=== PATIENT | female | born 1940 | race Caucasian/White ===

== ENCOUNTER → 2018-03-20 09:45 | Outpatient (CLI) | payer MEDICARE, SELFPAY | PROVIDERS: PCP Family Medicine; Visit Provider Orthopaedic Surgery | DX: M17.11 Unilateral primary osteoarthritis, right knee (principal); M25.461 Effusion, right knee | CPT/HCPCS: 20610; 99214; J1040 ==

== ENCOUNTER → 2018-03-22 02:51 | Outpatient (CLI) | payer MEDICARE, SELFPAY ==
[2018-03-22 14:49] LABS: Hemoglobin A1C 9.2 % (4.5-6.2)
[2018-03-22 17:19] LABS: ALT 24 U/L (12-78); AST 15 U/L (15-37); Albumin 4.1 g/dL (3.4-5.0); Alkaline Phosphatase 64 U/L (46-116); Anion Gap 12.3 mmol/L (3-11); BUN 47 mg/dL (7-18); Bilirubin, Total 0.3 mg/dL (0.2-1.0); CO2 23.7 mmol/L (21.0-32.0); Calcium 9.1 mg/dL (8.5-10.1); Chloride 98 mmol/L (98-107); Estimated GFR 31.34 (mL/min/1.73m2); Glucose 321 mg/dL (70-100); Potassium 5.2 mmol/L (3.5-5.1); Sodium 134 mmol/L (136-145); Total Protein 7.4 g/dL (6.4-8.2)
== END ==
PROVIDERS: PCP Family Medicine; Visit Provider Family Medicine
DX: E11.9 Type 2 diabetes mellitus without complications (principal); I10 Essential (primary) hypertension; E78.00 Pure hypercholesterolemia, unspecified; R53.83 Other fatigue
CPT/HCPCS: 36415; 80053; 82043; 82570; 83036

== ENCOUNTER → 2018-03-26 14:57 | Outpatient (REF) | payer MEDICARE, SELFPAY ==
[2018-03-26 15:25] LABS: COMMENT (LAB VIEW ONLY) 30.83 mg/dL
== END ==
LOC: LBN 14:57
PROVIDERS: PCP Family Medicine; Visit Provider Family Medicine
DX: E11.9 Type 2 diabetes mellitus without complications (principal); I10 Essential (primary) hypertension; E78.00 Pure hypercholesterolemia, unspecified; R53.83 Other fatigue
CPT/HCPCS: 82043; 82570

== ENCOUNTER → 2018-03-30 03:12 | Outpatient (CLI) | payer MEDICARE, SELFPAY ==
[2018-03-30 12:43] LABS: Abs Immature Grans 0.02 k/cumm (0.0-0.09); Absolute Basophil Count 0.04 k/cumm (0.0-0.2); Absolute Lymphocyte Count 1.35 k/cumm (1.2-3.4); Absolute Monocyte Count 0.47 k/cumm (0.11-0.7); Absolute Neutrophil Count 6.16 k/cumm (1.2-6.7); Basophils % 0.5; Eosinophils % 4.7; HCT 38.2 % (36.0-46.0); HGB 12.3 g/dL (12.0-15.5); Immature Grans % 0.2; Mean Corp. HGB Concentration 32.2 g/dL (32.0-36.0); Mean Corpuscular Volume 93.2 fL (80-95); Mean Platelet Volume 10.3 fL (8.0-11.0); Monocytes % 5.6; Platelet Count 280 x1000/uL (130-400); RBC Distribution Width 12.2 % (11.7-14.6); White Blood Cell Count 8.44 k/cumm (4.4-10.8)
[2018-03-30 13:16] LABS: ALT 26 U/L (12-78); AST 19 U/L (15-37); Albumin 3.9 g/dL (3.4-5.0); Alkaline Phosphatase 68 U/L (46-116); Anion Gap 8.2 mmol/L (3-11); BUN 40 mg/dL (7-18); Bilirubin, Total 0.4 mg/dL (0.2-1.0); CO2 26.8 mmol/L (21.0-32.0); CREATININE 1.41 mg/dL (0.55-1.02); Chloride 100 mmol/L (98-107); Estimated GFR 36.26 (mL/min/1.73m2); Glucose 256 mg/dL (70-100); Potassium 4.9 mmol/L (3.5-5.1); Sodium 135 mmol/L (136-145); Total Protein 7.3 g/dL (6.4-8.2)
== END ==
PROVIDERS: PCP Family Medicine; Visit Provider Family Medicine
DX: D64.9 Anemia, unspecified (principal); I10 Essential (primary) hypertension; N28.9 Disorder of kidney and ureter, unspecified
CPT/HCPCS: 36415; 80053; 85025

== ENCOUNTER → 2018-04-03 13:22 | Outpatient (CLI) | payer MEDICARE, SELFPAY ==
--- NOTE | 2018-04-03 13:00 | DIABASSESS_ITS ---
DESCRIPTION/ASSESSMENT: Osiris presents for diabetes support focused on lifestyle changes. She has had an increase in A1c to 9.2. Food Guidelines - Osiris admits to overeating over the past several months. She was feeling chronically hungry and recognizes her stress eating behaviors. She currently has cut back on her portions and snacking. She eats cereal, milk, banana or egg/toast. She has meat/cheese rollup for lunch, or yogurt. She has 3 oz meat for supper with vegetables. She has milk with each meal. She is drinking unsweetened iced tea and water. She feels good about the food changes she has made. She denies increased hunger. Physical Activity - She swims twice a week and does aerobics twice a week. She is physically active at home. She states she has pain from arthritis and bursitis but wishes to begin walking again. Medication - she has started Glipizide. Monitoring - fasting blood sugars have decreased from 368-155 this AM. Coping - she admits to high stress which is getting better. She has good social and family support. INTERVENTION: MNT is provided based on patients interest: Food: Reviewed diabetes food guide with focus on decreasing higher glycemic index foods. Discussed variety and snack ideas. Introduced mindful eating concepts given her stress eating response. Monitoring: Discussed testing blood sugar with an occasional test before bed or at another time of the day to assess current food patterns impact on blood sugar. Risks: Discussed potential for hypoglycemia with current medication and she is given hypoglycemia treatment handout. Discussed foot care briefly. ACTION PLAN: Osiris will decrease grains at breakfast especially. She will eat normal portions and wait for hunger to snack on her healthy snacks. She is receptive to the information and engaged in the conversation. We will be in touch by telephone for follow-up.
== END ==
PROVIDERS: PCP Family Medicine; Visit Provider Dietitian, Registered
DX: E11.9 Type 2 diabetes mellitus without complications (principal); Z71.3 Dietary counseling and surveillance
CPT/HCPCS: 97802

== ENCOUNTER 2018-04-30 10:50 | Emergency (ER) | payer MEDICARE, SELFPAY ==
[2018-04-30] VITALS (22 sets, daily range): BP systolic 121–162; BP diastolic 61–86; PULSE 65–129; RESP 7–39; TEMP 36.7–37.1; O2SAT 96–99
--- NOTE | 2018-04-30 11:02 | W.ED.GENAD ---
Discharge Plan Disposition Patient Disposition: HOME Condition: Stable Discharge Details Chief Complaint: Palpitatns Clinical Impression: Atrial fibrillation, Incidental pulmonary nodule, > 3mm and < 8mm Primary Care Provider: Ijeoma Najera ED Provider: Kellie Hay Home Meds and New Rx's Prescriptions: New apixaban [Eliquis] 5 mg tablet 5 mg PO BID Qty: 60 RF: 0 Continue multivitamin [Once Daily] 1 EACH tablet 1 tab PO DAILY RF: 0 ascorbic acid (vitamin C) 1,000 MG tablet 1,000 mg PO DAILY RF: 0 omeprazole 20 MG tablet,delayed release (DR/EC) 20 mg PO DAILY Qty: 90 RF: 12 dicyclomine [Bentyl] 10 MG capsule 10 mg PO BID PRNQty: 60 RF: 2 acetaminophen 500 MG tablet 500 mg PO TID PRNRF: 0 conjugated estrogens [Premarin] 30 GM cream 30 gm VG twice weekly Qty: 1 RF: 3 clotrimazole-betamethasone [Lotrisone] 15 GM cream 15 gm Topical BID Qty: 1 RF: 2 spironolactone 25 MG tablet 25 mg PO BID Qty: 180 RF: 12 atorvastatin [Lipitor] 40 MG tablet 40 mg PO DAILY Qty: 90 RF: 4 amlodipine 5 MG tablet 5 mg PO DAILY Qty: 90 RF: 12 losartan-hydrochlorothiazide [Hyzaar] 1 EACH tablet 1 tab-cap PO DAILY Qty: 90 RF: 4 glipizide 5 MG tablet extended release 24hr 5 mg PO DAILY Qty: 90 RF: 11 loratadine 10 MG tablet 10 mg PO DAILY RF: 0 Discontinued aspirin [Ecotrin Low Strength] 81 MG tablet,delayed release (DR/EC) 81 mg PO DAILY RF: 0 ibuprofen 200 MG tablet 400 mg PO TID RF: 0 Discharge Instructions Instructions: Atrial Fibrillation (ED), Holter Monitoring (ED) Additional Instructions: Please return immediately to the emergency department if you develop any new or worsening symptoms or if you become otherwise concerned. It is extremely important that you make an appointment to be seen by your primary care doctor and also by cardiology within the next 1-2 weeks in follow-up for this visit. Referrals: Ijeoma Najera MD, [place] [Primary Care Provider] - Herman Figueroa MD [ NON-[facility] STAFF PHYSICIAN] - Medical Decision Making Osiris Wilson is a 77 y/o woman with hypertension, hyperlipidemia, iob-[id number] diabetes who presented to the emergency department with episode of palpitations and lightheadedness morning. On exam she is well and nontoxic appearing. Her heart rate is tachycardic and irregularly irregular. On the rhythm strip patient initially in a flutter with a rate in the 80s, transiently went into A. fib with a rate in 160s and patient did not notice any symptoms at that time. This lasted for approximately 10 minutes, and rhythm converted spontaneously back to a flutter with a rate below 100. Concern for likely arrhythmia as etiology of symptoms this morning versus ACS versus metabolic/slight derangement versus other. Plan for EKG, chest x-ray, screening labs, IV fluid hydration, telemetry. Will monitor and reassess. I discussed patient presentation results with Dr. Figueroa of cardiology, who requested start on 5 mg of Eliquis twice daily and stop aspirin, zio patch, and begin metoprolol 25 mg twice daily, will see patient in follow-up this week. Patient now in sinus rhythm on rhythm strip. D-dimer positive. With no other inciting factor apparent at this time, plan for CT chest for further evaluation. Ct shows small pulm nodules, no PE. Repeat EKG shows NSR 63. I have significant concerns about starting patient on rate control medications at this time given heart rate now consistently 60-64. Will start Eliquis and hold rate control medications at this time. Patient placed on list for cardiology follow-up within 48 hours. Lengthy discussion with patient regarding return to emergency department precautions, anti-coagulation precautions, pulmonary nodules on CT and importance of outpatient follow-up with PCP and cardiology. Patient is amenable to the plan. Medical Records Medical records reviewed: Yes I reviewed the patient's medical records. Imaging Data Radiologic Study: Attestation: I personally reviewed and interpreted this imaging study as follows: Radiologist's impression: PA AND LATERAL CHEST: Comparison 05/30/12. The heart is normal in size. The lungs are clear. The mediastinal structures and pleura appear intact. CONCLUSION: Normal chest. CT chest per radiology: No pulmonary embolism identified, 5 mm and 4 mm pulmonary nodules right middle lobe Lab Data Lab results reviewed: Yes I reviewed the patient's lab results. 04/30/18 12:15 Urine - Reflex from Ua Urine Culture - Pending Laboratory Tests Range/Units 04/30/18 04/30/18 04/30/18 11:15 11:15 11:15 WBC (4.4-10.8) k/cumm 7.55 RBC (4.00-5.20) m/cumm 4.07 Hgb (12.0-15.5) g/dL 12.8 Hct (36.0-46.0) % 38.1 MCV (80-95) fL 93.6 MCH (27.0-33.0) pg 31.4 MCHC (32.0-36.0) g/dL 33.6 RDW (11.7-14.6) % 12.9 Plt Count (130-400) x1000/uL 290 MPV (8.0-11.0) fL 10.2 Immature Gran % 0.3 Neutrophils % 67.3 Lymphocytes % 15.6 Monocytes % 5.3 Eosinophils % 10.7 Basophils % 0.8 Absolute Neutrophils (1.2-6.7) k/cumm 5.08 Absolute Lymphocytes (1.2-3.4) k/cumm 1.18 L Absolute Monocytes (0.11-0.7) k/cumm 0.40 Absolute Eosinophils (0.0-0.7) k/cumm 0.81 H Absolute Basophils (0.0-0.2) k/cumm 0.06 D-Dimer (<500) ng/mlFEU 824 H Sodium (136-145) mmol/L 139 Potassium (3.5-5.1) mmol/L 4.3 Chloride (98-107) mmol/L 101 Carbon Dioxide (21.0-32.0) mmol/L 23.8 Anion Gap (3-11) mmol/L 14.2 H BUN (7-18) mg/dL 33 H Creatinine (0.55-1.02) mg/dL 1.26 H Estimated GFR/1.73 m2 (mL/min/1.73m2) 41.29 Glucose (70-100) mg/dL 169 H Calcium (8.5-10.1) mg/dL 9.4 Total Bilirubin (0.2-1.0) mg/dL 0.3 AST (15-37) U/L 19 ALT (12-78) U/L 29 Alkaline Phosphatase (46-116) U/L 53 Troponin I (0.00-0.06) ng/mL < 0.02 Total Protein (6.4-8.2) g/dL 7.5 Albumin (3.4-5.0) g/dL 3.9 Urine Color (Yellow) Urine Clarity Urine pH (5-8) Ur Specific [place] (1.005-1.025) Urine Protein (Negative) mg/dL Urine Ketones (Negative) mg/dL Urine Blood (Negative) Urine Nitrite (Negative) Urine Bilirubin (Negative) Urine Urobilinogen (Up TO 0.2) EU/dL Ur Leukocyte Esterase (Negative) Urine RBC (0-2) Urine WBC (0-5) HPF Ur Epithelial Cells (Negative) HPF Urine Crystals (Negative) HPF Urine Bacteria (Negative) HPF Urine Casts (Negative) LPF Urine Mucus (Negative) Ur Culture Indicated? Urine Glucose (Negative) mg/dL Range/Units 04/30/18 04/30/18 12:15 16:38 WBC (4.4-10.8) k/cumm RBC (4.00-5.20) m/cumm Hgb (12.0-15.5) g/dL Hct (36.0-46.0) % MCV (80-95) fL MCH (27.0-33.0) pg MCHC (32.0-36.0) g/dL RDW (11.7-14.6) % Plt Count (130-400) x1000/uL MPV (8.0-11.0) fL Immature Gran % Neutrophils % Lymphocytes % Monocytes % Eosinophils % Basophils % Absolute Neutrophils (1.2-6.7) k/cumm Absolute Lymphocytes (1.2-3.4) k/cumm Absolute Monocytes (0.11-0.7) k/cumm Absolute Eosinophils (0.0-0.7) k/cumm Absolute Basophils (0.0-0.2) k/cumm D-Dimer (<500) ng/mlFEU Sodium (136-145) mmol/L Potassium (3.5-5.1) mmol/L Chloride (98-107) mmol/L Carbon Dioxide (21.0-32.0) mmol/L Anion Gap (3-11) mmol/L BUN (7-18) mg/dL Creatinine (0.55-1.02) mg/dL Estimated GFR/1.73 m2 (mL/min/1.73m2) Glucose (70-100) mg/dL Calcium (8.5-10.1) mg/dL Total Bilirubin (0.2-1.0) mg/dL AST (15-37) U/L ALT (12-78) U/L Alkaline Phosphatase (46-116) U/L Troponin I (0.00-0.06) ng/mL < 0.02 Total Protein (6.4-8.2) g/dL Albumin (3.4-5.0) g/dL Urine Color (Yellow) Yellow Urine Clarity Clear Urine pH (5-8) 7.0 Ur Specific [place] (1.005-1.025) 1.015 Urine Protein (Negative) mg/dL Negative Urine Ketones (Negative) mg/dL Negative Urine Blood (Negative) Trace-intact H Urine Nitrite (Negative) Negative Urine Bilirubin (Negative) Negative Urine Urobilinogen (Up TO 0.2) EU/dL 0.2 Ur Leukocyte Esterase (Negative) Trace H Urine RBC (0-2) 0-2 Urine WBC (0-5) HPF 5-10 Ur Epithelial Cells (Negative) HPF Rare Urine Crystals (Negative) HPF Negative Urine Bacteria (Negative) HPF Moderate Urine Casts (Negative) LPF Negative Urine Mucus (Negative) Negative Ur Culture Indicated? Yes Urine Glucose (Negative) mg/dL Negative ECG Data Attestation: I personally reviewed and interpreted this ECG (s) as follows: Interpretation: EKG shows atrial flutter with variable response at 119, normal axis, diffuse ST depression, no STEMI EKG #2 shows NSR at 63 with nl axis, septal q waves, no acute ischemic changes, no WPW, no burgada, no long QT, no STEMI HPI General Mode of arrival: ambulatory. Date/Time Provider Initiated Documentation: 04/30/18 11:02. Limitations to Documentation: no limitations. Information obtained by: patient, RN notes reviewed and old records reviewed. HPI Narrative: Osiris Wilson is a 77-year-old womanwith a history of [id number] diabetes, hypertension, hyperlipidemia presenting to the emergency department with a feeling of being lightheaded with palpitations that began this morning at 930. Patient reports that she was helping her when she began to feel that she would pass out. She also noticed that her heart seemed to be racing. Patient reports that symptoms have been waxing and waning since onset. She reports that she may have had similar symptoms in the past, but she is unsure for how long symptoms lasted. Patient in and out of A. fib on rhythm strip, and does not always sense when she is in a fib with rapid rate in the 160s. This resolves spontaneously and converts to apparent a flutter with a rate below 100. Patient denies having any pain at any time, shortness of breath, cough, fever, nausea/vomiting/diarrhea, focal weakness, numbness or tingling. She has been eating and drinking normally. 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 She does not drink, has not smoked for greater than 50 years. No recent travel. Related Data Home Medications Medication Instructions Recorded Confirmed ascorbic acid (vitamin C) 1,000 mg PO DAILY 12/28/12 04/30/18 multivitamin [Once Daily] 1 tab PO DAILY 12/28/12 04/30/18 omeprazole 20 mg PO DAILY #90 tab 01/07/14 04/30/18 loratadine 10 mg PO DAILY 08/24/16 04/30/18 dicyclomine [Bentyl] 10 mg PO BID PRN #60 tab-cap 12/01/16 04/30/18 acetaminophen 500 mg PO TID PRN 04/11/17 04/30/18 conjugated estrogens [Premarin] 30 gm VG twice weekly #1 tube 04/25/17 04/30/18 clotrimazole-betamethasone 15 gm TOPICAL BID #1 tube 10/27/17 04/30/18 [Lotrisone] spironolactone 25 mg PO BID #180 tab-cap 11/09/17 04/30/18 amlodipine 5 mg PO DAILY #90 tab-cap 12/07/17 04/30/18 atorvastatin [Lipitor] 40 mg PO DAILY #90 tab-cap 12/07/17 04/30/18 losartan-hydrochlorothiazide 1 tab-cap PO DAILY #90 tab-cap 12/07/17 04/30/18 [Hyzaar] glipizide 5 mg PO DAILY #90 tab-cap 03/30/18 04/30/18 apixaban [Eliquis] 5 mg PO BID #60 tab 04/30/18 Previous Rx's Medication Instructions Recorded conjugated estrogens [Premarin] 30 gm VG twice weekly #1 tube 04/25/17 clotrimazole-betamethasone 15 gm TOPICAL BID #1 tube 10/27/17 [Lotrisone] spironolactone 25 mg PO BID #180 tab-cap 11/09/17 amlodipine 5 mg PO DAILY #90 tab-cap 12/07/17 atorvastatin [Lipitor] 40 mg PO DAILY #90 tab-cap 12/07/17 losartan-hydrochlorothiazide 1 tab-cap PO DAILY #90 tab-cap 12/07/17 [Hyzaar] glipizide 5 mg PO DAILY #90 tab-cap 03/30/18 apixaban [Eliquis] 5 mg PO BID #60 tab 04/30/18 Allergies Allergy/AdvReac Type Severity Reaction Status Date / Time Penicillins Allergy CHILDHOOD Unverified 04/30/18 11:21 clonidine AdvReac Unverified 04/30/18 11:21 gabapentin AdvReac Unverified 04/30/18 11:21 lisinopril AdvReac COUGH Unverified 04/30/18 11:21 morphine AdvReac VOMITING/DI Unverified 04/30/18 11:21 ARRHEA oxycodone HCl [From Percocet] AdvReac VOMITING/NA Unverified 04/30/18 11:21 USEA terazosin [From Hytrin] AdvReac Unverified 04/30/18 11:21 Review of Systems Review of Systems Constitutional: denies fevers Eyes: denies eye pain ENT: denies facial pain, dental pain, sore throat Cardiovascular: denies chest pain, edema, reports palpitation Respiratory: denies SOB, cough GI: denies abdominal pain, vomiting, diarrhea : denies flank pain MSK: denies back pain, neck pain, arthralgias, myalgias Skin: denies rash Neuro: denies headaches, weakness, reports lightheadedness PFSH Family History Mother Essential hypertension Personal history of malignant neoplasm Asthma Father Cerebrovascular accident Social History Smoking/Tobacco Use Status: Former Tobacco Use Surgical History Abdominal hysterectomy (~1997) Appendectomy Bilateral salpingectomy with oophorectomy Biopsy of breast (~1990) section Cholecystectomy DISCECTOMY Extraction of cataract Ligation of fallopian tube (~1997) MOHS Exam Narrative Exam Narrative: Constitutional: well and [id number], pleasant, conversing normally HENT: head atraumatic, normocephalic normal inspection, mucous membranes moist Eyes: conjunctiva normal, sclera normal, pupils 3mm b/l Neck: no stridor, normal ROM, trachea midline Chest: normal inspection Resp: normal work of breathing, LCTAB Cardio: no murmur appreciated, tachycardic, irregularly GI: abdomen soft, non-tender, non-distended Back: normal inspection, no rash Skin: warm, dry, normal color, no rash Neuro: alert, not altered, grossly non-focal, normal tone Ext: no edema Psych: normal mood, normal affect, normal behavior
--- NOTE | 2018-04-30 11:35 | DI.RAD_ITS ---
SYMPTOMS/DIAGNOSIS: NEW AFIB PA AND LATERAL CHEST: Comparison 05/30/12. The heart is normal in size. The lungs are clear. The mediastinal structures and pleura appear intact. CONCLUSION: Normal chest.
[2018-04-30 11:46] LABS: Abs Immature Grans 0.02 k/cumm (0.0-0.09); Absolute Basophil Count 0.06 k/cumm (0.0-0.2); Absolute Eosinophil Count 0.81 k/cumm (0.0-0.7); Absolute Lymphocyte Count 1.18 k/cumm (1.2-3.4); Absolute Neutrophil Count 5.08 k/cumm (1.2-6.7); Basophils % 0.8; Eosinophils % 10.7; HCT 38.1 % (36.0-46.0); HGB 12.8 g/dL (12.0-15.5); Immature Grans % 0.3; Lymphocytes % 15.6; Mean Corp. HGB Concentration 33.6 g/dL (32.0-36.0); Mean Corpuscular Hemoglobin 31.4 pg (27.0-33.0); Mean Corpuscular Volume 93.6 fL (80-95); Mean Platelet Volume 10.2 fL (8.0-11.0); Monocytes % 5.3; Neutrophils % 67.3; Platelet Count 290 x1000/uL (130-400); RBC 4.07 m/cumm (4.00-5.20); RBC Distribution Width 12.9 % (11.7-14.6); White Blood Cell Count 7.55 k/cumm (4.4-10.8)
[2018-04-30 12:06] LABS: ALT 29 U/L (12-78); AST 19 U/L (15-37); Albumin 3.9 g/dL (3.4-5.0); Alkaline Phosphatase 53 U/L (46-116); Anion Gap 14.2 mmol/L (3-11); BUN 33 mg/dL (7-18); Bilirubin, Total 0.3 mg/dL (0.2-1.0); CO2 23.8 mmol/L (21.0-32.0); CREATININE 1.26 mg/dL (0.55-1.02); Calcium 9.4 mg/dL (8.5-10.1); Chloride 101 mmol/L (98-107); Estimated GFR 41.29 (mL/min/1.73m2); Glucose 169 mg/dL (70-100); Potassium 4.3 mmol/L (3.5-5.1); Sodium 139 mmol/L (136-145); Total Protein 7.5 g/dL (6.4-8.2)
[2018-04-30 12:07] LABS: Troponin I < 0.02 ng/mL (0.00-0.06)
--- NOTE | 2018-04-30 12:13 | ED.GENADUL_ITS ---
Discharge Plan Disposition Patient Disposition: HOME Condition: Stable Discharge Details Chief Complaint: Palpitatns Clinical Impression: Atrial fibrillation, Incidental pulmonary nodule, > 3mm and < 8mm Primary Care Provider: Ijeoma Najera ED Provider: Kellie Hay Home Meds and New Rx's Prescriptions: New apixaban [Eliquis] 5 mg tablet 5 mg PO BID Qty: 60 RF: 0 Continue multivitamin [Once Daily] 1 EACH tablet 1 tab PO DAILY RF: 0 ascorbic acid (vitamin C) 1,000 MG tablet 1,000 mg PO DAILY RF: 0 omeprazole 20 MG tablet,delayed release (DR/EC) 20 mg PO DAILY Qty: 90 RF: 12 dicyclomine [Bentyl] 10 MG capsule 10 mg PO BID PRNQty: 60 RF: 2 acetaminophen 500 MG tablet 500 mg PO TID PRNRF: 0 conjugated estrogens [Premarin] 30 GM cream 30 gm VG twice weekly Qty: 1 RF: 3 clotrimazole-betamethasone [Lotrisone] 15 GM cream 15 gm Topical BID Qty: 1 RF: 2 spironolactone 25 MG tablet 25 mg PO BID Qty: 180 RF: 12 atorvastatin [Lipitor] 40 MG tablet 40 mg PO DAILY Qty: 90 RF: 4 amlodipine 5 MG tablet 5 mg PO DAILY Qty: 90 RF: 12 losartan-hydrochlorothiazide [Hyzaar] 1 EACH tablet 1 tab-cap PO DAILY Qty: 90 RF: 4 glipizide 5 MG tablet extended release 24hr 5 mg PO DAILY Qty: 90 RF: 11 loratadine 10 MG tablet 10 mg PO DAILY RF: 0 Discontinued aspirin [Ecotrin Low Strength] 81 MG tablet,delayed release (DR/EC) 81 mg PO DAILY RF: 0 ibuprofen 200 MG tablet 400 mg PO TID RF: 0 Discharge Instructions Instructions: Atrial Fibrillation (ED), Holter Monitoring (ED) Additional Instructions: Please return immediately to the emergency department if you develop any new or worsening symptoms or if you become otherwise concerned. It is extremely important that you make an appointment to be seen by your primary care doctor and also by cardiology within the next 1-2 weeks in follow-up for this visit. Referrals: Ijeoma Najera MD, [place] [Primary Care Provider] - Herman Figueroa MD [ [facility] STAFF PHYSICIAN] - Medical Decision Making Osiris Wilson is a 77 y/o woman with hypertension, hyperlipidemia, non-insulin- dependent diabetes who presented to the emergency department with episode of palpitations and lightheadedness morning. On exam she is well and nontoxic appearing. Her heart rate is tachycardic and irregularly irregular. On the rhythm strip patient initially in a flutter with a rate in the 80s, transiently went into A. fib with a rate in 160s and patient did not notice any symptoms at that time. This lasted for approximately 10 minutes, and rhythm converted spontaneously back to a flutter with a rate below 100. Concern for likely arrhythmia as etiology of symptoms this morning versus ACS versus metabolic/ slight derangement versus other. Plan for EKG, chest x-ray, screening labs, IV fluid hydration, telemetry. Will monitor and reassess. I discussed patient presentation results with Dr. Figueroa of cardiology, who requested start on 5 mg of Eliquis twice daily and stop aspirin, zio patch, and begin metoprolol 25 mg twice daily, will see patient in follow-up this week. Patient now in sinus rhythm on rhythm strip. D-dimer positive. With no other inciting factor apparent at this time, plan for CT chest for further evaluation. Ct shows small pulm nodules, no PE. Repeat EKG shows NSR 63. I have significant concerns about starting patient on rate control medications at this time given heart rate now consistently 60-64. Will start Eliquis and hold rate control medications at this time. Patient placed on list for cardiology follow- up within 48 hours. Lengthy discussion with patient regarding return to emergency department precautions, anti-coagulation precautions, pulmonary nodules on CT and importance of outpatient follow-up with PCP and cardiology. Patient is amenable to the plan. Medical Records Medical records reviewed: Yes I reviewed the patient's medical records. Imaging Data Radiologic Study: Attestation: I personally reviewed and interpreted this imaging study as follows: Radiologist's impression: PA AND LATERAL CHEST: Comparison 05/30/12. The heart is normal in size. The lungs are clear. The mediastinal structures and pleura appear intact. CONCLUSION: Normal chest. CT chest per radiology: No pulmonary embolism identified, 5 mm and 4 mm pulmonary nodules right middle lobe Lab Data Lab results reviewed: Yes I reviewed the patient's lab results. 04/30/18 12:15 Urine - Reflex from Ua Urine Culture - Pending Laboratory Tests Range/Units 04/30/18 04/30/18 04/30/18 11:15 11:15 11:15 WBC (4.4-10.8) k/cumm 7.55 RBC (4.00-5.20) m/cumm 4.07 Hgb (12.0-15.5) g/dL 12.8 Hct (36.0-46.0) % 38.1 MCV (80-95) fL 93.6 MCH (27.0-33.0) pg 31.4 MCHC (32.0-36.0) g/dL 33.6 RDW (11.7-14.6) % 12.9 Plt Count (130-400) x1000/uL 290 MPV (8.0-11.0) fL 10.2 Immature Gran % 0.3 Neutrophils % 67.3 Lymphocytes % 15.6 Monocytes % 5.3 Eosinophils % 10.7 Basophils % 0.8 Absolute Neutrophils (1.2-6.7) k/cumm 5.08 Absolute Lymphocytes (1.2-3.4) k/cumm 1.18 L Absolute Monocytes (0.11-0.7) k/cumm 0.40 Absolute Eosinophils (0.0-0.7) k/cumm 0.81 H Absolute Basophils (0.0-0.2) k/cumm 0.06 D-Dimer (<500) ng/mlFEU 824 H Sodium (136-145) mmol/L 139 Potassium (3.5-5.1) mmol/L 4.3 Chloride (98-107) mmol/L 101 Carbon Dioxide (21.0-32.0) mmol/L 23.8 Anion Gap (3-11) mmol/L 14.2 H BUN (7-18) mg/dL 33 H Creatinine (0.55-1.02) mg/dL 1.26 H Estimated GFR/1.73 m2 (mL/min/1.73m2) 41.29 Glucose (70-100) mg/dL 169 H Calcium (8.5-10.1) mg/dL 9.4 Total Bilirubin (0.2-1.0) mg/dL 0.3 AST (15-37) U/L 19 ALT (12-78) U/L 29 Alkaline Phosphatase (46-116) U/L 53 Troponin I (0.00-0.06) ng/mL < 0.02 Total Protein (6.4-8.2) g/dL 7.5 Albumin (3.4-5.0) g/dL 3.9 Urine Color (Yellow) Urine Clarity Urine pH (5-8) Ur Specific Belden (1.005-1.025) Urine Protein (Negative) mg/dL Urine Ketones (Negative) mg/dL Urine Blood (Negative) Urine Nitrite (Negative) Urine Bilirubin (Negative) Urine Urobilinogen (Up TO 0.2) EU/dL Ur Leukocyte Esterase (Negative) Urine RBC (0-2) Urine WBC (0-5) HPF Ur Epithelial Cells (Negative) HPF Urine Crystals (Negative) HPF Urine Bacteria (Negative) HPF Urine Casts (Negative) LPF Urine Mucus (Negative) Ur Culture Indicated? Urine Glucose (Negative) mg/dL Range/Units 04/30/18 04/30/18 12:15 16:38 WBC (4.4-10.8) k/cumm RBC (4.00-5.20) m/cumm Hgb (12.0-15.5) g/dL Hct (36.0-46.0) % MCV (80-95) fL MCH (27.0-33.0) pg MCHC (32.0-36.0) g/dL RDW (11.7-14.6) % Plt Count (130-400) x1000/uL MPV (8.0-11.0) fL Immature Gran % Neutrophils % Lymphocytes % Monocytes % Eosinophils % Basophils % Absolute Neutrophils (1.2-6.7) k/cumm Absolute Lymphocytes (1.2-3.4) k/cumm Absolute Monocytes (0.11-0.7) k/cumm Absolute Eosinophils (0.0-0.7) k/cumm Absolute Basophils (0.0-0.2) k/cumm D-Dimer (<500) ng/mlFEU Sodium (136-145) mmol/L Potassium (3.5-5.1) mmol/L Chloride (98-107) mmol/L Carbon Dioxide (21.0-32.0) mmol/L Anion Gap (3-11) mmol/L BUN (7-18) mg/dL Creatinine (0.55-1.02) mg/dL Estimated GFR/1.73 m2 (mL/min/1.73m2) Glucose (70-100) mg/dL Calcium (8.5-10.1) mg/dL Total Bilirubin (0.2-1.0) mg/dL AST (15-37) U/L ALT (12-78) U/L Alkaline Phosphatase (46-116) U/L Troponin I (0.00-0.06) ng/mL < 0.02 Total Protein (6.4-8.2) g/dL Albumin (3.4-5.0) g/dL Urine Color (Yellow) Yellow Urine Clarity Clear Urine pH (5-8) 7.0 Ur Specific Belden (1.005-1.025) 1.015 Urine Protein (Negative) mg/dL Negative Urine Ketones (Negative) mg/dL Negative Urine Blood (Negative) Trace-intact H Urine Nitrite (Negative) Negative Urine Bilirubin (Negative) Negative Urine Urobilinogen (Up TO 0.2) EU/dL 0.2 Ur Leukocyte Esterase (Negative) Trace H Urine RBC (0-2) 0-2 Urine WBC (0-5) HPF 5-10 Ur Epithelial Cells (Negative) HPF Rare Urine Crystals (Negative) HPF Negative Urine Bacteria (Negative) HPF Moderate Urine Casts (Negative) LPF Negative Urine Mucus (Negative) Negative Ur Culture Indicated? Yes Urine Glucose (Negative) mg/dL Negative ECG Data Attestation: I personally reviewed and interpreted this ECG (s) as follows: Interpretation: EKG shows atrial flutter with variable response at 119, normal axis, diffuse ST depression, no STEMI EKG #2 shows NSR at 63 with nl axis, septal q waves, no acute ischemic changes, no WPW, no burgada, no long QT, no STEMI HPI General Mode of arrival: ambulatory . Date/Time Provider Initiated Documentation: 04/30/18 11:02 . Limitations to Documentation: no limitations . Information obtained by: patient, RN notes reviewed and old records reviewed . HPI Narrative: Osiris Wilson is a 77-year-old womanwith a history of non- insulin-dependent diabetes, hypertension, hyperlipidemia presenting to the emergency department with a feeling of being lightheaded with palpitations that began this morning at 930. Patient reports that she was helping her when she began to feel that she would pass out. She also noticed that her heart seemed to be racing. Patient reports that symptoms have been waxing and waning since onset. She reports that she may have had similar symptoms in the past, but she is unsure for how long symptoms lasted. Patient in and out of A. fib on rhythm strip, and does not always sense when she is in a fib with rapid rate in the 160s. This resolves spontaneously and converts to apparent a flutter with a rate below 100. Patient denies having any pain at any time, shortness of breath, cough, fever, nausea/vomiting/diarrhea, focal weakness, numbness or tingling. She has been eating and drinking normally. 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 She does not drink, has not smoked for greater than 50 years. No recent travel. Related Data Home Medications Medication Instructions Recorded Confirmed ascorbic acid (vitamin C) 1,000 mg PO DAILY 12/28/12 04/30/18 multivitamin [Once Daily] 1 tab PO DAILY 12/28/12 04/30/18 omeprazole 20 mg PO DAILY #90 tab 01/07/14 04/30/18 loratadine 10 mg PO DAILY 08/24/16 04/30/18 dicyclomine [Bentyl] 10 mg PO BID PRN #60 tab-cap 12/01/16 04/30/18 acetaminophen 500 mg PO TID PRN 04/11/17 04/30/18 conjugated estrogens [Premarin] 30 gm VG twice weekly #1 tube 04/25/17 04/30/18 clotrimazole-betamethasone 15 gm TOPICAL BID #1 tube 10/27/17 04/30/18 [Lotrisone] spironolactone 25 mg PO BID #180 tab-cap 11/09/17 04/30/18 amlodipine 5 mg PO DAILY #90 tab-cap 12/07/17 04/30/18 atorvastatin [Lipitor] 40 mg PO DAILY #90 tab-cap 12/07/17 04/30/18 losartan-hydrochlorothiazide 1 tab-cap PO DAILY #90 tab-cap 12/07/17 04/30/18 [Hyzaar] glipizide 5 mg PO DAILY #90 tab-cap 03/30/18 04/30/18 apixaban [Eliquis] 5 mg PO BID #60 tab 04/30/18 Previous Rx's Medication Instructions Recorded conjugated estrogens [Premarin] 30 gm VG twice weekly #1 tube 04/25/17 clotrimazole-betamethasone 15 gm TOPICAL BID #1 tube 10/27/17 [Lotrisone] spironolactone 25 mg PO BID #180 tab-cap 11/09/17 amlodipine 5 mg PO DAILY #90 tab-cap 12/07/17 atorvastatin [Lipitor] 40 mg PO DAILY #90 tab-cap 12/07/17 losartan-hydrochlorothiazide 1 tab-cap PO DAILY #90 tab-cap 12/07/17 [Hyzaar] glipizide 5 mg PO DAILY #90 tab-cap 03/30/18 apixaban [Eliquis] 5 mg PO BID #60 tab 04/30/18 Allergies Allergy/AdvReac Type Severity Reaction Status Date / Time Penicillins Allergy CHILDHOOD Unverified 04/30/18 11:21 clonidine AdvReac Unverified 04/30/18 11:21 gabapentin AdvReac Unverified 04/30/18 11:21 lisinopril AdvReac COUGH Unverified 04/30/18 11:21 morphine AdvReac VOMITING/DI Unverified 04/30/18 11:21 ARRHEA oxycodone HCl [From Percocet] AdvReac VOMITING/NA Unverified 04/30/18 11:21 USEA terazosin [From Hytrin] AdvReac Unverified 04/30/18 11:21 Review of Systems Review of Systems Constitutional: denies fevers Eyes: denies eye pain ENT: denies facial pain, dental pain, sore throat Cardiovascular: denies chest pain, edema, reports palpitation Respiratory: denies SOB, cough GI: denies abdominal pain, vomiting, diarrhea : denies flank pain MSK: denies back pain, neck pain, arthralgias, myalgias Skin: denies rash Neuro: denies headaches, weakness, reports lightheadedness PFSH Family History Mother Essential hypertension Personal history of malignant neoplasm Asthma Father Cerebrovascular accident Social History Smoking/Tobacco Use Status: Former Tobacco Use Surgical History Abdominal hysterectomy (~1997) Appendectomy Bilateral salpingectomy with oophorectomy Biopsy of breast (~1990) section Cholecystectomy DISCECTOMY Extraction of cataract Ligation of fallopian tube (~1997) MOHS Exam Narrative Exam Narrative: Constitutional: well and [id number], pleasant, conversing normally HENT: head atraumatic, normocephalic normal inspection, mucous membranes moist Eyes: conjunctiva normal, sclera normal, pupils 3mm b/l Neck: no stridor, normal ROM, trachea midline Chest: normal inspection Resp: normal work of breathing, LCTAB Cardio: no murmur appreciated, tachycardic, irregularly GI: abdomen soft, non-tender, non-distended Back: normal inspection, no rash Skin: warm, dry, normal color, no rash Neuro: alert, not altered, grossly non-focal, normal tone Ext: no edema Psych: normal mood, normal affect, normal behavior
[2018-04-30 12:20] LABS: D-Dimer 824 ng/mlFEU (<500)
[2018-04-30 12:26] LABS: Bilirubin Negative (Negative); Blood Trace-intact (Negative); Clarity Clear; Glucose Negative (Negative); Ketones Negative (Negative); Leukocyte Esterase Trace (Negative); Nitrite Negative (Negative); Specific Gravity 1.015 (1.005-1.025); Urobilinogen 0.2 EU/dL (Up TO 0.2)
[2018-04-30 12:37] LABS: Bacteria Moderate HPF (Negative); C & S Indicated? Yes; Casts Negative LPF (Negative); Crystals Negative HPF (Negative); Epithelial Cells Rare HPF (Negative); Mucus Negative (Negative); RBC 0-2 (0-2)
--- NOTE | 2018-04-30 15:27 | DI.CT_ITS ---
SYMPTOM/DIAGNOSIS: TACHYCARDIA PE CHEST CT: CT angiography was performed with multi slice acquisition and multi planar and 3D reconstruction. CT scan of the chest was performed according to the pulmonary embolus protocol. There are no priors for comparison. Comparison chest xray is 04/30/18. There is no evidence of a pulmonary embolus. The thoracic aorta is of normal caliber. No aneurysm or dissection is seen. Heart size is within normal limits. No significant pericardial effusion is present. No findings to suggest right ventricular dysfunction are seen. Coronary artery calcifications are identified. No significant thoracic adenopathy is present. No pleural effusion or pneumothorax is identified. There are two nodules seen in the right middle lobe, the more superior nodule measures .5 cm., the more inferior nodule measures .4 cm. No focal infiltrates are seen. The tracheobronchial tree is unremarkable. Degenerative changes are seen in the spine. The upper abdominal images show the patient is status post cholecystectomy. IMPRESSION: 1. No evidence of pulmonary embolus, thoracic aortic dissection or aneurysm. 2. Two non calcified right middle lobe pulmonary nodules. Follow up as clinically appropriate considering the patient's history including the presence or absence of a smoking history.
[2018-04-30] MEDS: Normal Saline 500 ML IV (15:42)
[2018-04-30] MEDS: Omnipaque 350 MG/ML 100 ML BTL IJ (16:20)
--- NOTE | 2018-04-30 16:56 | DI.VRAD_ITS ---
EXAM: CT Angiography Chest With Intravenous Contrast EXAM DATE/TIME: 04/30/2018 3:29 PM CLINICAL HISTORY: 77 years old, female; Signs and symptoms; Other: Tachycardia TECHNIQUE: Axial computed tomographic angiography images of the chest with intravenous contrast using CT angiography protocol. Coronal and sagittal reformatted images were created and reviewed. MIP reconstructed images were created and reviewed. COMPARISON: CR XR CHEST 2V PA LATERAL 04/30/2018 11:42 AM FINDINGS: Pulmonary arteries: No pulmonary embolism identified. Aorta: Aorta demonstrates mild atherosclerotic calcification. Lungs: 5 mm and 4 mm pulmonary nodules right middle lobe. Pleural space: Normal. No pneumothorax. No pleural effusion. Heart: Coronary artery calcifications are noted. Bones/joints: Unremarkable. No acute fracture. Soft tissues: Unremarkable. Lymph nodes: Unremarkable. No enlarged lymph nodes. Gallbladder and bile ducts: No consolidation.Gallbladder surgically absent. IMPRESSION: 1. No pulmonary embolism identified. 2. 5 mm and 4 mm pulmonary nodules right middle lobe. Dictated and Authenticated by: Morteza Ramos MD. Ordering:PIETRO OCAMPO MD
[2018-04-30 17:00] LABS: Troponin I < 0.02 ng/mL (0.00-0.06)
[2018-04-30] MEDS: Apixaban 5 MG TAB PO (17:22)
--- NOTE | 2018-05-01 09:04 | PDOC.ERCMPRO ---
Care Management Progress Note 05/01/18-Pt seen on 04/30/[address] Tracy Hay with new onset Afib. F/U with 48 hours request faxed to Cardiology.
--- NOTE | 2018-05-25 07:20 | ZIOP_ITS ---
ZIO Patch INTERPRETATION DATE OF DICTATION May 24, 2018 Analysis time 13 days. INDICATION - Atrial fibrillation. Predominant underlying rhythm is sinus rhythm. Average heart rate 67 beats per minute. Minimum heart rate 47 beats per minute. Maximum heart rate is 193 beats per minute. 20 beats of SVT. The run with the fastest interval lasting 4 beats at a heart rate over 193 beats per minute. The longest run of SVT is 12.2 seconds with an average heart rate of 108 beats per minute. Occasional isolated atrial ectopy accounting for 3.8% of burden. Rare isolated ventricular ectopy. No nonsustained VT. No significant pauses or melissa arrhythmia. No patient triggered events or diary entries. No atrial fibrillation detected. Anabel Keith M.D. AKILAH/curt T - 05/25/2018
== END 2018-04-30 18:40 | disposition home or self-care (01) ==
PROVIDERS: Emergency Provider Student in an Organized Health Care Education/Training Program; PCP Family Medicine
DX: I48.91 Unspecified atrial fibrillation (principal); R91.1 Solitary pulmonary nodule; R79.1 Abnormal coagulation profile; E11.9 Type 2 diabetes mellitus without complications; Z79.84 Long term (current) use of oral hypoglycemic drugs; I10 Essential (primary) hypertension
CPT/HCPCS: 36415; 71275; 80053; 93005; 93225; 96360; 96361; 99285; 71046; 81003; 81015; 84484; 85025; 85379; 87086; 93010; J3490

== ENCOUNTER → 2018-05-03 09:52 | Outpatient (BNVA) | payer MEDICARE, SELFPAY | PROVIDERS: PCP Family Medicine; Visit Provider Internal Medicine Cardiovascular Disease | DX: I48.0 Paroxysmal atrial fibrillation (principal); I12.9 Hypertensive chronic kidney disease with stage 1 through stage 4 chronic kidney disease, or unspecified chronic kidney disease; E11.22 Type 2 diabetes mellitus with diabetic chronic kidney disease; N18.9 Chronic kidney disease, unspecified; E78.5 Hyperlipidemia, unspecified; Z79.01 Long term (current) use of anticoagulants | CPT/HCPCS: 99204; 99215 ==

== ENCOUNTER 2018-05-23 01:04 | Outpatient (CLI) | payer MEDICARE, SELFPAY ==
--- NOTE | 2018-05-23 14:00 | MERGE_ITS ---
*[facility]* *[facility]* [address] [place] [address] Date of study: 05/23/2018 Transthoracic Echocardiography M-mode, complete 2D, complete spectral Doppler, and color Doppler *STUDY CONCLUSIONS* Impressions: Compared to the prior study, there has been no significant interval change. Summary: 1. Left ventricle: The cavity size was normal. Wall thickness was increased increased in a pattern of mild to moderate LVH. Systolic function was hyperdynamic. The estimated ejection fraction was 65-70%. There was no dynamic obstruction. Wall motion was normal; there were no regional wall motion abnormalities. Findings consistent with diastolic dysfunction. 2. Aortic valve: There was trivial regurgitation. 3. Left atrium: The atrium was mildly dilated. 4. Right ventricle: The cavity size was normal. Wall thickness was normal. Systolic function was normal. *PATIENT PRESENTATION* Height: 167.6cm ((66in) ) S/D Pressure: 124 / 67 Weight: 84.8kg ((186.6lb) ) BSA: 2.01m^2 Test start time: 02:15 PM. Test stop time: 03:15 PM. ORDERING Ijeoma Najera REFERRING Ijeoma Najera PERFORMING Unknown PERFORMING [facility] GROCERY MANAGER RT Argelia Miramontes)(ALLIE)PAULY *PROCEDURE DATA* Procedure information: The patient was identified by two identifiers. This study was interpreted by [facility]. Pertinent images and digital data are archived for permanent storage and are available for subsequent review. Comparison was made to the study of 09/20/2016. Study status: Routine. Transthoracic echocardiography. M-mode, complete 2D, complete spectral Doppler, and color Doppler. A Transthoracic Echocardiogram was performed. Scanning was performed from the parasternal, apical, subcostal, and suprasternal notch acoustic windows. Images were obtained using an [id number] cardiac ultrasound machine. Image quality was adequate. Study completion: The patient tolerated the procedure well. History: PMH: Afib. *CARDIAC ANATOMY* Left ventricle: The cavity size was normal. Wall thickness was increased increased in a pattern of mild to moderate LVH. Systolic function was hyperdynamic. The estimated ejection fraction was 65-70%. There was no dynamic obstruction. Wall motion was normal; there were no regional wall motion abnormalities. Findings consistent with diastolic dysfunction. Aortic valve: Trileaflet; mildly thickened leaflets. Mobility was not restricted. Doppler: Transvalvular velocity was within the normal range. There was no stenosis. There was trivial regurgitation. VTI ratio of LVOT to aortic valve: 0.92. Valve area (VTI): 2.6cm^2. Indexed valve area (VTI): 1.3cm^2/m^2. Peak velocity ratio of LVOT to aortic valve: 0.76. Valve area (Vmax): 2.2cm^2. Indexed valve area (Vmax): 1.1cm^2/m^2. Mean velocity ratio of LVOT to aortic valve: 0.95. Valve area (Vmean): 2.7cm^2. Indexed valve area (Vmean): 1.3cm^2/m^2. Mean gradient (S): 7.1mm Hg. Peak gradient (S): 15.3mm Hg. Aorta: Aortic root: The aortic root was normal in size. Ascending aorta: The ascending aorta was normal in size. Mitral valve: Mildly calcified annulus. Mobility was not restricted. Doppler: Transvalvular velocity was within the normal range. There was no evidence for stenosis. There was trivial regurgitation. Valve area by pressure half-time: 2.7cm^2. Indexed valve area by pressure half-time: 1.3cm^2/m^2. Peak gradient (D): 3.3mm Hg. Left atrium: The atrium was mildly dilated. Right ventricle: The cavity size was normal. Wall thickness was normal. Systolic function was normal. Pulmonic valve: The pulmonary valve appears to be grossly normal. Doppler: Transvalvular velocity was within the normal range. There was no evidence for stenosis. There was no significant regurgitation. Peak gradient (S): 4.1mm Hg. Tricuspid valve: Structurally normal valve. Doppler: Transvalvular velocity was within the normal range. There was no evidence for stenosis. There was mild regurgitation. Pulmonary artery: Pulmonary systolic pressure was within the normal range, in the range of 30mm Hg to 35mm Hg. Right atrium: The atrium was normal in size. Pericardium: There was no pericardial effusion. Systemic veins: Inferior vena cava: Well visualized. The vessel was patent and normal in size. The respirophasic diameter changes were in the normal range (greater than or equal to 50%). Baseline ECG: Normal sinus rhythm. Measurements Left ventricle Value 09/20/2016 Reference LV ID, ED, PLAX 4.3 cm 4.3 3.5 - 6.0 LV ID, ES, PLAX 2.6 cm 2.7 2.1 - 4.0 LV PW thickness, ED, PLAX 1.2 cm 1.2 LV end-diastolic volume, 62 ml 1-p A2C LV ejection fraction, 1-p 78 % 51 A2C LV end-diastolic volume, 93 ml 1-p A4C LV ejection fraction, 1-p 66 % 64 A4C LV e', lateral 0.073 m/sec LV E/e', lateral 13 LV e', medial 0.07 m/sec LV E/e', medial 13 LV e', average 0.071 m/sec LV E/e', average 13 Ventricular septum Value 09/20/2016 Reference IVS thickness, ED, PLAX 1.4 cm 1.4 LVOT Value 09/20/2016 Reference LVOT ID, A-P 1.9 cm 1.9 LVOT area 2.9 cm^2 2.9 LVOT peak velocity, S 1.49 m/sec 1.32 LVOT mean velocity, S 1.17 m/sec LVOT VTI, S 38.6 cm 34.8 LVOT peak gradient, S 8.9 mm Hg 7 LVOT mean gradient, S 5.8 mm Hg 3.2 Stroke volume (SV), LVOT 110 ml DP Stroke index (SV/bsa), 55 ml/m^2 LVOT DP Aortic valve Value 09/20/2016 Reference Aortic valve peak 2 m/sec velocity, S Aortic valve mean 1.24 m/sec velocity, S Aortic valve VTI, S 42.0 cm Aortic mean gradient, S 7.1 mm Hg 6 Aortic peak gradient, S 15.3 mm Hg 10 VTI ratio, LVOT/AV 0.92 Aortic valve area, VTI 2.6 cm^2 2.7 Velocity ratio, peak, 0.76 LVOT/AV Aortic valve area, peak 2.2 cm^2 2.1 velocity Velocity ratio, mean, 0.95 LVOT/AV Aortic valve area, mean 2.7 cm^2 velocity Aortic valve area/bsa, 1.3 cm^2/m^2 mean velocity Aorta Value 09/20/2016 Reference Aortic root ID, ED 3.3 cm 3.3 Ascending aorta ID, A-P, S 3.4 cm 3.3 Left atrium Value 09/20/2016 Reference LA ID, A-P, ES 3.6 cm LA ID/bsa, A-P 1.8 cm/m^2 <=2.2 LA area, ES, A4C 23.1 cm^2 24 8.8 - 23.4 LA area, ES, A2C 22 cm^2 LA volume/bsa, ES, 1-p A4C 35 ml/m^2 40 LA volume, ES, 2-p 69 ml LA volume/bsa, ES, 2-p 34 ml/m^2 LA/aortic root ratio 1.1 1.22 Mitral valve Value 09/20/2016 Reference Mitral E-wave peak 0.91 m/sec 0.84 velocity Mitral A-wave peak 1.21 m/sec 0.98 velocity Mitral deceleration time (H) 285 ms 150 - 230 Mitral pressure half-time 83 ms 89 Mitral peak gradient, D 3.3 mm Hg 2.8 Mitral E/A ratio, peak 0.75 0.85 Mitral valve area, PHT, DP 2.7 cm^2 2.5 Pulmonary veins Value 09/20/2016 Reference Pulmonary vein peak 0.82 m/sec 0.8 velocity, S Pulmonary vein peak 0.59 m/sec 0.54 velocity, D Pulmonary vein velocity 1.39 1.49 ratio, peak, S/D Tricuspid valve Value 09/20/2016 Reference Tricuspid regurg peak 3.1 m/sec 2.4 velocity Tricuspid peak RV-RA 37.6 mm Hg 24 gradient Right atrium Value 09/20/2016 Reference RA area, ES, A4C 15.2 cm^2 16 8.3 - 19.5 Pulmonic valve Value 09/20/2016 Reference Pulmonic peak gradient, S 4.1 mm Hg 4.3 Legend: (L) and (H) deann values outside specified reference range. I have personally reviewed the images and have reviewed and edited the reported findings. Electronically signed by Yobany Giang 05/24/2018 08:25
== END 2018-05-23 01:24 ==
PROVIDERS: PCP Family Medicine; Visit Provider Family Medicine
DX: I48.91 Unspecified atrial fibrillation (principal); I35.1 Nonrheumatic aortic (valve) insufficiency; I51.7 Cardiomegaly; I10 Essential (primary) hypertension
CPT/HCPCS: 93306

== ENCOUNTER 2018-05-24 12:00 | Outpatient (CLI) | payer MEDICARE, SELFPAY | END 2018-05-24 12:20 | PROVIDERS: PCP Family Medicine; Visit Provider Internal Medicine Cardiovascular Disease | DX: I48.91 Unspecified atrial fibrillation (principal); I47.1 Supraventricular tachycardia | CPT/HCPCS: 0298T ==

== ENCOUNTER 2018-06-13 01:52 | Outpatient (CLI) | payer MEDICARE, SELFPAY ==
[2018-06-13 11:20] LABS: Hemoglobin A1C 6.8 % (4.5-6.2)
[2018-06-13 12:26] LABS: TSH (W/Ref FT4) 1.81 uIU/mL (0.358-3.74)
== END 2018-06-13 02:12 ==
PROVIDERS: PCP Family Medicine; Visit Provider Family Medicine
DX: E11.9 Type 2 diabetes mellitus without complications (principal); I48.91 Unspecified atrial fibrillation
CPT/HCPCS: 36415; 83036; 84443

== ENCOUNTER 2018-11-01 00:20 | Outpatient (CLI) | payer MEDICARE, SELFPAY ==
--- NOTE | 2018-11-01 10:35 | MERGE_ITS ---
*[facility]* *[facility]* [address] [place] [address] Date of study: 11/01/2018 Transthoracic Echocardiography M-mode, complete 2D, complete spectral Doppler, and color Doppler *STUDY CONCLUSIONS* Summary: 1. Left ventricle: The cavity size was normal. Wall thickness was increased in a pattern of moderate LVH. Systolic function was hyperdynamic. The estimated ejection fraction was 65-70%. Findings consistent with diastolic dysfunction. There was no evidence of elevated ventricular filling pressure by Doppler parameters. The outflow tract showed mild obstruction. 2. Mitral valve: There was mild regurgitation. 3. Right ventricle: The cavity size was normal. Wall thickness was normal. Systolic function was normal. 4. Atrial septum: No defect or patent foramen ovale was identified. 5. Pulmonary arteries: Pulmonary systolic pressure was in the range of 35mm Hg to 45mm Hg. 6. Inferior vena cava: The vessel was patent and normal in size. The respirophasic diameter changes were in the normal range (greater than or equal to 50%), consistent with normal central venous pressure. *PATIENT PRESENTATION* Height: 167.6cm ((66in) ) S/D Pressure: 139 / 67 Weight: 81.6kg ((179.6lb) ) BSA: 1.97m^2 Test start time: 10:45 AM. Test stop time: 11:40 AM. CONSULTING Ijeoma Najera PERFORMING Unknown ORDERING Anabel Keith REFERRING Anabel Keith PERFORMING [facility] [employer] RT Kulwinder (R)(CT), [facility] *PROCEDURE DATA* Procedure information: The patient was identified by two identifiers. This study was interpreted by [facility]. Pertinent images and digital data are archived for permanent storage and are available for subsequent review. Comparison was made to the study of 05/23/2018. Study status: Routine. Transthoracic echocardiography. M-mode, complete 2D, complete spectral Doppler, and color Doppler. A Transthoracic Echocardiogram was performed. Scanning was performed from the parasternal, apical, subcostal, and suprasternal notch acoustic windows. Images were obtained using an [id number] cardiac ultrasound machine. Image quality was adequate. Study completion: The patient tolerated the procedure well. History: PMH: HTN AFIB HD, i48.9, i10. *CARDIAC ANATOMY* Left ventricle: The cavity size was normal. Wall thickness was increased in a pattern of moderate LVH. Systolic function was hyperdynamic. The estimated ejection fraction was 65-70%. The outflow tract showed mild obstruction. The tissue Doppler parameters were abnormal. Findings consistent with diastolic dysfunction. There was no evidence of elevated ventricular filling pressure by Doppler parameters. Aortic valve: Trileaflet. Doppler: There was no stenosis. There was no significant regurgitation. VTI ratio of LVOT to aortic valve: 0.8. Valve area (VTI): 2.2cm^2. Indexed valve area (VTI): 1.1cm^2/m^2. Peak velocity ratio of LVOT to aortic valve: 0.86. Valve area (Vmax): 2.3cm^2. Indexed valve area (Vmax): 1.2cm^2/m^2. Mean velocity ratio of LVOT to aortic valve: 0.82. Valve area (Vmean): 2.2cm^2. Indexed valve area (Vmean): 1.1cm^2/m^2. Mean gradient (S): 8mm Hg. Peak gradient (S): 14.1mm Hg. Aorta: Aortic root: The aortic root was normal in size. Ascending aorta: The ascending aorta was mildly dilated. Mitral valve: Doppler: There was no evidence for stenosis. There was mild regurgitation. Valve area by pressure half-time: 2.6cm^2. Indexed valve area by pressure half-time: 1.3cm^2/m^2. Peak gradient (D): 2.9mm Hg. Atrial septum: No defect or patent foramen ovale was identified. Right ventricle: The cavity size was normal. Wall thickness was normal. Systolic function was normal. Pulmonic valve: Doppler: There was no evidence for stenosis. There was trivial regurgitation. Peak gradient (S): 4.6mm Hg. Tricuspid valve: Doppler: There was mild regurgitation. Pulmonary artery: Poorly visualized. Pulmonary systolic pressure was in the range of 35mm Hg to 45mm Hg. Right atrium: The atrium was normal in size. Pericardium: There was no pericardial effusion. Systemic veins: Inferior vena cava: Well visualized. The vessel was patent and normal in size. The respirophasic diameter changes were in the normal range (greater than or equal to 50%), consistent with normal central venous pressure. Baseline ECG: Sinus bradycardia. Measurements Left ventricle Value 05/23/2018 Reference LV ID, ED, PLAX 4.4 cm 4.3 3.5 - 6.0 LV ID, ES, PLAX 2.8 cm 2.6 2.1 - 4.0 LV PW thickness, ED, PLAX 1.3 cm 1.2 LV end-diastolic volume, 82 ml 62 1-p A2C LV ejection fraction, 1-p 64 % 78 A2C LV end-diastolic volume, 70 ml 93 1-p A4C LV ejection fraction, 1-p 70 % 66 A4C LV e', lateral 0.08 m/sec 0.073 LV E/e', lateral 11 13 LV e', medial 0.059 m/sec 0.07 LV E/e', medial 15 13 LV e', average 0.069 m/sec 0.071 LV E/e', average 12 13 Ventricular septum Value 05/23/2018 Reference IVS thickness, ED, PLAX 1.4 cm 1.4 LVOT Value 05/23/2018 Reference LVOT ID, A-P 1.9 cm 1.9 LVOT area 2.7 cm^2 2.9 LVOT peak velocity, S 1.62 m/sec 1.49 LVOT mean velocity, S 1.12 m/sec 1.17 LVOT VTI, S 37.0 cm 38.6 LVOT peak gradient, S 10.5 mm Hg 8.9 LVOT mean gradient, S 5.6 mm Hg 5.8 Stroke volume (SV), LVOT 100 ml 110 DP Stroke index (SV/bsa), 51 ml/m^2 55 LVOT DP Aortic valve Value 05/23/2018 Reference Aortic valve peak 1.9 m/sec 2 velocity, S Aortic valve mean 1.36 m/sec 1.24 velocity, S Aortic valve VTI, S 46.0 cm 42.0 Aortic mean gradient, S 8 mm Hg 7.1 Aortic peak gradient, S 14.1 mm Hg 15.3 VTI ratio, LVOT/AV 0.8 0.92 Aortic valve area, VTI 2.2 cm^2 2.6 Velocity ratio, peak, 0.86 0.76 LVOT/AV Aortic valve area, peak 2.3 cm^2 2.2 velocity Velocity ratio, mean, 0.82 0.95 LVOT/AV Aortic valve area, mean 2.2 cm^2 2.7 velocity Aortic valve area/bsa, 1.1 cm^2/m^2 1.3 mean velocity Aorta Value 05/23/2018 Reference Aortic root ID, ED 3.3 cm 3.3 Ascending aorta ID, A-P, S 3.4 cm 3.4 Left atrium Value 05/23/2018 Reference LA ID, A-P, ES 3.1 cm 3.6 LA ID/bsa, A-P 1.6 cm/m^2 1.8 <=2.2 LA area, ES, A4C 22.5 cm^2 23.1 8.8 - 23.4 LA area, ES, A2C 23 cm^2 22 LA volume/bsa, ES, 1-p A4C 37 ml/m^2 35 LA volume, ES, 2-p 68 ml 69 LA volume/bsa, ES, 2-p 34 ml/m^2 34 LA/aortic root ratio 0.93 1.1 Mitral valve Value 05/23/2018 Reference Mitral E-wave peak 0.85 m/sec 0.91 velocity Mitral A-wave peak 0.98 m/sec 1.21 velocity Mitral deceleration time (H) 296 ms 285 150 - 230 Mitral pressure half-time 86 ms 83 Mitral peak gradient, D 2.9 mm Hg 3.3 Mitral E/A ratio, peak 0.87 0.75 Mitral valve area, PHT, DP 2.6 cm^2 2.7 Pulmonary veins Value 05/23/2018 Reference Pulmonary vein peak 0.81 m/sec 0.82 velocity, S Pulmonary vein peak 0.56 m/sec 0.59 velocity, D Pulmonary vein velocity 1.45 1.39 ratio, peak, S/D Pulmonary vein A-wave 0.32 m/sec reversal peak velocity Tricuspid valve Value 05/23/2018 Reference Tricuspid regurg peak 3.1 m/sec 3.1 velocity Tricuspid peak RV-RA 39.2 mm Hg 37.6 gradient Right atrium Value 05/23/2018 Reference RA area, ES, A4C 16.8 cm^2 15.2 8.3 - 19.5 Pulmonic valve Value 05/23/2018 Reference Pulmonic peak gradient, S 4.6 mm Hg 4.1 Legend: (L) and (H) deann values outside specified reference range. I have personally reviewed the images and have reviewed and edited the reported findings. Electronically signed by Herman Figueroa MD 11/01/2018 17:56
== END 2018-11-01 00:40 ==
PROVIDERS: PCP Family Medicine; Visit Provider Internal Medicine Cardiovascular Disease
DX: I48.91 Unspecified atrial fibrillation (principal); I10 Essential (primary) hypertension; I34.0 Nonrheumatic mitral (valve) insufficiency; I50.1 Left ventricular failure, unspecified
CPT/HCPCS: 93306

== ENCOUNTER → 2018-11-16 11:49 | Outpatient (BNVA) | payer MEDICARE, SELFPAY | PROVIDERS: PCP Family Medicine; Visit Provider Internal Medicine Cardiovascular Disease | DX: I48.0 Paroxysmal atrial fibrillation (principal); I12.9 Hypertensive chronic kidney disease with stage 1 through stage 4 chronic kidney disease, or unspecified chronic kidney disease; E78.5 Hyperlipidemia, unspecified; E11.22 Type 2 diabetes mellitus with diabetic chronic kidney disease; N18.9 Chronic kidney disease, unspecified | CPT/HCPCS: 99214 ==

== ENCOUNTER 2018-11-27 01:35 | Outpatient (CLI) | payer MEDICARE, SELFPAY ==
--- NOTE | 2018-11-27 14:50 | DI.MAMMO_ITS ---
SYMPTOM/DIAGNOSIS: SCREENING, Z12.31 MAMMOGRAMS: Mammograms were interpreted according to the usual protocol including computer analysis with CAD system, tomosynthesis and C view imaging. Comparison is made with exams from [id number]. The breasts are composed of scattered fibroglandular densities. There are scattered benign calcifications and scattered islands of breast tissue. No suspicious masses or suspicious microcalcifications are seen. There has been no significant change. IMPRESSION: Category 2, negative mammogram with benign findings. Yearly screening mammography is recommended. SA ASSESSMENT OF FINDINGS: Negative with benign findings. Category 2. Patient will receive a letter notifying them of these results. BI-RADS category B. There are scattered areas of fibroglandular density.
== END 2018-11-27 01:55 ==
PROVIDERS: PCP Family Medicine; Visit Provider Nurse Practitioner Family
DX: Z12.31 Encounter for screening mammogram for malignant neoplasm of breast (principal)
CPT/HCPCS: 77063; 77067

== ENCOUNTER 2019-01-14 02:17 | Outpatient (CLI) | payer MEDICARE, SELFPAY ==
[2019-01-14 15:16] LABS: Hemoglobin A1C 6.6 % (4.5-6.2)
== END 2019-01-14 02:37 ==
PROVIDERS: PCP Family Medicine; Visit Provider Family Medicine
DX: E11.9 Type 2 diabetes mellitus without complications (principal)
CPT/HCPCS: 36415; 83036

== ENCOUNTER 2019-04-09 12:52 | Outpatient (CLI) | payer MEDICARE, SELFPAY ==
--- NOTE | 2019-04-09 11:53 | DI.RAD_ITS ---
SYMPTOMS/DIAGNOSIS: PAIN LEFT KNEE: There is moderate narrowing of the medial femoral tibial joint space. Chondrocalcinosis is seen. There is spurring from the medial tibial plateau. There is also mild spurring at the patellofemoral joint and quadriceps insertion on the patella. 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
== END 2019-04-09 13:12 ==
PROVIDERS: PCP Family Medicine; Referring Provider Family Medicine; Visit Provider Orthopaedic Surgery
DX: M25.562 Pain in left knee (principal); M17.12 Unilateral primary osteoarthritis, left knee; M11.262 Other chondrocalcinosis, left knee; I10 Essential (primary) hypertension; E11.9 Type 2 diabetes mellitus without complications
CPT/HCPCS: 20610; 99214; 73560; J1040

== ENCOUNTER 2019-05-14 02:12 | Outpatient (CLI) | payer MEDICARE, SELFPAY ==
[2019-05-14 08:48] LABS: Hemoglobin A1C 6.7 % (4.5-6.2)
[2019-05-14 08:50] LABS: HGB 12.5 g/dL (12.0-15.5); Mean Corp. HGB Concentration 33.8 g/dL (32.0-36.0); Mean Corpuscular Hemoglobin 31.5 pg (27.0-33.0); Mean Corpuscular Volume 93.2 fL (80-95); Mean Platelet Volume 9.4 fL (8.0-11.0); Platelet Count 290 x1000/uL (130-400); RBC 3.97 m/cumm (4.00-5.20); RBC Distribution Width 12.9 % (11.7-14.6); White Blood Cell Count 4.63 k/cumm (4.4-10.8)
[2019-05-14 09:40] LABS: ALT 27 U/L (14-59); AST 19 U/L (15-37); Albumin 4.1 g/dL (3.4-5.0); Alkaline Phosphatase 48 U/L (46-116); Anion Gap 9.5 mmol/L (3-11); BUN 37 mg/dL (7-18); Bilirubin, Total 0.5 mg/dL (0.2-1.0); CO2 26.5 mmol/L (21.0-32.0); CREATININE 1.21 mg/dL (0.55-1.02); Calcium 9.2 mg/dL (8.5-10.1); Calculated LDL 84 mg/dL; Chloride 98 mmol/L (98-107); Cholesterol 163 mg/dL (50-200); Estimated GFR 43.15 (mL/min/1.73m2); Glucose 88 mg/dL (70-100); HDL Cholesterol 66 mg/dL (40-60); Potassium 4.7 mmol/L (3.5-5.1); Sodium 134 mmol/L (136-145); Total Protein 7.3 g/dL (6.4-8.2); Triglyceride 68 mg/dL (30-150)
== END 2019-05-14 02:32 ==
PROVIDERS: PCP Family Medicine; Visit Provider Family Medicine
DX: E11.9 Type 2 diabetes mellitus without complications (principal); I10 Essential (primary) hypertension; N28.9 Disorder of kidney and ureter, unspecified
CPT/HCPCS: 36415; 80053; 80061; 85027; 83036

== ENCOUNTER 2019-07-02 10:59 | Outpatient (CLI) | payer MEDICARE, SELFPAY ==
--- NOTE | 2019-07-02 10:36 | DI.RAD_ITS ---
EXAM: XR SHOULDER RT COMPLETE 2+V INDICATION: pain. COMPARISON: No exams were available for comparison TECHNIQUE: 2D digital imaging was performed. FINDINGS: There is spurring at the AC joint and undersurface of the acromion. There is mild spurring at the g lenoid and lesser tuberosity. Glenohumeral joint space is well maintained. There are a few small miller bchondral cysts. IMPRESSION: Degenerative changes of the AC joint and glenohumeral joint.
== END 2019-07-02 11:19 ==
PROVIDERS: PCP Family Medicine; Referring Provider Family Medicine; Visit Provider Orthopaedic Surgery
DX: M25.511 Pain in right shoulder (principal); M19.011 Primary osteoarthritis, right shoulder; M75.81 Other shoulder lesions, right shoulder; E11.9 Type 2 diabetes mellitus without complications; Z79.84 Long term (current) use of oral hypoglycemic drugs; Z79.01 Long term (current) use of anticoagulants
CPT/HCPCS: 99214; 73030

== ENCOUNTER → 2019-09-04 09:52 | Outpatient (BNVA) | payer MEDICARE, SELFPAY | PROVIDERS: PCP Family Medicine; Referring Provider Family Medicine; Visit Provider Orthopaedic Surgery | DX: S16.1XXA Strain of muscle, fascia and tendon at neck level, initial encounter (principal); X58.XXXA Exposure to other specified factors, initial encounter; E11.9 Type 2 diabetes mellitus without complications; Z79.84 Long term (current) use of oral hypoglycemic drugs; Z79.01 Long term (current) use of anticoagulants | CPT/HCPCS: 99214 ==

== ENCOUNTER 2019-12-23 01:56 | Outpatient (CLI) | payer MEDICARE, SELFPAY ==
[2019-12-23 14:16] LABS: Hemoglobin A1C 7.2 % (3.8-5.6)
== END 2019-12-23 02:16 ==
PROVIDERS: PCP Family Medicine; Visit Provider Family Medicine
DX: E11.9 Type 2 diabetes mellitus without complications (principal)
CPT/HCPCS: 36415; 83036

== ENCOUNTER 2020-01-09 02:46 | Outpatient (CLI) | payer MEDICARE, SELFPAY ==
--- NOTE | 2020-01-09 13:00 | DI.MAMMO_ITS ---
EXAM: MG MAMMO SCREENING CLINICAL HISTORY: screening TECHNIQUE: Mammograms were interpreted according to the usual protocol including computer analysis w [employer] CAD system, tomosynthesis and C-view imaging. COMPARISON: FINDINGS: The breasts are of moderate density with fairly symmetrical distribution of fibroglandular tissue. N o dominant mass or clumped microcalcification is identified in either breast. Today's examination is compared with previous examinations including November 2018 and there has been no gross interval change in appearance in comparison with the prior studies. 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 IMPRESSION: No specific evidence of malignancy at this time. Routine screening examinations are suggested at yea rly intervals due to the history of breast carcinoma. BI-RADS Cat 1 - Negative: Breast Density - Category B - Scattered areas of fibroglandular density:
== END 2020-01-09 03:06 ==
PROVIDERS: PCP Family Medicine; Visit Provider Nurse Practitioner Family
DX: Z12.31 Encounter for screening mammogram for malignant neoplasm of breast (principal); Z85.3 Personal history of malignant neoplasm of breast
CPT/HCPCS: 77063; 77067

== ENCOUNTER → 2020-01-27 09:07 | Outpatient (BNVA) | payer MEDICARE, SELFPAY | PROVIDERS: PCP Family Medicine; Referring Provider Family Medicine; Visit Provider Internal Medicine Cardiovascular Disease | DX: I48.0 Paroxysmal atrial fibrillation (principal); I10 Essential (primary) hypertension; R63.8 Other symptoms and signs concerning food and fluid intake; N28.9 Disorder of kidney and ureter, unspecified; Z79.01 Long term (current) use of anticoagulants; E11.9 Type 2 diabetes mellitus without complications | CPT/HCPCS: 99204; 99215 ==

== ENCOUNTER → 2020-02-25 10:34 | Outpatient (BNVA) | payer MEDICARE, SELFPAY | PROVIDERS: PCP Family Medicine; Referring Provider Family Medicine; Visit Provider Internal Medicine Cardiovascular Disease | DX: I48.0 Paroxysmal atrial fibrillation (principal); I10 Essential (primary) hypertension; E11.9 Type 2 diabetes mellitus without complications | CPT/HCPCS: 99442; 99213 ==

== ENCOUNTER → 2020-03-26 10:10 | Outpatient (BNVA) | payer MEDICARE, SELFPAY | PROVIDERS: PCP Family Medicine; Referring Provider Family Medicine; Visit Provider Internal Medicine Cardiovascular Disease | DX: I48.91 Unspecified atrial fibrillation (principal); I10 Essential (primary) hypertension; E11.9 Type 2 diabetes mellitus without complications | CPT/HCPCS: 99443; 99213 ==

== ENCOUNTER → 2020-04-23 13:45 | Outpatient (BNVA) | payer MEDICARE, SELFPAY | PROVIDERS: PCP Family Medicine; Referring Provider Family Medicine; Visit Provider Internal Medicine Cardiovascular Disease | DX: R63.8 Other symptoms and signs concerning food and fluid intake (principal); I10 Essential (primary) hypertension; I48.0 Paroxysmal atrial fibrillation; E11.9 Type 2 diabetes mellitus without complications | CPT/HCPCS: 99214; 99443 ==

== ENCOUNTER 2020-05-25 04:06 | Outpatient (CLI) | payer MEDICARE, SELFPAY ==
[2020-05-25 09:05] LABS: Hemoglobin A1C 7.1 % (<5.7)
[2020-05-25 09:20] LABS: ALT 23 U/L (14-59); AST 11 U/L (15-37); Alkaline Phosphatase 38 U/L (46-116); Anion Gap 8.3 mmol/L (3-11); BUN 32 mg/dL (7-18); Bilirubin, Total 0.6 mg/dL (0.2-1.0); CO2 27.7 mmol/L (21.0-32.0); CREATININE 1.26 mg/dL (0.55-1.02); Calcium 9.3 mg/dL (8.5-10.1); Calculated LDL 71 mg/dL (<100); Chloride 98 mmol/L (98-107); Cholesterol 151 mg/dL (<200); Estimated GFR 41.07 (mL/min/1.73m2); Glucose 115 mg/dL (74-106); HDL Cholesterol 66 mg/dL (40-60); Potassium 4.6 mmol/L (3.5-5.1); Sodium 134 mmol/L (136-145); Triglyceride 72 mg/dL (<150)
[2020-05-25 09:20] LABS: COMMENT (LAB VIEW ONLY) 30.87 mg/dL; Microalb ug/mg Crea 21.7 ug/mg Cr
== END 2020-05-25 04:26 ==
PROVIDERS: PCP Family Medicine; Visit Provider Family Medicine
DX: E11.9 Type 2 diabetes mellitus without complications (principal); I10 Essential (primary) hypertension; N28.9 Disorder of kidney and ureter, unspecified
CPT/HCPCS: 36415; 80053; 80061; 82043; 82570; 83036

== ENCOUNTER → 2020-07-28 10:59 | Outpatient (BNVA) | payer MEDICARE, SELFPAY | PROVIDERS: PCP Family Medicine; Referring Provider Family Medicine; Visit Provider Internal Medicine Cardiovascular Disease | DX: I10 Essential (primary) hypertension (principal); E78.00 Pure hypercholesterolemia, unspecified; I48.0 Paroxysmal atrial fibrillation | CPT/HCPCS: 99442; 99213 ==

== ENCOUNTER 2021-01-29 10:56 | Outpatient (CLI) | payer MEDICARE, SELFPAY ==
--- NOTE | 2021-01-29 10:30 | DI.RAD_ITS ---
Exam(s) XR KNEE RT 3V AP,LAT,MARLEEN EXAM: XR KNEE RT 3V AP,LAT,MARLEEN CLINICAL HISTORY: RIGHT KNEE PAIN. TECHNIQUE: 2D digital imaging was performed. COMPARISON: CR RIGHT KNEE LIMITED 1 OR 2 VIEW from 03/02/2018 CR RIGHT KNEE LIMITED 1 OR 2 VIEW from 03/02/2018 FINDINGS: BONES: No acute fracture is present. No bony destructive lesion is seen. JOINTS: There is marked narrowing of the medial femoral tibial joint creating varus angulation. Ther e is a chronic appearing declivity of the medial aspect of the medial femoral condyle. This was not seen on the previous exam. Joint space narrowing has significantly worsened when compared with the previous exam. Spurring is also seen at the articular aspect of the patella and tibial spines. No j oint effusion is seen. SOFT TISSUE: Normal. IMPRESSION: Severe degenerative changes of the medial femoral tibial joint mild deformity of the medial femoral. DATA REPOSITORY: RADIATION DOSE DELIVERED:
--- NOTE | 2021-01-29 10:30 | DI.RAD_ITS ---
Exam(s) XR KNEE LT 3V AP,LAT,MARLEEN EXAM: XR KNEE LT 3V AP,LAT,MARLEEN CLINICAL HISTORY: LEFT KNEE PAIN. TECHNIQUE: 2D digital imaging was performed. COMPARISON: CR XR knee LT 2V AP,lat from 04/09/2019 FINDINGS: BONES: No acute fracture is present. No bony destructive lesion is seen. JOINTS: There is severe narrowing of the medial femoral to tibial joint space creating varus angulati on. There is mild periarticular spurring. No joint effusion is seen. Chondrocalcinosis is noted g reater medially. The lateral femoral tibial joint and patellofemoral joint appear well maintained sh ow minimal periarticular spurring. SOFT TISSUE: Normal. IMPRESSION: Severe degenerative changes of the medial femoral tibial joint. DATA REPOSITORY: RADIATION DOSE DELIVERED:
== END 2021-01-29 10:57 | disposition home or self-care (01) ==
LOC: DIORS 10:56
PROVIDERS: PCP Family Medicine; Referring Provider Family Medicine; Visit Provider Student in an Organized Health Care Education/Training Program
DX: M17.12 Unilateral primary osteoarthritis, left knee (principal); M25.561 Pain in right knee; M17.11 Unilateral primary osteoarthritis, right knee; M25.562 Pain in left knee
CPT/HCPCS: 20610; 73562; J1040

== ENCOUNTER → 2021-02-02 10:31 | Outpatient (BNVA) | payer MEDICARE, SELFPAY | PROVIDERS: PCP Family Medicine; Referring Provider Family Medicine; Visit Provider Internal Medicine Cardiovascular Disease | DX: I48.0 Paroxysmal atrial fibrillation (principal); I10 Essential (primary) hypertension; Z79.01 Long term (current) use of anticoagulants | CPT/HCPCS: 99214; 99213 ==

== ENCOUNTER 2021-02-12 04:22 | Outpatient (CLI) | payer MEDICARE, SELFPAY ==
--- NOTE | 2021-02-12 07:30 | DI.MAMMO_ITS ---
Exam(s) MAMMO SCREENING EXAM: MAMMO SCREENING CLINICAL HISTORY: screening,z12.39 TECHNIQUE: Mammograms were interpreted according to the usual protocol including computer analysis w [employer] CAD system, tomosynthesis and C-view imaging. COMPARISON: 2011 through 2019 FINDINGS: The breasts are composed of scattered fibroglandular densities, Breast Density category B. No suspicious masses or suspicious microcalcifications are seen. Benign calcifications and vascular calcifications are again noted. Stable areas of tissue asymmetry noted bilaterally. No skin thickening or abnormal axillary lymph nodes are seen. There has been no significant change from prior exams. IMPRESSION: BI-RADS Cat 2 - Benign Findings Yearly screening mammography is recommended. Breast Density - Category B, scattered fibroglandular densities. A negative radiographic report should not delay biopsy if a dominant or clinically suspicious mass is present. Up to ten percent of cancers are not identified on mammography. A negative report may reinforce clinical impression. Adenosis and dense breasts may obscure an underlying neoplasm. False positive reports average 6 to 10%. Patient will receive a letter notifying them of these results.
== END 2021-02-12 04:42 ==
PROVIDERS: PCP Family Medicine; Visit Provider Nurse Practitioner Family
DX: Z12.31 Encounter for screening mammogram for malignant neoplasm of breast (principal); R92.8 Other abnormal and inconclusive findings on diagnostic imaging of breast
CPT/HCPCS: 77063; 77067

== ENCOUNTER 2021-03-11 16:47 | Outpatient (REF) | payer MEDICARE, SELFPAY ==
[2021-03-11 20:59] LABS: Abs Immature Grans 0.03 10^3/uL (0.0-0.06); Absolute Basophil Count 0.05 10^3/uL (0.0-0.2); Absolute Eosinophil Count 0.06 10^3/uL (0.0-0.7); Absolute Lymphocyte Count 0.99 10^3/uL (1.2-3.4); Absolute Monocyte Count 0.51 10^3/uL (0.1-0.8); Absolute Neutrophil Count 4.88 10^3/uL (1.2-6.7); Anion Gap 7.1 mmol/L (3-11); BUN 29 mg/dL (7-18); Basophils % 0.8; CO2 26.9 mmol/L (21.0-32.0); CREATININE 1.3 mg/dL (0.55-1.02); Calcium 9.3 mg/dL (8.5-10.1); Chloride 93 mmol/L (98-107); Eosinophils % 0.9; Estimated GFR 39.51 (mL/min/1.73m2); Glucose 113 mg/dL (74-106); HCT 33.1 % (36.0-46.0); Immature Grans % 0.5; Lymphocytes % 15.2; MCH 31.3 pg (27.0-33.0); MCHC 33.2 % (32.0-36.0); MPV 9.8 fL (8.0-11.0); Monocytes % 7.8; Neutrophils % 74.8; Nucleated RBC 0 %; Platelet Count 263 10^3/uL (130-400); Potassium 4.6 mmol/L (3.5-5.1); RBC 3.52 10^6/uL (3.93-5.22); RDW 13.1 % (11.7-14.6); RDW-SD 45.2 fL; Sodium 127 mmol/L (136-145); WBC 6.52 10^3/uL (4.4-10.8)
[2021-03-11 21:11] LABS: ESR 33 mm/hr (0-30)
[2021-03-12 16:32] LABS: CRP, High Sensitivity 3.18 mg/L (See Note)
[2021-03-13 16:01] LABS: COVID-19 RT-PCR UVMMC Result Negative (Negative)
== END 2021-03-11 16:48 | disposition home or self-care (01) ==
LOC: LBN 16:47
PROVIDERS: PCP Family Medicine; Visit Provider Physician Assistant Medical
DX: R19.7 Diarrhea, unspecified (principal)
CPT/HCPCS: 80048; 85652; 86141; U0003; 85025

== ENCOUNTER 2021-03-13 11:34 | Observation (INO) | payer MEDICARE, SELFPAY ==
[2021-03-13] VITALS (7 sets, daily range): BP systolic 151–187; BP diastolic 55–75; PULSE 53–64; RESP 17–18; TEMP 36–36.6; O2SAT 100
--- NOTE | 2021-03-13 11:45 | RT.EKG_ITS ---
APPROVED REPORT Exam: Resting ECG Reason for Exam: Nausea/vomiting Patient Location: E HR:51 bpm ECG Measurements Heart Rate 51 AXIS PA 188 P -21 QRSd 91 QRS -11 QT 423 T 44 QTc 390 Conclusion Sinus bradycardia...rate< 60 Nonspecific T abnormalities, lateral leads...T <-0.10mV, I aVL V5 V6. Peaked T waves in anterior leads. I have reviewed and interpreted ECG and agree with software generated interpretation. No STEMI. I have reviewed and interpreted ECG and agree with software generated interpretation.
--- NOTE | 2021-03-13 12:00 | DI.CT_ITS ---
Exam(s) CT HEAD WO EXAM: CT HEAD WO CLINICAL HISTORY: syncope, on apixaban. TECHNIQUE: Imaging Protocol: Axial computed tomography images with coronal and sagittal reformatted images were created and reviewed COMPARISON: CT HEAD WITHOUT CONTRAST from 05/30/2012 FINDINGS: There is moderate generalized cerebral atrophy. There are patchy areas of decreased attenuation in p eriventricular white matter consistent with microvascular ischemic changes. No evidence of acute intracranial hemorrhage, mass effect, or midline shift. The orbital structures are unremarkable. The temporal bone structures appear intact. Calvarium: Normal. Visualized Paranasal sinuses/Mastoids: Clear. IMPRESSION: No evidence of acute intracranial process. RADIATION DOSE DELIVERED: 736.64mGy.cm Total DLP 736.64mGy.cm Total DLP 37.08mGy CTDIvol DATA REPOSITORY: All CT scans at this facility are submitted to the National Radiology Data Registry (NRDR) Dose Index Registry (DIR) with the [employer] (A[employer]). RADIATION OPTIMIZATION: All CT scans at this facility use at least one of these dose optimization te chniques: automated exposure control; mA and/or kV adjustment per patient size (includes targeted exa ms where dose is matched to clinical indication); or iterative reconstruction.
--- NOTE | 2021-03-13 12:00 | DI.RAD_ITS ---
Exam(s) XR CHEST 2V PA LATERAL EXAM: XR CHEST 2V PA LATERAL CLINICAL HISTORY: syncope TECHNIQUE: 2D digital imaging was performed. COMPARISON: CR XR CHEST 2V PA LATERAL from 04/30/2018 FINDINGS: The heart is not enlarged. The lungs are clear and well expanded. No pleural effusion seen. Mediastin al contours appear intact. IMPRESSION: Normal chest. RADIATION DOSE DELIVERED: Total DLP
--- NOTE | 2021-03-13 12:21 | ED.GENADUL_ITS ---
Discharge Plan Disposition Patient Disposition: [facility] INPATIENT Condition: Stable Discharge Details Clinical Impression: Hyponatremia, Near syncope, Diarrhea Primary Care Provider: Ijeoma Najera ED Provider: Parminder Herman Home Meds and New Rx's Prescriptions: No Action magnesium citrate 125 mg capsule 250 mg PO DAILY RF: 0 dicyclomine 10 mg capsule 10 mg PO BID PRN (Reason: diarrhea) Qty: 60 RF: 0 clotrimazole-betamethasone 1-0.05 % cream 1 applic Topical BID PRN (Reason: rash) Qty: 45 RF: 2 clotrimazole-betamethasone 1-0.05 % cream 1 applic topical BID PRN (Reason: itching) Qty: 45 RF: 1 carvedilol 12.5 mg tablet 12.5 mg PO BID Qty: 180 RF: 4 loratadine 10 mg tablet 10 mg PO DAILY RF: 0 cephalexin 250 mg capsule 250 mg PO Q6H PRNRF: 0 Premarin 0.625 mg/gram cream 1 applic VG twice weekly Qty: 30 RF: 3 multivitamin [Once Daily] 1 EACH tablet 1 tab PO DAILY RF: 0 acetaminophen 500 MG tablet 500 mg PO TID PRNRF: 0 (DME) blood-glucose meter misc See Dose Instructions .ROUTE .MEDSUPPLY Qty: 1 RF: 0 (DME) Blood Glucose Test strip See Dose Instructions .ROUTE .MEDSUPPLY Qty: 100 RF: 5 (DME) lancets 25 gauge misc See Dose Instructions .ROUTE .MEDSUPPLY Qty: 100 RF: 4 atorvastatin [Lipitor] 40 mg tablet 40 mg PO DAILY Qty: 90 RF: 4 losartan-hydrochlorothiazide [Hyzaar] 100-25 mg tablet 1 tab PO DAILY Qty: 90 RF: 4 spironolactone 25 mg tablet 25 mg PO BID Qty: 180 RF: 12 glipizide 5 mg tablet extended release 24hr 5 mg PO DAILY Qty: 90 RF: 4 Eliquis 5 mg tablet 5 mg PO BID Qty: 180 RF: 5 Medical Decision Making This is a 80-year-old female with intermittent abdominal cramping, diarrhea, generalized weakness, dizziness over the past few weeks. Initially it was presented to me via her social worker palliative care as a possible syncopal episode, I did initiate a syncope work-up. Upon questioning the patient more carefully, she tells me she feels as though she was trying to get off of the toilet, went to reach for a handle and either lost her balance or the handle was loose. She does not believe there was a true LOC. Given her age and comorbidities, will continue to evaluate for potential syncope although lower suspicion. Mucous membranes are slightly dry but patient does not appear to be severely dehydrated. Initial blood pressure is actually elevated at 161/73, pulse in the 50s, she is afebrile. Will initiate IV access and IV fluids. Will attempt to obtain stool sample for potential C. difficile and other pathogens. Given her fall, being on Eliquis, will also obtain a head CT although there does not appear to be any overt head injury nor does she have any neurologic deficit Laboratory values reveal a white blood cell count of 8.27, hemoglobin 11.1 hematocrit 32.7, coags unremarkable, sodium 126, magnesium 1.7. Patient is receiving 125 cc/h of normal saline and I will add on 1 g of IV magnesium. Creatinine is 1.3, near her baseline but slightly worse. Troponin less than 0.05. Urinalysis pending. CT imaging and chest x-ray unremarkable per radiology. Given she has no abdominal pain currently I do not believe that obtaining emergent CT imaging of her abdomen is necessary Patient unable to provide stool sample thus far Sodium of 126, patient appears to have mild chronic hyponatremia but this appears worse than her baseline. Given her ongoing diarrhea, slightly dry mucous membranes, feeling of dizziness, falling, I will discuss the case with our hospitalist team to determine if an observation admission, gentle hydration, and reevaluation of her sodium tomorrow is a reasonable plan I discussed the case with Dr. Vaca. She recommends obtaining orthostatic vital signs, giving a liter of IV fluid wide open and rechecking her sodium. Recommend discontinuing her losartan and HCTZ combination pill and initiating amlodipine instead. She feels as though the patient can likely be discharged home if sodium is coming up appropriately and her orthostatic vital signs are unremarkable. I discussed my conversation with Dr. Vaca, with the patient, and patient feels very uncomfortable with this plan. She is slightly tearful. Patient states that she does not feel well, does not feel safe going home where she lives with her elderly , and now tells me that she truly cannot recall the true nature of how or why she fell off the commode today. Rather than a mechanical fall or a fall secondary to slight generalized weakness, she is sounding now more like she was near syncopal. I once again discussed the case with Dr. Vaca who is agreeable to an observation admission, will place admission orders. Medical Records Medical records reviewed: Yes I reviewed the patient's medical records. Imaging Data Radiologic Study: Attestation: I personally reviewed and interpreted this imaging study as follows: Imaging: CT Scan Radiologist's impression: Head CT negative Radiologic Study #2: Attestation: I personally reviewed and interpreted this imaging study as follows: Imaging: X-Ray Radiologist's impression: Chest x-ray negative Lab Data Lab results reviewed: Yes I reviewed the patient's lab results. Labs: Laboratory Tests Range/Units 03/13/21 03/13/21 03/13/21 12:25 12:25 12:25 WBC (4.4-10.8) 10^3/uL 8.27 RBC (3.93-5.22) 10^6/uL 3.50 L Hgb (11.2-15.7) g/dL 11.1 L Hct (36.0-46.0) % 32.7 L MCV (80-95) fL 93.4 MCH (27.0-33.0) pg 31.7 MCHC (32.0-36.0) % 33.9 RDW (11.7-14.6) % 13.0 Plt Count (130-400) 10^3/uL 250 MPV (8.0-11.0) fL 9.4 Immature Gran % 0.4 Neutrophils % 87.7 Lymphocytes % 6.4 Monocytes % 5.0 Eosinophils % 0.1 Basophils % 0.4 Nucleated RBC % % 0 Absolute Neutrophils (1.2-6.7) 10^3/uL 7.26 H Absolute Lymphocytes (1.2-3.4) 10^3/uL 0.53 L Absolute Monocytes (0.1-0.8) 10^3/uL 0.41 Absolute Eosinophils (0.0-0.7) 10^3/uL 0.01 Absolute Basophils (0.0-0.2) 10^3/uL 0.03 PT (9.3-11.0) sec 10.9 INR (0.9-1.1) 1.1 APTT (21.0-27.5) sec 23.8 Sodium (136-145) mmol/L 126 L Potassium (3.5-5.1) mmol/L 4.7 Chloride (98-107) mmol/L 92 L Carbon Dioxide (21.0-32.0) mmol/L 22.4 Anion Gap (3-11) mmol/L 11.6 H BUN (7-18) mg/dL 27 H Creatinine (0.55-1.02) mg/dL 1.3 H Estimated GFR/1.73 m2 (mL/min/1.73m2) 39.51 Glucose (74-106) mg/dL 148 H Calcium (8.5-10.1) mg/dL 9.4 Magnesium (1.8-2.4) mg/dL 1.7 L Total Bilirubin (0.2-1.0) mg/dL 0.7 AST (15-37) U/L 26 ALT (14-59) U/L 32 Alkaline Phosphatase (46-116) U/L 37 L Troponin I (<0.06) ng/mL < 0.05 Total Protein (6.4-8.2) g/dL 7.5 Albumin (3.4-5.0) g/dL 3.8 ECG Data Attestation: I personally reviewed and interpreted this ECG (s) as follows: Interpretation: Please see official report by Dr. Aguiar. Sinus bradycardia, ventricular rate of 51, nonspecific T wave abnormalities. No STEMI HPI General Mode of arrival: ambulatory . Date/Time Provider Initiated Documentation: 03/13/21 12:07 . Limitations to Documentation: no limitations . Information obtained by: patient . HPI Narrative: This is a 80-year-old female, past medical history of hypertension, diabetes, A. fib, on apixaban, presenting to the ER for intermittent diarrhea, abdominal cramping, generalized weakness and dizziness over the past 2-week. Patient states that she went to the urgent care a couple of days ago but never received her results. This morning after having a large loose-watery bowel movement, she states that she attempted to get up and possibly fainted. She states that she fell forward but denies any injury from the fall. Denies striking her head, LOC, neck pain, chest pain, shortness of breath, incontinence, numbness, tingling, weakness. She does report a 4 pound weight loss over the past couple of days, nausea, lack of appetite. She denies any obvious black tarry stools or bright red blood in her stools. She has not taking any [id number] medications for her symptoms. Patient initially told her social worker palliative care that she felt as though she has fainted but then later told me that she felt more like she had generalized weakness, reached out for a handle and either missed or the handle was loose. She denies any true LOC. Denies recent sick contacts, bad food exposure, recent antibiotic therapy. Related Data Home Medications Medication Instructions Recorded Confirmed multivitamin [Once Daily] 1 tab PO DAILY 12/28/12 03/13/21 acetaminophen 500 mg PO TID PRN 04/11/17 03/13/21 blood-glucose meter #1 each 05/16/18 03/13/21 blood sugar diagnostic #100 each 05/23/18 03/13/21 lancets 25 gauge #100 each 05/24/18 03/13/21 magnesium citrate 125 mg capsule 250 mg PO DAILY cap 01/27/20 03/13/21 atorvastatin 40 mg tablet 40 mg PO DAILY #90 tab-cap 04/03/20 03/13/21 glipizide 5 mg tablet, extended 5 mg PO DAILY #90 tab-cap 04/03/20 03/13/21 release 24 hr losartan 100 1 tab PO DAILY #90 tab-cap 04/03/20 03/13/21 mg-hydrochlorothiazide 25 mg tablet spironolactone 25 mg tablet 25 mg PO BID #180 tab-cap 04/03/20 03/13/21 clotrimazole-betamethasone 1 1 applic TOPICAL BID PRN #45 g 05/21/20 03/13/21 %-0.05 % topical cream dicyclomine 10 mg capsule 10 mg PO BID PRN #60 tab-cap 05/21/20 03/13/21 carvedilol 12.5 mg tablet 12.5 mg PO BID #180 tab 07/28/20 03/13/21 loratadine 10 mg tablet 10 mg PO DAILY 09/21/20 03/13/21 apixaban 5 mg tablet 5 mg PO BID #180 tab 10/05/20 03/13/21 clotrimazole-betamethasone 1 1 applic TOPICAL BID PRN #45 g 12/24/20 03/13/21 %-0.05 % topical cream conjugated estrogens 0.625 mg/gram 1 applic VG twice weekly #30 g 02/01/21 03/13/21 vaginal cream cephalexin 250 mg capsule 250 mg PO Q6H PRN cap 02/02/21 03/13/21 Previous Rx's Medication Instructions Recorded blood-glucose meter #1 each 05/16/18 blood sugar diagnostic #100 each 05/23/18 lancets 25 gauge #100 each 05/24/18 atorvastatin 40 mg tablet 40 mg PO DAILY #90 tab-cap 04/03/20 glipizide 5 mg tablet, extended 5 mg PO DAILY #90 tab-cap 04/03/20 release 24 hr losartan 100 1 tab PO DAILY #90 tab-cap 04/03/20 mg-hydrochlorothiazide 25 mg tablet spironolactone 25 mg tablet 25 mg PO BID #180 tab-cap 04/03/20 clotrimazole-betamethasone 1 1 applic TOPICAL BID PRN #45 g 05/21/20 %-0.05 % topical cream dicyclomine 10 mg capsule 10 mg PO BID PRN #60 tab-cap 05/21/20 carvedilol 12.5 mg tablet 12.5 mg PO BID #180 tab 07/28/20 apixaban 5 mg tablet 5 mg PO BID #180 tab 10/05/20 clotrimazole-betamethasone 1 1 applic TOPICAL BID PRN #45 g 12/24/20 %-0.05 % topical cream conjugated estrogens 0.625 mg/gram 1 applic VG twice weekly #30 g 02/01/21 vaginal cream Allergies Allergy/AdvReac Type Severity Reaction Status Date / Time Penicillins Allergy CHILDHOOD Verified 03/13/21 12:54 clonidine AdvReac Verified 03/13/21 12:54 gabapentin AdvReac Verified 03/13/21 12:54 lisinopril AdvReac COUGH Verified 03/13/21 12:54 morphine AdvReac VOMITING/DI Verified 03/13/21 12:54 ARRHEA oxycodone HCl [From Percocet] AdvReac VOMITING/NA Verified 03/13/21 12:54 USEA terazosin [From Hytrin] AdvReac Verified 03/13/21 12:54 General Stated Complaint: Nausea/Vomit/Diar THOM: 3 Review of Systems Constitutional Constitutional: Reports fatigue, Denies fever(s) and Denies headache(s) Eyes Eyes: Denies change in vision ENT Ears, Nose, Mouth, and Throat: Denies headache(s) and Denies neck pain Cardiovascular Cardiovascular: Denies chest pain and Denies dyspnea Respiratory Respiratory: Denies cough and Denies dyspnea Gastrointestinal Gastrointestinal: Reports abdominal pain, Denies melena, Denies hematochezia, Denies constipation, Reports diarrhea, Reports loose stools, Reports nausea and Denies vomiting Genitourinary Genitourinary: Denies dysuria Musculoskeletal Musculoskeletal: Denies neck pain, Denies numbness and Denies tingling Integumentary/Breasts Skin/Breast: Denies erythema and Denies rash Neurologic Neurologic: Denies headache(s), Denies numbness, Denies tingling and Reports weakness (General) Endocrine Endocrine: Reports fatigue Hematologic/Lymphatic Hematologic/Lymphatic: Denies easy bleeding and Denies easy bruising [facility] Medical History Basal cell carcinoma of other specified sites of skin (08/21/12) PARMINDER HOLDEN; FOREHEAD; RIGHT SIDE Cervical arthritis Chronic left shoulder pain (03/29/16) Diabetes mellitus (01/01/13) Edema extremities (02/26/18) Essential hypertension (06/27/13) Fatigue (07/26/12) Hearing loss A.S. Hypercholesterolemia (01/01/13) Impaired renal function (03/29/18) Incidental pulmonary nodule, > 3mm and < 8mm 04/30/18-[facility] Increased BMI Lumbar radicular pain Malignant neoplasm of female breast (07/06/90) right breast BX-CA in [facility] [place]: positive history of [place]: positive Obstructive sleep apnea syndrome (03/29/16) Osteoarthritis of right knee Palpitations 09/07/16 Polyp of colon (12/02/08) per colonoscopy-Dr. 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 PARMINDER PATRICIA; RIGHT CHEEK Tendonitis involving left hip abductors (08/17/15) Surgical History Abdominal hysterectomy (~1997) Appendectomy Bilateral salpingectomy with oophorectomy Biopsy of breast (~1990) RIGHT section X 3 Cholecystectomy DISCECTOMY Extraction of cataract 05/26/15; LEFT EYE 06/16/15; RIGHT EYE H/O cataract removal with insertion of prosthetic lens O.S. -05/26 2015; O.D.-06/16/2015 H/O section x 3 H/O discectomy History of appendectomy History of bilateral ligation of fallopian tubes (07/29/14) History of bilateral tubal ligation 07/29/14 History of cataract removal with insertion of prosthetic lens (05/26/15) History of section History of discectomy Hx of appendectomy Hx of spinal surgery 01/24/17 [facility] [place] Ligation of fallopian tube (~1997) MOHS 08/2014 S/P abdominal hysterectomy S/P breast biopsy S/P cholecystectomy Status post abdominal hysterectomy Status post cholecystectomy Family History Mother , age 86 Essential hypertension Asthma Breast cancer Father , age 61 Stroke Hypertension Son Hyperlipidemia Son No problems noted. Daughter Asthma Maternal Grandfather No problems noted. Paternal Grandfather No problems noted. Maternal Grandmother No problems noted. Paternal Grandmother No problems noted. Social History Smoking/Tobacco Use Status: Former Tobacco Use Quit Date: 08/07/1964 Pack- years: 15 Tobacco: How many years used: 5 Second Hand Exposure: No Smoking risk assessment performed?: Yes Alcohol Intake: never Drug use: Never Substance use type: does not use Caregiver/Support person: No Household members: spouse Housing: house Communication Needs: Hard of Hearing and Corrective Lenses Do you need help understanding health information?: Rarely Pets and animals: No Sexually active: No Do you think of yourself as: straight/heterosexual Current gender identity: female What is your relationship status?: How often do you talk on the phone with friends or family?: once per week How often do you get together with friends or relatives?: decline to answer How often do you attend mu-ism or religion services?: 4 or more times per year Do you belong to any clubs or organized social groups?: no Panel score (0-1 are the most socially isolated patients): 2 What type of physical activity do you participate in: swimming Duration: 45-60 minutes/day Frequency: 1-2 times per week Janine/Sabianist: Yazdanism Special janine needs: No Seatbelt use: always Helmet use: No Drive intox or ride w/intox reefer truck driver: No Do you feel safe in your relationship?: Yes Victim of physical abuse: No Victim of emotional abuse: No Victim of sexual abuse: No Would you like helpful sources: No Exam Const General: cooperative and comfortable Orientation: alert, awake and oriented x3 HENMT Head: normal to inspection, normocephalic and atraumatic Mouth: moist mucous membranes abnormal (Slightly dry) Eyes General: appearance normal, both eyes and all related structures Alignment and Position: alignment normal Periorbital: periorbital findings normal Eyelids: eyelids normal Conjunctivae: conjunctivae normal Sclera: sclerae normal Cornea: corneas normal Pupils: PERRL EOM: EOM intact bilaterally Direct ophthalmoscopy: normal light reflex Neck Neck: normal visual inspection, full ROM, trachea midline, supple and nontender Resp Effort & Inspection: normal respiratory effort and able to speak in complete sentences Auscultation: clear to auscultation bilaterally Cardio Rate: regular rate Rhythm: regular rhythm GI Inspection: normal to inspection Palpation: soft, not firm, no guarding, no pulsatile masses and nontender Auscultation: normal bowel sounds Back/Spine/Pelvis Back: No back tenderness Skin General skin exam: no rashes or lesions noted Neuro General: patient alert, patient awake, moves all extremities and no focal motor deficits Cognition: normal cognition Speech: speech normal Motor: muscle tone normal throughout Sensory Exam: no sensory deficits noted Extrem General: normal to inspection, full ROM, capillary refill normal, no pedal edema and no calf tenderness Psych Appearance: grossly normal Mental Status: mental status grossly normal Course Vital Signs Vital signs: Vital Signs Temperature 36 C L 03/13/21 11:54 Pulse 57 L 03/13/21 11:54 Respiratory Rate 17 03/13/21 11:54 Blood Pressure 161/73 H 03/13/21 11:54 Pulse Oximetry 100 03/13/21 11:54 Temperature 36 C L 03/13/21 11:54 Temperature Source Tympanic 03/13/21 11:54 Pulse 57 L 03/13/21 11:54 Respiratory Rate 17 03/13/21 11:54 Blood Pressure 161/73 H 03/13/21 11:54 Blood Pressure Position Supine 03/13/21 11:54 Pulse Oximetry 100 03/13/21 11:54 Oxygen Delivery Method Room Air 03/13/21 11:54 Oxygen Flow Rate 0 03/13/21 11:54 Pain Level 0 03/13/21 11:54
[2021-03-13] MEDS: Normal Saline 1,000 ML 125 ML IV ×2 (12:30→21:35)
[2021-03-13 12:36] LABS: Abs Immature Grans 0.03 10^3/uL (0.0-0.06); Absolute Basophil Count 0.03 10^3/uL (0.0-0.2); Absolute Eosinophil Count 0.01 10^3/uL (0.0-0.7); Absolute Lymphocyte Count 0.53 10^3/uL (1.2-3.4); Absolute Monocyte Count 0.41 10^3/uL (0.1-0.8); Absolute Neutrophil Count 7.26 10^3/uL (1.2-6.7); Basophils % 0.4; Eosinophils % 0.1; HCT 32.7 % (36.0-46.0); HGB 11.1 g/dL (11.2-15.7); Immature Grans % 0.4; Lymphocytes % 6.4; MCH 31.7 pg (27.0-33.0); MCHC 33.9 % (32.0-36.0); MCV 93.4 fL (80-95); MPV 9.4 fL (8.0-11.0); Neutrophils % 87.7; Nucleated RBC 0 %; Platelet Count 250 10^3/uL (130-400); RDW-SD 44.5 fL; WBC 8.27 10^3/uL (4.4-10.8)
[2021-03-13 12:49] LABS: INR 1.1 (0.9-1.1); PTT Activated 23.8 sec (21.0-27.5); Prothrombin Time 10.9 sec (9.3-11.0)
[2021-03-13 12:50] LABS: ALT 32 U/L (14-59); AST 26 U/L (15-37); Albumin 3.8 g/dL (3.4-5.0); Alkaline Phosphatase 37 U/L (46-116); Anion Gap 11.6 mmol/L (3-11); BUN 27 mg/dL (7-18); Bilirubin, Total 0.7 mg/dL (0.2-1.0); CO2 22.4 mmol/L (21.0-32.0); CREATININE 1.3 mg/dL (0.55-1.02); Calcium 9.4 mg/dL (8.5-10.1); Chloride 92 mmol/L (98-107); Estimated GFR 39.51 (mL/min/1.73m2); Glucose 148 mg/dL (74-106); Magnesium 1.7 mg/dL (1.8-2.4); Potassium 4.7 mmol/L (3.5-5.1); Sodium 126 mmol/L (136-145); Total Protein 7.5 g/dL (6.4-8.2); Troponin I < 0.05 ng/mL (<0.06)
[2021-03-13] MEDS: Normal Saline 1,000 ML 1000 ML IV (14:30)
--- NOTE | 2021-03-13 15:15 | HPE_ITS ---
Date of service: 03/13/21 Time of Service: 15:15 Assessment and Plan Assessment and plan (1) Diarrhea: Status: Acute Assessment and plan: awaiting stool sampling can have lomotil if needed. she has no abdominal pain and fairly normal labs, non toxic, no blood. (2) Near syncope: Status: Acute Assessment and plan: associated with stooling. likely vasovagal monitor on telemetry, discharge on heart monitor (3) A-fib: Status: Chronic Assessment and plan: rate controlled. anticoagulated, continue coreg, monitor on telemetry (4) Essential hypertension: Status: Chronic Assessment and plan: holding diuretics monitor, continue coreg (5) Diabetes mellitus: Status: Chronic Assessment and plan: diabetic diet, sliding scale ac/hs hold glypizide while hospitalized. (6) DVT prophylaxis: Status: Acute Assessment and plan: fully anticoagulated on apixaban (7) Discharge planning issues: Status: Acute Assessment and plan: anticipate home with no services tomorrow discussed with DR Vaca History of Present Illness History of Present Illness Chief Complaint: diarrhea Narrative: patient presents with 2-3 weeks of watery diarrhea, no fevers, no abdominal pain. no close contacts with similar symptoms, has been tolerating fluids, states on 2 episodes she was lightheaded while on the toilet stooling and maybe passed out but there was no fall or injury. her work up in the ED shows stable vital signs, no tachy or hypotension and labs with sodium of 126, pot 4.7, creatinine 1.3 BUN 27. hospitalist services contacted and accepts patient observation on telemetry. Review of Systems All systems reviewed & are unremarkable except as noted in HPI and below [facility] Medical History Basal cell carcinoma of other specified sites of skin (08/21/12) RIP HOLDEN; FOREHEAD; RIGHT SIDE Cervical arthritis Chronic left shoulder pain (03/29/16) Diabetes mellitus (01/01/13) Edema extremities (02/26/18) Essential hypertension (06/27/13) Fatigue (07/26/12) Hearing loss A.S. Hypercholesterolemia (01/01/13) Impaired renal function (03/29/18) Incidental pulmonary nodule, > 3mm and < 8mm 04/30/18-[facility] Increased BMI Lumbar radicular pain Malignant neoplasm of female breast (07/06/90) right breast BX-CA in [facility] [place]: positive history of [place]: positive Obstructive sleep apnea syndrome (03/29/16) Osteoarthritis of right knee Palpitations 09/07/16 Polyp of colon (12/02/08) per colonoscopy-Dr. 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 RIP PATRICIA; RIGHT CHEEK Tendonitis involving left hip abductors (08/17/15) Surgical History Abdominal hysterectomy (~1997) Appendectomy Bilateral salpingectomy with oophorectomy Biopsy of breast (~1990) RIGHT section X 3 Cholecystectomy DISCECTOMY Extraction of cataract 05/26/15; LEFT EYE 06/16/15; RIGHT EYE H/O cataract removal with insertion of prosthetic lens O.S. -05/26 2015; O.D.-06/16/2015 H/O section x 3 H/O discectomy History of appendectomy History of bilateral ligation of fallopian tubes (07/29/14) History of bilateral tubal ligation 07/29/14 History of cataract removal with insertion of prosthetic lens (05/26/15) History of section History of discectomy Hx of appendectomy Hx of spinal surgery 01/24/17 [facility] [place] Ligation of fallopian tube (~1997) MOHS 08/2014 S/P abdominal hysterectomy S/P breast biopsy S/P cholecystectomy Status post abdominal hysterectomy Status post cholecystectomy Family History Mother , age 86 Essential hypertension Asthma Breast cancer Father , age 61 Stroke Hypertension Son Hyperlipidemia Son No problems noted. Daughter Asthma Maternal Grandfather No problems noted. Paternal Grandfather No problems noted. Maternal Grandmother No problems noted. Paternal Grandmother No problems noted. Social History Smoking/Tobacco Use Status: Former Tobacco Use Quit Date: 08/07/1964 Pack- years: 15 Tobacco: How many years used: 5 Second Hand Exposure: No Smoking risk assessment performed?: Yes Alcohol Intake: never Drug use: Never Substance use type: does not use Caregiver/Support person: No Household members: spouse Housing: house Communication Needs: Hard of Hearing and Corrective Lenses Do you need help understanding health information?: Rarely Pets and animals: No Sexually active: No Do you think of yourself as: straight/heterosexual Current gender identity: female What is your relationship status?: How often do you talk on the phone with friends or family?: once per week How often do you get together with friends or relatives?: decline to answer How often do you attend tenriism or cheondoism services?: 4 or more times per year Do you belong to any clubs or organized social groups?: no Panel score (0-1 are the most socially isolated patients): 2 What type of physical activity do you participate in: swimming Duration: 45-60 minutes/day Frequency: 1-2 times per week Janine/Mormon: Jain Special janine needs: No Seatbelt use: always Helmet use: No Drive intox or ride w/intox line driver: No Do you feel safe in your relationship?: Yes Victim of physical abuse: No Victim of emotional abuse: No Victim of sexual abuse: No Would you like helpful sources: No Meds Allergies and Home Medications Allergies Allergy/AdvReac Type Severity Reaction Status Date / Time Penicillins Allergy CHILDHOOD Verified 03/13/21 12:54 clonidine AdvReac Verified 03/13/21 12:54 gabapentin AdvReac Verified 03/13/21 12:54 lisinopril AdvReac COUGH Verified 03/13/21 12:54 morphine AdvReac VOMITING/DI Verified 03/13/21 12:54 ARRHEA oxycodone HCl [From Percocet] AdvReac VOMITING/NA Verified 03/13/21 12:54 USEA terazosin [From Hytrin] AdvReac Verified 03/13/21 12:54 Home Medications Medication Instructions Recorded Confirmed Type multivitamin [Once Daily] 1 tab PO DAILY 12/28/12 03/13/21 History acetaminophen 500 mg PO TID PRN 04/11/17 03/13/21 History blood-glucose meter #1 each 05/16/18 03/13/21 Rx blood sugar diagnostic #100 each 05/23/18 03/13/21 Rx lancets 25 gauge #100 each 05/24/18 03/13/21 Rx magnesium citrate 125 mg capsule 250 mg PO DAILY cap 01/27/20 03/13/21 History atorvastatin 40 mg tablet 40 mg PO DAILY #90 tab-cap 04/03/20 03/13/21 Rx glipizide 5 mg tablet, extended 5 mg PO DAILY #90 tab-cap 04/03/20 03/13/21 Rx release 24 hr losartan 100 1 tab PO DAILY #90 tab-cap 04/03/20 03/13/21 Rx mg-hydrochlorothiazide 25 mg tablet spironolactone 25 mg tablet 25 mg PO BID #180 tab-cap 04/03/20 03/13/21 Rx clotrimazole-betamethasone 1 1 applic TOPICAL BID PRN #45 g 05/21/20 03/13/21 Rx %-0.05 % topical cream dicyclomine 10 mg capsule 10 mg PO BID PRN #60 tab-cap 05/21/20 03/13/21 Rx carvedilol 12.5 mg tablet 12.5 mg PO BID #180 tab 07/28/20 03/13/21 Rx loratadine 10 mg tablet 10 mg PO DAILY 09/21/20 03/13/21 History apixaban 5 mg tablet 5 mg PO BID #180 tab 10/05/20 03/13/21 Rx clotrimazole-betamethasone 1 1 applic TOPICAL BID PRN #45 g 12/24/20 03/13/21 Rx %-0.05 % topical cream conjugated estrogens 0.625 mg/gram 1 applic VG twice weekly #30 g 02/01/21 03/13/21 Rx vaginal cream cephalexin 250 mg capsule 250 mg PO Q6H PRN cap 02/02/21 03/13/21 History Exam Const General: cooperative, healthy appearing, comfortable and no acute distress Nutritional Appearance: overweight Orientation: alert, awake and oriented x3 HENMT Head: normal to inspection, normocephalic and atraumatic Mouth: oral mucosae normal Resp Effort & Inspection: normal respiratory effort Auscultation: clear to auscultation bilaterally Cardio Rate: regular rate and bradycardic GI Inspection: normal to inspection Palpation: soft Auscultation: normal bowel sounds Skin General skin exam: no rashes or lesions noted Neuro General: patient alert, patient awake and patient oriented x3 Cranial Nerves: CN's II-XI intact bilaterally Extrem General: normal to inspection, full ROM and no pedal edema Results Labs Result diagrams: 03/13/21 12:25 03/14/21 07:35 Labs: Laboratory Results - last 24 hr 03/13/21 03/13/21 03/13/21 12:25 12:25 12:25 WBC 8.27 RBC 3.50 L Hgb 11.1 L Hct 32.7 L MCV 93.4 MCH 31.7 MCHC 33.9 RDW 13.0 Plt Count 250 MPV 9.4 Immature Gran % 0.4 Neutrophils % 87.7 Lymphocytes % 6.4 Monocytes % 5.0 Eosinophils % 0.1 Basophils % 0.4 Nucleated RBC % 0 Absolute Neutrophils 7.26 H Absolute Lymphocytes 0.53 L Absolute Monocytes 0.41 Absolute Eosinophils 0.01 Absolute Basophils 0.03 PT 10.9 INR 1.1 APTT 23.8 Sodium 126 L Potassium 4.7 Chloride 92 L Carbon Dioxide 22.4 Anion Gap 11.6 H BUN 27 H Creatinine 1.3 H Estimated GFR/1.73 m2 39.51 Glucose 148 H Calcium 9.4 Magnesium 1.7 L Total Bilirubin 0.7 AST 26 ALT 32 Alkaline Phosphatase 37 L Troponin I < 0.05 Total Protein 7.5 Albumin 3.8 Last Vital Signs Temp 36.6 C 03/13/21 14:50 Pulse 58 L 03/13/21 14:50 Resp 18 03/13/21 14:50 BP 169/55 H 03/13/21 14:47 Pulse Ox 100 03/13/21 14:50
[2021-03-13 15:36] LABS: Bilirubin Negative (Negative); Blood Negative (Negative); Clarity Clear (Clear); Glucose Negative (Negative); Ketones Trace mg/dL (Negative); Leukocyte Esterase Small (Negative); Nitrite Negative (Negative); Urobilinogen 0.2 EU/dL (Up TO 0.2); pH 7.5 (5-8)
[2021-03-13 15:42] LABS: Source Nasal/Nares
[2021-03-13 15:47] LABS: Bacteria Few HPF (Negative); C & S Indicated? Yes; Casts Negative LPF (Negative); Crystals Negative HPF (Negative); Epithelial Cells Negative HPF (Negative); Mucus Negative (Negative); Other Cells Negative (Negative); RBC Negative HPF (0-2)
[2021-03-13 16:18] LABS: Troponin I < 0.05 ng/mL (<0.06)
[2021-03-13 16:38] LABS: COVID-19 PCR Negative (Negative)
[2021-03-13 18:01] LABS: Anion Gap 9.7 mmol/L (3-11); BUN 22 mg/dL (7-18); CO2 23.3 mmol/L (21.0-32.0); CREATININE 1.1 mg/dL (0.55-1.02); Calcium 8.7 mg/dL (8.5-10.1); Chloride 96 mmol/L (98-107); Estimated GFR 47.91 (mL/min/1.73m2); Glucose 133 mg/dL (74-106); Potassium 4.2 mmol/L (3.5-5.1); Sodium 129 mmol/L (136-145)
[2021-03-13] MEDS: Pantoprazole 40 MG VIAL IVP (18:33)
[2021-03-13] MEDS: Normal Saline Flush 10 ML SYR IVP (18:33)
[2021-03-13] MEDS: Acetaminophen 500 MG TAB PO (21:23)
[2021-03-13] MEDS: Melatonin 3 MG TAB 6 MG PO (21:23)
[2021-03-13] MEDS: Atorvastatin 40 MG TAB PO (21:23)
[2021-03-13] MEDS: Carvedilol 12.5 MG TAB PO (21:24)
[2021-03-13] MEDS: Apixaban 5 MG TAB PO (21:24)
[2021-03-14 02:16] VITALS: PULSE 51
[2021-03-14 03:10] VITALS: BP 131/55; PULSE 54; RESP 16; TEMP 36.3; O2SAT 99
[2021-03-14] MEDS: Normal Saline 1,000 ML 125 ML IV (05:39)
[2021-03-14 07:03] VITALS: BP 126/67; PULSE 52; RESP 14; TEMP 36.3; O2SAT 99
[2021-03-14 07:16] VITALS: PULSE 54
[2021-03-14] MEDS: Acetaminophen 500 MG TAB PO (07:37)
[2021-03-14] MEDS: Apixaban 5 MG TAB PO (07:37)
[2021-03-14] MEDS: Loratidine 10 MG TAB PO (07:37)
[2021-03-14] MEDS: Multivitamin TAB 1 TAB PO (07:37)
[2021-03-14 08:14] LABS: Anion Gap 9.6 mmol/L (3-11); BUN 18 mg/dL (7-18); CO2 21.4 mmol/L (21.0-32.0); Calcium 8.1 mg/dL (8.5-10.1); Chloride 99 mmol/L (98-107); Estimated GFR 53.48 (mL/min/1.73m2); Glucose 107 mg/dL (74-106); Magnesium 1.5 mg/dL (1.8-2.4); Potassium 4.1 mmol/L (3.5-5.1); Sodium 130 mmol/L (136-145)
[2021-03-14 09:20] VITALS: BP 131/72; BP 135/69; PULSE 60; PULSE 62
[2021-03-14] MEDS: MAGNESIUM SULFATE 2 GM/50 ML BAG IVPB (09:21)
[2021-03-14] MEDS: Carvedilol 6.25 MG TAB PO (10:23)
--- NOTE | 2021-03-14 11:52 | DSE_ITS ---
Date of service: 03/14/21 Time of Service: 11:52 DS: Diagnosis Discharge Diagnosis (1) Diarrhea: Status: Acute (2) Near syncope: Status: Acute (3) A-fib: Status: Chronic (4) Essential hypertension: Status: Chronic (5) Diabetes mellitus: Status: Chronic Discharge Plan Disposition Patient Disposition: HOME Condition: Stable Discharge Details Reason For Visit: Syncope, hyponatremia Admit Date/Time: 03/13/21 15:50 Admit Provider: Batsheva Vaca Attending Provider: Batsheva Vaca Primary Care Provider: Ijeoma Najera [place] [facility] Hospital Course: This is a patient who present to the ED with 2-3 weeks of watery diarrhea, no fevers, no abdominal pain. no close contacts with similar symptoms, has been tolerating fluids, states on 2 episodes she was lightheaded while on the toilet stooling and maybe passed out but there was no fall or injury. Her work up in the ED shows stable vital signs, no tachy or hypotension and labs with sodium of 126, pot 4.7, creatinine 1.3 BUN 27. hospitalist services contacted and referred to observation on telemetry. Overnight she was rested comfortably with only one BM. She remained in sinus rhythm, rate 50-60 with occ PAC's, blood pressure in the 120-130 range. Her losartan/hctz was placed on hold insetting of hyponatremia and will be held on discharge for pcp re-evaluation. She was also discharged on a reduced dose of coreg for heart rates in the 50's, although she was asymptomatic with this heart rate it is not certain that she was with lower heart rate while pre-syncopal. she will be discharged on a cardiac event recorder. she was also advised to stop taking magnesium citrate, consider magnesium chloride if needed (started on PPI which may contribute to ongoing hypomagnesmia that is likely now d/t diarrhea). Her magnesium was repleted with IVPB and she should have her electrolytes checked next week prior to her follow up visit. she was started on protonix for reports of heartburn and indigestion, with stress of care giving and on anticoagulation. This may contribute to ongoing hypomagnesemia. will repete labs and defer further medication adjustments to pcp. she is stable and feeling closer to baseline today. she is eating well and ready for discharge to home. she is discharged with no new services. she should call pcp for follow up. discharge discussed with Dr Vaca Home Meds and New Rx's Prescriptions: New pantoprazole 40 mg tablet,delayed release (DR/EC) 40 mg PO DAILY Qty: 30 RF: 0 Bio-K plus 50 billion cell capsule,delayed release(DR/EC) 1 cap PO DAILY Qty: 30 RF: 0 Continued dicyclomine 10 mg capsule 10 mg PO BID PRN (Reason: diarrhea) Qty: 60 RF: 0 clotrimazole-betamethasone 1-0.05 % cream 1 applic Topical BID PRN (Reason: rash) Qty: 45 RF: 2 clotrimazole-betamethasone 1-0.05 % cream 1 applic topical BID PRN (Reason: itching) Qty: 45 RF: 1 loratadine 10 mg tablet 10 mg PO DAILY RF: 0 cephalexin 250 mg capsule 250 mg PO Q6H PRNRF: 0 Premarin 0.625 mg/gram cream 1 applic VG twice weekly Qty: 30 RF: 3 multivitamin [Once Daily] 1 EACH tablet 1 tab PO DAILY RF: 0 acetaminophen 500 MG tablet 500 mg PO TID PRNRF: 0 (DME) blood-glucose meter misc See Dose Instructions .ROUTE .MEDSUPPLY Qty: 1 RF: 0 (DME) Blood Glucose Test strip See Dose Instructions .ROUTE .MEDSUPPLY Qty: 100 RF: 5 (DME) lancets 25 gauge misc See Dose Instructions .ROUTE .MEDSUPPLY Qty: 100 RF: 4 atorvastatin [Lipitor] 40 mg tablet 40 mg PO DAILY Qty: 90 RF: 4 spironolactone 25 mg tablet 25 mg PO BID Qty: 180 RF: 12 glipizide 5 mg tablet extended release 24hr 5 mg PO DAILY Qty: 90 RF: 4 Eliquis 5 mg tablet 5 mg PO BID Qty: 180 RF: 5 Changed carvedilol 12.5 mg tablet 6.25 mg PO BID Qty: 180 RF: 4 Discontinued magnesium citrate 125 mg capsule 250 mg PO DAILY RF: 0 losartan-hydrochlorothiazide [Hyzaar] 100-25 mg tablet 1 tab PO DAILY Qty: 90 RF: 4 Discharge Instructions Instructions: Hyponatremia (DC), Gastroenteritis (DC) Additional Instructions: Your carvedilol dose was reduced as your heart rate is primarily in the 50's and you experienced 2 episodes of lightlheadedness at home. We are discharging you on a cardiac event recorder to see if you are having lower heart rates associated with those symptoms. We have not seen any evidence here while your were on telemetry or during orthostatic vital sign checks. You should monitor blood pressure and heart rate 3-4 times weekly and when having any symptoms and record and bring to your doctor appointment for review. Your losartan/hctz has been discontinued as it may have been contributing to your low sodium. it is also possible that the sodium was low d/t increased free water intake to avoid dehydration over the past 2 weeks while you were having diarrhea. please discuss this with your primary care provider. Your magnesium citrate was discontinued as this can contribute to diarrhea. You should have lab work completed prior to your follow up appointment so electrolytes can be evaluated. Stand Alone Forms: Nursing Discharge Form Referrals: Ijeoma Najera MD, [place] [Primary Care Provider] - (Please call Monday to make a follow up appointment for 1-2 weeks. ) Activity:: Activity as Tolerated Equipment/Supplies:: No Equipment Needed Diet:: Carb Counting Discharge Orders Other Ambulatory Orders: Cardiac Event Recorder (Routine) Timeframe: [id number] Facility: [facility] - Location: Respiratory Therapy Ordered By: Nadege Garnett DS: Summary Time Spent with Patient providing and/or coordinating discharge services: Less than 30 minutes Status at Discharge Functional status at discharge: independent ambulation Overall status at discharge: patient is progressing back to baseline Mental Status: mental status grossly normal Speech and Movement: speech and movement normal Mood: congruent mood Affect: normal affect Exam Const General: cooperative, healthy appearing, comfortable and no acute distress Nutritional Appearance: overweight Orientation: alert, awake and oriented x3 HENMT Head: normal to inspection, normocephalic and atraumatic Mouth: oral mucosae normal Resp Effort & Inspection: normal respiratory effort Auscultation: clear to auscultation bilaterally Cardio Rate: regular rate and bradycardic GI Inspection: normal to inspection Palpation: soft Auscultation: normal bowel sounds Skin General skin exam: no rashes or lesions noted Neuro General: patient alert, patient awake and patient oriented x3 Cranial Nerves: CN's II-XI intact bilaterally Extrem General: normal to inspection, full ROM and no pedal edema Psych Mental Status: mental status grossly normal Speech and Movement: speech and movement normal Mood: congruent mood Affect: normal affect DS: Data Vitals/I&O Vitals and I&O: Vital Signs Temperature 36.3 C L 03/14/21 07:03 Temperature Source Tympanic 03/14/21 07:03 Pulse 60 03/14/21 09:20 Pulse Rhythm Regular 03/14/21 07:55 Respiratory Rate 14 03/14/21 07:03 Respiratory Effort Non-Labored 03/14/21 07:55 Respiratory Depth Normal 03/14/21 07:55 Respiratory Pattern Normal 03/14/21 07:55 Blood Pressure 131/72 03/14/21 09:20 Blood Pressure Position Supine 03/13/21 11:54 Pulse Oximetry 99 03/14/21 07:03 Oxygen Delivery Method Room Air 03/14/21 07:03 Oxygen Flow Rate 0 03/14/21 07:03 Pain Level 6 03/14/21 08:37 Intake & Output 03/13/21 03/13/21 03/14/21 11:59 23:59 11:59 Intake Total 458.75 / 458.75 1000 / 1000 Output Total 1650 / 1650 1900 / 1900 Balance -1191.25 / -1191.25 -900 / -900 Weight 82.1 kg 82.1 kg 89.857 kg Intake: IV 218.75 / 218.75 1000 / 1000 Oral 240 / 240 Output: Urine 1650 / 1650 1900 / 1900 Other: Urine Color Pale Yellow Yellow Urine Appearance Clear Clear Urine Odor None Normal Comment Urine noted to be cloudy; charge nurse notified. Stool Size Small Stool Characteristics Formed Brown Voiding Methods Bedside Commode Toilet Data Completed and Pending Labs on day of discharge: Labs from last 24 hours 03/14/21 03/14/21 03/14/21 09:12 09:12 07:35 WBC RBC Hgb Hct MCV MCH MCHC RDW Plt Count MPV Immature Gran % Neutrophils % Lymphocytes % Monocytes % Eosinophils % Basophils % Nucleated RBC % Absolute Neutrophils Absolute Lymphocytes Absolute Monocytes Absolute Eosinophils Absolute Basophils PT INR APTT Sodium 130 L Potassium 4.1 Chloride 99 Carbon Dioxide 21.4 Anion Gap 9.6 BUN 18 Creatinine 1.0 Estimated GFR/1.73 m2 53.48 Glucose 107 H Calcium 8.1 L Magnesium 1.5 L Total Bilirubin AST ALT Alkaline Phosphatase Troponin I Total Protein Albumin Urine Color Urine Clarity Urine pH Ur Specific [place] Urine Protein Urine Ketones Urine Blood Urine Nitrite Urine Bilirubin Urine Urobilinogen Ur Leukocyte Esterase Urine RBC Urine WBC Ur Epithelial Cells Urine Crystals Urine Bacteria Urine Casts Urine Mucus Urine Other Ur Culture Indicated? Urine Glucose Stool Campylobacter PCR Pending Stl C.difficile Tox PCR Cancelled Stool Salmonella PCR Pending Stool Shigella PCR Pending COVID-19 Source SARS-CoV-2 (PCR) Shiga Toxin (PCR) Pending 03/13/21 03/13/21 03/13/21 17:48 15:15 15:00 WBC RBC Hgb Hct MCV MCH MCHC RDW Plt Count MPV Immature Gran % Neutrophils % Lymphocytes % Monocytes % Eosinophils % Basophils % Nucleated RBC % Absolute Neutrophils Absolute Lymphocytes Absolute Monocytes Absolute Eosinophils Absolute Basophils PT INR APTT Sodium 129 L Potassium 4.2 Chloride 96 L Carbon Dioxide 23.3 Anion Gap 9.7 BUN 22 H Creatinine 1.1 H Estimated GFR/1.73 m2 47.91 Glucose 133 H Calcium 8.7 Magnesium Total Bilirubin AST ALT Alkaline Phosphatase Troponin I < 0.05 Total Protein Albumin Urine Color Urine Clarity Urine pH Ur Specific [place] Urine Protein Urine Ketones Urine Blood Urine Nitrite Urine Bilirubin Urine Urobilinogen Ur Leukocyte Esterase Urine RBC Urine WBC Ur Epithelial Cells Urine Crystals Urine Bacteria Urine Casts Urine Mucus Urine Other Ur Culture Indicated? Urine Glucose Stool Campylobacter PCR Stl C.difficile Tox PCR Stool Salmonella PCR Stool Shigella PCR COVID-19 Source Nasal/Nares SARS-CoV-2 (PCR) Negative Shiga Toxin (PCR) 03/13/21 03/13/21 03/13/21 14:40 12:25 12:25 WBC 8.27 RBC 3.50 L Hgb 11.1 L Hct 32.7 L MCV 93.4 MCH 31.7 MCHC 33.9 RDW 13.0 Plt Count 250 MPV 9.4 Immature Gran % 0.4 Neutrophils % 87.7 Lymphocytes % 6.4 Monocytes % 5.0 Eosinophils % 0.1 Basophils % 0.4 Nucleated RBC % 0 Absolute Neutrophils 7.26 H Absolute Lymphocytes 0.53 L Absolute Monocytes 0.41 Absolute Eosinophils 0.01 Absolute Basophils 0.03 PT 10.9 INR 1.1 APTT 23.8 Sodium Potassium Chloride Carbon Dioxide Anion Gap BUN Creatinine Estimated GFR/1.73 m2 Glucose Calcium Magnesium Total Bilirubin AST ALT Alkaline Phosphatase Troponin I Total Protein Albumin Urine Color Yellow Urine Clarity Clear Urine pH 7.5 Ur Specific [place] 1.020 Urine Protein Negative Urine Ketones Trace H Urine Blood Negative Urine Nitrite Negative Urine Bilirubin Negative Urine Urobilinogen 0.2 Ur Leukocyte Esterase Small H Urine RBC Negative Urine WBC 5-10 Ur Epithelial Cells Negative Urine Crystals Negative Urine Bacteria Few Urine Casts Negative Urine Mucus Negative Urine Other Negative Ur Culture Indicated? Yes Urine Glucose Negative Stool Campylobacter PCR Stl C.difficile Tox PCR Stool Salmonella PCR Stool Shigella PCR COVID-19 Source SARS-CoV-2 (PCR) Shiga Toxin (PCR) 03/13/21 12:25 WBC RBC Hgb Hct MCV MCH MCHC RDW Plt Count MPV Immature Gran % Neutrophils % Lymphocytes % Monocytes % Eosinophils % Basophils % Nucleated RBC % Absolute Neutrophils Absolute Lymphocytes Absolute Monocytes Absolute Eosinophils Absolute Basophils PT INR APTT Sodium 126 L Potassium 4.7 Chloride 92 L Carbon Dioxide 22.4 Anion Gap 11.6 H BUN 27 H Creatinine 1.3 H Estimated GFR/1.73 m2 39.51 Glucose 148 H Calcium 9.4 Magnesium 1.7 L Total Bilirubin 0.7 AST 26 ALT 32 Alkaline Phosphatase 37 L Troponin I < 0.05 Total Protein 7.5 Albumin 3.8 Urine Color Urine Clarity Urine pH Ur Specific [place] Urine Protein Urine Ketones Urine Blood Urine Nitrite Urine Bilirubin Urine Urobilinogen Ur Leukocyte Esterase Urine RBC Urine WBC Ur Epithelial Cells Urine Crystals Urine Bacteria Urine Casts Urine Mucus Urine Other Ur Culture Indicated? Urine Glucose Stool Campylobacter PCR Stl C.difficile Tox PCR Stool Salmonella PCR Stool Shigella PCR COVID-19 Source SARS-CoV-2 (PCR) Shiga Toxin (PCR) Preliminary micro results at discharge 03/13/21 14:40 Urine Culture - Preliminary Urine - Reflex from Ua Gram Positive & Negative Lucy [facility] Medical History Basal cell carcinoma of other specified sites of skin (08/21/12) RIP HOLDEN; FOREHEAD; RIGHT SIDE Cervical arthritis Chronic left shoulder pain (03/29/16) Diabetes mellitus (01/01/13) Edema extremities (02/26/18) Essential hypertension (06/27/13) Fatigue (07/26/12) Hearing loss A.S. Hypercholesterolemia (01/01/13) Impaired renal function (03/29/18) Incidental pulmonary nodule, > 3mm and < 8mm 04/30/18-[facility] Increased BMI Lumbar radicular pain Malignant neoplasm of female breast (07/06/90) right breast BX-CA in [facility] [place]: positive history of [place]oux: positive Obstructive sleep apnea syndrome (03/29/16) Osteoarthritis of right knee Palpitations 09/07/16 Polyp of colon (12/02/08) per colonoscopy-Dr. 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 RIP PATRICIA; RIGHT CHEEK Tendonitis involving left hip abductors (08/17/15) Surgical History Abdominal hysterectomy (~1997) Appendectomy Bilateral salpingectomy with oophorectomy Biopsy of breast (~1990) RIGHT section X 3 Cholecystectomy DISCECTOMY Extraction of cataract 05/26/15; LEFT EYE 06/16/15; RIGHT EYE H/O cataract removal with insertion of prosthetic lens O.S. -05/26 2015; O.D.-06/16/2015 H/O section x 3 H/O discectomy History of appendectomy History of bilateral ligation of fallopian tubes (07/29/14) History of bilateral tubal ligation 07/29/14 History of cataract removal with insertion of prosthetic lens (05/26/15) History of section History of discectomy Hx of appendectomy Hx of spinal surgery 01/24/17 [facility] [place] Ligation of fallopian tube (~1997) MOHS 08/2014 S/P abdominal hysterectomy S/P breast biopsy S/P cholecystectomy Status post abdominal hysterectomy Status post cholecystectomy Family History Mother , age 86 Essential hypertension Asthma Breast cancer Father , age 61 Stroke Hypertension Son Hyperlipidemia Son No problems noted. Daughter Asthma Maternal Grandfather No problems noted. Paternal Grandfather No problems noted. Maternal Grandmother No problems noted. Paternal Grandmother No problems noted. Social History Smoking/Tobacco Use Status: Former Tobacco Use Quit Date: 08/07/1964 Pack- years: 15 Tobacco: How many years used: 5 Second Hand Exposure: No Smoking risk assessment performed?: Yes Alcohol Intake: never Drug use: Never Substance use type: does not use Caregiver/Support person: No Household members: spouse Housing: house Communication Needs: Hard of Hearing and Corrective Lenses Do you need help understanding health information?: Rarely Pets and animals: No Sexually active: No Do you think of yourself as: straight/heterosexual Current gender identity: female What is your relationship status?: How often do you talk on the phone with friends or family?: once per week How often do you get together with friends or relatives?: decline to answer How often do you attend nondenominational or cheondoism services?: 4 or more times per year Do you belong to any clubs or organized social groups?: no Panel score (0-1 are the most socially isolated patients): 2 What type of physical activity do you participate in: swimming Duration: 45-60 minutes/day Frequency: 1-2 times per week Janine/Jainism: Yazdanism Special janine needs: No Seatbelt use: always Helmet use: No Drive intox or ride w/intox hammer driver: No Do you feel safe in your relationship?: Yes Victim of physical abuse: No Victim of emotional abuse: No Victim of sexual abuse: No Would you like helpful sources: No
[2021-03-14 12:01] VITALS: BP 123/52; PULSE 50; RESP 17; TEMP 36.7; O2SAT 99
[2021-03-14 20:35] LABS: Campylobacter PCR Negative (Negative); Salmonella PCR Negative (Negative); Shiga Toxin PCR Negative (Negative); Shigella/Enteroinvasive Ecoli Negative (Negative)
--- NOTE | 2021-04-13 15:29 | W.CARDEVENT ---
Date of service: 04/13/21 Time of Service: 15:29 Cardiac Event Recorder Referring Provider:: Batsheva Vaca Indications:: Syncope Cardiac Event Note: This is a 30-day radiographer cardiac catheterization reportedly ordered for the indication of syncope Predominant rhythm was sinus with an average heart rate of 62. Minimum was 55, maximum 103 There were rare atrial premature beats There were no significant ventricular dysrhythmias There was no atrial fibrillation, no high-grade AV block, no pauses greater than 3 seconds There were no apparent patient symptoms
== END 2021-03-14 13:48 | disposition home or self-care (01) ==
LOC: ER 14:44 → MS 15:53
PROVIDERS: Admitting Provider Internal Medicine; Emergency Provider Physician Assistant; PCP Family Medicine; Visit Provider Internal Medicine
DX: R19.7 Diarrhea, unspecified (principal); R55 Syncope and collapse; E87.1 Hypo-osmolality and hyponatremia; I48.20 Chronic atrial fibrillation, unspecified; I10 Essential (primary) hypertension; E11.9 Type 2 diabetes mellitus without complications; R60.0 Localized edema; E78.00 Pure hypercholesterolemia, unspecified; M54.16 Radiculopathy, lumbar region; Z85.3 Personal history of malignant neoplasm of breast; G47.33 Obstructive sleep apnea (adult) (pediatric); E83.42 Hypomagnesemia
CPT/HCPCS: 36415; 80048; 80053; 87493; 87505; 87635; 93005; 96360; 99285; 70450; 71046; 81003; 81015; 83735; 84484; 85025; 85610; 85730; 87086; 93010; 99217; 99220; G0378

== ENCOUNTER 2021-03-29 02:48 | Outpatient (CLI) | payer MEDICARE, SELFPAY ==
[2021-03-29 14:15] LABS: HCT 33.9 % (36.0-46.0); MCH 31.5 pg (27.0-33.0); MCHC 32.4 % (32.0-36.0); MCV 97.1 fL (80-95); MPV 9.2 fL (8.0-11.0); Platelet Count 326 10^3/uL (130-400); RBC 3.49 10^6/uL (3.93-5.22); RDW 13.5 % (11.7-14.6); RDW-SD 48.4 fL; WBC 5.77 10^3/uL (4.4-10.8)
[2021-03-29 15:21] LABS: ALT 31 U/L (14-59); AST 17 U/L (15-37); Albumin 3.8 g/dL (3.4-5.0); Alkaline Phosphatase 52 U/L (46-116); Anion Gap 10.4 mmol/L (3-11); BUN 25 mg/dL (7-18); Bilirubin, Total 0.5 mg/dL (0.2-1.0); CO2 25.6 mmol/L (21.0-32.0); CREATININE 1.2 mg/dL (0.55-1.02); Calcium 9.2 mg/dL (8.5-10.1); Calculated LDL 69 mg/dL (<100); Chloride 98 mmol/L (98-107); Cholesterol 155 mg/dL (<200); Estimated GFR 43.34 (mL/min/1.73m2); Glucose 144 mg/dL (74-106); HDL Cholesterol 60 mg/dL (40-60); Potassium 5.1 mmol/L (3.5-5.1); Sodium 134 mmol/L (136-145); Total Protein 7.1 g/dL (6.4-8.2); Triglyceride 130 mg/dL (<150)
[2021-03-29 15:46] LABS: Microalb ug/mg Crea 72.2 ug/mg Cr
== END 2021-03-29 02:49 | disposition home or self-care (01) ==
LOC: LBO 02:48
PROVIDERS: PCP Family Medicine; Visit Provider Family Medicine
DX: E11.9 Type 2 diabetes mellitus without complications (principal); E78.00 Pure hypercholesterolemia, unspecified; I10 Essential (primary) hypertension; N28.9 Disorder of kidney and ureter, unspecified
CPT/HCPCS: 36415; 80053; 80061; 85027; 82043; 82570; 83036

== ENCOUNTER → 2021-03-31 12:50 | Outpatient (BNVA) | payer MEDICARE, SELFPAY | PROVIDERS: PCP Family Medicine; Referring Provider Family Medicine; Visit Provider Nurse Practitioner Gerontology | DX: N39.46 Mixed incontinence (principal); I10 Essential (primary) hypertension; E11.9 Type 2 diabetes mellitus without complications | CPT/HCPCS: 99215 ==

== ENCOUNTER 2021-04-13 15:29 | Outpatient (CLI) | payer MEDICARE, SELFPAY | END 2021-04-13 15:30 | LOC: CARDO 04-15 11:17 | PROVIDERS: PCP Family Medicine; Referring Provider Internal Medicine; Visit Provider Internal Medicine Cardiovascular Disease | DX: R55 Syncope and collapse (principal); I48.91 Unspecified atrial fibrillation; R00.1 Bradycardia, unspecified | CPT/HCPCS: 93272 ==

== ENCOUNTER → 2021-05-06 14:01 | Outpatient (BNVA) | payer MEDICARE, SELFPAY | PROVIDERS: PCP Family Medicine; Referring Provider Family Medicine; Visit Provider Nurse Practitioner Gerontology | DX: N39.46 Mixed incontinence (principal); R60.9 Edema, unspecified; I10 Essential (primary) hypertension | CPT/HCPCS: 99214 ==

== ENCOUNTER 2021-06-07 02:53 | Outpatient (CLI) | payer MEDICARE, SELFPAY ==
[2021-06-07 13:44] LABS: HCT 34.5 % (36.0-46.0); HGB 11.2 g/dL (11.2-15.7); MCH 31.4 pg (27.0-33.0); MCHC 32.5 % (32.0-36.0); MCV 96.6 fL (80-95); MPV 9.6 fL (8.0-11.0); Platelet Count 256 10^3/uL (130-400); RBC 3.57 10^6/uL (3.93-5.22); RDW 11.6 % (11.7-14.6); RDW-SD 40.9 fL; WBC 7.98 10^3/uL (4.4-10.8)
[2021-06-07 15:21] LABS: ALT 22 U/L (14-59); AST 12 U/L (15-37); Albumin 3.9 g/dL (3.4-5.0); Alkaline Phosphatase 46 U/L (46-116); BUN 29 mg/dL (7-18); Bilirubin, Total 0.4 mg/dL (0.2-1.0); CREATININE 1.2 mg/dL (0.55-1.02); Calcium 9.2 mg/dL (8.5-10.1); Chloride 101 mmol/L (98-107); Estimated GFR 43.34 (mL/min/1.73m2); Glucose 139 mg/dL (74-106); NT-proBNP 687 pg/mL (<300); Potassium 4.8 mmol/L (3.5-5.1); Sodium 138 mmol/L (136-145); TSH (W/Ref FT4) 2.79 uIU/mL (0.36-3.74); Total Protein 7.2 g/dL (6.4-8.2)
== END 2021-06-07 02:54 | disposition home or self-care (01) ==
LOC: LBO 02:53
PROVIDERS: PCP Family Medicine; Visit Provider Family Medicine
DX: D64.9 Anemia, unspecified; R60.9 Edema, unspecified; I50.9 Heart failure, unspecified; E83.42 Hypomagnesemia; E87.1 Hypo-osmolality and hyponatremia
CPT/HCPCS: 36415; 80053; 85027; 83880; 84443

== ENCOUNTER → 2021-06-08 10:22 | Outpatient (BNVA) | payer MEDICARE, SELFPAY | PROVIDERS: PCP Family Medicine; Referring Provider Family Medicine | DX: M17.12 Unilateral primary osteoarthritis, left knee (principal); M17.11 Unilateral primary osteoarthritis, right knee | CPT/HCPCS: 20610; J1040 ==

== ENCOUNTER 2021-06-16 01:11 | Outpatient (CLI) | payer MEDICARE, SELFPAY ==
--- NOTE | 2021-06-16 14:55 | DI.US_ITS ---
APPROVED REPORT EXAM: Comprehensive 2D, Doppler, and color-flow Echocardiogram Patient Location: Out-Patient Animal Impersonator: Natalie Reyna RDCS (AE) Indications: Edema worsening Other Information Study Quality: Adequate Conclusion Mild concentric left ventricular hypertrophy. Estimated ejection fraction is 60 to 65%. Wall motion is normal Normal right ventricular size and systolic function The right atrium is normal in size. The left atrium is borderline dilated Trileaflet aortic valve without stenosis or regurgitation Mild mitral annular calcification. There is mild to moderate eccentric mitral regurgitation Normal tricuspid valve with trace regurgitation. Estimated right ventricular systolic pressure is no rmal at 27 mmHg Mildly dilated ascending aorta measuring 3.52 cm Wall motion Left Ventricle The left ventricle is normal size. The left ventricular systolic function is normal. The left ventric ular ejection fraction is within the normal range. Mild concentric left ventricular hypertrophy. Ther e is normal LV segmental wall motion. There is no ventricular septal defect visualized. LVEF is 60-65 %. Right Ventricle The right ventricle is normal size. The right ventricular systolic function is normal. The RVSP is 27 .4 mmHg. Atria Left atrium is borderline dilated. The right atrium size is normal. The interatrial septum is intact with no evidence for an atrial septal defect. Aortic Valve The aortic valve is normal in structure. Aortic valve is trileaflet. There is no aortic valvular sten osis. No aortic regurgitation is present. Mitral Valve Mild mitral annular calcification. No evidence of mitral valve stenosis. Mild to moderate mitral regu rgitation. Mitral regurgitation jet is eccentrically directed. Tricuspid Valve The tricuspid valve is normal in structure. There is no tricuspid valve stenosis. Trace tricuspid reg urgitation. Pulmonic Valve The pulmonary valve is normal in structure. There is no pulmonic valvular stenosis. There is no pulmo bekah valvular regurgitation. Great Vessels The aortic root is normal in size. The ascending aorta is mildly dilated, 3.52 cm IVC is normal in si ze and collapses >50% with inspiration. Pericardium There is no pericardial effusion. 2D Dimensions IVSD d PLAX 1.09 cm F: 0.6-1.0 LV Vol A2C d MOD 100.2 mL LVPW d PLAX 1.08 cm F: 0.6 - 1.0 LV Vol A4C d MOD 118.3 mL LVID d PLAX 4.67 cm F: 3.8 - 5.2 LA vol/ BSA A2C s A-L 33.5 mL/m2 LVDs 3.10 cm F: 2.2 - 3.5 LA vol/ BSA A4C s A-L 44.4 mL/m2 Ao Root d 2.90 cm F: 2.7 - 3.3 LA Vol/ BSA Biplane s A-L 39.6 mL/m2 RA Area A4C 14.91 cm2 LA Area A4C s MOD 26.02 cm2 RA Vol/ BSA A4C s A-L 18.3 mL/m2 LA Area A2C s MOD 21.99 cm2 Ao Asc Diam d 3.52 cm F: 2.3 - 3.1 LV EF A4C MOD 59.0 % LV EF Teichholz 61.3 % LV EF A2C MOD 57.4 % LVEF (Turk's) 59.19 % F: 54 - 74 LV EF Biplane MOD 59.2 % LV Volume 84.84 mL F: 46 - 106 SV 66.37 mL LV Volume Index 43.73 mL/m2 F: 29 - 61 SV Index 34.07 mL/m2 LV Vol Biplane MOD 112.1 mL FS 32.80 % M-Mode TAPSE 2.33 cm (M/F) >1.7 LV Diastology MV E' medial 0.080 (>0.07 m/s) E/A Ratio 1.2 LV E/e MED 12.15 (<14) MV E Vmax 0.98 (0.4-1.3 m/s) MV E' lateral 0.088 (>0.1 m/s) MV A Vmax 0.80 (0.4-1.3 m/s) LV E/e LAT 11.10 (<14) MV E/A Ratio 1.18 MV E/E' medial 12.20 MV E/E' lateral 11.11 Aortic Valve LVOT Area 3.29 cm2 AoV Area Vmax 2.66 cm2 LVOT Vmax 1.28 m/s AoV Area/ BSA (Vmax) 1.37 cm2/m2 LVOT Mean Bartolo. 0.78 m/s MARY ELLEN Mean [place]. 2.36 cm2 LVOT Peak Grad 6.5 mmHg MARY ELLEN Mean [place]. Index 1.21 cm2/m2 LVOT Mean Grad 3.0 mmHg LVOT VTI 0.317 m LVOT Diam s 2.00 cm AoV Vmax 1.58 m/s Velocity Ratio 0.81 AoV Mean Bartolo. 1.09 m/s AoV Peak Grad 10.0 mmHg LVOT SV 104.24 mL AoV Mean Grad 5.3 mmHg AoV VTI 0.384 m AoV Area VTI 2.71 cm2 AoV Area/ BSA (VTI) 1.39 cm/m2 Mitral Valve MV DT 271 (160-240 msec) MR Vmax 5.05 m/s MV PHT 79 msec MR VTI 1.549 m MV Area PHT 2.79 cm2 MR Peak Grad 102.1 mmHg MV VTI 0.466 m MR Mean Grad 67.3 mmHg MV VTI Annulus 0.462 m MR PISA Radius 0.50 cm MV Area VTI 2.22 (4.0-6.0 cm2) MR EROA 0.11 cm2 MR Aliasing Velocity 0.35 m/s MR PISA 1.55 cm2 Pulmonary Valve PV Vmax 1.06 (0.5-1.5 m/s) RVOT Peak Gr. 2.23 mmHg PV Peak Grad 4.5 mmHg RVOT Mean Gr. 1.20 mmHg PV Mean Grad 2.3 mmHg RVOT VTI 0.191 m PV VTI 0.271 m RVOT Vmax 0.75 m/s Tricuspid Valve TR Peak Grad 24.3 mmHg TR Vmax 2.47 m/s RA Pressure 3.00 mmHg RVSP (TR) 27.4 mmHg
== END 2021-06-16 01:31 ==
PROVIDERS: PCP Family Medicine; Visit Provider Family Medicine
DX: R60.9 Edema, unspecified (principal); I34.0 Nonrheumatic mitral (valve) insufficiency; I77.810 Thoracic aortic ectasia
CPT/HCPCS: 93306

== ENCOUNTER → 2021-07-13 14:52 | Outpatient (BNVA) | payer MEDICARE, SELFPAY | PROVIDERS: PCP Family Medicine; Visit Provider Nurse Practitioner Gerontology | DX: N39.46 Mixed incontinence (principal); Z79.899 Other long term (current) drug therapy | CPT/HCPCS: 99214 ==

== ENCOUNTER → 2021-07-22 11:34 | Outpatient (BNVA) | payer MEDICARE, SELFPAY | PROVIDERS: PCP Family Medicine; Referring Provider Family Medicine; Visit Provider Student in an Organized Health Care Education/Training Program | DX: M70.62 Trochanteric bursitis, left hip (principal); M70.61 Trochanteric bursitis, right hip; S40.022A Contusion of left upper arm, initial encounter; W19.XXXA Unspecified fall, initial encounter | CPT/HCPCS: 99214 ==

== ENCOUNTER 2021-09-27 11:58 | Outpatient (CLI) | payer MEDICARE, SELFPAY ==
--- NOTE | 2021-09-27 11:45 | DI.RAD_ITS ---
Exam(s) XR SHOULDER LT COMPLETE 2+V EXAM: XR SHOULDER LT COMPLETE 2+V CLINICAL HISTORY: eval L shoulder pain. TECHNIQUE: 2D digital imaging was performed. COMPARISON: CR XR SHOULDER RT COMPLETE 2+V from 07/02/2019 FINDINGS: There is no evidence of fracture or dislocation. Minimal degenerative changes in the glenohumeral warren int. Moderate degenerative changes in the AC joint and there is a ridge on the undersurface of the a cromion. Immediately subjacent to this in the subacromial space is calcification measuring 1.7 cm le ngth by 0.3 cm. Bone density is normal. No osseous lesions. IMPRESSION: Findings are consistent with calcific rotator cuff tendinitis-bursitis. DATA REPOSITORY: RADIATION DOSE DELIVERED:
== END 2021-09-27 11:59 | disposition home or self-care (01) ==
LOC: DIORS 11:58
PROVIDERS: PCP Family Medicine; Referring Provider Family Medicine; Visit Provider Student in an Organized Health Care Education/Training Program
DX: M25.512 Pain in left shoulder (principal); M75.32 Calcific tendinitis of left shoulder; M17.12 Unilateral primary osteoarthritis, left knee; M17.11 Unilateral primary osteoarthritis, right knee
CPT/HCPCS: 20610; 73030; J1040

== ENCOUNTER → 2021-09-28 14:53 | Outpatient (BNVA) | payer MEDICARE, SELFPAY | PROVIDERS: PCP Family Medicine; Referring Provider Family Medicine; Visit Provider Nurse Practitioner Gerontology | DX: N39.46 Mixed incontinence (principal) | CPT/HCPCS: 99214 ==

== ENCOUNTER → 2021-10-11 09:52 | Outpatient (BNVA) | payer MEDICARE, SELFPAY | PROVIDERS: PCP Family Medicine; Referring Provider Family Medicine | DX: M75.32 Calcific tendinitis of left shoulder (principal) | CPT/HCPCS: 20610; J1040 ==

== ENCOUNTER 2021-10-19 01:38 | Outpatient (CLI) | payer MEDICARE, SELFPAY ==
[2021-10-19 08:39] LABS: HCT 36.4 % (36.0-46.0); MCH 31.4 pg (27.0-33.0); MCV 95.3 fL (80-95); MPV 9.6 fL (8.0-11.0); Platelet Count 248 10^3/uL (130-400); RBC 3.82 10^6/uL (3.93-5.22); RDW-SD 41.6 fL; WBC 6.78 10^3/uL (4.4-10.8)
[2021-10-19 09:37] LABS: Hemoglobin A1C 7.3 % (<5.7)
[2021-10-19 09:56] LABS: ALT 23 U/L (14-59); AST 13 U/L (15-37); Albumin 3.8 g/dL (3.4-5.0); Alkaline Phosphatase 35 U/L (46-116); Anion Gap 9.8 mmol/L (3-11); BUN 37 mg/dL (7-18); Bilirubin, Total 0.7 mg/dL (0.2-1.0); CO2 25.2 mmol/L (21.0-32.0); CREATININE 1.1 mg/dL (0.55-1.02); Calcium 9.2 mg/dL (8.5-10.1); Calculated LDL 82 mg/dL (<100); Chloride 99 mmol/L (98-107); Cholesterol 161 mg/dL (<200); Estimated GFR 47.91 (mL/min/1.73m2); Glucose 112 mg/dL (74-106); HDL Cholesterol 67 mg/dL (40-60); Potassium 4.6 mmol/L (3.5-5.1); Sodium 134 mmol/L (136-145); Total Protein 7.1 g/dL (6.4-8.2); Triglyceride 64 mg/dL (<150)
== END 2021-10-19 01:39 | disposition home or self-care (01) ==
LOC: LBO 01:38
PROVIDERS: PCP Family Medicine; Visit Provider Family Medicine
DX: D64.9 Anemia, unspecified (principal); E11.9 Type 2 diabetes mellitus without complications; E78.00 Pure hypercholesterolemia, unspecified; N28.9 Disorder of kidney and ureter, unspecified
CPT/HCPCS: 36415; 80053; 80061; 85027; 83036

== ENCOUNTER 2021-12-22 10:57 | Outpatient (CLI) | payer MEDICARE, SELFPAY ==
--- NOTE | 2021-12-22 06:00 | DI.RAD_ITS ---
Exam(s) XR PAIN CLINIC FLUORO JOINT IN EXAM: XR PAIN CLINIC FLUORO JOINT IN CLINICAL HISTORY: DX: Osteoarthrits of the knee TECHNIQUE: 2D and realtime digital imaging was performed. Radiologist not present. CONTRAST MATERIAL: None. COMPARISON: No exams were available for comparison FINDINGS: Fluoroscopy was provided for pain management therapy. Please refer to procedure report or details. Cumulative dose: Ka,r=9.97 mGy IMPRESSION: RADIATION DOSE DELIVERED:
[2021-12-22 11:09] VITALS: BP 190/73; PULSE 55; RESP 18; TEMP 36.5; O2SAT 99
[2021-12-22 11:58] VITALS: PULSE 54; O2SAT 100
[2021-12-22 12:23] VITALS: PULSE 53; O2SAT 98
[2021-12-22] MEDS: Bupivacaine 0.5% Pres-Free 10 ML VIAL IJ (12:23)
--- NOTE | 2021-12-22 12:36 | PDOC.PAIN_ITS ---
Pain Clinic Procedure Note Procedure Note Procedure Note: BILATERAL GENICULAR NERVE BLOCK Date of Service: December 22, 2021 Patient: Osiris Wilson Provider: Morteza Jaramillo DO, MPH Pre-operative diagnosis: Knee pain Post-operative diagnosis: Same Pre-procedure pain: VAS= 6/10 COMMENTS: I previously evaluated her in the office. Osiris Wilson has been referred to the [facility] for bilateral genicular nerve blocks. Osiris was interviewed and the medical record reviewed. There were no medical, pharmacologic, radiographic or other structural contraindications to attempting fluoroscopically guided bilateral genicular nerve block. Risks and potential side effects as well as potential benefit of the procedure were reviewed with Osiris , and she voiced concerns were addressed. After I believed that the patient was completely informed, the printed consent form was signed. Standard time-out procedure was performed. Osiris was placed in the supine position on the fluoroscopy table and automated blood pressure cuff and pulse oximeter applied. The skin entry points for approaching bilateral superolateral genicular nerve, the superomedial genicular nerve, the terminal branch of the nerve vastus intermedius and the inferomedial genicular was identified under the most advantageous fluoroscopic view and marked. Following thorough Chlorhexadine preparation of the skin and draping, 1% lidocaine infiltration of the skin entry point and subcutaneous tissues was accomplished using a 1.5 25G needle. Next, the 3.5 25G spinal needle was advanced to os at the location of the specific nerve root using fluoroscopic guidance. Next, 1 ml of 0.5% Bupivacaine was injected at each site. The needles were removed without difficulty. Osiris's vital signs were stable throughout the procedure and were as recorded in the docflowsheet by the nursing staff. If given, dosages of intravenous drugs for anxiolysis and analgesia were documented in MAR. Follow up plans and appointments were discussed with the Osiris . Post procedure instruction was given as documented in nursing documentation and having met discharge criteria, Osiris was discharged from the [facility]. COMMENTS: No apparent complications. Post-procedure pain: VAS = 0/10. The patient will keep track of her bilateral knee pain over the next four hours. If Osiris has sufficient pain relief, Osiris will be a candidate for radiofrequency ablation at the same nerves. Bib WJ1, Kerline SJ, Dalton JG, Jillian ShepherdG, Champ WADE, Maricruz PH, Cristhian JW. Radiofrequency treatment relieves chronic knee osteoarthritis pain: a double-blind randomized controlled trial. Pain. 2011 Oct;152(3):481-7. doi: 10.1016/[email or web address].2010.09.029. Mei S1, Manuel ON2, Haylie Y3, ?zl?shruthi P2, Clemente U1, Jay ?m?rl? I. Which one is more effective for the clinical treatment of chronic pain in knee o steoarthritis: radiofrequency neurotomy of the genicular nerves or intra- articular injection? Int J Rheum Dis. 2016 Mar 18. F/U with our office by phone to let us know his 1-4 hour post-procedure pain scores. I personally performed this entire procedure. Morteza Jaramillo DO, MPH Attending Physician Pain Management
== END 2021-12-22 10:58 | disposition home or self-care (01) ==
LOC: PC 10:58
PROVIDERS: PCP Family Medicine; Visit Provider Preventive Medicine Occupational Medicine
DX: M25.561 Pain in right knee (principal); M25.562 Pain in left knee
CPT/HCPCS: 64454; 77002

== ENCOUNTER → 2021-12-28 15:22 | Outpatient (BNVA) | payer MEDICARE, SELFPAY | PROVIDERS: PCP Family Medicine; Referring Provider Family Medicine; Visit Provider Nurse Practitioner Gerontology | DX: N39.46 Mixed incontinence (principal) | CPT/HCPCS: 51798; 99214 ==

== ENCOUNTER 2022-01-11 15:49 | Emergency (ER) | payer MEDICARE, SELFPAY ==
[2022-01-11 15:51] VITALS: BP 200/67; PULSE 57; RESP 16; TEMP 36.5; O2SAT 99
[2022-01-11] MEDS: Cyclobenzaprine 10 MG TAB 5 MG PO ×2 (16:29→18:24)
[2022-01-11] MEDS: Acetaminophen 325 MG TAB 650 MG PO (16:29)
--- NOTE | 2022-01-11 16:41 | W.ED.GENAD ---
Discharge Plan Disposition Patient Disposition: HOME Condition: Improving Discharge Details Clinical Impression: Spasm of muscle of lower back Primary Care Provider: Ijeoma Najera ED Provider: Amarjit Lester Home Meds and New Rx's Prescriptions: New cyclobenzaprine 5 mg tablet 5 mg PO TID PRN (Reason: muscle spasm) Qty: 10 0RF No Action clotrimazole-betamethasone 1-0.05 % cream 1 applic topical BID PRN (Reason: itching) Qty: 45 1RF melatonin 3 mg tablet 3 mg PO HS PRN cholecalciferol (vitamin D3) 50 mcg (2,000 unit) capsule 100 mcg PO DAILY dicyclomine 10 mg capsule 10 mg PO BID PRN (Reason: diarrhea) Qty: 60 0RF fluticasone propionate 50 mcg/actuation spray,suspension 2 spray intranasal DAILY Qty: 16 2RF Rx Instructions: administer into each nostril oxybutynin chloride 10 mg tablet extended release 24hr 10 mg PO .alternate Qty: 90 1RF Rx Instructions: Take 1 tab three days in a row then alternate with 5mg. Repeat cycle oxybutynin chloride 5 mg tablet extended release 24hr 5 mg PO .alternate Qty: 45 1RF Rx Instructions: Alternate with 10mg as directed diclofenac sodium [Voltaren Arthritis Pain] 1 % gel 2 g topical QID Rx Instructions: apply to single elbow, wrist or hand; for hand includes palm/fingers/back of hand Premarin 0.625 mg/gram cream 1 applic VG twice weekly Qty: 30 3RF Rx Instructions: Use 0.5 GM in vagina twice weekly multivitamin [Once Daily] 1 EACH tablet 1 tab PO DAILY (DME) blood-glucose meter misc See Dose Instructions .ROUTE .MEDSUPPLY Qty: 1 0RF Dose Instruction: As directed Rx Instructions: daily (DME) Blood Glucose Test strip See Dose Instructions .ROUTE .MEDSUPPLY Qty: 100 5RF Dose Instruction: As directed Rx Instructions: once per day (DME) lancets 25 gauge misc See Dose Instructions .ROUTE .MEDSUPPLY Qty: 100 4RF Dose Instruction: As directed Rx Instructions: once per day E11.9 Eliquis 5 mg tablet 5 mg PO BID Qty: 180 5RF atorvastatin [Lipitor] 40 mg tablet 40 mg PO DAILY Qty: 90 4RF carvedilol 6.25 mg tablet 6.25 mg PO BID Qty: 180 4RF Rx Instructions: must administer with a meal/food glipizide 5 mg tablet extended release 24 hr 5 mg PO DAILY Qty: 90 4RF losartan 50 mg tablet 50 mg PO DAILY Qty: 90 3RF pantoprazole 40 mg tablet,delayed release (DR/EC) 40 mg PO DAILY Qty: 90 4RF spironolactone 25 mg tablet 25 mg PO BID Qty: 180 12RF acetaminophen 500 mg tablet 500 mg PO TID PRN Systane (PF) 0.4-0.3 % Dropperette 1 drp OPHTHALMIC (EYE) BID-QID PRN Discharge Instructions Instructions: Muscle Spasm (ED) Additional Instructions: As discussed you may continue to take vror-[id number] acetaminophen not to exceed 3000 mg in a day along with the prescribed muscle relaxant. The tablets you have been given are 10 mg tablet and it is recommended that you take half a tablet or 5 mg as needed for muscle spasms every 8 hours no more than 3 doses in a 24-hour period. If you develop any new or significant worsening of your symptoms, fever chills, change in bowel or bladder function, or extreme weakness to your extremity return to the emergency department for reassessment otherwise follow-up with your primary care provider if not improving in the next week. Referrals: Ijeoma Najera [place], [place] [Primary Care Provider] - 1 week (As needed for reassessment or if not improving) Discharge Data Discharge Date/Time-TO BE ENTERED AT DEPARTURE: 01/11/22 21:29 Medical Decision Making Patient presenting to the emergency department for chief complaint of back pain. She states that this started this morning when she bent over to pick something up. It somewhat subsided after using Tylenol but then she moved again causing the back to spasm severely. Patient denies any injury or trauma. Does state significant history of back pain with surgery. Patient denies any radiculopathy and exam is positive for spasm of the left paraspinal lumbar tissue otherwise none worrisome exam. LOW risk for ABDOMINAL AORTIC ANEURYSM, CAUDA EQUINA SYNDROME, EPIDURAL MASS LESION, SPINAL STENOSIS, OR HERNIATED DISK CAUSING SEVERE STENOSIS. Patient is the primary caregiver for her and so after discussion of potential medication options we will use and start with Tylenol and Flexeril to see if that gives patient relief. Patient did have initial relief with Flexeril and Tylenol but when she got up to use the restroom she started spasming again. Discussed further with patient more Flexeril versus benzodiazepine. 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 Unfortunately the additional Flexeril did not provide any further benefit and patient was given IM diazepam. Once this was given patient had significant reduction of lower back spasms and was able to ambulate while using a walker just to assist in case spasm occurred. Patient states comfortability of going home and we will plan on giving very limited supply of diazepam for home use if she has severe spasms otherwise she will use Flexeril as needed along with continued use of acetaminophen. I consider the discharge disposition reasonable. We have discussed the diagnosis and risks, and we agree with discharging home to follow-up with their primary doctor. We also discussed returning to the Emergency Department immediately if new or worsening symptoms occur. We have discussed the symptoms which are most concerning (e.g., saddle anesthesia, urinary or bowel incontinence or retention, changing or worsening pain) that necessitate immediate return. After discussion of diagnosis and plan of care patient has no further needs, questions, or concerns and states clear understanding to return to the emergency department for any worsening symptoms. This documentation was generated using Zazubaation system, please disregard any oddities of phrase or misspellings. Medical Records Medical records reviewed: Yes I reviewed the patient's medical records. HPI General Mode of arrival: ambulatory. Date/Time Provider Initiated Documentation: 01/11/22 16:01. Limitations to Documentation: no limitations. Information obtained by: patient, EMS and RN notes reviewed. History of Present Illness 81 year old F presents to the emergency department with the chief complaint of low back spasms, described as severe and similar to prior episodes, with intensity rated at 10. Quality is described as sharp, and is localized to the back. Patient reports no radiation. Patient started experiencing this hour(s) (5) and it has been intermittent. Medication improves symptom(s), and Rest improves symptom(s), Movement worsens symptoms . Patient notes no other symptoms.. Patient did receive the following treatments prior to arrival, heat therapy and other (Acetaminophen and prednisone) Related Data Home Medications Medication Instructions Recorded Confirmed multivitamin (Once Daily tablet) 1 tab PO DAILY 12/28/12 01/11/22 blood-glucose meter #1 ea 05/16/18 01/11/22 blood sugar diagnostic (Blood #100 ea 05/23/18 01/11/22 Glucose Test strips) lancets 25 gauge #100 ea 05/24/18 01/11/22 melatonin 3 mg tablet 3 mg PO HS PRN 05/11/21 01/11/22 cholecalciferol (vitamin D3) 50 100 mcg PO DAILY 06/08/21 01/11/22 mcg (2,000 unit) capsule clotrimazole-betamethasone 1 1 applic topical BID PRN itching 06/17/21 01/11/22 %-0.05 % topical cream #45 grams apixaban 5 mg tablet (Eliquis) 5 mg PO BID #180 tabs 08/20/21 01/11/22 atorvastatin 40 mg tablet (Lipitor) 40 mg PO DAILY #90 tab-caps 08/20/21 01/11/22 carvedilol 6.25 mg tablet 6.25 mg PO BID #180 tabs 08/20/21 01/11/22 glipizide 5 mg tablet, extended 5 mg PO DAILY #90 tab-caps 08/20/21 01/11/22 release 24 hr losartan 50 mg tablet 50 mg PO DAILY #90 tabs 08/20/21 01/11/22 pantoprazole 40 mg tablet,delayed 40 mg PO DAILY #90 tabs 08/20/21 01/11/22 release spironolactone 25 mg tablet 25 mg PO BID #180 tab-caps 08/20/21 01/11/22 dicyclomine 10 mg capsule 10 mg PO BID PRN diarrhea #60 10/26/21 01/11/22 tab-caps fluticasone propionate 50 2 spray intranasal DAILY #16 grams 10/26/21 01/11/22 mcg/actuation nasal spray,suspension acetaminophen 500 mg tablet 500 mg PO TID PRN 12/17/21 01/11/22 diclofenac sodium 1 % topical gel 2 g topical QID 12/17/21 01/11/22 (Voltaren Arthritis Pain) peg 400-propylene glycol (PF) 0.4 1 drp ophthalmic (eye) BID-QID PRN 12/22/21 01/11/22 %-0.3 % eye drops in a dropperette (Systane (PF)) conjugated estrogens 0.625 mg/gram 1 applic vaginal twice weekly #30 12/27/21 01/11/22 vaginal cream (Premarin) grams oxybutynin chloride 10 mg 10 mg PO .alternate #90 tabs 12/28/21 01/11/22 tablet,extended release 24 hr oxybutynin chloride 5 mg 5 mg PO .alternate #45 tabs 12/28/21 01/11/22 tablet,extended release 24 hr cyclobenzaprine 5 mg tablet 5 mg PO TID PRN muscle spasm #10 01/11/22 tabs Previous Rx's Medication Instructions Recorded blood-glucose meter #1 ea 05/16/18 blood sugar diagnostic (Blood #100 ea 05/23/18 Glucose Test strips) lancets 25 gauge #100 ea 05/24/18 clotrimazole-betamethasone 1 1 applic topical BID PRN itching 06/17/21 %-0.05 % topical cream #45 grams apixaban 5 mg tablet (Eliquis) 5 mg PO BID #180 tabs 08/20/21 atorvastatin 40 mg tablet (Lipitor) 40 mg PO DAILY #90 tab-caps 08/20/21 carvedilol 6.25 mg tablet 6.25 mg PO BID #180 tabs 08/20/21 glipizide 5 mg tablet, extended 5 mg PO DAILY #90 tab-caps 08/20/21 release 24 hr losartan 50 mg tablet 50 mg PO DAILY #90 tabs 08/20/21 pantoprazole 40 mg tablet,delayed 40 mg PO DAILY #90 tabs 08/20/21 release spironolactone 25 mg tablet 25 mg PO BID #180 tab-caps 08/20/21 dicyclomine 10 mg capsule 10 mg PO BID PRN diarrhea #60 10/26/21 tab-caps fluticasone propionate 50 2 spray intranasal DAILY #16 grams 10/26/21 mcg/actuation nasal spray,suspension conjugated estrogens 0.625 mg/gram 1 applic vaginal twice weekly #30 12/27/21 vaginal cream (Premarin) grams oxybutynin chloride 10 mg 10 mg PO .alternate #90 tabs 12/28/21 tablet,extended release 24 hr oxybutynin chloride 5 mg 5 mg PO .alternate #45 tabs 12/28/21 tablet,extended release 24 hr cyclobenzaprine 5 mg tablet 5 mg PO TID PRN muscle spasm #10 01/11/22 tabs Allergies Allergy/AdvReac Type Severity Reaction Status Date / Time Penicillins Allergy CHILDHOOD Verified 01/11/22 15:57 clonidine AdvReac Verified 01/11/22 15:57 gabapentin AdvReac Verified 01/11/22 15:57 lisinopril AdvReac COUGH Verified 01/11/22 15:57 morphine AdvReac VOMITING/DI Verified 01/11/22 15:57 ARRHEA oxybutynin AdvReac dizzy Verified 01/11/22 15:57 oxycodone HCl [From Percocet] AdvReac VOMITING/NA Verified 01/11/22 15:57 USEA terazosin [From Hytrin] AdvReac Verified 01/11/22 15:57 General Stated Complaint: Orthopedic THOM: 3 Review of Systems Constitutional Constitutional: Denies chills and Denies fever(s) Cardiovascular Cardiovascular: Denies chest pain and Denies dyspnea on exertion Respiratory Respiratory: Denies cough and Denies dyspnea on exertion Gastrointestinal Gastrointestinal: Denies abdominal pain, Denies change in bowel habits, Denies diarrhea, Denies nausea and Denies vomiting Genitourinary Genitourinary: Denies urinary incontinence Musculoskeletal Musculoskeletal: Reports as per HPI and Reports back pain Integumentary/Breasts Skin/Breast: Denies erythema and Denies rash Neurologic Neurologic: Denies sensory deficit and Denies paresthesias (No change from baseline) PFSH All Active Problems (Updated 01/11/22 @ 18:16 by Amarjit Lester NP) Spasm of muscle of lower back (Acute) Osteoarthritis of knees, bilateral (Acute) Calcific tendinitis of left shoulder (Acute) Left shoulder pain (Acute) Conductive hearing loss, external ear (Acute) Impacted cerumen, bilateral (Acute) Contusion of left upper extremity (Acute) JAN on CPAP (Chronic) Edema (Acute) Asymmetrical sensorineural hearing loss (Acute) 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) Anemia (Chronic) Hypomagnesemia (Acute) Bradycardia (Acute) Osteoarthritis of right knee (Acute) Impairment of speech discrimination (Acute) Tendinitis of right shoulder (Acute) Localized osteoarthritis of left knee (Acute) At risk for diabetic foot ulcer (Acute) A-fib (Chronic) 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) Obstructive sleep apnea syndrome (Chronic 03/29/16) Malignant neoplasm of female breast (Chronic 07/06/90) right breast BX-CA in [facility] Increased BMI (Chronic) Impaired renal function (Chronic 03/29/18) Hypercholesterolemia (Chronic 01/01/13) Essential hypertension (Chronic 06/27/13) Edema extremities (Chronic 02/26/18) Diabetes mellitus (Chronic 01/01/13) Chronic left shoulder pain (Chronic 03/29/16) Cervical arthritis (Chronic) Basal cell carcinoma of other specified sites of skin (Chronic 08/21/12) RIP HOLDEN; FOREHEAD; RIGHT SIDE Incidental pulmonary nodule, > 3mm and < 8mm (Chronic) 04/30/18-[facility] Medical History Actinic keratosis Cervical strain Diarrhea Discharge planning issues DVT prophylaxis Fatigue (07/26/12) Hyponatremia Lumbar radicular pain Mantoux: positive history of Near syncope Palpitations 09/07/16 Polyp of colon (12/02/08) per colonoscopy-Dr. 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 RIP PATRICIA; RIGHT CHEEK Surgical History Abdominal hysterectomy (~1997) Appendectomy Bilateral salpingectomy with oophorectomy Biopsy of breast (~1990) RIGHT section X 3 Cholecystectomy DISCECTOMY Extraction of cataract 05/26/15; LEFT EYE 06/16/15; RIGHT EYE H/O cataract removal with insertion of prosthetic lens O.S. -05/26 2015; O.D.-06/16/2015 H/O section x 3 H/O discectomy History of appendectomy History of bilateral ligation of fallopian tubes (07/29/14) History of bilateral tubal ligation 07/29/14 History of cataract removal with insertion of prosthetic lens (05/26/15) History of section History of discectomy Hx of appendectomy Hx of spinal surgery 01/24/17 [facility] [place] Ligation of fallopian tube (~1997) MOHS 08/2014 S/P abdominal hysterectomy S/P breast biopsy S/P cholecystectomy Status post abdominal hysterectomy Status post cholecystectomy Family History Mother , age 86 Essential hypertension Asthma Breast cancer Father , age 61 Stroke Hypertension Son Hyperlipidemia Son No problems noted. Daughter Asthma Maternal Grandfather No problems noted. Paternal Grandfather No problems noted. Maternal Grandmother No problems noted. Paternal Grandmother No problems noted. Social History Smoking/Tobacco Use Status: Former Tobacco Use tobacco type: cigarettes Quit Date: 08/07/1964 Pack-years: 15 Tobacco: How many years used: 5 Second Hand Exposure: Yes Smoking risk assessment performed?: Yes Alcohol Intake: never Drug use: Never Substance use type: does not use Household members: spouse Housing: house Communication Needs: Hard of Hearing and Corrective Lenses Do you need help understanding health information?: Rarely Pets and animals: No Sexually active: No Do you think of yourself as: straight/heterosexual Current gender identity: female What is your relationship status?: How often do you talk on the phone with friends or family?: twice per week How often do you get together with friends or relatives?: once per week How often do you attend druze or roman catholic services?: 4 or more times per year Do you belong to any clubs or organized social groups?: yes Panel score (0-1 are the most socially isolated patients): 4 What type of physical activity do you participate in: swimming Duration: 45-60 minutes/day Frequency: 1-2 times per week Janine/Pentecostalism: Amish Special janine needs: No Seatbelt use: always Helmet use: No Drive intox or ride w/intox rickshaw driver: No Do you feel safe at home: Yes Do you feel safe in your relationship?: Yes Victim of physical abuse: No Victim of emotional abuse: No Victim of sexual abuse: No Would you like helpful sources: No Exam Const General: cooperative and no acute distress Orientation: alert, awake and oriented x3 Neck Neck: normal visual inspection, full ROM and no meningeal signs Resp Effort & Inspection: normal respiratory effort Auscultation: clear to auscultation bilaterally Cardio Rate: regular rate Rhythm: regular rhythm Heart Sounds: S1 normal and S2 normal Back/Spine/Pelvis Thoracic/Lumbar Spine: pain with thoraco-lumbar ROM, paraspinal tenderness (with left sided spasms), thoraco-lumbar ROM limited and No lumbar spinal tenderness Pelvis: no pain with anterior-posterior compression and no pain with lateral compression Course Vital Signs Vital signs: Vital Signs Temperature 36.5 C 01/11/22 15:51 Pulse 57 L 01/11/22 15:51 Respiratory Rate 16 01/11/22 15:51 Blood Pressure 200/67 H 01/11/22 15:51 Pulse Oximetry 99 01/11/22 15:51 Temperature 36.5 C 01/11/22 15:51 Temperature Source Temporal Artery Scan 01/11/22 15:51 Pulse 57 L 01/11/22 15:51 Respiratory Rate 16 01/11/22 15:51 Respiratory Effort 01/11/22 15:58 Blood Pressure 200/67 H 01/11/22 15:51 Blood Pressure Position Sitting 01/11/22 15:51 Pulse Oximetry 99 01/11/22 15:51 Oxygen Delivery Method Room Air 01/11/22 15:51 Oxygen Flow Rate 0 01/11/22 15:51 Pain Level 10 01/11/22 15:51
[2022-01-11] MEDS: Lidocaine 5% Patch 1 PATCH TP (19:31)
[2022-01-11] MEDS: diazePAM 10 MG/2 ML SYR 2 MG IM (20:05)
[2022-01-11 21:03] VITALS: BP 158/82; PULSE 80; TEMP 37.2; O2SAT 99
[2022-01-11] MEDS: Cyclobenzaprine 10 MG TAB, 3 TABS/BTL PO (21:12)
[2022-01-11] MEDS: diazePAM 2 MG TAB 4 MG PO (21:12)
[2022-01-11 21:45] VITALS: BP 148/80; PULSE 75; RESP 18; TEMP 37; O2SAT 96
== END 2022-01-11 21:29 | disposition home or self-care (01) ==
PROVIDERS: Emergency Provider Nurse Practitioner Family; PCP Family Medicine
DX: M62.830 Muscle spasm of back (principal)
CPT/HCPCS: 96372; 99284; 99283; J3360

== ENCOUNTER → 2022-01-20 10:56 | Outpatient (BNVA) | payer MEDICARE, SELFPAY | PROVIDERS: PCP Family Medicine; Referring Provider Family Medicine | DX: M75.32 Calcific tendinitis of left shoulder (principal) | CPT/HCPCS: 20610; J1040 ==

== ENCOUNTER 2022-02-10 08:46 | Outpatient (CLI) | payer MEDICARE, SELFPAY ==
[2022-02-10 09:05] VITALS: BP 152/66; PULSE 56; RESP 18; TEMP 36.4; O2SAT 100
[2022-02-10] MEDS: Lactated Ringers 500 ML 80 ML IV (09:25)
[2022-02-10] MEDS: fentaNYL 100 MCG/2 ML VIAL IVP (09:40)
[2022-02-10] MEDS: Midazolam 2 MG/2 ML VIAL IVP (09:41)
--- NOTE | 2022-02-10 10:13 | DI.RAD_ITS ---
Exam(s) XR PAIN CLINIC FLUORO JOINT IN EXAM: XR PAIN CLINIC FLUORO JOINT IN CLINICAL HISTORY: Dx: Osteoarthritis of the knee TECHNIQUE: 2D and realtime digital imaging was performed. Radiologist not present. CONTRAST MATERIAL: None. COMPARISON: No exams were available for comparison FINDINGS: Fluoroscopy was provided for pain management therapy. Please refer to procedure report or details. Cumulative dose: Eveliar=4.87 mGy IMPRESSION: RADIATION DOSE DELIVERED:
--- NOTE | 2022-02-10 10:23 | PDOC.PAIN_ITS ---
Pain Clinic Procedure Note Procedure Note Procedure Note: RIGHT GENICULAR NERVE RADIOFREQUENCY ABLATION WITH THE COOLIEF MACHINE Date of Service: February 10, 2022 Patient: Osiris Wilson Provider: Morteza Jaramillo DO, MPH Pre-operative diagnosis: Rght knee pain Post-operative diagnosis: Same Pre-procedure pain VAS: 4/10 COMMENTS: Previous Genicular nerve block to the RIGHT knee on 12/22/21. Osiris Wilson has been [facility] for RIGHT genicular nerve radiofrequency ablation. Osiris was interviewed and the medical record reviewed. There were no medical, pharmacologic, radiographic or other structural contraindications to attempting fluoroscopically guided RIGHT genicular nerve radiofrequency ablation. Risks and potential side effects as well as potential benefit of the procedure were reviewed with Osiris Wilson , and HER voiced concerns were addressed. After I believed that the patient was completely informed, the printed consent form was signed. Standard time-out procedure was performed. Osiris was placed in the supine position on the fluoroscopy table and automated blood pressure cuff and pulse oximeter applied. The skin entry points for approaching RIGHT superolateral genicular nerve, the superomedial genicular nerve and the inferomedial genicular was identified under the most advantageous fluoroscopic view and marked. Following thorough Chlorhexadine preparation of the skin and draping, 1% lidocaine infiltration of the skin entry point and subcutaneous tissues was accomplished using a 1.5 25G needle. Next, the 10 cm 18G RF Cannula with a 10 mm active tip was advanced to os at the location of the specific nerve roots (3) using fluoroscopic guidance. Next, sensory and motor testing was performed and no abnormal findings were found. Next, 1 cc of 2% Lidocaine was injected at each site. The lesion was then created with 80 degrees C for 90 seconds. Each needle was advance 1 cm and the lesion was completed again. Each cannula was advanced until the tip reached the posterior aspect of the bone shaft. 1/3 cc of Depomedrol (40 mg/cc) was then injected at each site followed by 2 cc of 0.5% Bupivacaine as the needle was withdrawn. The needles were removed without difficulty. Osiris's vital signs were stable throughout the procedure and were as recorded in the docflowsheet by the nursing staff. If given, dosages of intravenous drugs for anxiolysis and analgesia were documented in MAR. Follow up plans and appointments were discussed with the Osiris Wilson . Post procedure instruction was given as documented in nursing documentation and having met discharge criteria, Osiris was [facility] from the [facility]. COMMENTS: No complications. Mccartney WJ1, Kerline SJ, Dalton JG, Jillian JG, Champ WADE, Park PH, Morrow JW. Radiofrequency treatment relieves chronic knee osteoarthritis pain: a double-blind randomized controlled trial. Pain. 2010;152(3):481-7. doi: 10.1016/j.pain.2010.09.029. Mei S1, Manuel ON2, Haylie Y3, ?zl?shruthi P2, Clemente U1, Jay ?m?rl? I. Which one is more effective for the clinical treatment of chronic pain in knee osteoarthritis: radiofrequency neurotomy of the genicular nerves or intra- articular injection? Int J Rheum Dis. 2016 Mar 18. F/U with our office Post-procedure pain VAS was 0/10. I personally performed this entire procedure. Morteza Jaramillo DO, MPH [facility]
[2022-02-10] MEDS: Bupivacaine 0.5% Pres-Free 30 ML VIAL IJ (10:40)
[2022-02-10] MEDS: methylPREDNISolone ACETATE 40 MG/ML VIAL IJ (10:40)
[2022-02-10] MEDS: Lidocaine 2% Multi-Dose 20 ML VIAL IJ (10:40)
== END 2022-02-10 08:47 | disposition home or self-care (01) ==
LOC: PC 08:47
PROVIDERS: PCP Family Medicine; Visit Provider Preventive Medicine Occupational Medicine
DX: M25.561 Pain in right knee (principal)
CPT/HCPCS: 64624; 77002; J1030; J2250; J3010; J3490

== ENCOUNTER → 2022-02-14 02:21 | Outpatient (CLI) | payer MEDICARE, SELFPAY ==
--- NOTE | 2022-02-14 08:15 | DI.MAMMO_ITS ---
Exam(s) MAMMO SCREENING EXAM: MAMMO SCREENING CLINICAL HISTORY: screening,z12.39. TECHNIQUE: Bilateral full field digital CC and MLO mammographic images were obtained with 3D tomosyn thesis and utilizing computer aided detection (CAD). COMPARISON: Prior mammograms were reviewed, the most recent being February 2021. FINDINGS: Asymmetric tissue in the upper-outer quadrant of right breast is unchanged all prior mammograms datin g back to at least 2012. There are no new spiculated masses. Benign-appearing calcifications in both breasts are noted. There is no significant architectural distortion nor skin thickening-retraction. IMPRESSION: No radiographic evidence of malignancy. Benign findings. BI-RADS Category 2 - Benign Findings Breast Density - Category B - Scattered areas of fibroglandular density Breast density Category C or D implies that the patient has dense breast tissue. Dense breast tissue can make it harder to find cancer on a mammogram. Dense breast tissue is also associated with an incr eased risk of breast cancer. This information about the result of the mammogram report was provided to the patient to raise their awareness. Use this report when you speak with the patient about their risks for breast cancer, which includes their family history. At that time, you may recommend additional screening tests (Ultrasoun d or MRI) as these tests may add significant information. A negative radiographic report should not delay biopsy if a dominant or clinically suspicious mass is present. Up to ten percent of cancers are not identified on mammography. A negative report may reinforce clinical impression. Adenosis and dense breasts may obscure an underlying neoplasm. False positive reports average 6 to 10%. Patient will receive a letter notifying them of these results.
== END ==
PROVIDERS: PCP Family Medicine; Visit Provider Nurse Practitioner Family
DX: Z12.31 Encounter for screening mammogram for malignant neoplasm of breast (principal)
CPT/HCPCS: 77063; 77067

== ENCOUNTER → 2022-03-01 11:23 | Outpatient (BNVA) | payer MEDICARE, SELFPAY | PROVIDERS: PCP Family Medicine; Referring Provider Family Medicine; Visit Provider Internal Medicine Cardiovascular Disease | DX: I48.91 Unspecified atrial fibrillation (principal); I10 Essential (primary) hypertension | CPT/HCPCS: 99214; 99213 ==

== ENCOUNTER 2022-03-14 15:56 | Outpatient (REF) | payer MEDICARE, SELFPAY ==
--- NOTE | 2022-03-14 15:20 | SKI_PTH ---
PATIENT: Osiris Wilson LOC: [facility] U#:[id number] AGE/SX: 81/F ROOM: RE03/14/[address]: Manny Chavira MD : [id number] BED: DIS: 03/14/2022 SPEC #: [id number] RECD: 03/15/22 12:59 STATUS: KATINA REHonorio #: [id number] CHAVA: 03/14/22 15:[address]: Manny Chavira DEPT: Surgical Specimen RECD BY: Carolina Sinhg ENTERED: 03/15/22 13:00 SP TYPE: KYLIE OLIVAREZ DR: Ijeoma Najera MD, DC Tissues: 1 - SKIN BIOPSY(SHAVE/PUNCH) Procedures: SKIN LEVEL 4 Comments: [id number]
== END 2022-03-14 15:57 | disposition home or self-care (01) ==
LOC: LBN 15:56
PROVIDERS: PCP Family Medicine; Visit Provider Otolaryngology
DX: C44.329 Squamous cell carcinoma of skin of other parts of face (principal)
CPT/HCPCS: 88305

== ENCOUNTER → 2022-04-27 13:56 | Outpatient (BNVA) | payer MEDICARE, SELFPAY | PROVIDERS: PCP Family Medicine; Referring Provider Family Medicine; Visit Provider Nurse Practitioner Gerontology | DX: N39.46 Mixed incontinence (principal) | CPT/HCPCS: 99442 ==

== ENCOUNTER 2022-06-16 04:39 | Outpatient (CLI) | payer MEDICARE, SELFPAY ==
[2022-06-16 14:03] LABS: Hemoglobin A1C 6.7 % (<5.7)
== END 2022-06-16 04:40 | disposition home or self-care (01) ==
LOC: LBO 04:39
PROVIDERS: PCP Family Medicine; Visit Provider Family Medicine
DX: E11.9 Type 2 diabetes mellitus without complications (principal)
CPT/HCPCS: 36415; 83036

== ENCOUNTER → 2022-06-23 09:51 | Outpatient (BNVA) | payer MEDICARE, SELFPAY | PROVIDERS: PCP Family Medicine; Referring Provider Family Medicine; Visit Provider Student in an Organized Health Care Education/Training Program | DX: M75.32 Calcific tendinitis of left shoulder (principal) | CPT/HCPCS: 20610; J1040 ==

== ENCOUNTER → 2022-07-08 10:38 | Outpatient (BNVA) | payer MEDICARE, SELFPAY | PROVIDERS: PCP Family Medicine; Referring Provider Family Medicine; Visit Provider Student in an Organized Health Care Education/Training Program | DX: M17.11 Unilateral primary osteoarthritis, right knee (principal) | CPT/HCPCS: 20610; J1040 ==

== ENCOUNTER → 2022-07-27 14:27 | Outpatient (BNVA) | payer MEDICARE, SELFPAY | PROVIDERS: PCP Family Medicine; Referring Provider Family Medicine; Visit Provider Nurse Practitioner Gerontology | DX: R39.89 Other symptoms and signs involving the genitourinary system (principal); N39.46 Mixed incontinence | CPT/HCPCS: 51798; 99214 ==

== ENCOUNTER 2022-08-25 04:03 | Outpatient (CLI) | payer MEDICARE, SELFPAY ==
[2022-08-25 09:14] LABS: HCT 35.4 % (36.0-46.0); HGB 11.8 g/dL (11.2-15.7); MCH 31.2 pg (27.0-33.0); MCHC 33.3 % (32.0-36.0); MCV 94 fL (80-95); MPV 9.6 fL (8.0-11.0); Platelet Count 249 10^3/uL (130-400); RBC 3.78 10^6/uL (3.93-5.22); RDW 12.5 % (11.7-14.6); RDW-SD 43.3 fL; WBC 6.01 10^3/uL (4.4-10.8)
[2022-08-25 09:45] LABS: ALT 27 U/L (14-59); AST 19 U/L (15-37); Alkaline Phosphatase 44 U/L (46-116); Anion Gap 8.3 mmol/L (3-11); BUN 29 mg/dL (7-18); Bilirubin, Total 0.5 mg/dL (0.2-1.0); CO2 28.7 mmol/L (21.0-32.0); CREATININE 1.2 mg/dL (0.55-1.02); Calcium 9.9 mg/dL (8.5-10.1); Calculated LDL 76 mg/dL (<100); Chloride 98 mmol/L (98-107); Cholesterol 166 mg/dL (<200); Estimated GFR 45.76 (mL/min/1.73m2); Glucose 151 mg/dL (74-106); HDL Cholesterol 64 mg/dL (40-60); Potassium 4.3 mmol/L (3.5-5.1); Sodium 135 mmol/L (136-145); Total Protein 7.7 g/dL (6.4-8.2); Triglyceride 131 mg/dL (<150)
== END 2022-08-25 04:04 | disposition home or self-care (01) ==
LOC: LBO 04:04
PROVIDERS: PCP Family Medicine; Visit Provider Family Medicine
DX: E11.9 Type 2 diabetes mellitus without complications (principal); D64.9 Anemia, unspecified; R60.0 Localized edema; R91.1 Solitary pulmonary nodule; G47.33 Obstructive sleep apnea (adult) (pediatric); I10 Essential (primary) hypertension
CPT/HCPCS: 36415; 80053; 80061; 85027

== ENCOUNTER → 2022-10-21 09:49 | Outpatient (BNVA) | payer MEDICARE, SELFPAY | PROVIDERS: PCP Family Medicine; Referring Provider Family Medicine | DX: M75.32 Calcific tendinitis of left shoulder (principal) | CPT/HCPCS: 20610; J1040 ==

== ENCOUNTER → 2022-10-25 08:52 | Outpatient (BNVA) | payer MEDICARE, SELFPAY | PROVIDERS: PCP Family Medicine; Referring Provider Family Medicine; Visit Provider Nurse Practitioner Gerontology | DX: N39.46 Mixed incontinence (principal); N76.89 Other specified inflammation of vagina and vulva | CPT/HCPCS: 51798; 81003; 99214 ==

== ENCOUNTER 2022-10-25 18:52 | Outpatient (REF) | payer MEDICARE, SELFPAY | END 2022-10-25 18:53 | disposition home or self-care (01) | LOC: LBN 18:52 | PROVIDERS: PCP Family Medicine; Visit Provider Nurse Practitioner Gerontology | DX: N39.46 Mixed incontinence (principal); R82.998 Other abnormal findings in urine | CPT/HCPCS: 87077; 87086; 87186 ==

== ENCOUNTER 2022-11-10 16:17 | Outpatient (REF) | payer MEDICARE, SELFPAY ==
[2022-11-10 17:01] LABS: Bilirubin Negative (Negative); Blood Trace-intact (Negative); Clarity Cloudy (Clear); Glucose Negative (Negative); Ketones Negative (Negative); Leukocyte Esterase Small (Negative); Nitrite Positive (Negative); Urobilinogen 0.2 mg/dL (Up to 0.2)
[2022-11-10 17:07] LABS: Bacteria Moderate HPF (Negative); C & S Indicated? Yes; Casts Negative LPF (Negative); Crystals Negative HPF (Negative); Epithelial Cells Few HPF (Negative); Mucus Negative (Negative); RBC 0-2 HPF (0-2); WBC >50 HPF (0-5)
== END 2022-11-10 16:18 | disposition home or self-care (01) ==
LOC: LBN 16:17
PROVIDERS: PCP Family Medicine; Visit Provider Nurse Practitioner Gerontology
DX: N39.0 Urinary tract infection, site not specified (principal)
CPT/HCPCS: 87077; 81003; 81015; 87086; 87186

== ENCOUNTER 2022-11-11 10:11 | Outpatient (CLI) | payer MEDICARE, SELFPAY ==
--- NOTE | 2022-11-11 10:00 | DI.RAD_ITS ---
Exam(s) XR SHOULDER RT COMPLETE 2+V EXAM: XR SHOULDER RT COMPLETE 2+V CLINICAL HISTORY: right shoulder pain. TECHNIQUE: 2D digital imaging was performed of the right shoulder. Three images were obtained. AP and axillary views were obtained. COMPARISON: CR XR SHOULDER RT COMPLETE 2+V from 07/02/2019 FINDINGS: BONES: No acute fracture is present. No bony destructive lesion is seen. JOINTS: No dislocation present. There is mild spurring at the inferior aspect of the glenoid. There also appears to be mild spurring at the inferior aspect of the acromion. SOFT TISSUE: There again seen tiny densities in the soft tissues adjacent to the acromioclavicular warren int. IMPRESSION: Mild degenerative changes of the shoulder. DATA REPOSITORY: RADIATION DOSE DELIVERED:
== END 2022-11-11 10:12 | disposition home or self-care (01) ==
LOC: DIORS 10:11
PROVIDERS: PCP Family Medicine; Referring Provider Family Medicine; Visit Provider Physician Assistant
DX: M19.011 Primary osteoarthritis, right shoulder; M75.81 Other shoulder lesions, right shoulder
CPT/HCPCS: 20610; 73030; J1040

== ENCOUNTER → 2022-12-02 10:26 | Outpatient (BNVA) | payer MEDICARE, SELFPAY | PROVIDERS: PCP Family Medicine; Referring Provider Family Medicine | DX: M17.11 Unilateral primary osteoarthritis, right knee (principal); M17.12 Unilateral primary osteoarthritis, left knee | CPT/HCPCS: 20610; J1040 ==

== ENCOUNTER → 2022-12-07 14:53 | Outpatient (BNVA) | payer MEDICARE, SELFPAY | PROVIDERS: PCP Family Medicine; Referring Provider Family Medicine; Visit Provider Nurse Practitioner Gerontology | DX: N39.46 Mixed incontinence (principal); Z87.440 Personal history of urinary (tract) infections | CPT/HCPCS: 81003; 99214 ==

== ENCOUNTER 2022-12-07 19:28 | Outpatient (REF) | payer MEDICARE, SELFPAY | END 2022-12-07 19:29 | disposition home or self-care (01) | LOC: LBN 19:28 | PROVIDERS: PCP Family Medicine; Visit Provider Nurse Practitioner Gerontology | DX: N39.0 Urinary tract infection, site not specified (principal) | CPT/HCPCS: 87077; 87086; 87186 ==

== ENCOUNTER → 2022-12-15 09:50 | Outpatient (BNVA) | payer MEDICARE, SELFPAY | PROVIDERS: PCP Family Medicine; Referring Provider Family Medicine; Visit Provider Physician Assistant | DX: M17.12 Unilateral primary osteoarthritis, left knee (principal) | CPT/HCPCS: 20610; J1040 ==

== ENCOUNTER 2022-12-15 13:28 | Outpatient (REF) | payer MEDICARE, SELFPAY ==
[2022-12-15 11:11] LABS: Bilirubin Negative (Negative); Blood Negative (Negative); Clarity Clear (Clear); Glucose Negative (Negative); Ketones Negative (Negative); Leukocyte Esterase Negative (Negative); Nitrite Negative (Negative); Urobilinogen 0.2 mg/dL (Up to 0.2); pH 5.5 (5-8)
== END 2022-12-15 13:29 | disposition home or self-care (01) ==
LOC: LBN 13:28
PROVIDERS: PCP Family Medicine; Visit Provider Nurse Practitioner Gerontology
DX: N39.0 Urinary tract infection, site not specified (principal)
CPT/HCPCS: 81003; 87086

== ENCOUNTER → 2022-12-26 14:49 | Outpatient (BNVA) | payer MEDICARE, SELFPAY | PROVIDERS: PCP Family Medicine; Referring Provider Family Medicine; Visit Provider Student in an Organized Health Care Education/Training Program | DX: M75.32 Calcific tendinitis of left shoulder (principal) | CPT/HCPCS: 20611; J1040 ==

== ENCOUNTER 2023-02-02 07:06 | Emergency (ER) | payer MEDICARE, SELFPAY ==
--- NOTE | 2023-02-02 07:00 | RT.EKG_ITS ---
APPROVED REPORT Exam: Resting ECG Reason for Exam: syncope Patient Location: E HR:60 bpm ECG Measurements Heart Rate 60 AXIS SD 187 P -22 QRSd 97 QRS -4 QT 409 T 70 QTc 409 Conclusion Sinus rhythm...normal P axis, V-rate 60- 99 Narrow complex normal sinus rhythm at a rate of 60. Left axis deviation no signs of LVH based on vol tage criteria. Mild ST segment flattening left lateral chest wall leads. No ST segment elevation. No T wave inversions. No acute injury pattern. QTc within normal limits. Appears similar to prior dated 2 years ago.
--- NOTE | 2023-02-02 07:02 | ED.GENADUL_ITS ---
Discharge Plan Discharge Details Chief Complaint: Fall/Non TraumaCriteria Clinical Impression: Immunization, tetanus-diphtheria, History of fall, Acute pain of left shoulder due to trauma, Hematoma of frontal scalp, Traumatic hematoma of right eyelid Primary Care Provider: Ijeoma Najera ED Provider: Tim Winston Thornton Meds and New Rx's Prescriptions: No Action melatonin 3 mg tablet 3 mg PO HS cholecalciferol (vitamin D3) 50 mcg (2,000 unit) capsule 100 mcg PO DAILY dicyclomine 10 mg capsule 10 mg PO BID PRN (Reason: diarrhea) Qty: 60 0RF (DME) lancets 25 gauge misc See Dose Instructions .ROUTE .MEDSUPPLY Qty: 100 4RF Dose Instruction: As directed Rx Instructions: once per day E11.9 losartan 100 mg tablet 100 mg PO DAILY Qty: 90 3RF Eliquis 5 mg tablet 5 mg PO BID Qty: 180 5RF atorvastatin [Lipitor] 40 mg tablet 40 mg PO DAILY Qty: 90 4RF carvedilol 6.25 mg tablet 6.25 mg PO BID Qty: 180 4RF Rx Instructions: must administer with a meal/food glipizide 5 mg tablet extended release 24hr 5 mg PO DAILY Qty: 90 4RF pantoprazole 40 mg tablet,delayed release (DR/EC) 40 mg PO DAILY Qty: 90 4RF spironolactone 25 mg tablet 25 mg PO BID Qty: 180 12RF Systane (PF) 0.4-0.3 % dropperette 1 drp OPHTHALMIC (EYE) BID-QID PRN (Reason: dry eye(s)) Qty: 60 4RF oxybutynin chloride 10 mg tablet extended release 24hr 10 mg PO DAILY Qty: 90 3RF oxybutynin chloride 5 mg tablet extended release 24hr 5 mg PO DAILY Qty: 90 0RF Rx Instructions: alternate with the 10mg tab Premarin 0.625 mg/gram cream 1 applic VG twice weekly Qty: 30 3RF Rx Instructions: Use 0.5 GM in vagina twice weekly (DME) Blood Glucose Test Strip See Dose Instructions .ROUTE .MEDSUPPLY Qty: 100 5RF Dose Instruction: As directed Rx Instructions: once per day multivitamin [Once Daily] 1 EACH tablet 1 tab PO DAILY (DME) blood-glucose meter misc See Dose Instructions .ROUTE .MEDSUPPLY Qty: 1 0RF Dose Instruction: As directed Rx Instructions: daily acetaminophen 500 mg tablet 1,000 mg PO TID clotrimazole-betamethasone 1-0.05 % cream 1 applic topical BID PRN (Reason: itching) Qty: 45 1RF fluticasone propionate 50 mcg/actuation spray,suspension 2 spray intranasal DAILY Qty: 16 2RF Rx Instructions: administer into each nostril diclofenac sodium [Voltaren Arthritis Pain] 1 % gel 2 g topical QID Qty: 100 4RF Rx Instructions: apply to single elbow, wrist or hand; for hand includes palm/fingers/back of hand nitrofurantoin macrocrystal 50 mg capsule 50 mg PO QHS Qty: 90 0RF Rx Instructions: must administer with a meal/food trazodone 50 mg tablet 50 mg PO QHS PRN (Reason: sleep) Qty: 90 6RF Colace 50 mg Capsule 100 mg PO HS Medical Decision Making This is an overall well-appearing normothermic and not tachycardic 82-year-old anticoagulated female on apixaban now in the emergency department status post fall with head strike concerning for intracranial hemorrhage for which patient will go for CT head. She has no cervical spinal tenderness to suggest benefit from CT cervical spine however she does have a significant distracting injury and based on Nexus criteria, cervical CT was obtained given patient's painful distracting right eyebrow hematoma. She does have a significant right-sided frontal hematoma and a traumatic hematoma of her right eyelid. She has no afferent pupillary defect to suggest benefit from lateral canthotomy. She currently has her head elevated and is icing her hematoma. Given her right- sided chest pain and the ecchymosis on her right chest wall will increase the sensitivity for rib fractures with CT scan. Clear equal breath sounds and no hypoxia so low suspicion for pneumothorax. Soft nontender abdomen with no signs of trauma so I am not concerned injury for intra-abdominal so will defer CT of the abdomen at this point. Patient endorses chronic urinary incontinence so we will obtain a straight cath UA to assess for urinary tract infection. Patient reports living alone and given her significant frontal hematoma I am concerned for her ability to ambulate at home and complete her ADLs as she cannot open her eye on the right. As result anticipate patient will likely require hospitalization however we will sign patient out to oncoming daytime provider pending results from her CT scans and her labs. Given dizziness will obtain an troponin though ECG is nonischemic. Furthermore her ECG has no advanced heart blocks nor any significant dysrhythmias. Reassuring fingerstick blood glucose. Will provide IV analgesia using acetaminophen. Patient will benefit from a tertiary survey following imaging. We will consider redosing her medications following her labs and imaging as she has not yet had her morning antihypertensives. Concerning her left shoulder pain, she does have a history of left-sided calcific tendinitis. On exam she has no obvious dislocation nor any clavicular tenderness to suggest clavicle fracture. Will monitor on telemetry in the ED and signed patient out to oncoming daytime provider pending reassessment of labs urinalysis x-rays and CT. HPI General Date/Time Provider Initiated Documentation: 02/02/23 07:19 . HPI Narrative: This is a anticoagulated left handed 82-year-old female with a history of atrial fibrillation on apixaban who lives alone now arriving via paramedics in the setting of a fall. Patient reports that she was rushing to the bathroom this morning as she had urinary urgency. She reports that she struggles with incontinence at baseline. She reports that she fell and landed in the bathtub. She reported loss of consciousness. She has a hematoma above her right eye and she complains of left shoulder pain. She also complains of pain in her right thigh and on the right side of her ribs. She reports that her has recently . She has not been ambulatory since her fall. She has not taken her home medications this morning. She denies any neck pain. She denies routine tobacco, ethanol, and illicits. Related Data Home Medications Medication Instructions Recorded Confirmed multivitamin (Once Daily tablet) 1 tab PO DAILY 12/28/12 02/02/23 blood-glucose meter #1 ea 05/16/18 02/02/23 cholecalciferol (vitamin D3) 50 100 mcg PO DAILY 06/08/21 02/02/23 mcg (2,000 unit) capsule dicyclomine 10 mg capsule 10 mg PO BID PRN diarrhea #60 10/26/21 12/27/22 tab-caps conjugated estrogens 0.625 mg/gram 1 applic vaginal twice weekly #30 12/27/21 02/02/23 vaginal cream (Premarin) grams docusate sodium 50 mg capsule 100 mg PO HS 02/10/22 02/02/23 acetaminophen 500 mg tablet 1,000 mg PO TID 04/15/22 02/02/23 melatonin 3 mg tablet 3 mg PO HS 04/15/22 02/02/23 apixaban 5 mg tablet (Eliquis) 5 mg PO BID #180 tabs 06/23/22 02/02/23 atorvastatin 40 mg tablet (Lipitor) 40 mg PO DAILY #90 tab-caps 06/23/22 02/02/23 carvedilol 6.25 mg tablet 6.25 mg PO BID #180 tabs 06/23/22 02/02/23 glipizide 5 mg tablet, extended 5 mg PO DAILY #90 tab-caps 06/23/22 02/02/23 release 24 hr lancets 25 gauge #100 ea 06/23/22 02/02/23 losartan 100 mg tablet 100 mg PO DAILY #90 tabs 06/23/22 02/02/23 pantoprazole 40 mg tablet,delayed 40 mg PO DAILY #90 tabs 06/23/22 02/02/23 release peg 400-propylene glycol (PF) 0.4 1 drp ophthalmic (eye) BID-QID PRN 06/23/22 02/02/23 %-0.3 % eye drops in a dropperette dry eye(s) #60 ea (Systane (PF)) spironolactone 25 mg tablet 25 mg PO BID #180 tab-caps 06/23/22 02/02/23 clotrimazole-betamethasone 1 1 applic topical BID PRN itching 09/05/22 02/02/23 %-0.05 % topical cream #45 grams fluticasone propionate 50 2 spray intranasal DAILY #16 grams 09/22/22 02/02/23 mcg/actuation nasal spray,suspension diclofenac sodium 1 % topical gel 2 g topical QID #100 grams 12/05/22 02/02/23 (Voltaren Arthritis Pain) oxybutynin chloride 10 mg 10 mg PO DAILY #90 tabs 12/07/22 02/02/23 tablet,extended release 24 hr oxybutynin chloride 5 mg 5 mg PO DAILY #90 tabs 12/07/22 02/02/23 tablet,extended release 24 hr nitrofurantoin macrocrystal 50 mg 50 mg PO QHS #90 caps 12/15/22 12/27/22 capsule blood sugar diagnostic (Blood #100 ea 12/19/22 02/02/23 Glucose Test strips) trazodone 50 mg tablet 50 mg PO QHS PRN sleep #90 tabs 01/26/23 Previous Rx's Medication Instructions Recorded blood-glucose meter #1 ea 05/16/18 dicyclomine 10 mg capsule 10 mg PO BID PRN diarrhea #60 10/26/21 tab-caps conjugated estrogens 0.625 mg/gram 1 applic vaginal twice weekly #30 12/27/21 vaginal cream (Premarin) grams apixaban 5 mg tablet (Eliquis) 5 mg PO BID #180 tabs 06/23/22 atorvastatin 40 mg tablet (Lipitor) 40 mg PO DAILY #90 tab-caps 06/23/22 carvedilol 6.25 mg tablet 6.25 mg PO BID #180 tabs 06/23/22 glipizide 5 mg tablet, extended 5 mg PO DAILY #90 tab-caps 06/23/22 release 24 hr lancets 25 gauge #100 ea 06/23/22 losartan 100 mg tablet 100 mg PO DAILY #90 tabs 06/23/22 pantoprazole 40 mg tablet,delayed 40 mg PO DAILY #90 tabs 06/23/22 release peg 400-propylene glycol (PF) 0.4 1 drp ophthalmic (eye) BID-QID PRN 06/23/22 %-0.3 % eye drops in a dropperette dry eye(s) #60 ea (Systane (PF)) spironolactone 25 mg tablet 25 mg PO BID #180 tab-caps 06/23/22 clotrimazole-betamethasone 1 1 applic topical BID PRN itching 09/05/22 %-0.05 % topical cream #45 grams fluticasone propionate 50 2 spray intranasal DAILY #16 grams 09/22/22 mcg/actuation nasal spray,suspension diclofenac sodium 1 % topical gel 2 g topical QID #100 grams 12/05/22 (Voltaren Arthritis Pain) oxybutynin chloride 10 mg 10 mg PO DAILY #90 tabs 12/07/22 tablet,extended release 24 hr oxybutynin chloride 5 mg 5 mg PO DAILY #90 tabs 12/07/22 tablet,extended release 24 hr nitrofurantoin macrocrystal 50 mg 50 mg PO QHS #90 caps 12/15/22 capsule blood sugar diagnostic (Blood #100 ea 12/19/22 Glucose Test strips) trazodone 50 mg tablet 50 mg PO QHS PRN sleep #90 tabs 01/26/23 Allergies Allergy/AdvReac Type Severity Reaction Status Date / Time Penicillins Allergy CHILDHOOD Verified 12/26/22 14:51 clonidine AdvReac Verified 12/26/22 14:51 gabapentin AdvReac Verified 12/26/22 14:51 lisinopril AdvReac COUGH Verified 12/26/22 14:51 morphine AdvReac VOMITING/DI Verified 12/26/22 14:51 ARRHEA oxybutynin AdvReac dizzy Verified 12/26/22 14:51 oxycodone HCl [From Percocet] AdvReac VOMITING/NA Verified 12/26/22 14:51 USEA terazosin [From Hytrin] AdvReac Verified 12/26/22 14:51 General THOM: 3 PFSH All Active Problems (Updated 02/02/23 @ 07:25 by Tim Winston MD) Immunization, tetanus-diphtheria (Acute) History of fall (Acute) Acute pain of left shoulder due to trauma (Acute) Hematoma of frontal scalp (Acute) Traumatic hematoma of right eyelid (Acute) Right rotator cuff tendonitis (Acute) DEPO MEDROL 11/11/22 Insomnia (Acute) Follow up (Acute) Skin lesion of face (Acute) Impacted cerumen, right ear (Acute) Calcific tendinitis of left shoulder (Acute) DEPO MEDROL: 10/21/22; 06/23/2022; 01/20/22; 06/23/22 Left shoulder pain (Acute) Conductive hearing loss, external ear (Acute) Impacted cerumen, bilateral (Acute) Contusion of left upper extremity (Acute) JAN on CPAP (Chronic) Edema (Acute) Asymmetrical sensorineural hearing loss (Acute) 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) Anemia (Chronic) Hypomagnesemia (Acute) Bradycardia (Acute) Osteoarthritis of right knee (Acute) Most recent DEPO MEDROL: 11/30/2022; 07/08/2022 Impairment of speech discrimination (Acute) Tendinitis of right shoulder (Acute) DEPO MEDROL 11/11/22 Localized osteoarthritis of left knee (Acute) DEPO MEDROL 12/15/22 At risk for diabetic foot ulcer (Acute) A-fib (Chronic) 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) Obstructive sleep apnea syndrome (Chronic 03/29/16) Malignant neoplasm of female breast (Chronic 07/06/90) right breast BX-CA in [facility] Increased BMI (Chronic) Impaired renal function (Chronic 03/29/18) Hypercholesterolemia (Chronic 01/01/13) Essential hypertension (Chronic 06/27/13) Edema extremities (Chronic 02/26/18) Diabetes mellitus (Chronic 01/01/13) Chronic left shoulder pain (Chronic 03/29/16) Cervical arthritis (Chronic) Basal cell carcinoma of other specified sites of skin (Chronic 08/21/12) RIP HOLDEN; FOREHEAD; RIGHT SIDE Incidental pulmonary nodule, > 3mm and < 8mm (Chronic) 04/30/[facility] Medical History (Updated 02/02/23 @ 07:25 by Tim Winston MD) Actinic keratosis Cervical strain Diarrhea Discharge planning issues DVT prophylaxis Fatigue (07/26/12) Hyponatremia Lumbar radicular pain Mantoux: positive history of Near syncope Palpitations 09/07/16 Polyp of colon (12/02/08) per colonoscopy-Dr. 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 RIP PATRICIA; RIGHT CHEEK Surgical History Abdominal hysterectomy (~1997) Appendectomy Bilateral salpingectomy with oophorectomy Biopsy of breast (~1990) RIGHT section X 3 Cholecystectomy DISCECTOMY Extraction of cataract 05/26/15; LEFT EYE 06/16/15; RIGHT EYE H/O cataract removal with insertion of prosthetic lens O.S. -05/26 2015; O.D.-06/16/2015 H/O section x 3 H/O discectomy History of appendectomy History of bilateral ligation of fallopian tubes (07/29/14) History of bilateral tubal ligation 07/29/14 History of cataract removal with insertion of prosthetic lens (05/26/15) History of section History of discectomy Hx of appendectomy Hx of spinal surgery 01/24/17 [facility] Ligation of fallopian tube (~1998) MOHS 08/2014 S/P abdominal hysterectomy S/P breast biopsy S/P cholecystectomy Status post abdominal hysterectomy Status post cholecystectomy Family History Mother , age 86 Essential hypertension Asthma Breast cancer Father , age 61 Stroke Hypertension Son Hyperlipidemia Son No problems noted. Daughter Asthma Maternal Grandfather No problems noted. Paternal Grandfather No problems noted. Maternal Grandmother No problems noted. Paternal Grandmother No problems noted. Social History Smoking/Tobacco Use Status: Former Tobacco Use tobacco type: cigarettes Quit Date: 08/07/1964 Pack-years: 15 Tobacco: How many years used: 5 Second Hand Exposure: Yes Smoking risk assessment performed?: Yes Alcohol Intake: never Drug use: Never Household members: spouse Housing: house Communication Needs: Hard of Hearing and Corrective Lenses Do you need help understanding health information?: Rarely Pets and animals: No Sexually active: No Do you think of yourself as: straight/heterosexual Current gender identity: female What is your relationship status?: How often do you talk on the phone with friends or family?: twice per week How often do you get together with friends or relatives?: once per week How often do you attend oriental orthodox or alevism services?: 4 or more times per year Do you belong to any clubs or organized social groups?: yes Panel score (0-1 are the most socially isolated patients): 4 What type of physical activity do you participate in: swimming Duration: 45-60 minutes/day Frequency: 1-2 times per week Janine/Gnosticism: Confucianism Special janine needs: No Seatbelt use: always Helmet use: No Drive intox or ride w/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 Head: Normocephalic, significant right sided frontal hematoma. Eye: Significantly right eyelid hematoma with superficial abrasion superior to hematoma. Pupils equal, round reactive to light. No afferent pupillary defect. Extraocular eye movements intact. No conjunctival injection. No scleral icterus. No signs of subconjunctival hematoma. No obvious hyphema. Ear, nose, mouth, throat: Grossly normal inspection. Normal voice, handling secretions normally. No septal hematoma. No hemotympanum bilaterally. Neck: Trachea midline. No midline cervical spinal tenderness. Back: No step-offs. No deformities. Cardiovascular: Well-perfused distal extremities. Regular rate and rhythm. Chest wall: Right-sided chest wall ecchymosis. No flail segments. No crepitance. Respiratory: Nonlabored respiration. Clear lungs bilaterally. Gastrointestinal: Nondistended abdomen. Soft nontender abdomen. Musculoskeletal: No edema. Moving all 4 extremities spontaneously. Pelvis stable to anterior and lateral compression. Right upper extremity nontender. Left upper extremity with tenderness at the left shoulder. No obvious dislocation abrasions or lacerations. Right lower extremity: Right distal thigh tenderness. Patient is able to actively flex and extend at the right knee. Left lower extremity: Nontender with intact range of motion. 5 out of 5 bilateral lower extremity strength in dorsi and plantarflexion. Skin: Normal for age and race, grossly normal temperature and turgor. No acute rash. Neurologic: Alert and appropriate, no apparent acute deficits. GCS 15. Psychiatric: Mood and manner are appropriate. Grooming and personal hygiene are appropriate.
[2023-02-02 07:06] VITALS: BP 166/128; PULSE 66; RESP 18; TEMP 36.9; O2SAT 97
--- NOTE | 2023-02-02 07:15 | DI.RAD_ITS ---
Exam(s) XR SHOULDER LT COMPLETE 2+V EXAM: XR SHOULDER LT COMPLETE 2+V CLINICAL HISTORY: Left shoulder pain status post fall. TECHNIQUE: 2D digital imaging was performed. Three views. COMPARISON: CR XR SHOULDER RT COMPLETE 2+V from 11/11/2022 FINDINGS: BONES: No acute fracture is present. No bony destructive lesion is seen. JOINTS: No dislocation present. Degenerative changes AC joint. SOFT TISSUE: Normal. IMPRESSION: No acute abnormality. DATA REPOSITORY: RADIATION DOSE DELIVERED:
--- NOTE | 2023-02-02 07:19 | DI.CT_ITS ---
Exam(s) CT HEAD CERVICAL SPINE WO EXAM: CT HEAD CERVICAL SPINE WO CLINICAL HISTORY: Fall with head strike. TECHNIQUE: Imaging Protocol: Axial computed tomography images with coronal and sagittal reformatted images were created and reviewed COMPARISON: CT CT HEAD WO from 03/13/[address] CHEST WO from 02/02/2023 FINDINGS: Head CT Ventricles and Extra axial spaces: Normal in size and morphology for the patient's age. Hemorrhage: None. Cerebral parenchyma: Normal. Midline shift: None. Brainstem/Cerebellum: Normal. Calvarium: Normal. Visualized Paranasal sinuses/Mastoids: Air-fluid level right maxillary sinus. Soft tissues: Large focal hematoma at the lateral right orbit. Fracture of the right orbital floor, mildly depressed with some herniating fat. Inferior rectus muscle does not appear entrapped. Cervical Spine CT BONES: Vertebral body heights are maintained. Alignment is normal. There is no evidence of acute frac ture. Degenerative disc changes and facet degenerative changes are seen . SOFT TISSUES: No paraspinal hematoma. The airway appears intact. No pneumothorax is seen at the lung apices. IMPRESSION: Head CT: Large right periorbital hematoma. Fracture of the inferior wall of the right orbit. No acu te intracranial abnormality. C-spine CT: Degenerative changes, no acute abnormality. Findings called to Dr. Mccartney of the emergency department. RADIATION DOSE DELIVERED: 1,514.12mGy.cm Total DLP DATA REPOSITORY: All CT scans at this facility are submitted to the National Radiology Data Registry (NRDR) Dose Index Registry (DIR) with the [employer] ([employer]). RADIATION OPTIMIZATION: All CT scans at this facility use at least one of these dose optimization te chniques: automated exposure control; mA and/or kV adjustment per patient size (includes targeted exa ms where dose is matched to clinical indication); or iterative reconstruction.
--- NOTE | 2023-02-02 07:30 | DI.CT_ITS ---
Exam(s) CT CHEST WO EXAM: CT CHEST WO CLINICAL HISTORY: Right-sided chest pain status post fall TECHNIQUE: Imaging Protocol: Axial computed tomography images with coronal and sagittal reformatted images were created and reviewed CONTRAST MATERIAL: Noncontrast FINDINGS: Pulmonary parenchyma: No consolidation. No dominant measurable mass. Stable tiny nodule at right chauncey g base. Three small stable nodules in the right middle lobe. No follow-up recommended. Tracheobronchial tree: No bronchiectasis or mucous plugging. Mediastinum and Sarah: No dominant adenopathy or fluid collection. Pleura: No effusion or pneumothorax. Heart: The heart is mildly dilated. Moderate coronary artery calcifications are seen. Aorta: Thoracic aorta non-dilated. Upper abdomen: Unremarkable. Bones: Degenerative changes. Soft tissues: Unremarkable. IMPRESSION: No acute abnormality. RADIATION DOSE DELIVERED: 658.54mGy.cm Total DLP DATA REPOSITORY: All CT scans at this facility are submitted to the National Radiology Data Registry (NRDR) Dose Index Registry (DIR) with the [employer] (ACR). RADIATION OPTIMIZATION: All CT scans at this facility use at least one of these dose optimization te chniques: automated exposure control; mA and/or kV adjustment per patient size (includes targeted exa ms where dose is matched to clinical indication); or iterative reconstruction.
[2023-02-02] MEDS: ACETAMINOPHEN 1,000 MG/100 ML BTL 400 MG IVPB (07:41)
[2023-02-02 07:50] LABS: Abs Immature Grans 0.04 10^3/uL (0.0-0.06); Absolute Basophil Count 0.05 10^3/uL (0.0-0.2); Absolute Eosinophil Count 0.09 10^3/uL (0.0-0.7); Absolute Monocyte Count 0.51 10^3/uL (0.1-0.8); Absolute Neutrophil Count 5.28 10^3/uL (1.2-6.7); Basophils % 0.8; Eosinophils % 1.4; HCT 33.3 % (36.0-46.0); HGB 11.7 g/dL (11.2-15.7); Immature Grans % 0.6; Lymphocytes % 9.1; MCH 32.2 pg (27.0-33.0); MCHC 35.1 % (32.0-36.0); MCV 92 fL (80-95); MPV 8.9 fL (8.0-11.0); Monocytes % 7.8; Neutrophils % 80.3; Platelet Count 260 10^3/uL (130-400); RBC 3.63 10^6/uL (3.93-5.22); RDW-SD 40.7 fL; WBC 6.57 10^3/uL (4.4-10.8)
[2023-02-02 08:09] LABS: Anion Gap 11.4 mmol/L (3-11); BUN 29 mg/dL (7-18); CO2 24.6 mmol/L (21.0-32.0); Calcium 9.7 mg/dL (8.5-10.1); Chloride 93 mmol/L (98-107); Creatine Kinase 107 U/L (26-192); Glucose 162 mg/dL (74-106); Magnesium 1.4 mg/dL (1.8-2.4); Potassium 4.1 mmol/L (3.5-5.1); Sodium 129 mmol/L (136-145); Troponin I < 50 ng/L (<or=60)
[2023-02-02 08:26] LABS: Bilirubin Negative (Negative); Blood Negative (Negative); Clarity Clear (Clear); Glucose Negative (Negative); Ketones Negative (Negative); Leukocyte Esterase Negative (Negative); Nitrite Negative (Negative); Specific Gravity 1.015 (1.005-1.025); Urobilinogen 0.2 mg/dL (Up to 0.2)
--- NOTE | 2023-02-02 09:03 | DI.RAD_ITS ---
Exam(s) XR FEMUR RT EXAM: XR FEMUR RT CLINICAL HISTORY: Right distal thigh and tenderness status post fall. TECHNIQUE: 2D digital imaging was performed. AP and lateral views. COMPARISON: No exams were available for comparison FINDINGS: BONES: No acute fracture is present. No bony destructive lesion is seen. JOINTS: Acetabular spurring at the right hip. Moderate to severe degenerative changes medial femoral tibial joint of the knee. SOFT TISSUE: Normal. IMPRESSION: Degenerative changes. No acute abnormality. DATA REPOSITORY: RADIATION DOSE DELIVERED:
[2023-02-02] MEDS: MAGNESIUM SULFATE 1 GM/100 ML BAG IVPB (09:15)
[2023-02-02] MEDS: Normal Saline 500 ML 1000 ML IV (09:16)
--- NOTE | 2023-02-02 09:59 | ED.PROG_ITS ---
Date of service: 02/02/23 Time of Service: 10:00 Medical Decision Making Patient resting comfortably neurologically intact. Evidence of periorbital hematoma without retrobulbar hematoma. Fracture of inferior wall of right orbit no intracranial hemorrhage. Patient is alert oriented no acute distress. Avulsion/skin maceration to right brow, Steri-Strips applied. Hypomagnesemia noted on labs, repleted and given some fluids. Patient has access to walker and cane at home. Patient has friends and family that are nearby. Daughter is coming to pick her up. Sign Out Sign Out Data: Sign Out Comment: Please follow-up CT scan labs, and urinalysis for this patient will likely require hospitalization given significant traumatic right eyelid hematoma. Last updated by Tmi Winston MD at 02/02/23 07:52 Discharge Plan Disposition Patient Disposition: Home Condition: Improving Discharge Details Chief Complaint: Fall/Non TraumaCriteria Clinical Impression: Immunization, tetanus-diphtheria, History of fall, Acute pain of left shoulder due to trauma, Hematoma of frontal scalp, Traumatic hematoma of right eyelid, Orbital fracture Primary Care Provider: Ijeoma Najera ED Provider: Kenny Mccartney Stafford Meds and New Rx's Prescriptions: No Action melatonin 3 mg tablet 3 mg PO HS cholecalciferol (vitamin D3) 50 mcg (2,000 unit) capsule 100 mcg PO DAILY dicyclomine 10 mg capsule 10 mg PO BID PRN (Reason: diarrhea) Qty: 60 0RF (DME) lancets 25 gauge misc See Dose Instructions .ROUTE .MEDSUPPLY Qty: 100 4RF Dose Instruction: As directed Rx Instructions: once per day E11.9 losartan 100 mg tablet 100 mg PO DAILY Qty: 90 3RF Eliquis 5 mg tablet 5 mg PO BID Qty: 180 5RF atorvastatin [Lipitor] 40 mg tablet 40 mg PO DAILY Qty: 90 4RF carvedilol 6.25 mg tablet 6.25 mg PO BID Qty: 180 4RF Rx Instructions: must administer with a meal/food glipizide 5 mg tablet extended release 24hr 5 mg PO DAILY Qty: 90 4RF pantoprazole 40 mg tablet,delayed release (DR/EC) 40 mg PO DAILY Qty: 90 4RF spironolactone 25 mg tablet 25 mg PO BID Qty: 180 12RF Systane (PF) 0.4-0.3 % dropperette 1 drp OPHTHALMIC (EYE) BID-QID PRN (Reason: dry eye(s)) Qty: 60 4RF oxybutynin chloride 10 mg tablet extended release 24hr 10 mg PO DAILY Qty: 90 3RF oxybutynin chloride 5 mg tablet extended release 24hr 5 mg PO DAILY Qty: 90 0RF Rx Instructions: alternate with the 10mg tab Premarin 0.625 mg/gram cream 1 applic VG twice weekly Qty: 30 3RF Rx Instructions: Use 0.5 GM in vagina twice weekly (DME) Blood Glucose Test Strip See Dose Instructions .ROUTE .MEDSUPPLY Qty: 100 5RF Dose Instruction: As directed Rx Instructions: once per day multivitamin [Once Daily] 1 EACH tablet 1 tab PO DAILY (DME) blood-glucose meter misc See Dose Instructions .ROUTE .MEDSUPPLY Qty: 1 0RF Dose Instruction: As directed Rx Instructions: daily acetaminophen 500 mg tablet 1,000 mg PO TID clotrimazole-betamethasone 1-0.05 % cream 1 applic topical BID PRN (Reason: itching) Qty: 45 1RF fluticasone propionate 50 mcg/actuation spray,suspension 2 spray intranasal DAILY Qty: 16 2RF Rx Instructions: administer into each nostril diclofenac sodium [Voltaren Arthritis Pain] 1 % gel 2 g topical QID Qty: 100 4RF Rx Instructions: apply to single elbow, wrist or hand; for hand includes palm/fingers/back of hand nitrofurantoin macrocrystal 50 mg capsule 50 mg PO QHS Qty: 90 0RF Rx Instructions: must administer with a meal/food trazodone 50 mg tablet 50 mg PO QHS PRN (Reason: sleep) Qty: 90 6RF Colace 50 mg Capsule 100 mg PO HS Discharge Instructions Instructions: Facial Fracture (ED) Additional Instructions: Please follow-up closely with primary care physician. Please return to the emergency department for any worsening symptoms.
[2023-02-02 10:35] VITALS: BP 174/58; PULSE 60; TEMP 36.8; O2SAT 100
--- NOTE | 2023-02-06 08:59 | NUR.NOTE ---
Nursing Note: Accessed pt chart to determine the number of EKG orders. There is one order, Active.
== END 2023-02-02 11:01 | disposition home or self-care (01) ==
PROVIDERS: Emergency Medicine; Emergency Provider Emergency Medicine; PCP Family Medicine
DX: S02.85XA Fracture of orbit, unspecified, initial encounter for closed fracture (principal); S00.11XA Contusion of right eyelid and periocular area, initial encounter; S00.03XA Contusion of scalp, initial encounter; M25.512 Pain in left shoulder; W19.XXXA Unspecified fall, initial encounter; Z23 Encounter for immunization; S06.9XAA Unspecified intracranial injury with loss of consciousness status unknown, initial encounter
CPT/HCPCS: 36415; 36416; 71250; 73552; 80048; 82550; 82962; 90471; 93005; 96365; 96375; 99285; 70450; 72125; 73030; 81003; 83735; 84484; 85025; 93010; 99284; J0131; J3475

== ENCOUNTER 2023-02-09 12:49 | Outpatient (REF) | payer MEDICARE, SELFPAY ==
[2023-02-09 21:03] LABS: Bilirubin Negative (Negative); Blood Negative (Negative); Clarity Clear (Clear); Glucose Negative (Negative); Ketones Negative (Negative); Leukocyte Esterase Trace (Negative); Nitrite Negative (Negative); Urobilinogen 0.2 mg/dL (Up to 0.2)
[2023-02-09 21:14] LABS: Bacteria Few HPF (Negative); C & S Indicated? Yes; Casts Negative LPF (Negative); Crystals Negative HPF (Negative); Epithelial Cells Few HPF (Negative); Mucus Negative (Negative); RBC 0-2 HPF (0-2)
== END 2023-02-09 12:50 | disposition home or self-care (01) ==
LOC: LBN 12:49
PROVIDERS: PCP Family Medicine; Visit Provider Family Medicine
DX: R35.0 Frequency of micturition (principal); E11.9 Type 2 diabetes mellitus without complications; I10 Essential (primary) hypertension
CPT/HCPCS: 81003; 81015; 87086

== ENCOUNTER 2023-02-22 03:14 | Outpatient (CLI) | payer MEDICARE, SELFPAY ==
--- NOTE | 2023-02-22 08:45 | DI.MAMMO_ITS ---
Exam(s) MAMMO SCREENING EXAM: MAMMO SCREENING CLINICAL HISTORY: screening, Z12.39 TECHNIQUE: Mammograms were interpreted according to the usual protocol including computer analysis w [employer] CAD system, tomosynthesis and C-view imaging. COMPARISON: 2012 through 2021 FINDINGS: The breasts are composed of scattered fibroglandular densities, Breast Density category B. No suspicious masses or suspicious microcalcifications are seen. Benign-appearing calcifications aga in noted bilaterally, left greater than right. No skin thickening or abnormal axillary lymph nodes are seen. There has been no significant change from prior exams. IMPRESSION: BI-RADS Cat 2 - Benign Findings Yearly screening mammography is recommended. Breast Density - Category B, scattered fibroglandular densities. A negative radiographic report should not delay biopsy if a dominant or clinically suspicious mass is present. Up to ten percent of cancers are not identified on mammography. A negative report may reinforce clinical impression. Adenosis and dense breasts may obscure an underlying neoplasm. False positive reports average 6 to 10%. Patient will receive a letter notifying them of these results.
== END 2023-02-22 03:34 ==
LOC: DI 03:14
PROVIDERS: PCP Family Medicine; Visit Provider Nurse Practitioner Women's Health
DX: Z12.31 Encounter for screening mammogram for malignant neoplasm of breast (principal)
CPT/HCPCS: 77063; 77067

== ENCOUNTER 2023-03-23 05:30 | Outpatient (CLI) | payer MEDICARE, SELFPAY ==
[2023-03-23 14:19] LABS: HCT 35.8 % (36.0-46.0); HGB 11.8 g/dL (11.2-15.7); MCH 31.6 pg (27.0-33.0); MCV 96 fL (80-95); MPV 9.5 fL (8.0-11.0); Platelet Count 283 10^3/uL (130-400); RBC 3.73 10^6/uL (3.93-5.22); RDW 11.7 % (11.7-14.6); RDW-SD 40.9 fL; WBC 6.94 10^3/uL (4.4-10.8)
[2023-03-23 14:44] LABS: Hemoglobin A1C 6.6 % (<5.7)
[2023-03-23 15:02] LABS: ALT 25 U/L (14-59); AST 20 U/L (15-37); Albumin 3.9 g/dL (3.4-5.0); Alkaline Phosphatase 46 U/L (46-116); Anion Gap 10.6 mmol/L (3-11); BUN 32 mg/dL (7-18); Bilirubin, Total 0.5 mg/dL (0.2-1.0); CO2 27.4 mmol/L (21.0-32.0); CREATININE 1.2 mg/dL (0.55-1.02); Calcium 10.2 mg/dL (8.5-10.1); Chloride 99 mmol/L (98-107); Estimated GFR 45.48 (mL/min/1.73m2); Glucose 158 mg/dL (74-106); Potassium 4.5 mmol/L (3.5-5.1); Sodium 137 mmol/L (136-145); TSH (W/Ref FT4) 2.33 uIU/mL (0.36-3.74); Total Protein 7.6 g/dL (6.4-8.2)
== END 2023-03-23 05:31 | disposition home or self-care (01) ==
LOC: LBO 05:31
PROVIDERS: PCP Family Medicine; Visit Provider Family Medicine
DX: E11.9 Type 2 diabetes mellitus without complications (principal); I10 Essential (primary) hypertension; N28.9 Disorder of kidney and ureter, unspecified; R91.1 Solitary pulmonary nodule
CPT/HCPCS: 36415; 80053; 85027; 83036; 84443

== ENCOUNTER → 2023-03-29 13:17 | Outpatient (BNVA) | payer MEDICARE, SELFPAY | PROVIDERS: PCP Family Medicine; Visit Provider Nurse Practitioner Gerontology | DX: N39.46 Mixed incontinence (principal); Z87.440 Personal history of urinary (tract) infections; I10 Essential (primary) hypertension; E11.9 Type 2 diabetes mellitus without complications | CPT/HCPCS: 99214 ==

== ENCOUNTER 2023-04-06 10:05 | Outpatient (CLI) | payer MEDICARE, SELFPAY | END 2023-04-06 10:06 | disposition home or self-care (01) | LOC: DI.CARD 10:06 | PROVIDERS: PCP Family Medicine; Visit Provider Internal Medicine Cardiovascular Disease | DX: Z13.6 Encounter for screening for cardiovascular disorders (principal) | CPT/HCPCS: 93010 ==

== ENCOUNTER → 2023-04-06 10:47 | Outpatient (BNVA) | payer MEDICARE, SELFPAY | PROVIDERS: PCP Family Medicine; Visit Provider Internal Medicine Cardiovascular Disease | DX: Z79.01 Long term (current) use of anticoagulants (principal); R60.0 Localized edema; I48.91 Unspecified atrial fibrillation; I10 Essential (primary) hypertension | CPT/HCPCS: 99214 ==

== ENCOUNTER → 2023-05-31 03:06 | Outpatient (CLI) | payer MEDICARE, SELFPAY ==
--- NOTE | 2023-05-31 08:15 | DI.US_ITS ---
APPROVED REPORT EXAM: Comprehensive 2D, Doppler, and color-flow Echocardiogram Patient Location: Out-Patient Rental Agent: Josr Quinones RDCS (AE) Indications: LV function, edema of extremities, afib, HTN Conclusion Normal left ventricular wall thickness and chamber size. Ejection fraction is 55%. Wall motion is n ormal Normal right ventricular size and systolic function Left atrium is mildly dilated. Right atrial size is normal Trileaflet aortic valve without stenosis or regurgitation Mildly thickened mitral leaflets, mild mitral annular calcification. Trace mitral regurgitation Borderline dilated ascending aorta Wall motion Left Ventricle The left ventricle is normal size. The left ventricular systolic function is normal. The left ventric ular ejection fraction is within the normal range. There is normal left ventricular wall thickness. T here is normal LV segmental wall motion. There is no ventricular septal defect visualized. LVEF is 55 %. Right Ventricle The right ventricle is normal size. The right ventricular systolic function is normal. The RVSP is 10 .1 mmHg. Atria Left atrium is mildly dilated. The right atrium size is normal. The interatrial septum is intact with no evidence for an atrial septal defect. Aortic Valve The aortic valve is normal in structure. Aortic valve is trileaflet. There is no aortic valvular sten osis. No aortic regurgitation is present. Mitral Valve Mitral valve leaflets are mildly thickened. Mild mitral annular calcification. No evidence of mitral valve stenosis. Trace mitral regurgitation. Tricuspid Valve The tricuspid valve is normal in structure. There is no tricuspid valve stenosis. Trace tricuspid reg urgitation. Pulmonic Valve The pulmonary valve is normal in structure. There is no pulmonic valvular stenosis. There is no pulmo bekah valvular regurgitation. Great Vessels The aortic root is normal in size. The ascending aorta is mildly dilated. Aortic arch is not well vis ualized. IVC is normal in size and collapses >50% with inspiration. Pericardium There is no pericardial effusion. 2D Dimensions IVSD d PLAX 0.87 cm F: 0.6-1.0 Ao Root d 3.20 cm F: 2.7 - 3.3 LVPW d PLAX 0.86 cm F: 0.6 - 1.0 Ao Asc Diam d 3.43 cm F: 2.3 - 3.1 LVID d PLAX 4.87 cm F: 3.8 - 5.2 LVDs 3.54 cm F: 2.2 - 3.5 LV EF Teichholz 53.1 % FS 27.39 % LV EDV (Teich) 111.2 mL LV ESV (Teich) 52.1 mL Stroke Vol Index (Teich) 30.92 M-Mode TAPSE 2.61 cm (M/F) >1.7 Auto EF LV EDV A4C 68.0 mL LV EDV A2C 109.8 mL LV EDV BP 88.0 mL LV ESV A4C 30.8 mL LV ESV A2C 52.3 mL LV ESV BP 40.8 mL LVEF(%) A4C 54.7 % LVEF(%) A2C 52.4 % LVEF(%) BP 53.6 % LV SV A4C 37.2 ml LV SV A2C 57.5 ml LV SV BP 47.2 ml LV CO A4C 2.1 L/min LV CO A2C 3.5 L/min LV CO BP 2.8 L/min HR A4C 56.34 BPM HR A2C 61.54 BPM LV EDV Index (BP) LA Volume LA Length A4C 6.7 cm LA Length A2C LA Area A4C s 19.17 cm2 LA Area A2C s LA Vol A4C A-L 46.81 mL LA Vol A2C A-L LA Vol Biplane A-L LA Vol A4C MOD 45.6 mL LA Vol A2C MOD LA Vol BP MOD RA Volume RA Area A4C 9.0 cm2 RA ESV A4C (A-L) 16.7mL RA Vol/BSA A4C A-L RA Length A4C 4.2 cm RA ESV A4C (MOD) 15.3mL LV Diastology MV E' medial 0.103 (>0.07 m/s) MV E Vmax 1.14 (0.4-1.3 m/s) MV E/E' MED 11.07 (<14) MV A Vmax 0.95 (0.4-1.3 m/s) MV E' lateral 0.101 (>0.1 m/s) E/A Ratio 1.2 MV E/E' LAT 11.26 (<14) MV E' Average 0.102 m/s MV E/E'(average) 11.16 Aortic Valve AoV Vmax 1.72 m/s LVOT Vmax 1.51 m/s AoV Peak Grad 11.8 mmHg LVOT Peak Grad 9.1 mmHg AoV Area (Vmax) 2.14 cm2 LVOT VTI 0.369 m AoV VTI 0.409 m LVOT Mean Grad 5.2 mmHg AoV Mean Bartool. 1.18 m/s LVOT SV 90.00 mL AoV Mean Grad 6.3 mmHg LVOT Diam s 1.75 cm AoV Area (VTI) 2.20 cm2 Velocity Ratio 0.88 Mitral Valve MV DT 255 (160-240 msec) Pulmonary Valve PV Vmax 1.01 (0.5-1.5 m/s) RVOT Vmax 0.84 m/s PV Peak Grad 4.1 mmHg RVOT Peak Gr. 2.8 mmHg PV Mean Bartolo 0.72 m/s RVOT VTI 0.209 m PV Mean Grad 2.4 mmHg RVOT Mean Gr. 1.6 mmHg Tricuspid Valve RA Pressure 3.00 mmHg TR Vmax 1.33 m/s TR Peak Grad 7.0 mmHg RVSP (TR) 10.1 mmHg
== END ==
PROVIDERS: PCP Family Medicine; Visit Provider Internal Medicine Cardiovascular Disease
DX: I10 Essential (primary) hypertension (principal); I48.91 Unspecified atrial fibrillation; R60.0 Localized edema
CPT/HCPCS: 93306

== ENCOUNTER → 2023-06-27 13:47 | Outpatient (BNVA) | payer MEDICARE, SELFPAY | PROVIDERS: PCP Family Medicine; Visit Provider Nurse Practitioner Gerontology | DX: N39.46 Mixed incontinence (principal) | CPT/HCPCS: 99213 ==

== ENCOUNTER 2023-07-13 04:31 | Outpatient (CLI) | payer MEDICARE, SELFPAY ==
[2023-07-13 09:06] LABS: Hemoglobin A1C 7.4 % (<5.7)
[2023-07-13 09:18] LABS: ALT 23 U/L (14-59); AST 12 U/L (15-37); Albumin 3.8 g/dL (3.4-5.0); Alkaline Phosphatase 48 U/L (46-116); Anion Gap 12.3 mmol/L (3-11); BUN 36 mg/dL (7-18); Bilirubin, Total 0.7 mg/dL (0.2-1.0); CO2 25.7 mmol/L (21.0-32.0); CREATININE 1.5 mg/dL (0.55-1.02); Calcium 9.8 mg/dL (8.5-10.1); Calculated LDL 81 mg/dL (<100); Chloride 101 mmol/L (98-107); Cholesterol 166 mg/dL (<200); Estimated GFR 34.79 (mL/min/1.73m2); Glucose 186 mg/dL (74-106); HDL Cholesterol 62 mg/dL (40-60); Potassium 4.5 mmol/L (3.5-5.1); Sodium 139 mmol/L (136-145); Total Protein 7.7 g/dL (6.4-8.2); Triglyceride 117 mg/dL (<150)
[2023-07-13 09:58] LABS: COMMENT (LAB VIEW ONLY) 132.68 mg/dL; Microalb ug/mg Crea 31.3 ug/mg Cr
== END 2023-07-13 04:32 | disposition home or self-care (01) ==
LOC: LBO 04:32
PROVIDERS: PCP Family Medicine; Visit Provider Family Medicine
DX: E11.9 Type 2 diabetes mellitus without complications (principal); I10 Essential (primary) hypertension
CPT/HCPCS: 36415; 80053; 80061; 82043; 82570; 83036

== ENCOUNTER 2023-07-20 12:21 | Day surgery (SDC) | payer MEDICARE, SELFPAY ==
--- NOTE | 2023-07-20 10:59 | W.PM.HP.N ---
Date of service: 07/20/23 Time of Service: 13:53 Assessment and Plan Assessment and plan (1) Overactive bladder: Status: Acute Assessment and plan: For cystoscopy and transurethral injection of Botox into the detrusor. History of Present Illness History of Present Illness Chief Complaint: Urgency incontinence due to overactive bladder Narrative: This is an 82-year-old woman who has a history of mixed urinary incontinence. Her urgency incontinence has been treated with behavioral modification and oral medications. She failed oral medical therapy due to side effects. She presents now for an injection of Botox into the detrusor Review of Systems Constitutional Comments: No fevers or chills Decreased hearing acuity. No vision change or dysphasia Hx diabetes. No thyroid Sleep apnea. No hemoptysis Hx Atrial fibrillation. No chest pain No nausea, vomiting, hepatitis, ulcers, jaundice No seizures, strokes or peripheral neuropathy No bleeding disorders or anemia No gout PFSH All Active Problems Overactive bladder (Acute) Bilateral lower extremity edema (Acute) Facial trauma (Acute) Hyponatremia (Acute) Urinary frequency (Acute) Right rotator cuff tendonitis (Acute) DEPO MEDROL 11/11/22 Insomnia (Acute) Follow up (Acute) Skin lesion of face (Acute) Impacted cerumen, right ear (Acute) Calcific tendinitis of left shoulder (Acute) DEPO MEDROL: 10/21/22; 06/23/2022; 01/20/22; 06/23/22 Left shoulder pain (Acute) Conductive hearing loss, external ear (Acute) Impacted cerumen, bilateral (Acute) Contusion of left upper extremity (Acute) JAN on CPAP (Chronic) Edema (Acute) Asymmetrical sensorineural hearing loss (Acute) 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) Anemia (Chronic) Hypomagnesemia (Acute) Bradycardia (Acute) Osteoarthritis of right knee (Acute) Most recent DEPO MEDROL: 11/30/2022; 07/08/2022 Impairment of speech discrimination (Acute) Tendinitis of right shoulder (Acute) DEPO MEDROL 11/11/22 Localized osteoarthritis of left knee (Acute) DEPO MEDROL 12/15/22 At risk for diabetic foot ulcer (Acute) A-fib (Chronic) 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) Obstructive sleep apnea syndrome (Chronic 03/29/16) Malignant neoplasm of female breast (Chronic 07/06/90) right breast BX-CA in SITU Increased BMI (Chronic) Impaired renal function (Chronic 03/29/18) Hypercholesterolemia (Chronic 01/01/13) Essential hypertension (Chronic 06/27/13) Edema extremities (Chronic 02/26/18) Diabetes mellitus (Chronic 01/01/13) Chronic left shoulder pain (Chronic 03/29/16) Cervical arthritis (Chronic) Basal cell carcinoma of other specified sites of skin (Chronic 08/21/12) RIP HOLDEN; FOREHEAD; RIGHT SIDE Incidental pulmonary nodule, > 3mm and < 8mm (Chronic) 04/30/18-[facility] Medical History Actinic keratosis Cervical strain Diarrhea Discharge planning issues DVT prophylaxis Fatigue (07/26/12) Lumbar radicular pain Mantoux: positive history of Near syncope Palpitations 09/07/16 Polyp of colon (12/02/08) per colonoscopy-Dr. 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 RIP PATRICIA; RIGHT CHEEK Surgical History Abdominal hysterectomy (~1997) Appendectomy Bilateral salpingectomy with oophorectomy Biopsy of breast (~1990) RIGHT section X 3 Cholecystectomy DISCECTOMY Extraction of cataract 05/26/15; LEFT EYE 06/16/15; RIGHT EYE H/O cataract removal with insertion of prosthetic lens O.S. -05/26 2015; O.D.-06/16/2015 H/O section x 3 H/O discectomy History of appendectomy History of bilateral ligation of fallopian tubes (07/29/14) History of bilateral tubal ligation 07/29/14 History of cataract removal with insertion of prosthetic lens (05/26/15) History of section History of discectomy Hx of appendectomy [place] [facility] [place] of fallopian tube (~1997) MOHS 08/2014 S/P abdominal hysterectomy S/P breast biopsy S/P cholecystectomy Status post abdominal hysterectomy Status post cholecystectomy Family History Mother , age 86 Essential hypertension Asthma Breast cancer Father , age 61 Stroke Hypertension Son Hyperlipidemia Son No problems noted. Daughter Asthma Maternal Grandfather No problems noted. Paternal Grandfather No problems noted. Maternal Grandmother No problems noted. Paternal Grandmother No problems noted. Social History Smoking/Tobacco Use Status: Former Tobacco Use tobacco type: cigarettes Quit Date: 08/07/1959 Pack-years: 15 Tobacco: How many years used: 5 Second Hand Exposure: Yes Smoking risk assessment performed?: Yes Alcohol Intake: never Drug use: Never Housing: house Communication Needs: Hard of Hearing and Corrective Lenses Do you need help understanding health information?: Rarely Pets and animals: No Sexually active: No Do you think of yourself as: straight/heterosexual Current gender identity: female What is your relationship status?: How often do you talk on the phone with friends or family?: twice per week How often do you get together with friends or relatives?: once per week How often do you attend mosque or baptist services?: 4 or more times per year Do you belong to any clubs or organized social groups?: yes Panel score (0-1 are the most socially isolated patients): 3 What type of physical activity do you participate in: swimming Duration: 45-60 minutes/day Frequency: 1-2 times per week Janine/Sabianism: Voodoo Special janine needs: No Seatbelt use: always Helmet use: No Drive intox or ride 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: No Do you feel safe at home: Yes Victim of physical abuse: No Victim of emotional abuse: No Victim of sexual abuse: No Would you like helpful sources: No Additional Social history: lives alone Meds Allergies and Home Medications Allergies Allergy/AdvReac Type Severity Reaction Status Date / Time Penicillins Allergy CHILDHOOD Verified 07/20/23 12:54 clonidine AdvReac Verified 07/20/23 12:54 gabapentin AdvReac Verified 07/20/23 12:54 lisinopril AdvReac COUGH Verified 07/20/23 12:54 morphine AdvReac VOMITING/DI Verified 07/20/23 12:54 ARRHEA oxybutynin AdvReac dizzy Verified 07/20/23 12:54 oxycodone HCl [From Percocet] AdvReac VOMITING/NA Verified 07/20/23 12:54 USEA terazosin [From Hytrin] AdvReac Verified 07/20/23 12:54 Home Medications Medication Instructions Recorded Confirmed Type multivitamin (Once Daily tablet) 1 tab PO DAILY 12/28/12 07/20/23 History blood-glucose meter #1 ea 05/16/18 04/06/23 Rx cholecalciferol (vitamin D3) 50 100 mcg PO DAILY 06/08/21 07/20/23 History mcg (2,000 unit) capsule dicyclomine 10 mg capsule 10 mg PO BID PRN diarrhea #60 10/26/21 07/20/23 Rx tab-caps conjugated estrogens 0.625 mg/gram 1 applic vaginal twice weekly #30 12/27/21 07/20/23 Rx vaginal cream (Premarin) grams docusate sodium 50 mg capsule 100 mg PO HS 02/10/22 07/20/23 History acetaminophen 500 mg tablet 1,000 mg PO TID 04/15/22 07/20/23 History peg 400-propylene glycol (PF) 0.4 1 drp ophthalmic (eye) BID-QID PRN 06/23/22 07/20/23 Rx %-0.3 % eye drops in a dropperette dry eye(s) #60 ea (Systane (PF)) spironolactone 25 mg tablet 25 mg PO BID #180 tab-caps 06/23/22 07/20/23 Rx clotrimazole-betamethasone 1 1 applic topical BID PRN itching 02/24/23 07/20/23 Rx %-0.05 % topical cream #45 grams blood sugar diagnostic ([employer] #100 ea 03/30/23 04/06/23 Rx Ultra Test strips) lancets 30 gauge ([employer] Delica #100 ea 03/30/23 04/06/23 Rx Safety Lancet) fluticasone propionate 50 2 spray intranasal DAILY #16 grams 04/13/23 07/20/23 Rx mcg/actuation nasal spray,suspension furosemide 20 mg tablet 20 mg PO DAILY #90 tabs 04/28/23 07/20/23 Rx losartan 100 mg tablet 100 mg PO DAILY #90 tabs 05/02/23 07/20/23 Rx diclofenac sodium 1 % topical gel 2 g topical QID #100 grams 06/14/23 07/20/23 Rx (Voltaren Arthritis Pain) nitrofurantoin macrocrystal 50 mg 50 mg PO QHS #90 caps 06/27/23 07/20/23 Rx capsule apixaban 5 mg tablet (Eliquis) 5 mg PO BID #180 tabs 07/04/23 07/19/23 Rx atorvastatin 40 mg tablet (Lipitor) 40 mg PO DAILY #90 tab-caps 07/04/23 07/20/23 Rx carvedilol 6.25 mg tablet 6.25 mg PO BID #180 tabs 07/04/23 07/20/23 Rx glipizide 5 mg tablet, extended 5 mg PO DAILY #90 tab-caps 07/04/23 07/20/23 Rx release 24 hr pantoprazole 40 mg tablet,delayed 40 mg PO DAILY #90 tabs 07/04/23 07/20/23 Rx release Exam Const General: cooperative Neck Neck: supple Resp Auscultation: clear to auscultation bilaterally Cardio Rate: regular rate Rhythm: regular rhythm GI Inspection: obesity Palpation: soft and no masses Extrem General: edema (both lower extremities) Psych Mental Status: mental status grossly normal Time Spent Time spent with Patient: <40 minutes Time was spent: other
[2023-07-20] MEDS: Lactated Ringers 1,000 ML 80 ML IV (13:00)
[2023-07-20 13:03] VITALS: BP 201/57; PULSE 63; RESP 16; TEMP 36.2; O2SAT 100
[2023-07-20 13:05] VITALS: BP 187/44
--- NOTE | 2023-07-20 13:14 | ANES.PREOP_ITS ---
General Info Date of Service Date Performed: 07/20/23 Height: 5 ft 6 in Weight: 87.2 kg Body Mass Index (BMI): 31.0 Surgical Procedure: Operation Date: 07/20/23 14:40 Proposed Procedure Side Surgeon p Cystoscopy w/Transurethral Injection of Botox Zen Baxter MD Meds Allergies and Home Medications Allergies Allergy/AdvReac Type Severity Reaction Status Date / Time Penicillins Allergy CHILDHOOD Verified 07/20/23 12:54 clonidine AdvReac Verified 07/20/23 12:54 gabapentin AdvReac Verified 07/20/23 12:54 lisinopril AdvReac COUGH Verified 07/20/23 12:54 morphine AdvReac VOMITING/DI Verified 07/20/23 12:54 ARRHEA oxybutynin AdvReac dizzy Verified 07/20/23 12:54 oxycodone HCl [From Percocet] AdvReac VOMITING/NA Verified 07/20/23 12:54 USEA terazosin [From Hytrin] AdvReac Verified 07/20/23 12:54 Home Medication Medication Instructions Recorded multivitamin (Once Daily tablet) 1 tab PO DAILY 12/28/12 blood-glucose meter #1 ea 05/16/18 cholecalciferol (vitamin D3) 50 100 mcg PO DAILY 06/08/21 mcg (2,000 unit) capsule dicyclomine 10 mg capsule 10 mg PO BID PRN diarrhea #60 10/26/21 tab-caps conjugated estrogens 0.625 mg/gram 1 applic vaginal twice weekly #30 12/27/21 vaginal cream (Premarin) grams docusate sodium 50 mg capsule 100 mg PO HS 02/10/22 acetaminophen 500 mg tablet 1,000 mg PO TID 04/15/22 peg 400-propylene glycol (PF) 0.4 1 drp ophthalmic (eye) BID-QID PRN 06/23/22 %-0.3 % eye drops in a dropperette dry eye(s) #60 ea (Systane (PF)) spironolactone 25 mg tablet 25 mg PO BID #180 tab-caps 06/23/22 clotrimazole-betamethasone 1 1 applic topical BID PRN itching 02/24/23 %-0.05 % topical cream #45 grams blood sugar diagnostic (OneTouch #100 ea 03/30/23 Ultra Test strips) lancets 30 gauge (Onetouch DelGoRest Software #100 ea 03/30/23 Safety Lancet) fluticasone propionate 50 2 spray intranasal DAILY #16 grams 04/13/23 mcg/actuation nasal spray,suspension furosemide 20 mg tablet 20 mg PO DAILY #90 tabs 04/28/23 losartan 100 mg tablet 100 mg PO DAILY #90 tabs 05/02/23 diclofenac sodium 1 % topical gel 2 g topical QID #100 grams 06/14/23 (Voltaren Arthritis Pain) nitrofurantoin macrocrystal 50 mg 50 mg PO QHS #90 caps 06/27/23 capsule apixaban 5 mg tablet (Eliquis) 5 mg PO BID #180 tabs 07/04/23 atorvastatin 40 mg tablet (Lipitor) 40 mg PO DAILY #90 tab-caps 07/04/23 carvedilol 6.25 mg tablet 6.25 mg PO BID #180 tabs 07/04/23 glipizide 5 mg tablet, extended 5 mg PO DAILY #90 tab-caps 07/04/23 release 24 hr pantoprazole 40 mg tablet,delayed 40 mg PO DAILY #90 tabs 07/04/23 release Current Visit Medications: Current Medications Generic Name Dose Route Start Last Admin Trade Name Freq PRN Reason Stop Dose Admin Ciprofloxacin HCl 500 mg 07/20/23 06:00 Ciprofloxacin 500 Mg Tab PO 07/20/23 16:00 PREOP [facility] OnabotulinumtoxinA 100 units/ 0 units 07/20/23 06:00 Sodium Chloride 20 ml IJ 07/20/23 16:00 TODAY [facility] Ringer's Solution 1,000 mls @ 80 mls/hr 07/20/23 06:00 IV 08/18/23 23:59 INFUSION [facility] IV Miscellaneous Supplies 1 each 07/20/23 06:00 Iv Access IV 08/18/23 23:59 DIRECTED YOLI Sodium Chloride 0 ml 07/20/23 06:00 Normal Saline Flush 10 Ml Syr IV 08/18/23 23:59 PRN PRN Sodium Chloride 0 ml 07/20/23 06:00 Normal Saline 10 Ml Vial IJ 08/18/23 23:59 DIRECTED PRN Sterile Water 0 ml 07/20/23 06:00 Water,Injection,Sterile 10 Ml Vial IJ 08/18/23 23:59 DIRECTED PRN PFSH Active Problems Active Problems: Problem Status Onset Code Overactive bladder N32.81 Bilateral lower extremity edema R60.0 Facial trauma S09.93XA Hyponatremia E87.1 Urinary frequency R35.0 Right rotator cuff tendonitis M75.81 Insomnia G47.00 Follow up Z09 Skin lesion of face L98.9 Impacted cerumen, right ear H61.21 Calcific tendinitis of left shoulder M75.32 Left shoulder pain M25.512 Conductive hearing loss, external ear H90.2 Impacted cerumen, bilateral H61.23 Contusion of left upper extremity S40.022A Trochanteric bursitis, right hip M70.61 Trochanteric bursitis, left hip M70.62 JAN on CPAP G47.33, Z99.89 Edema R60.9 Asymmetrical sensorineural hearing loss H90.3 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 Anemia D64.9 Hypomagnesemia E83.42 Bradycardia R00.1 Osteoarthritis of right knee M17.11 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 Tendinitis of right shoulder M75.81 Localized osteoarthritis of left knee M17.12 At risk for diabetic foot ulcer Z91.89 A-fib I48.91 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 Spinal stenosis M48.00 Tendonitis involving left hip abductors 08/17/15 M76.892 Obstructive sleep apnea syndrome 03/29/16 G47.33 Malignant neoplasm of female breast 07/06/90 C50.919 Increased BMI R63.8 Impaired renal function 03/29/18 N28.9 Hypercholesterolemia 01/01/13 E78.00 Essential hypertension 06/27/13 I10 Edema extremities 02/26/18 R60.0 Diabetes mellitus 01/01/13 E11.9 Chronic left shoulder pain 03/29/16 M25.512, G89.29 Cervical arthritis M47.812 Basal cell carcinoma of other specified sites of skin 08/21/12 C44.91 Incidental pulmonary nodule, > 3mm and < 8mm R91.1 Medical History Medical History Actinic keratosis Cervical strain Diarrhea Discharge planning issues DVT prophylaxis Fatigue (07/26/12) Lumbar radicular pain Mantoux: positive history of Near syncope Palpitations 09/07/16 Polyp of colon (12/02/08) per colonoscopy-Dr. 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 MIR PATRICIA; RIGHT CHEEK Surgical History Surgical History Abdominal hysterectomy (~1997) Appendectomy Bilateral salpingectomy with oophorectomy Biopsy of breast (~1990) RIGHT section X 3 Cholecystectomy DISCECTOMY Extraction of cataract 05/26/15; LEFT EYE 06/16/15; RIGHT EYE H/O cataract removal with insertion of prosthetic lens O.S. -05/26 2015; O.D.-06/16/2015 H/O section x 3 H/O discectomy History of appendectomy History of bilateral ligation of fallopian tubes (07/29/14) History of bilateral tubal ligation 07/29/14 History of cataract removal with insertion of prosthetic lens (05/26/15) History of section History of discectomy Hx of appendectomy Hx of spinal surgery 01/24/17 [facility] [place] Ligation of fallopian tube (~1997) MOHS 08/2014 S/P abdominal hysterectomy S/P breast biopsy S/P cholecystectomy Status post abdominal hysterectomy Status post cholecystectomy Tobacco Smoking/Tobacco Use Status: Former Tobacco Use Passive smoking exposure: Yes Second hand exposure: Yes Alcohol Alcohol Intake: never Substance Use Substance use: Never Vital Signs and Lab Results Vital Signs Most Recent Vital Signs in EMR: Most Recent Vital Signs Temp Pulse Resp BP Pulse Ox 36.2 C L 63 16 201/57 H 100 07/20/23 13:03 07/20/23 13:03 07/20/23 13:03 07/20/23 13:03 07/20/23 13:03 Lab Results Blood Type / Crossmatch: No Data to Display Complete Blood Count: No Data to Display Complete Metabolic Panel: Sodium 139 mmol/L (136-145) 07/13/23 08:45 Potassium 4.5 mmol/L (3.5-5.1) 07/13/23 08:45 Chloride 101 mmol/L (98-107) 07/13/23 08:45 Carbon Dioxide 25.7 mmol/L (21.0-32.0) 07/13/23 08:45 BUN 36 mg/dL (7-18) H 07/13/23 08:45 Creatinine 1.5 mg/dL (0.55-1.02) H 07/13/23 08:45 Est GFR (CKD-EPI 2020) 34.79 (mL/min/1.73m2) 07/13/23 08:45 Calcium 9.8 mg/dL (8.5-10.1) 07/13/23 08:45 Albumin 3.8 g/dL (3.4-5.0) 07/13/23 08:45 Glucose 186 mg/dL (74-106) H 07/13/23 08:45 Hemoglobin A1c 7.4 % (<5.7) H 07/13/23 08:45 Liver Function Panel: Alanine Aminotransferase (ALT/SGPT) 23 U/L (14-59) 07/13/23 08: 45 Aspartate Amino Transf (AST/SGOT) 12 U/L (15-37) L 07/13/23 08: 45 Coagulation Panel: No Data to Display Cardiac Panel: No Data to Display Arterial Blood Gas: No Data to Display Venous Blood Gas: No Data to Display Pancreas Panel: No Data to Display Thyroid Panel: No Data to Display Infectious Disease: No Data to Display Blood Cultures: No Data to Display Toxicology Panel: No Data to Display Imaging and Studies Imaging and Studies Study information below may be from another EMR and interpreted by another provider. Please see original notes in EMR for more complete details. EKG Summary: EKG PATIENT NAME: Sacha Razo UNIT #: [id number] ORDERING PROVIDER: Tim Winston M.D. PRIMARY CARE PROVIDER: IJEOMA NAJERA MD, DC DATE/TIME OF SERVICE: 02/02/23720 : 1940 PERFORMING LOCATION: ER APPROVED REPORT Exam: Resting ECG Reason for Exam: syncope Patient Location: E HR:60 bpm ECG Measurements Heart Rate 60 AXIS [place] 187 P -22 QRSd 97 QRS -4 QT 409 T70 QTc 409 Conclusion Sinus rhythm...normal P axis, V-rate 60- 99 Narrow complex normal sinus rhythm at a rate of 60. Left axis deviation no signs of LVH based on voltage criteria. Mild ST segment flattening left lateral chest wall leads. No ST segment elevation. No T wave inversions. No acute injury pattern. QTc within normal limits. Appears similar to prior dated 2 years ago. -- <Electronically signed by Tim Winston M.D. in OV> E-Sign Date: 02/06/23 E-Sign Time: 1823 ADDENDUM APPROVED REPORT Exam: Resting ECG Reason for Exam: syncope Patient Location: E HR:60 bpm ECG Measurements Heart Rate 60 AXIS NY 187 P -22 QRSd 97 QRS -4 QT 409 T70 QTc 409 Conclusion Sinus rhythm...normal P axis, V-rate 60- 99 Narrow complex normal sinus rhythm at a rate of 60. Left axis deviation no signs of LVH based on voltage criteria. Mild ST segment flattening left lateral chest wall leads. No ST segment elevation. No T wave inversions. No acute injury pattern. QTc within normal limits. Appears similar to prior dated 2 years ago. I have reviewed and I agree with the emergency room physician's ECG interpretation. Electronically signed by: <Electronically signed by Anali Mendoza M.D. in OV> 02/09/23 0914 Cosigned by: Stress Test Summary: Patient Name: SACHA RAZO Unit #: [id number] Loc: Ordering Provider: IJEOMA NAJERA M.D., DC Status: REG CLI Primary Care Provider: IJEOMA NAJERA M.D., DC Date of Exam: 10/24/16 Sex: F : 1940 Age: 75 Exam(s) [id number] NM:MPI Resting & Stress GRP *[facility]* *[facility]* [address] [place] [address] Myocardial Perfusion Imaging - SPECT Fortino protocol Date of study: 10/24/2016 *PATIENT PRESENTATION* Height: 165.1cm ((65in) ) Blood Pressure: Weight: 90.9kg ((200lb) ) BSA: 2.08m^2 Referring physician: Coral Figueroa MD Ordering physician: Ijeoma Najera Impressions: Normal perfusion by Tc99m Sestamibi Imaging. Summary: 1. Myocardial perfusion imaging: No myocardial perfusion defects noted. 2. The calculated left ventricular ejection fraction after stress: 69%. 3. Stress ECG conclusions: Poon treadmill score: 6. This score predicts a low risk of cardiac events. 4. Stress: The target heart rate was achieved. Indication: (R07.9). History: PT STATES THAT SHE HAS HAD FREQUENT DIZZY SPELLS IN THE PAST 6 WEEKS, AND HAS HAD ONE SYNCOPAL EPISODE. SHE STATES THAT THEY COME ON WHILE SHE IS STANDING. PT DENIES PALPITATIONS AND SOB. SHE STATES THAT SHE HAD SOME CHEST TIGHTNESS, BUT THAT HAS IMPROVED WITH ADJUSTMENT OF HER HTN MEDICATIONS. HOLTER MONITOR 08/2016- BASELINE SINUS RHYTHMN, FREQUENT PACs CAROTID US 10/2016- NO SIGNIFICANT STENOSIS. Risk factors: REMOTE SMOKING HX; 2.5 PACK YEAR HX. FATHER OF CVA. PT STATES THAT SHE SWIMS 2X/WEEK. Hypertension. Obesity. Dyslipidemia. Cholesterol: 169mg/dl. HDL: 77mg/dl. LDL: 120mg/dl. Triglycerides: 125mg/dl. ALLERGIES: PCNS, LISINOPRIL, MORPHINE, OXYCODONE. MEDICATIONS: ASA 81MG, ATORVASTATIN 40MG, LOSARTAN/HCTZ 100-25, AMLODIPINE 10MG, ISOSORBIDE 30MG, ACETAMINOPHEN, ASCORBIC ACID, MVI, OMEPRAZOLE, ESTRADIOL, ESTROGENS, IBUPROFEN, LORATADINE, DICYCLOMINE. Imaging Technique: Protocol: Fortino protocol. Acquisition: Gated SPECT; 1 day - rest/stress. The patient was imaged in the supine position. Attenuation correction used. Isotope administration: - Rest. Tc[99m]-sestamibi. Dose: 10mCi. Injection time: 08:30 AM. Injection to stress time: 00:45. - Stress. Tc[99m]-sestamibi. Dose: 28.9mCi. Injection time: 09:55 AM. 1-2 min before end of exercise Baseline ECG: NSR @ 66 BPM Stress protocol: + +---+ + !Stage !HR !BP (mmHg) ! + +---+ + !Baseline supine !66 !168/82 (111)! + +---+ + !Baseline standing !85 !168/82 (111)! + +---+ + !Stage I; 1.7mph, 10degrees; 3 min !111!182/86 (118)! + +---+ + !Stage II; 2.5mph, 12degrees; 3 min!138!194/85 (121)! + +---+ + !Immediate post stress !145!208/72 (117)! + +---+ + !Recovery; 3 min !83 !200/80 (120)! + +---+ + !Recovery; 6 min !79 !174/80 (111)! + +---+ + * Stress results: Maximal heart rate during stress was 145bpm (99% of maximal predicted heart rate). The maximal predicted heart rate was 146bpm. The target heart rate was achieved. The rate-pressure product for the peak heart rate and blood pressure was 65544ud Hg/min. Stress ECG: PT EXERCISED FOR 6:03 MINUTES, FORTINO PROTOCOL. EXERCISES ENDED AT PT REQUEST DUE TO FATIGUE. MAX HR 145, 99% OF MAX. 8.01 METS APPROPRIATE BP RESPONSE NO ANGINA FREQUENT PACs NOTED NO ISCHEMIC CHANGES ABOVE AVERAGE FUNCTIONAL CAPACITY. Poon treadmill score: 6. This score predicts a low risk of cardiac events. Myocardial perfusion: Imaging information: gated. No myocardial perfusion defects noted. Ventricular Function (Wall Motion): The calculated left ventricular ejection fraction after stress: 69%. Study data: Coral Figueroa MD supervised and was readily available during the procedure. This study was interpreted by [facility]. Study status: Routine. Consent: The risks, benefits, and alternatives to the procedure were explained to the patient and informed consent was obtained. Procedure: Initial setup. A baseline ECG was recorded. Surface ECG leads and manual cuff blood pressure measurements were monitored. Heart sounds: Normal. Lung sounds: Normal. Treadmill exercise testing was performed using the Fortino protocol. Study completion: All catheters inserted during the procedure were removed. The patient tolerated the procedure well and was discharged from the lab. Discharge: The patient left the laboratory in stable condition. Birthdate: Patient birthdate: 1940. Sex: Gender: female. Study date: Study date: 10/24/2016. Study time: 09:30 AM. Electronically signed by Coral Figueroa MD 10/24/2016 16:38 Ordering provider: IJEOMA NAJERA M.D., CINDY CC: CORAL FIGUEROA MD Dictated by: EDWIGE FOX M.D.10/24/16 1333 <Electronically signed by EDWIGE FOX M.D.>10/25/16 1602 Disclaimer: The [facility] radiologist is signing only the Nuclear Medicine MPI Imaging exam portion of the report. Transcribed by: Jena Sanchez10/25/16 0915 This is privileged, confidential information intended only for the provider named. Any use or distribution by any person other than this provider is strictly prohibited. If you receive this report in error, please notify us immediately at [phone] and return the original report to us at the address above. Thank-you. Echocardiogram Summary: Patient Name: Sacha Razo Unit #: [id number] Loc: DI Ordering Provider: Anali Mendoza M.D. Status: REG I Primary Care Provider: Ijeoma Najera M.D., DC Date of Exam: 05/31/23 Sex: F Admission Date: 05/31/23 : 1940 Age: 82 APPROVED REPORT EXAM: Comprehensive 2D, Doppler, and color-flow Echocardiogram Patient Location: Out-Patient Apple Packing Header: Josr Quinones RDCS (AE) Indications: LV function, edema of extremities, afib, HTN Conclusion Normal left ventricular wall thickness and chamber size. Ejection fraction is 55%. Wall motion is normal Normal right ventricular size and systolic function Left atrium is mildly dilated. Right atrial size is normal Trileaflet aortic valve without stenosis or regurgitation Mildly thickened mitral leaflets, mild mitral annular calcification. Trace mitral regurgitation Borderline dilated ascending aorta Wall motion Left Ventricle The left ventricle is normal size. The left ventricular systolic function is normal. The left ventricular ejection fraction is within the normal range. There is normal left ventricular wall thickness. There is normal LV segmental wall motion. There is no ventricular septal defect visualized. LVEF is 55%. Right Ventricle The right ventricle is normal size. The right ventricular systolic function is normal. The RVSP is 10.1 mmHg. Atria Left atrium is mildly dilated. The right atrium size is normal. The interatrial septum is intact with no evidence for an atrial septal defect. Aortic Valve The aortic valve is normal in structure. Aortic valve is trileaflet. There is no aortic valvular stenosis. No aortic regurgitation is present. Mitral Valve Mitral valve leaflets are mildly thickened. Mild mitral annular calcification. No evidence of mitral valve stenosis. Trace mitral regurgitation. Tricuspid Valve The tricuspid valve is normal in structure. There is no tricuspid valve stenosis. Trace tricuspid regurgitation. Pulmonic Valve The pulmonary valve is normal in structure. There is no pulmonic valvular stenosis. There is no pulmonic valvular regurgitation. Great Vessels The aortic root is normal in size. The ascending aorta is mildly dilated. Aortic arch is not well visualized. IVC is normal in size and collapses >50% with inspiration. Pericardium There is no pericardial effusion. 2D Dimensions IVSD d PLAX 0.87 cm F: 0.6-1.0Ao Root d 3.20 cm F: 2.7 - 3.3 LVPW d PLAX 0.86 cm F: 0.6 - 1.0Ao Asc Diam d 3.43 cm F: 2.3 - 3.1 LVID d PLAX 4.87 cm F: 3.8 - 5.2 LVDs 3.54 cm F: 2.2 - 3.5 LV EF Teichholz 53.1 % FS27.39 % LV EDV (Teich)111.2 mL LV ESV (Teich)52.1 mL Stroke Vol Index (Teich)30.92 M-Mode TAPSE 2.61 cm (M/F) >1.7 Auto EF LV EDV A4C68.0 mLLV EDV [id number] mLLV EDV BP88.0 mL LV ESV A4C30.8 mLLV ESV A2C52.3 mLLV ESV BP40.8 mL LVEF(%) A4C54.7 %LVEF(%) A2C52.4 %LVEF(%) BP53.6 % LV SV A4C37.2 mlLV SV A2C57.5 mlLV SV BP47.2 ml LV CO A4C2.1 L/minLV CO A2C3.5 L/minLV CO BP2.8 L/min HR A4C56.34 BPMHR A2C61.54 BPMLV EDV Index (BP) LA Volume LA Length A4C6.7 cmLA Length A2C LA Area A4C s 19.17 cm2LA Area A2C s LA Vol A4C A-L46.81 mLLA Vol A2C A-LLA Vol Biplane A-L LA Vol A4C MOD45.6 mLLA Vol A2C MODLA Vol BP MOD RA Volume RA Area A4C9.0 cm2RA ESV A4C (A-L)16.7mLRA Vol/BSA A4C A-L RA Length A4C4.2 cmRA ESV A4C (MOD)15.3mL LV Diastology MV E' medial0.103 (>0.07 m/s)MV E Vmax 1.14 (0.4-1.3 m/s) MV E/E' MED11.07 (<14)MV A Vmax 0.95 (0.4-1.3 m/s) MV E' lateral0.101 (>0.1 m/s)E/A Ratio 1.2 MV E/E' LAT11.26 (<14) MV E' Average0.102 m/s MV E/E'(average)11.16 Aortic Valve AoV Vmax1.72 m/sLVOT Vmax 1.51 m/s AoV Peak Grad11.8 mmHgLVOT Peak Grad 9.1 mmHg AoV Area (Vmax)2.14 [id number] VTI0.369 m AoV VTI0.409 mLVOT Mean Grad 5.2 mmHg AoV Mean Bartolo.1.18 m/sLVOT SV 90.00 mL AoV Mean Grad6.3 mmHgLVOT Diam s 1.75 cm AoV Area (VTI)2.20 cm2 Velocity Ratio 0.88 Mitral Valve MV DT 255 (160-240 msec) Pulmonary Valve PV Vmax 1.01 (0.5-1.5 m/s)RVOT Vmax 0.84 m/s PV Peak Grad 4.1 mmHgRVOT Peak Gr.2.8 mmHg PV Mean Vel0.72 m/sRVOT VTI0.209 m PV Mean Grad 2.4 mmHgRVOT Mean Gr.1.6 mmHg Tricuspid Valve RA Pressure 3.00 mmHgTR Vmax 1.33 m/s TR Peak Grad 7.0 mmHg RVSP (TR) 10.1 mmHg Ordered By: Anali Mendoza M.D. CC: Dictated By: Anali Mendoza M.D. 05/31/23 1544 <Electronically signed by Anali Mendoza M.D. in OV> 06/01/23 1376 Transcribed By: Anali Mendoza MD 05/31/231543 This is privileged, confidential information intended only for the provider named. Any use or distribution by any person other than this provider is strictly prohibited. If you receive this report in error, please notify us immediately at [phone] and return the original report to us at the address above. Thank-you. Carotid Artery Summary:: Patient Name: SACHA RAZO Unit #: [id number] Loc: DI Ordering Provider: IJEOMA NAJERA M.D., DC Status: REG CLI Primary Care Provider: IJEOMA NAJERA M.D., DC Date of Exam: 10/21/16 Sex: F : 1940 Age: 75 Exam(s) [id number] US:Abdomen [id number] US:Carotid SYMPTOM/DIAGNOSIS: NAUSEA, R11.0, SYNCOPE, DIZZINESS, R55, HYPERTENSION CAROTID ULTRASOUND: There is mild calcific plaque in the common carotid bulbs. No significant s tenosis is visible. The velocity measurements obtained are within the normal range. The vertebral arteries show antegrade flow. IMPRESSION: Mild calcific plaque in the common carotid bulbs. No significant internal carotid artery stenosis. ABDOMEN ULTRASOUND: The liver shows slightly increased echogenicity, consistent with mild hepatic steatosis. No focal liver lesions or biliary dilatation is seen. The patient is status post cholecystectomy. The pancreas, spleen and kidneys are unremarkable. No ascites is visible. The aorta is normal in diameter. IMPRESSION: Status post cholecystectomy. Mild fatty infiltration of the liver. No acute abnormality. Ordered By: IJEOMA NAJERA M.D., DC CC: Dictated By: ANGELA AGUIRRE M.D. 10/21/16 1011 <Electronically signed by ANGELA AGUIRRE M.D.> 10/21/16 1144 Transcribed By: Jena Sanchez 10/21/16 1105 This is privileged, confidential information intended only for the provider named. Any use or distribution by any person other than this provider is strictly prohibited. If you receive this report in error, please notify us immediately at [phone] and return the original report to us at the address above. Thank-you. Anesthesia Assessment and Plan Anesthesia History Personal History: No History of Anesthesia Complications Family History: No Family History of Anesthesia Complications Exercise Tolerance Exercise Tolerance: Metabolic Equivalents>4 Pertinent Negatives Pertinent Negatives: No Symptoms of GERD, No Major Pulmonary Symptoms or Complaints and No History of CVA/TIA Cardiac & Pulmonary Exam Cardiac Exam: Normal S1/S2 Heart Sounds Pulmonary Exam: Clear Bilateral Breath Sounds Implantable Cardiac Device Does patient have a Pacemaker or an ICD?: No Airway Exam Known Difficult Airway: No Mallampati Class: 2 Mouth Opening: Normal (> 3cm) Thyromental Distance: Greater than 3 cm Neck Range of Motion: Full ROM Neck Circumference: Normal Teeth Condition: Normal Dentition ASA Classification ASA Score: ASA 3 Emergency Case?: No NPO Status NPO Status: NPO Clears >2 hours, Solids >8 hours Anesthesia Plan Resuscitation Status: Full Code Anesthesia Technique: General Anesthesia Airway Planned: Natural Airway Monitors Used: Standard Monitors Preoperative Comments:: High systolic blood pressures today. Will follow up with PCP. Discussed risk and does want to proceed today.
[2023-07-20] MEDS: Ciprofloxacin 500 MG TAB PO (13:16)
[2023-07-20 13:23] VITALS: BP 246/62
[2023-07-20 13:40] VITALS: BP 210/60; PULSE 60; O2SAT 99
[2023-07-20 14:28] VITALS: BMI 31.0
[2023-07-20] MEDS: Lidocaine 2% Jelly 11 ML SYR (14:31)
[2023-07-20] MEDS: BOTULINUM TOXIN TYPE A 100 UNITS, Normal Saline 20 ML IJ (14:32)
--- NOTE | 2023-07-20 14:38 | W.PM.DSUDISC ---
Date of service: 07/20/23 Time of Service: 14:38 Discharge Plan Disposition Condition: Stable Discharge Details Reason For Visit: Cystoscopy with Botox injection Attending Provider: Zen Baxter Primary Care Provider: Ijeoma Najera Home Meds and New Rx's Prescriptions: No Action cholecalciferol (vitamin D3) 50 mcg (2,000 unit) capsule 100 mcg PO DAILY dicyclomine 10 mg capsule 10 mg PO BID PRN (Reason: diarrhea) Qty: 60 0RF spironolactone 25 mg tablet 25 mg PO BID Qty: 180 12RF Systane (PF) 0.4-0.3 % dropperette 1 drp OPHTHALMIC (EYE) BID-QID PRN (Reason: dry eye(s)) Qty: 60 4RF nitrofurantoin macrocrystal 50 mg capsule 50 mg PO QHS Qty: 90 0RF Rx Instructions: must administer with a meal/food Premarin 0.625 mg/gram cream 1 applic VG twice weekly Qty: 30 3RF Rx Instructions: Use 0.5 GM in vagina twice weekly (DME) lancets [Onetouch Delica Safety Lancet] 30 gauge misc See Rx Instructions .Route Qty: 100 4RF Rx Instructions: Once per day (DME) OneTouch Ultra Test Strip See Rx Instructions .Route Qty: 100 4RF Rx Instructions: Once per day . OneTouch Ultra2 meter multivitamin [Once Daily] 1 EACH tablet 1 tab PO DAILY (DME) blood-glucose meter misc See Dose Instructions .ROUTE .MEDSUPPLY Qty: 1 0RF Dose Instruction: As directed Rx Instructions: daily acetaminophen 500 mg tablet 1,000 mg PO TID clotrimazole-betamethasone 1-0.05 % cream 1 applic topical BID PRN (Reason: itching) Qty: 45 1RF fluticasone propionate 50 mcg/actuation spray,suspension 2 spray intranasal DAILY Qty: 16 8RF Rx Instructions: administer into each nostril furosemide 20 mg tablet 20 mg PO DAILY Qty: 90 5RF Patient Comments: 10mg losartan 100 mg tablet 100 mg PO DAILY Qty: 90 3RF diclofenac sodium [Voltaren Arthritis Pain] 1 % gel 2 g topical QID Qty: 100 8RF Patient Comments: left shoulder and left hip Rx Instructions: apply to single elbow, wrist or hand; for hand includes palm/fingers/back of hand carvedilol 6.25 mg tablet 6.25 mg PO BID Qty: 180 4RF Rx Instructions: must administer with a meal/food atorvastatin [Lipitor] 40 mg tablet 40 mg PO DAILY Qty: 90 4RF Eliquis 5 mg tablet 5 mg PO BID Qty: 180 5RF pantoprazole 40 mg tablet,delayed release (DR/EC) 40 mg PO DAILY Qty: 90 4RF glipizide 5 mg tablet extended release 24hr 5 mg PO DAILY Qty: 90 4RF Colace 50 mg Capsule 100 mg PO HS Discharge Instructions Additional Instructions: OK to restart all medications (including anticoagulants) please ask patient to call in 1 week with a progress report followup appt 5 to 6 months to consider next Botox injection Activity:: Activity as Tolerated Shower/Bathe:: 24 hours Diet:: As Tolerated DS: Diagnosis Discharge Diagnosis (1) Overactive bladder: Status: Acute
--- NOTE | 2023-07-20 14:41 | W.PM.OP ---
Date of service: 07/20/23 Time of Service: 14:41 Operative Note Operative Note DATE OF PROCEDURE: 07/20/23 PRE-OP DIAGNOSIS: Urgency Incontinence due to overactive bladder POST-OP DIAGNOSIS: same PROCEDURE: cystoscopy with transurethral injection of Botox into detrusor muscle SURGEON: Zen Baxter ANESTHESIA TYPE: Local By Surgeon and General:No Airway Refer to Anesthesia Record ESTIMATED BLOOD LOSS: 0 PATHOLOGY: none sent COMPLICATIONS: None Patient was transported to: same day Patient's condition: stable Implants: 100 Units Botox mixed in 20 mL saline Indications: This is an 82-year-old woman who has a history of urinary frequency, urgency and urgency incontinence. She has no neurologic component. Instead, she has an overactive bladder. She has failed behavioral modification and medical management. She is agreeable now to an injection of Botox into the detrusor muscle Findings: No bladder mass Procedure Description: The patient was given a single dose of oral antibiotics and brought to the operating room on 07/20/2023. After successful induction of general anesthesia without intubation, she was placed in the dorsal lithotomy position. Her genitalia was prepped with Betadine. 2% Xylocaine jelly was instilled into the urethra to act as a local anesthetic. A 20 [place] urethrotome sheath was passed through the urethra into the bladder. The bladder was inspected with a 30 degree lens. The bladder appeared smooth-walled with no papillary or nodular lesions. We then injected 100 units of Botox into the detrusor muscle. The Botox was diluted in 20 mL of saline and we injected 1 mL into each of 20 locations. We used a grid of 5 vertical rows and 4 horizontal rolls. We avoided the trigone and the bladder neck with our injections. At the completion of the procedure, the bladder was emptied and the scope was removed. The patient tolerated this procedure well with no complications.
[2023-07-20 14:43] VITALS: BP 140/68; PULSE 55; RESP 17; TEMP 36.3; O2SAT 100
[2023-07-20] MEDS: Phenazopyridine 200 MG TAB PO (14:58)
[2023-07-20 15:14] VITALS: BP 163/47; PULSE 56; RESP 16; TEMP 36.3; O2SAT 100
--- NOTE | 2023-07-20 15:57 | W.ANESPOSTOP ---
Postoperative Evaluation Date, Time and Location Date Performed: 07/20/23 Time Performed: 14:45 Patient Location: Day Surgery Unit Vital Signs Most Recent Imported Vital Signs: Most Recent Vital Signs Temp Pulse Resp BP Pulse Ox 36.3 C L 55 L 17 140/68 100 07/20/23 14:43 07/20/23 14:43 07/20/23 14:43 07/20/23 14:43 07/20/23 14:43 Pain Score Most Recent Pain Score: Most Recent Pain Score Pain Level 0 07/20/23 14:43 Assessment Mental Status: Awake (Alert & Oriented to Patient Baseline) Airway and Respiratory Function: Patent airway with normal (patient baseline) respiratory exam Cardiovascular Function: Hemodynamically Stable Hydration Status: Adequately Hydrated Nausea & Vomiting: No Nausea or Vomiting Pain: Pt. Denies Any Pain Peripheral Nerve Block: Patient did not receive a nerve block Teaching Patient Teaching: Advised to seek followup for the following concerns (See explanation) Concerns: Poorly Controlled Hypertension (Noted several preoperative blood pressures in the 200s-240s systolic. Patient did take her anti-hypertensives today. Asked her to follow her blood pressures leading up to her next appt with Dr. Najera. I will CC Dr. Najera related to this hypertension as patient has an upcoming appointment. ) Postoperative Comments:: Patient uncertain if blood pressures are real and felt that Anesthesia monitors were more reliable. Anesthesia monitor and preop monitor agreed postoperatively. I am inclined to believe the preoperative blood pressures were real.
== END 2023-07-20 16:20 | disposition home or self-care (01) ==
PROVIDERS: PCP Family Medicine; Visit Provider Urology
PROC: (CPT 52287; principal; 2023-07-20 14:30)
DX: N32.81 Overactive bladder (principal); N39.46 Mixed incontinence; E11.9 Type 2 diabetes mellitus without complications; Z79.84 Long term (current) use of oral hypoglycemic drugs
CPT/HCPCS: 52287; J0585; J2001

== ENCOUNTER → 2023-07-28 13:41 | Outpatient (BNVA) | payer MEDICARE, SELFPAY | PROVIDERS: PCP Family Medicine; Referring Provider Family Medicine; Visit Provider Urology | DX: N32.81 Overactive bladder (principal); Z87.440 Personal history of urinary (tract) infections | CPT/HCPCS: 81003; 99212 ==

== ENCOUNTER 2023-07-28 13:55 | Outpatient (REF) | payer MEDICARE, SELFPAY | END 2023-07-28 13:56 | disposition home or self-care (01) | LOC: LBN 13:55 | PROVIDERS: PCP Family Medicine; Visit Provider Urology | DX: R30.0 Dysuria (principal) | CPT/HCPCS: 87077; 87086; 87186 ==

== ENCOUNTER → 2023-12-29 08:00 | Outpatient (BNVA) | payer MEDICARE, SELFPAY | PROVIDERS: PCP Family Medicine; Referring Provider Family Medicine; Visit Provider Urology | DX: N32.81 Overactive bladder (principal) | CPT/HCPCS: 99214 ==

== ENCOUNTER 2024-02-12 07:25 | Day surgery (SDC) | payer MEDICARE, SELFPAY ==
[2024-02-12 07:47] VITALS: BP 174/59; PULSE 58; RESP 16; TEMP 36.4; O2SAT 98
[2024-02-12] MEDS: Ciprofloxacin 500 MG TAB PO (07:51)
--- NOTE | 2024-02-12 07:59 | W.ANESPRE ---
General Info Date of Service Date Performed: 02/12/24 Height: 5 ft 6 in Weight: 85.2 kg Body Mass Index (BMI): 30.3 Surgical Procedure: Operation Date: 02/12/24 09:10 Proposed Procedure Side Surgeon p Cystoscopy with transurethral injection of Botox Zen Baxter MD Meds Allergies and Home Medications Allergies Allergy/AdvReac Type Severity Reaction Status Date / Time Penicillins Allergy CHILDHOOD Verified 02/12/24 07:46 clonidine AdvReac Unknown Verified 02/12/24 07:46 gabapentin AdvReac No energy Verified 02/12/24 07:46 and fatigue lisinopril AdvReac COUGH Verified 02/12/24 07:46 morphine AdvReac VOMITING/DI Verified 02/12/24 07:46 ARRHEA oxybutynin AdvReac dizzy Verified 02/12/24 07:46 oxycodone HCl [From Percocet] AdvReac VOMITING/NA Verified 02/12/24 07:46 USEA terazosin [From Hytrin] AdvReac Unknown Verified 02/12/24 07:46 Home Medication Medication Instructions Recorded multivitamin (Once Daily tablet) 1 tab PO DAILY 12/28/12 blood-glucose meter #1 ea 05/16/18 cholecalciferol (vitamin D3) 50 100 mcg PO DAILY 06/08/21 mcg (2,000 unit) capsule dicyclomine 10 mg capsule 10 mg PO BID PRN diarrhea #60 10/26/21 tab-caps conjugated estrogens 0.625 mg/gram 1 applic vaginal twice weekly #30 12/27/21 vaginal cream (Premarin) grams docusate sodium 50 mg capsule 100 mg PO HS 02/10/22 acetaminophen 500 mg tablet 1,000 mg PO TID 04/15/22 peg 400-propylene glycol (PF) 0.4 1 drp ophthalmic (eye) BID-QID PRN 06/23/22 %-0.3 % eye drops in a dropperette dry eye(s) #60 ea (Systane (PF)) clotrimazole-betamethasone 1 1 applic topical BID PRN itching 02/24/23 %-0.05 % topical cream #45 grams blood sugar diagnostic (LumetaTouch #100 ea 03/30/23 Ultra Test strips) lancets 30 gauge (Onetouch Delica #100 ea 03/30/23 Safety Lancet) losartan 100 mg tablet 100 mg PO DAILY #90 tabs 05/02/23 atorvastatin 40 mg tablet (Lipitor) 40 mg PO DAILY #90 tab-caps 07/04/23 carvedilol 6.25 mg tablet 6.25 mg PO BID #180 tabs 07/04/23 glipizide 5 mg tablet, extended 5 mg PO DAILY #90 tab-caps 07/04/23 release 24 hr pantoprazole 40 mg tablet,delayed 40 mg PO DAILY #90 tabs 07/04/23 release furosemide 20 mg tablet 10 mg (1/2 x 20 mg) PO DAILY #90 07/27/23 tabs spironolactone 25 mg tablet 25 mg PO BID #180 tab-caps 08/02/23 apixaban 5 mg tablet (Eliquis) 5 mg PO BID #180 tabs 10/10/23 diclofenac sodium 1 % topical gel 2 g topical QID PRN 02/06/24 (Voltaren Arthritis Pain) fluticasone propionate 50 2 spray intranasal DAILY PRN 02/06/24 mcg/actuation nasal spray,suspension Current Visit Medications: Current Medications Generic Name Dose Route Start Last Admin Trade Name Freq PRN Reason Stop Dose Admin Ciprofloxacin HCl 500 mg 02/12/24 06:00 Ciprofloxacin 500 Mg Tab PO 02/12/24 23:59 PREOP [facility] OnabotulinumtoxinA 100 units/ 0 units 02/12/24 09:00 Sodium Chloride 20 ml IJ 02/12/24 16:00 DIRECTED [facility] Ringer's Solution 1,000 mls @ 80 mls/hr 02/12/24 06:00 IV 02/12/24 23:59 INFUSION [facility] IV Miscellaneous Supplies 1 each 02/12/24 06:00 Iv Access IV 02/12/24 23:59 DIRECTED [facility]OLI Sodium Chloride 0 ml 02/12/24 06:00 Normal Saline Flush 10 Ml Syr IV 02/12/24 23:59 PRN PRN Sodium Chloride 0 ml 02/12/24 06:00 Normal Saline 10 Ml Vial IJ 02/12/24 23:59 DIRECTED PRN Sterile Water 0 ml 02/12/24 06:00 Water,Injection,Sterile 10 Ml Vial IJ 02/12/24 23:59 DIRECTED PRN PFSH Active Problems Active Problems: Problem Status Onset Code Overactive bladder N32.81 Bilateral lower extremity edema R60.0 Facial trauma S09.93XA Hyponatremia E87.1 Urinary frequency R35.0 Right rotator cuff tendonitis M75.81 Insomnia G47.00 Follow up Z09 Skin lesion of face L98.9 Impacted cerumen, right ear H61.21 Calcific tendinitis of left shoulder M75.32 Left shoulder pain M25.512 Conductive hearing loss, external ear H90.2 Impacted cerumen, bilateral H61.23 Contusion of left upper extremity S40.022A Trochanteric bursitis, right hip M70.61 Trochanteric bursitis, left hip M70.62 JAN on CPAP G47.33, Z99.89 Edema R60.9 Asymmetrical sensorineural hearing loss H90.3 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 Anemia D64.9 Hypomagnesemia E83.42 Bradycardia R00.1 Osteoarthritis of right knee M17.11 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 Tendinitis of right shoulder M75.81 Localized osteoarthritis of left knee M17.12 At risk for diabetic foot ulcer Z91.89 A-fib I48.91 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 Spinal stenosis M48.00 Tendonitis involving left hip abductors 08/17/15 M76.892 Obstructive sleep apnea syndrome 03/29/16 G47.33 Malignant neoplasm of female breast 07/06/90 C50.919 Increased BMI R63.8 Impaired renal function 03/29/18 N28.9 Hypercholesterolemia 01/01/13 E78.00 Essential hypertension 06/27/13 I10 Edema extremities 02/26/18 R60.0 Diabetes mellitus 01/01/13 E11.9 Chronic left shoulder pain 03/29/16 M25.512, G89.29 Cervical arthritis M47.812 Basal cell carcinoma of other specified sites of skin 08/21/12 C44.91 Incidental pulmonary nodule, > 3mm and < 8mm R91.1 Medical History Medical History DVT prophylaxis Discharge planning issues Diarrhea Near syncope 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 MIR PATRICIA; RIGHT CHEEK Polyp of colon (12/02/08) per colonoscopy-Dr. mir Patricia Acute colitis- 35cm Hyperplastic- 55cm Fatigue (07/26/12) Actinic keratosis Lumbar radicular pain Surgical History Surgical History History of appendectomy History of bilateral ligation of fallopian tubes (07/29/14) History of cataract removal with insertion of prosthetic lens (05/26/15) History of section History of discectomy Status post abdominal hysterectomy Status post cholecystectomy S/P abdominal hysterectomy H/O section x 3 S/P cholecystectomy Hx of appendectomy S/P breast biopsy H/O discectomy History of bilateral tubal ligation 07/29/14 H/O cataract removal with insertion of prosthetic lens O.S. -05/26 2015; O.D.-06/16/2015 Hx of spinal surgery 01/24/17 [facility] [place] Ligation of fallopian tube (~1997) section X 3 MOHS 08/2014 Abdominal hysterectomy (~1997) DISCECTOMY Cholecystectomy Extraction of cataract 05/26/15; LEFT EYE 06/16/15; RIGHT EYE Biopsy of breast (~1990) RIGHT Bilateral salpingectomy with oophorectomy Appendectomy Tobacco Smoking/Tobacco Use Status: Former Tobacco Use Passive smoking exposure: Yes Second hand exposure: Yes Alcohol Alcohol Intake: never Substance Use Substance use: Never Substance use type: does not use Vital Signs and Lab Results Vital Signs Most Recent Vital Signs in EMR: Most Recent Vital Signs Temp Pulse Resp BP Pulse Ox 36.4 C L 58 L 16 174/59 H 98 02/12/24 07:47 02/12/24 07:47 02/12/24 07:47 02/12/24 07:47 02/12/24 07:47 Lab Results Blood Type / Crossmatch: No Data to Display Complete Blood Count: No Data to Display Complete Metabolic Panel: No Data to Display Liver Function Panel: No Data to Display Coagulation Panel: No Data to Display Cardiac Panel: No Data to Display Arterial Blood Gas: No Data to Display Venous Blood Gas: No Data to Display Pancreas Panel: No Data to Display Thyroid Panel: No Data to Display Infectious Disease: No Data to Display Blood Cultures: No Data to Display Toxicology Panel: No Data to Display Imaging and Studies Imaging and Studies Study information below may be from another EMR and interpreted by another provider. Please see original notes in EMR for more complete details. EKG Summary: EKG PATIENT NAME: Sacha Razo UNIT #: [id number] ORDERING PROVIDER: Tim Winston M.D. PRIMARY CARE PROVIDER: IJEOMA NAJERA MD, DC DATE/TIME OF SERVICE: 02/02/23720 : 1940 PERFORMING LOCATION: ER APPROVED REPORT Exam: Resting ECG Reason for Exam: syncope Patient Location: E HR:60 bpm ECG Measurements Heart Rate 60 AXIS WV 187 P -22 QRSd 97 QRS -4 QT 409 T70 QTc 409 Conclusion Sinus rhythm...normal P axis, V-rate 60- 99 Narrow complex normal sinus rhythm at a rate of 60. Left axis deviation no signs of LVH based on voltage criteria. Mild ST segment flattening left lateral chest wall leads. No ST segment elevation. No T wave inversions. No acute injury pattern. QTc within normal limits. Appears similar to prior dated 2 years ago. <Electronically signed by Tim Winston M.D. in OV> E-Sign Date: 02/06/23 E-Sign Time: 1823 ADDENDUM APPROVED REPORT Exam: Resting ECG Reason for Exam: syncope Patient Location: E HR:60 bpm ECG Measurements Heart Rate 60 AXIS WV 187 P -22 QRSd 97 QRS -4 QT 409 T70 QTc 409 Conclusion Sinus rhythm...normal P axis, V-rate 60- 99 Narrow complex normal sinus rhythm at a rate of 60. Left axis deviation no signs of LVH based on voltage criteria. Mild ST segment flattening left lateral chest wall leads. No ST segment elevation. No T wave inversions. No acute injury pattern. QTc within normal limits. Appears similar to prior dated 2 years ago. I have reviewed and I agree with the emergency room physician's ECG interpretation. Electronically signed by: <Electronically signed by Anali Mendoza M.D. in OV> 02/09/23 0914 Cosigned by: Stress Test Summary: Patient Name: SACHA RAZO Unit #: [id number] Loc: DI Ordering Provider: IJEOMA NAJERA M.D., DC Status: REG CLI Primary Care Provider: IJEOMA NAJERA M.D., DC Date of Exam: 10/24/16 Sex: F : 1940 Age: 75 Exam(s) [id number] NM:MPI Resting & Stress GRP *[facility]* *[facility]* [address] [place] [address] Myocardial Perfusion Imaging - SPECT Fortino protocol Date of study: 10/24/2016 *PATIENT PRESENTATION* Height: 165.1cm ((65in) ) Blood Pressure: Weight: 90.9kg ((200lb) ) BSA: 2.08m^2 Referring physician: Coral Figueroa MD Ordering physician: Ijeoma Najera Impressions: Normal perfusion by Tc99m Sestamibi Imaging. Summary: 1. Myocardial perfusion imaging: No myocardial perfusion defects noted. 2. The calculated left ventricular ejection fraction after stress: 69%. 3. Stress ECG conclusions: Poon treadmill score: 6. This score predicts a low risk of cardiac events. 4. Stress: The target heart rate was achieved. Indication: (R07.9). History: PT STATES THAT SHE HAS HAD FREQUENT DIZZY SPELLS IN THE PAST 6 WEEKS, AND HAS HAD ONE SYNCOPAL EPISODE. SHE STATES THAT THEY COME ON WHILE SHE IS STANDING. PT DENIES PALPITATIONS AND SOB. SHE STATES THAT SHE HAD SOME CHEST TIGHTNESS, BUT THAT HAS IMPROVED WITH ADJUSTMENT OF HER HTN MEDICATIONS. HOLTER MONITOR 08/2016- BASELINE SINUS RHYTHMN, FREQUENT PACs CAROTID US 10/2016- NO SIGNIFICANT STENOSIS. Risk factors: REMOTE SMOKING HX; 2.5 PACK YEAR HX. FATHER OF CVA. PT STATES THAT SHE SWIMS 2X/WEEK. Hypertension. Obesity. Dyslipidemia. Cholesterol: 169mg/dl. HDL: 77mg/dl. LDL: 120mg/dl. Triglycerides: 125mg/dl. ALLERGIES: PCNS, LISINOPRIL, MORPHINE, OXYCODONE. MEDICATIONS: ASA 81MG, ATORVASTATIN 40MG, LOSARTAN/HCTZ 100-25, AMLODIPINE 10MG, ISOSORBIDE 30MG, ACETAMINOPHEN, ASCORBIC ACID, MVI, OMEPRAZOLE, ESTRADIOL, ESTROGENS, IBUPROFEN, LORATADINE, DICYCLOMINE. Imaging Technique: Protocol: Fortino protocol. Acquisition: Gated SPECT; 1 day - rest/stress. The patient was imaged in the supine position. Attenuation correction used. Isotope administration: - Rest. Tc[99m]-sestamibi. Dose: 10mCi. Injection time: 08:30 AM. Injection to stress time: 00:45. - Stress. Tc[99m]-sestamibi. Dose: 28.9mCi. Injection time: 09:55 AM. 1-2 min before end of exercise Baseline ECG: NSR @ 66 BPM Stress protocol: + +---+ + !Stage !HR !BP (mmHg) ! + +---+ + !Baseline supine !66 !168/82 (111)! + +---+ + !Baseline standing !85 !168/82 (111)! + +---+ + !Stage I; 1.7mph, 10degrees; 3 min !111!182/86 (118)! + +---+ + !Stage II; 2.5mph, 12degrees; 3 min!138!194/85 (121)! + +---+ + !Immediate post stress !145!208/72 (117)! + +---+ + !Recovery; 3 min !83 !200/80 (120)! + +---+ + !Recovery; 6 min !79 !174/80 (111)! + +---+ + * Stress results: Maximal heart rate during stress was 145bpm (99% of maximal predicted heart rate). The maximal predicted heart rate was 146bpm. The target heart rate was achieved. The rate-pressure product for the peak heart rate and blood pressure was 71993vp Hg/min. Stress ECG: PT EXERCISED FOR 6:03 MINUTES, FORTINO PROTOCOL. EXERCISES ENDED AT PT REQUEST DUE TO FATIGUE. MAX HR 145, 99% OF MAX. 8.01 METS APPROPRIATE BP RESPONSE NO ANGINA FREQUENT PACs NOTED NO ISCHEMIC CHANGES ABOVE AVERAGE FUNCTIONAL CAPACITY. Poon treadmill score: 6. This score predicts a low risk of cardiac events. Myocardial perfusion: Imaging information: gated. No myocardial perfusion defects noted. Ventricular Function (Wall Motion): The calculated left ventricular ejection fraction after stress: 69%. Study data: Coral Figueroa MD supervised and was readily available during the procedure. This study was interpreted by [facility]. Study status: Routine. Consent: The risks, benefits, and alternatives to the procedure were explained to the patient and informed consent was obtained. Procedure: Initial setup. A baseline ECG was recorded. Surface ECG leads and manual cuff blood pressure measurements were monitored. Heart sounds: Normal. Lung sounds: Normal. Treadmill exercise testing was performed using the Fortino protocol. Study completion: All catheters inserted during the procedure were removed. The patient tolerated the procedure well and was discharged from the lab. Discharge: The patient left the laboratory in stable condition. Birthdate: Patient birthdate: 1940. Sex: Gender: female. Study date: Study date: 10/24/2016. Study time: 09:30 AM. Electronically signed by Coral Figueroa MD 10/24/2016 16:38 Ordering provider: IJEOMA NAJERA M.D., DC CC: CORAL FIGUEROA MD Dictated by: EDWIGE FOX M.D.10/24/16 1333 <Electronically signed by EDWIGE FOX M.D.>10/25/16 1609 Disclaimer: The [facility] radiologist is signing only the Nuclear Medicine MPI Imaging exam portion of the report. Transcribed by: Jena Sanchez10/25/16 5308 This is privileged, confidential information intended only for the provider named. Any use or distribution by any person other than this provider is strictly prohibited. If you receive this report in error, please notify us immediately at [phone] and return the original report to us at the address above. Thank-you. Echocardiogram Summary: Patient Name: Sacha Razo Unit #: [id number] Loc: DI Ordering Provider: Anali Mendoza M.D. Status: REG [facility] Primary Care Provider: Ijeoma Najera M.D., DC Date of Exam: 05/31/23 Sex: F Admission Date: 05/31/23 : 1940 Age: 82 APPROVED REPORT EXAM: Comprehensive 2D, Doppler, and color-flow Echocardiogram Patient Location: Out-Patient Robotics Application Engineer: Josr Quinones RDCS (AE) Indications: LV function, edema of extremities, afib, HTN Conclusion Normal left ventricular wall thickness and chamber size. Ejection fraction is 55%. Wall motion is normal Normal right ventricular size and systolic function Left atrium is mildly dilated. Right atrial size is normal Trileaflet aortic valve without stenosis or regurgitation Mildly thickened mitral leaflets, mild mitral annular calcification. Trace mitral regurgitation Borderline dilated ascending aorta Wall motion Left Ventricle The left ventricle is normal size. The left ventricular systolic function is normal. The left ventricular ejection fraction is within the normal range. There is normal left ventricular wall thickness. There is normal LV segmental wall motion. There is no ventricular septal defect visualized. LVEF is 55%. Right Ventricle The right ventricle is normal size. The right ventricular systolic function is normal. The RVSP is 10.1 mmHg. Atria Left atrium is mildly dilated. The right atrium size is normal. The interatrial septum is intact with no evidence for an atrial septal defect. Aortic Valve The aortic valve is normal in structure. Aortic valve is trileaflet. There is no aortic valvular stenosis. No aortic regurgitation is present. Mitral Valve Mitral valve leaflets are mildly thickened. Mild mitral annular calcification. No evidence of mitral valve stenosis. Trace mitral regurgitation. Tricuspid Valve The tricuspid valve is normal in structure. There is no tricuspid valve stenosis. Trace tricuspid regurgitation. Pulmonic Valve The pulmonary valve is normal in structure. There is no pulmonic valvular stenosis. There is no pulmonic valvular regurgitation. Great Vessels The aortic root is normal in size. The ascending aorta is mildly dilated. Aortic arch is not well visualized. IVC is normal in size and collapses >50% with inspiration. Pericardium There is no pericardial effusion. 2D Dimensions IVSD d PLAX 0.87 cm F: 0.6-1.0Ao Root d 3.20 cm F: 2.7 - 3.3 LVPW d PLAX 0.86 cm F: 0.6 - 1.0Ao Asc Diam d 3.43 cm F: 2.3 - 3.1 LVID d PLAX 4.87 cm F: 3.8 - 5.2 LVDs 3.54 cm F: 2.2 - 3.5 LV EF Teichholz 53.1 % FS27.39 % LV EDV (Teich)111.2 mL LV ESV (Teich)52.1 mL Stroke Vol Index (Teich)30.92 M-Mode TAPSE 2.61 cm (M/F) >1.7 Auto EF LV EDV A4C68.0 mLLV EDV Q9V902.8 mLLV EDV BP88.0 mL LV ESV A4C30.8 mLLV ESV A2C52.3 mLLV ESV BP40.8 mL LVEF(%) A4C54.7 %LVEF(%) A2C52.4 %LVEF(%) BP53.6 % LV SV A4C37.2 mlLV SV A2C57.5 mlLV SV BP47.2 ml LV CO A4C2.1 L/minLV CO A2C3.5 L/minLV CO BP2.8 L/min HR A4C56.34 BPMHR A2C61.54 BPMLV EDV Index (BP) LA Volume LA Length A4C6.7 cmLA Length A2C LA Area A4C s 19.17 cm2LA Area A2C s LA Vol A4C A-L46.81 mLLA Vol A2C A-LLA Vol Biplane A-L LA Vol A4C MOD45.6 mLLA Vol A2C MODLA Vol BP MOD RA Volume RA Area A4C9.0 cm2RA ESV A4C (A-L)16.7mLRA Vol/BSA A4C A-L RA Length A4C4.2 cmRA ESV A4C (MOD)15.3mL LV Diastology MV E' medial0.103 (>0.07 m/s)MV E Vmax 1.14 (0.4-1.3 m/s) MV E/E' MED11.07 (<14)MV A Vmax 0.95 (0.4-1.3 m/s) MV E' lateral0.101 (>0.1 m/s)E/A Ratio 1.2 MV E/E' LAT11.26 (<14) MV E' Average0.102 m/s MV E/E'(average)11.16 Aortic Valve AoV Vmax1.72 m/sLVOT Vmax 1.51 m/s AoV Peak Grad11.8 mmHgLVOT Peak Grad 9.1 mmHg AoV Area (Vmax)2.14 cm9GVLV VTI0.369 m AoV VTI0.409 mLVOT Mean Grad 5.2 mmHg AoV Mean Bartolo.1.18 m/sLVOT SV 90.00 mL AoV Mean Grad6.3 mmHgLVOT Diam s 1.75 cm AoV Area (VTI)2.20 cm2 Velocity Ratio 0.88 Mitral Valve MV DT 255 (160-240 msec) Pulmonary Valve PV Vmax 1.01 (0.5-1.5 m/s)RVOT Vmax 0.84 m/s PV Peak Grad 4.1 mmHgRVOT Peak Gr.2.8 mmHg PV Mean Vel0.72 m/sRVOT VTI0.209 m PV Mean Grad 2.4 mmHgRVOT Mean Gr.1.6 mmHg Tricuspid Valve RA Pressure 3.00 mmHgTR Vmax 1.33 m/s TR Peak Grad 7.0 mmHg RVSP (TR) 10.1 mmHg Ordered By: Reji,Anali K. M.D. CC: Dictated By: Anali Mendoza M.D. 05/31/23 1544 <Electronically signed by Anali Mendoza M.D. in OV> 06/01/23 0837 Transcribed By: Anali Mendoza MD 05/31/23 154 This is privileged, confidential information intended only for the provider named. Any use or distribution by any person other than this provider is strictly prohibited. If you receive this report in error, please notify us immediately at [phone] and return the original report to us at the address above. Thank-you. Carotid Artery Summary:: Patient Name: SACHA RAZO Unit #: [id number] Loc: DI Ordering Provider: IJEOMA NAJERA M.D., DC Status: [facility] Primary Care Provider: IJEOMA NAJERA M.D., DC Date of Exam: 10/21/16 Sex: F : 1940 Age: 75 Exam(s) [id number] US:Abdomen [id number] US:Carotid SYMPTOM/DIAGNOSIS: NAUSEA, R11.0, SYNCOPE, DIZZINESS, R55, HYPERTENSION CAROTID ULTRASOUND: There is mild calcific plaque in the common carotid bulbs. No significant stenosis is visible. The velocity measurements obtained are within the normal range. The vertebral arteries show antegrade flow. IMPRESSION: Mild calcific plaque in the common carotid bulbs. No significant internal carotid artery stenosis. ABDOMEN ULTRASOUND: The liver shows slightly increased echogenicity, consistent with mild hepatic steatosis. No focal liver lesions or biliary dilatation is seen. The patient is status post cholecystectomy. The pancreas, spleen and kidneys are unremarkable. No ascites is visible. The aorta is normal in diameter. IMPRESSION: Status post cholecystectomy. Mild fatty infiltration of the liver. No acute abnormality. Ordered By: IJEOMA NAJERA M.D., DC CC: Dictated By: ANGELA AGUIRRE M.D. 10/21/16 1011 <Electronically signed by ANGELA AGUIRRE M.D.> 10/21/16 1144 Transcribed By: Jena Sanchez 10/21/16 1105 This is privileged, confidential information intended only for the provider named. Any use or distribution by any person other than this provider is strictly prohibited. If you receive this report in error, please notify us immediately at [phone] and return the original report to us at the address above. Thank-you. Anesthesia Assessment and Plan Anesthesia History Personal History: No History of Anesthesia Complications Family History: No Family History of Anesthesia Complications Exercise Tolerance Exercise Tolerance: Metabolic Equivalents<4 Pertinent Negatives Pertinent Negatives: No Major Cardiovascular Symptoms or Complaints and No Major Pulmonary Symptoms or Complaints Cardiac & Pulmonary Exam Cardiac Exam: Normal S1/S2 Heart Sounds Pulmonary Exam: Clear Bilateral Breath Sounds Implantable Cardiac Device Does patient have a Pacemaker or an ICD?: No Airway Exam Known Difficult Airway: No Mallampati Class: 2 Mouth Opening: Normal (> 3cm) Thyromental Distance: Greater than 3 cm Neck Range of Motion: Full ROM Neck Circumference: Normal Teeth Condition: Normal Dentition ASA Classification ASA Score: ASA 3 Emergency Case?: No NPO Status NPO Status: NPO Clears >2 hours, Solids >8 hours Anesthesia Plan Resuscitation Status: Full Code Anesthesia Technique: General Anesthesia Airway Planned: Natural Airway Monitors Used: Standard Monitors
--- NOTE | 2024-02-12 08:01 | W.PM.HP.N ---
Date of service: 02/12/24 Time of Service: 08:02 Assessment and Plan Assessment and plan (1) Overactive bladder: Status: Acute Assessment and plan: She presents for cystoscopy and repeat injection of Botox into the detrusor muscle. History of Present Illness History of Present Illness Chief Complaint: Overactive bladder Narrative: This is an 83-year-old woman who has a history of an overactive bladder. She did have benefit from an injection of Botox into the detrusor muscle over 6 months ago. She presents for repeat injection. Review of Systems Narrative: No fevers or chills Decreased hearing acuity. No vision change or dysphasia Diabetes. No thyroid dysfunction Sleep apnea. No hemoptysis No chest pain or palpitations No nausea, vomiting, hepatitis, ulcers, jaundice No seizures, strokes or peripheral neuropathy No bleeding disorders No gout PFSH All Active Problems Overactive bladder (Acute) Bilateral lower extremity edema (Acute) Facial trauma (Acute) Hyponatremia (Acute) Urinary frequency (Acute) Right rotator cuff tendonitis (Acute) DEPO MEDROL 11/11/22 Insomnia (Acute) Follow up (Acute) Skin lesion of face (Acute) Impacted cerumen, right ear (Acute) Calcific tendinitis of left shoulder (Acute) DEPO MEDROL: 10/21/22; 06/23/2022; 01/20/22; 06/23/22 Left shoulder pain (Acute) Conductive hearing loss, external ear (Acute) Impacted cerumen, bilateral (Acute) Contusion of left upper extremity (Acute) JAN on CPAP (Chronic) Edema (Acute) Asymmetrical sensorineural hearing loss (Acute) 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) Anemia (Chronic) Hypomagnesemia (Acute) Bradycardia (Acute) Osteoarthritis of right knee (Acute) Most recent DEPO MEDROL: 11/30/2022; 07/08/2022 Impairment of speech discrimination (Acute) Tendinitis of right shoulder (Acute) DEPO MEDROL 11/11/22 Localized osteoarthritis of left knee (Acute) DEPO MEDROL 12/15/22 At risk for diabetic foot ulcer (Acute) A-fib (Chronic) 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) Obstructive sleep apnea syndrome (Chronic 03/29/16) Malignant neoplasm of female breast (Chronic 07/06/90) right breast BX-CA in [facility] Increased BMI (Chronic) Impaired renal function (Chronic 03/29/18) Hypercholesterolemia (Chronic 01/01/13) Essential hypertension (Chronic 06/27/13) Edema extremities (Chronic 02/26/18) Diabetes mellitus (Chronic 01/01/13) Chronic left shoulder pain (Chronic 03/29/16) Cervical arthritis (Chronic) Basal cell carcinoma of other specified sites of skin (Chronic 08/21/12) RIP HOLDEN; FOREHEAD; RIGHT SIDE Incidental pulmonary nodule, > 3mm and < 8mm (Chronic) 04/30/18-[facility] Medical History DVT prophylaxis Discharge planning issues Diarrhea Near syncope 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 RIP PATRICIA; RIGHT CHEEK Polyp of colon (12/02/08) per colonoscopy-Dr. rip Patricia Acute colitis- 35cm Hyperplastic- 55cm Fatigue (07/26/12) Actinic keratosis Lumbar radicular pain Surgical History History of appendectomy History of bilateral ligation of fallopian tubes (07/29/14) History of cataract removal with insertion of prosthetic lens (05/26/15) History of section History of discectomy Status post abdominal hysterectomy Status post cholecystectomy S/P abdominal hysterectomy H/O section x 3 S/P cholecystectomy Hx of appendectomy S/P breast biopsy H/O discectomy History of bilateral tubal ligation 07/29/14 H/O cataract removal with insertion of prosthetic lens O.S. -05/26 2015; O.D.-06/16/2015 Hx of spinal surgery 01/24/17 [facility] Ligation of fallopian tube (~1997) section X 3 MOHS 08/2014 Abdominal hysterectomy (~1997) DISCECTOMY Cholecystectomy Extraction of cataract 05/26/15; LEFT EYE 06/16/15; RIGHT EYE Biopsy of breast (~1990) RIGHT Bilateral salpingectomy with oophorectomy Appendectomy Family History Mother , age 86 Essential hypertension Asthma Breast cancer Father , age 61 Stroke Hypertension Son Hyperlipidemia Son No problems noted. Daughter Asthma Maternal Grandfather No problems noted. Paternal Grandfather No problems noted. Maternal Grandmother No problems noted. Paternal Grandmother No problems noted. 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 Do you need help understanding health information?: Rarely current occupation: retired Pets and animals: Yes Pets and animals: cat(s) Sexually active: No Do you think of yourself as: straight/heterosexual Current gender identity: female What is your relationship status?: How often do you talk on the phone with friends or family?: three or more times per week How often do you get together with friends or relatives?: once per week How often do you attend roman catholic or yazdanism services?: decline to answer Do you belong to any clubs or organized social groups?: yes Panel score (0-1 are the most socially isolated patients): 2 What type of physical activity do you participate in: swimming Duration: 30-45 minutes/day Frequency: 1-2 times per week Janine/Congregational: Gnosticism Special janine needs: No Agree to transfusion: Yes Seatbelt use: always Helmet use: No Drive intox or ride w/intox 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: No Working smoke detector in home: Yes Carbon monox detector in home: Yes Firearms in home: No Do you feel safe at home: Yes Victim of physical abuse: No Victim of emotional abuse: No Victim of sexual abuse: No Additional Social history: lives alone Meds Allergies and Home Medications Allergies Allergy/AdvReac Type Severity Reaction Status Date / Time Penicillins Allergy CHILDHOOD Verified 02/12/24 07:46 clonidine AdvReac Unknown Verified 02/12/24 07:46 gabapentin AdvReac No energy Verified 02/12/24 07:46 and fatigue lisinopril AdvReac COUGH Verified 02/12/24 07:46 morphine AdvReac VOMITING/DI Verified 02/12/24 07:46 ARRHEA oxybutynin AdvReac dizzy Verified 02/12/24 07:46 oxycodone HCl [From Percocet] AdvReac VOMITING/NA Verified 02/12/24 07:46 USEA terazosin [From Hytrin] AdvReac Unknown Verified 02/12/24 07:46 Home Medications Medication Instructions Recorded Confirmed Type multivitamin (Once Daily tablet) 1 tab PO DAILY 12/28/12 02/12/24 History blood-glucose meter #1 ea 05/16/18 12/29/23 Rx cholecalciferol (vitamin D3) 50 100 mcg PO DAILY 06/08/21 02/12/24 History mcg (2,000 unit) capsule dicyclomine 10 mg capsule 10 mg PO BID PRN diarrhea #60 10/26/21 02/12/24 Rx tab-caps conjugated estrogens 0.625 mg/gram 1 applic vaginal twice weekly #30 12/27/21 02/12/24 Rx vaginal cream (Premarin) grams docusate sodium 50 mg capsule 100 mg PO HS 02/10/22 02/06/24 History acetaminophen 500 mg tablet 1,000 mg PO TID 04/15/22 02/12/24 History peg 400-propylene glycol (PF) 0.4 1 drp ophthalmic (eye) BID-QID PRN 06/23/22 02/12/24 Rx %-0.3 % eye drops in a dropperette dry eye(s) #60 ea (Systane (PF)) clotrimazole-betamethasone 1 1 applic topical BID PRN itching 02/24/23 02/12/24 Rx %-0.05 % topical cream #45 grams blood sugar diagnostic (OneTouch #100 ea 03/30/23 12/29/23 Rx Ultra Test strips) lancets 30 gauge (Onetouch Delica #100 ea 03/30/23 12/29/23 Rx Safety Lancet) losartan 100 mg tablet 100 mg PO DAILY #90 tabs 05/02/23 02/12/24 Rx atorvastatin 40 mg tablet (Lipitor) 40 mg PO DAILY #90 tab-caps 07/04/23 02/12/24 Rx carvedilol 6.25 mg tablet 6.25 mg PO BID #180 tabs 07/04/23 02/12/24 Rx glipizide 5 mg tablet, extended 5 mg PO DAILY #90 tab-caps 07/04/23 02/12/24 Rx release 24 hr pantoprazole 40 mg tablet,delayed 40 mg PO DAILY #90 tabs 07/04/23 02/12/24 Rx release furosemide 20 mg tablet 10 mg (1/2 x 20 mg) PO DAILY #90 07/27/23 02/12/24 Rx tabs spironolactone 25 mg tablet 25 mg PO BID #180 tab-caps 08/02/23 02/12/24 Rx apixaban 5 mg tablet (Eliquis) 5 mg PO BID #180 tabs 10/10/23 02/12/24 Rx diclofenac sodium 1 % topical gel 2 g topical QID PRN 02/06/24 02/12/24 History (Voltaren Arthritis Pain) fluticasone propionate 50 2 spray intranasal DAILY PRN 02/06/24 02/12/24 History mcg/actuation nasal spray,suspension Exam Const General: cooperative Neck Neck: supple Resp Effort & Inspection: normal respiratory effort Auscultation: clear to auscultation bilaterally Cardio Rate: regular rate Rhythm: regular rhythm GI Palpation: soft Neuro General: patient alert and patient awake Results Last Vital Signs Temp 36.4 C L 02/12/24 07:47 Pulse 58 L 02/12/24 07:47 Resp 16 02/12/24 07:47 BP 174/59 H 02/12/24 07:47 Pulse Ox 98 02/12/24 07:47 Time Spent Time spent with Patient: <40 minutes Time was spent: other
[2024-02-12 08:02] VITALS: BMI 30.3
[2024-02-12] MEDS: Lactated Ringers 1,000 ML 80 ML IV (08:04)
[2024-02-12] MEDS: Lidocaine 2% Jelly 11 ML SYR (08:59)
[2024-02-12] MEDS: BOTULINUM TOXIN TYPE A 100 UNITS, Normal Saline 20 ML IJ (09:00)
--- NOTE | 2024-02-12 09:08 | W.PM.DSUDISC ---
Date of service: 02/12/24 Time of Service: 09:08 Discharge Plan Disposition Patient Disposition: Home Condition: Stable Discharge Details Reason For Visit: botox injection Attending Provider: Zen Baxter Primary Care Provider: Ijeoma Najera Home Meds and New Rx's Prescriptions: New ciprofloxacin HCl [Cipro] 250 mg tablet 250 mg PO Q12H Qty: 6 0RF No Action cholecalciferol (vitamin D3) 50 mcg (2,000 unit) capsule 100 mcg PO DAILY dicyclomine 10 mg capsule 10 mg PO BID PRN (Reason: diarrhea) Qty: 60 0RF Systane (PF) 0.4-0.3 % dropperette 1 drp OPHTHALMIC (EYE) BID-QID PRN (Reason: dry eye(s)) Qty: 60 4RF Premarin 0.625 mg/gram cream 1 applic VG twice weekly Qty: 30 3RF Rx Instructions: Use 0.5 GM in vagina twice weekly (DME) lancets [Onetouch Delica Safety Lancet] 30 gauge misc See Rx Instructions .Route Qty: 100 4RF Rx Instructions: Once per day (DME) OneTouch Ultra Test Strip See Rx Instructions .Route Qty: 100 4RF Rx Instructions: Once per day . OneTouch Ultra2 meter furosemide 20 mg tablet 10 mg PO DAILY Qty: 90 5RF Patient Comments: 10mg Eliquis 5 mg tablet 5 mg PO BID Qty: 180 5RF multivitamin [Once Daily] 1 EACH tablet 1 tab PO DAILY (DME) blood-glucose meter misc See Dose Instructions .ROUTE .MEDSUPPLY Qty: 1 0RF Dose Instruction: As directed Rx Instructions: daily acetaminophen 500 mg tablet 1,000 mg PO TID clotrimazole-betamethasone 1-0.05 % cream 1 applic topical BID PRN (Reason: itching) Qty: 45 1RF losartan 100 mg tablet 100 mg PO DAILY Qty: 90 3RF carvedilol 6.25 mg tablet 6.25 mg PO BID Qty: 180 4RF Rx Instructions: must administer with a meal/food atorvastatin [Lipitor] 40 mg tablet 40 mg PO DAILY Qty: 90 4RF pantoprazole 40 mg tablet,delayed release (DR/EC) 40 mg PO DAILY Qty: 90 4RF glipizide 5 mg tablet extended release 24hr 5 mg PO DAILY Qty: 90 4RF spironolactone 25 mg tablet 25 mg PO BID Qty: 180 12RF Colace 50 mg Capsule 100 mg PO HS Hold Instructions: Pt Stopped/Never Started fluticasone propionate 50 mcg/actuation spray,suspension 2 spray intranasal DAILY PRN Rx Instructions: administer into each nostril diclofenac sodium [Voltaren Arthritis Pain] 1 % gel 2 g topical QID PRN Patient Comments: left shoulder and left hip Rx Instructions: apply to single elbow, wrist or hand; for hand includes palm/fingers/back of hand Discharge Instructions Additional Instructions: OK to restart anticoagulants followup appt 6 months call office in @1 week to give a progress report Activity:: Activity as Tolerated Shower/Bathe:: 24 hours Diet:: As Tolerated Discharge Orders Discharge Orders: Discharge Order (Routine); Ordered 02/12/24 Ordered By: Zen Baxter DS: Diagnosis Discharge Diagnosis (1) Overactive bladder: Status: Acute
--- NOTE | 2024-02-12 09:13 | W.PM.OP ---
Date of service: 02/12/24 Time of Service: 09:13 Operative Note Operative Note DATE OF PROCEDURE: 02/12/24 PRE-OP DIAGNOSIS: Overactive bladder PROCEDURE: cystoscopy with transurethral injection of Botox into bladder SURGEON: Zen Baxter ANESTHESIA TYPE: Local By Surgeon and General:No Airway Refer to Anesthesia Record ESTIMATED BLOOD LOSS: 5 PATHOLOGY: none sent COMPLICATIONS: None Patient was transported to: same day Patient's condition: stable Implants: 100 Units Botox into detrusor Indications: This is an 83 year old woman who has urinary frequency and urgency incontinence related to an overactive bladder. She has failed behavioral modification and medical management. She had some benefit from an injection of Botox into the detrusor muscle 6 months ago. She presents for repeat injection. Findings: normal bladder Procedure Description: The patient was given oral antibiotics and brought to the operating room on 02/12/2024. After successful induction of general anesthesia without intubation, she was placed in the dorsal lithotomy position. Her genitalia was prepped with Betadine. 2% Xylocaine jelly was instilled into the urethra to act as a local anesthetic. A 20 [place]bourgish urethrotome sheath was passed through the urethra into the bladder. Bladder was inspected with a 30 degree lens. Both ureteral orifices appeared normal with no blood coming from either side. There was some mild erythema on the posterior bladder wall along the path of the inserted scope. No papillary or nodular lesions were seen throughout the bladder. Using a transurethral injection system, we injected a total of 100 units of Botox into the detrusor muscle. We diluted the Botox in a solution containing 20 mL of dilute. We injected 1 mL in 20 different locations. We used a grid pattern with 5 vertical rows and 4 horizontal rolls. At the completion of the procedure, the bladder was emptied and the scope was removed. She tolerated the procedure well with no complications. She was taken back to the day surgery unit in stable condition.
[2024-02-12 09:14] VITALS: BP 136/61; PULSE 53; RESP 16; TEMP 36; O2SAT 99
[2024-02-12 09:28] VITALS: BP 149/59; PULSE 52; RESP 16; TEMP 36; O2SAT 98
[2024-02-12] MEDS: Phenazopyridine 200 MG TAB PO (09:36)
--- NOTE | 2024-02-12 10:07 | W.ANESPOSTOP ---
Postoperative Evaluation Date, Time and Location Date Performed: 02/12/24 Time Performed: 09:33 Patient Location: Day Surgery Unit Vital Signs Most Recent Imported Vital Signs: Most Recent Vital Signs Temp Pulse Resp BP Pulse Ox 36 C L 52 L 16 149/59 H 98 02/12/24 09:28 02/12/24 09:28 02/12/24 09:28 02/12/24 09:28 02/12/24 09:28 Pain Score Most Recent Pain Score: Most Recent Pain Score Pain Level 0 02/12/24 09:28 Assessment Mental Status: Awake (Alert & Oriented to Patient Baseline) Airway and Respiratory Function: Patent airway with normal (patient baseline) respiratory exam Cardiovascular Function: Hemodynamically Stable Hydration Status: Adequately Hydrated Nausea & Vomiting: No Nausea or Vomiting Pain: Pt. Denies Any Pain Peripheral Nerve Block: Patient did not receive a nerve block
== END 2024-02-12 10:23 | disposition home or self-care (01) ==
PROVIDERS: PCP Family Medicine; Visit Provider Urology
PROC: (CPT 52287; principal; 2024-02-12 09:00)
DX: N39.46 Mixed incontinence (principal); N32.81 Overactive bladder; R35.0 Frequency of micturition; G47.33 Obstructive sleep apnea (adult) (pediatric)
CPT/HCPCS: 52287; J0585; J1885; J2001; J2405; J2704

== ENCOUNTER 2024-02-27 19:12 | Outpatient (REF) | payer MEDICARE, SELFPAY ==
[2024-02-27 11:31] LABS: Bilirubin Negative (Negative); Blood Negative (Negative); Clarity Sl Cloudy (Clear); Glucose Negative (Negative); Ketones Negative (Negative); Leukocyte Esterase Small (Negative); Nitrite Negative (Negative); Specific Gravity 1.015 (1.005-1.025); Urobilinogen 0.2 mg/dL (Up to 0.2)
[2024-02-27 12:11] LABS: Bacteria Few HPF (Negative); C & S Indicated? C&S Done As Ordered; Casts Negative LPF (Negative); Crystals Negative HPF (Negative); Epithelial Cells Negative HPF (Negative); Mucus Negative (Negative); Other Cells Negative (Negative); RBC Negative HPF (0-2)
== END 2024-02-27 19:13 | disposition home or self-care (01) ==
LOC: LBN 19:12
PROVIDERS: PCP Family Medicine; Visit Provider Nurse Practitioner Gerontology
DX: R30.0 Dysuria (principal)
CPT/HCPCS: 87077; 81003; 81015; 87086; 87186

== ENCOUNTER → 2024-04-04 10:44 | Outpatient (BNVA) | payer MEDICARE, SELFPAY | PROVIDERS: PCP Family Medicine; Visit Provider Internal Medicine Cardiovascular Disease | DX: I48.0 Paroxysmal atrial fibrillation (principal); I10 Essential (primary) hypertension; R60.0 Localized edema | CPT/HCPCS: 99213 ==

== ENCOUNTER 2024-04-29 11:33 | Outpatient (REF) | payer MEDICARE, SELFPAY ==
[2024-04-29 23:52] LABS: Bilirubin Negative (Negative); Blood Negative (Negative); Clarity Cloudy (Clear); Glucose Negative (Negative); Ketones Negative (Negative); Leukocyte Esterase Moderate (Negative); Nitrite Negative (Negative); Urobilinogen 0.2 mg/dL (Up to 0.2); pH 6.5 (5-8)
[2024-04-29 23:59] LABS: C & S Indicated? C&S Done As Ordered; WBC >50 HPF (0-5)
== END 2024-04-29 11:34 | disposition home or self-care (01) ==
LOC: LBN 11:33
PROVIDERS: PCP Family Medicine; Visit Provider Nurse Practitioner Gerontology
DX: R35.0 Frequency of micturition (principal); R30.0 Dysuria
CPT/HCPCS: 87077; 81003; 81015; 87086; 87186

== ENCOUNTER 2024-05-22 16:16 | Outpatient (REF) | payer MEDICARE, SELFPAY ==
[2024-05-22 13:41] LABS: Bilirubin Negative (Negative); Blood Trace-intact (Negative); Clarity Cloudy (Clear); Glucose Negative (Negative); Ketones Negative (Negative); Leukocyte Esterase Large (Negative); Nitrite Negative (Negative); Specific Gravity 1.015 (1.005-1.025); Urobilinogen 0.2 mg/dL (Up to 0.2); pH 6.5 (5-8)
[2024-05-22 14:56] LABS: C & S Indicated? C&S Done As Ordered; WBC >50 HPF (0-5)
== END 2024-05-22 16:17 | disposition home or self-care (01) ==
LOC: LBN 16:16
PROVIDERS: PCP Family Medicine; Visit Provider Nurse Practitioner Gerontology
DX: R35.0 Frequency of micturition (principal); R30.0 Dysuria; R31.0 Gross hematuria
CPT/HCPCS: 87077; 81003; 81015; 87086; 87186

== ENCOUNTER 2024-05-28 06:02 | Emergency (ER) | payer MEDICARE, SELFPAY ==
[2024-05-28] VITALS (47 sets, daily range): BP systolic 122–270; BP diastolic 54–120; PULSE 51–130; RESP 11–30; TEMP 36.6–36.9; O2SAT 97–100
--- NOTE | 2024-05-28 06:00 | RT.EKG_ITS ---
APPROVED REPORT Exam: Resting ECG Reason for Exam: sob Patient Location: E HR:118 bpm ECG Measurements Heart Rate 118 AXIS VA 117 P 251 QRSd 89 QRS 2 QT 316 T 83 QTc 443 Conclusion Sinus or ectopic atrial tachycardia...P axis (-45,135), rate> 99 Low voltage, precordial leads...precordial leads <1.0mV Anteroseptal infarct, old...Q >40mS, V1-V2 Nonspecific repol abnormality, lateral leads...ST dep, T neg, I aVL V5 V6 Physician: afib with rvr, no stemi
[2024-05-28] MEDS: dilTIAZem 25 MG/5 ML VIAL 10 MG IVP ×2 (06:19→07:05)
[2024-05-28 06:24] LABS: Abs Immature Grans 0.05 10^3/uL (0.0-0.06); Absolute Basophil Count 0.06 10^3/uL (0.0-0.2); Absolute Eosinophil Count 0.11 10^3/uL (0.0-0.7); Absolute Monocyte Count 0.57 10^3/uL (0.1-0.8); Absolute Neutrophil Count 5.41 10^3/uL (1.2-6.7); Basophils % 0.8 %; Eosinophils % 1.4 %; HCT 36.1 % (36.0-46.0); HGB 12.1 g/dL (11.2-15.7); Immature Grans % 0.7 %; Lymphocytes % 18.4 %; MCH 31.6 pg (27.0-33.0); MCHC 33.5 % (32.0-36.0); MCV 94 fL (80-95); MPV 9.7 fL (8.0-11.0); Monocytes % 7.5 %; Neutrophils % 71.2 %; Platelet Count 268 10^3/uL (130-400); RBC 3.83 10^6/uL (3.93-5.22); RDW 12.4 % (11.7-14.6); RDW-SD 43.1 fL
--- NOTE | 2024-05-28 06:28 | W.ED.GENAD ---
Discharge Plan Discharge Details Chief Complaint: Chest Pain Clinical Impression: Atrial fibrillation with RVR, Dehydration Primary Care Provider: Ijeoma Najera ED Provider: Nelson Yan Home Meds and New Rx's Prescriptions: No Action cholecalciferol (vitamin D3) 50 mcg (2,000 unit) capsule 100 mcg PO DAILY Systane (PF) 0.4-0.3 % dropperette 1 drp OPHTHALMIC (EYE) BID-QID PRN (Reason: dry eye(s)) Qty: 60 4RF atorvastatin [Lipitor] 40 mg tablet 40 mg PO DAILY Qty: 90 4RF carvedilol 6.25 mg tablet 6.25 mg PO BID Qty: 180 4RF Rx Instructions: must administer with a meal/food furosemide 20 mg tablet 10 mg PO DAILY Qty: 90 5RF Patient Comments: 10mg glipizide 5 mg tablet extended release 24hr 5 mg PO DAILY Qty: 90 4RF losartan 100 mg tablet 100 mg PO DAILY Qty: 90 3RF pantoprazole 40 mg tablet,delayed release (DR/EC) 40 mg PO DAILY Qty: 90 4RF spironolactone 25 mg tablet 25 mg PO BID Qty: 180 12RF diclofenac sodium [Voltaren Arthritis Pain] 1 % gel 2 g topical QID PRN (Reason: arthralgia) Qty: 700 4RF Rx Instructions: apply to single elbow, wrist or hand; for hand includes palm/fingers/back of hand (DME) lancets [Onetouch Delica Safety Lancet] 30 gauge misc See Rx Instructions .Route Qty: 100 4RF Rx Instructions: Once per day (DME) OneTouch Ultra Test Strip See Rx Instructions .Route Qty: 100 4RF Rx Instructions: Once per day . OneTouch Ultra2 meter Eliquis 5 mg tablet 5 mg PO BID Qty: 180 5RF multivitamin [Once Daily] 1 EACH tablet 1 tab PO DAILY (DME) blood-glucose meter misc See Dose Instructions .ROUTE .MEDSUPPLY Qty: 1 0RF Dose Instruction: As directed Rx Instructions: daily acetaminophen 500 mg tablet 1,000 mg PO TID clotrimazole-betamethasone 1-0.05 % cream 1 applic topical BID PRN (Reason: itching) Qty: 45 1RF Premarin 0.625 mg/gram cream 1 applic VG twice weekly Qty: 30 3RF Rx Instructions: Use 0.5 GM in vagina twice weekly ciprofloxacin HCl [Cipro] 250 mg tablet 250 mg PO Q12H Qty: 20 0RF fluticasone propionate 50 mcg/actuation spray,suspension 2 spray intranasal DAILY PRN Rx Instructions: administer into each nostril HPI General Date/Time Provider Initiated Documentation: 05/28/24 06:05. HPI Narrative: 83-year-old female with a past medical history of atrial fibrillation on Eliquis, obstructive sleep apnea, diabetes, hypertension, high cholesterol, who presents today for evaluation of elevated heart rate and elevated blood pressure. Patient states that at around 3 AM she woke up and felt that her heart rate was elevated. She also noticed that her blood pressure was notably elevated and her heart rate was over 100. This lasted for 2 to 3 hours and did not resolve. She came to the ER for further assessment. She has had episodes like this in the past. She denies fever or chills, vomiting or diarrhea, chest pain or shortness of breath. She denies any other complaints at this time. No lightheadedness or syncope. No other complaints. She denies any recent exertional dyspnea. Related Data Home Medications ?Medication ?Instructions ?Recorded ?Confirmed multivitamin (Once Daily tablet) 1 tab PO DAILY 12/28/12 05/28/24 blood-glucose meter #1 ea 05/16/18 05/28/24 cholecalciferol (vitamin D3) 50 100 mcg PO DAILY 06/08/21 05/28/24 mcg (2,000 unit) capsule acetaminophen 500 mg tablet 1,000 mg PO TID 04/15/22 05/28/24 peg 400-propylene glycol (PF) 0.4 1 drp ophthalmic (eye) BID-QID PRN 06/23/22 05/28/24 %-0.3 % eye drops in a dropperette dry eye(s) #60 ea (Systane (PF)) clotrimazole-betamethasone 1 1 applic topical BID PRN itching 02/24/23 05/28/24 %-0.05 % topical cream #45 grams blood sugar diagnostic ([employer] #100 ea 03/30/23 05/28/24 Ultra Test strips) lancets 30 gauge (Onetouch Delica #100 ea 03/30/23 05/28/24 Safety Lancet) apixaban 5 mg tablet (Eliquis) 5 mg PO BID #180 tabs 10/10/23 05/28/24 fluticasone propionate 50 2 spray intranasal DAILY PRN 02/06/24 05/28/24 mcg/actuation nasal spray,suspension conjugated estrogens 0.625 mg/gram 1 applic vaginal twice weekly #30 02/26/24 05/28/24 vaginal cream (Premarin) grams atorvastatin 40 mg tablet (Lipitor) 40 mg PO DAILY #90 tab-caps 04/23/24 05/28/24 carvedilol 6.25 mg tablet 6.25 mg PO BID #180 tabs 04/23/24 05/28/24 diclofenac sodium 1 % topical gel 2 g topical QID PRN arthralgia 04/23/24 05/28/24 (Voltaren Arthritis Pain) #700 grams furosemide 20 mg tablet 10 mg (1/2 x 20 mg) PO DAILY #90 04/23/24 05/28/24 tabs glipizide 5 mg tablet, extended 5 mg PO DAILY #90 tab-caps 04/23/24 05/28/24 release 24 hr losartan 100 mg tablet 100 mg PO DAILY #90 tabs 04/23/24 05/28/24 pantoprazole 40 mg tablet,delayed 40 mg PO DAILY #90 tabs 04/23/24 05/28/24 release spironolactone 25 mg tablet 25 mg PO BID #180 tab-caps 04/23/24 05/28/24 ciprofloxacin HCl 250 mg tablet 250 mg PO Q12H antibiotic #20 tabs 05/24/24 05/28/24 (Cipro) Previous Rx's ?Medication ?Instructions ?Recorded blood-glucose meter #1 ea 05/16/18 peg 400-propylene glycol (PF) 0.4 1 drp ophthalmic (eye) BID-QID PRN 06/23/22 %-0.3 % eye drops in a dropperette dry eye(s) #60 ea (Systane (PF)) clotrimazole-betamethasone 1 1 applic topical BID PRN itching 02/24/23 %-0.05 % topical cream #45 grams blood sugar diagnostic (OneTouch #100 ea 03/30/23 Ultra Test strips) lancets 30 gauge (Onetouch [place]tila #100 ea 03/30/23 Safety Lancet) apixaban 5 mg tablet (Eliquis) 5 mg PO BID #180 tabs 10/10/23 conjugated estrogens 0.625 mg/gram 1 applic vaginal twice weekly #30 02/26/24 vaginal cream (Premarin) grams atorvastatin 40 mg tablet (Lipitor) 40 mg PO DAILY #90 tab-caps 04/23/24 carvedilol 6.25 mg tablet 6.25 mg PO BID #180 tabs 04/23/24 diclofenac sodium 1 % topical gel 2 g topical QID PRN arthralgia 04/23/24 (Voltaren Arthritis Pain) #700 grams furosemide 20 mg tablet 10 mg (1/2 x 20 mg) PO DAILY #90 04/23/24 tabs glipizide 5 mg tablet, extended 5 mg PO DAILY #90 tab-caps 04/23/24 release 24 hr losartan 100 mg tablet 100 mg PO DAILY #90 tabs 04/23/24 pantoprazole 40 mg tablet,delayed 40 mg PO DAILY #90 tabs 04/23/24 release spironolactone 25 mg tablet 25 mg PO BID #180 tab-caps 04/23/24 ciprofloxacin HCl 250 mg tablet 250 mg PO Q12H antibiotic #20 tabs 05/24/24 (Cipro) Allergies Allergy/AdvReac Type Severity Reaction Status Date / Time Penicillins Allergy CHILDHOOD Verified 05/28/24 06:10 clonidine AdvReac Unknown Verified 05/28/24 06:10 gabapentin AdvReac No energy Verified 05/28/24 06:10 and fatigue lisinopril AdvReac COUGH Verified 05/28/24 06:10 morphine AdvReac VOMITING/DI Verified 05/28/24 06:10 ARRHEA oxybutynin AdvReac dizzy Verified 05/28/24 06:10 oxycodone HCl (From Percocet) AdvReac VOMITING/NA Verified 05/28/24 06:10 USEA terazosin (From Hytrin) AdvReac Unknown Verified 05/28/24 06:10 General Stated Complaint: Chest/Rib THOM: 3 Review of Systems All systems reviewed & are unremarkable except as noted in HPI and below Exam Narrative Exam Narrative: 1.Const: Well-nourished, Well-developed, appearing stated age 2.Eyes: PERRL, no conjunctival injection, and symmetrical lids. 3.ENT: Atraumatic external nose and ears. Moist MM. Neck: Symmetric, trachea midline, No thyromegaly. 4.CVS: +S1/S2, Peripheral pulses 2+ and equal in all extremities. Brisk capillary refill in all extremities. 5.RESP: Unlabored respiratory effort. Clear to auscultation bilaterally. No wheezes rales or rhonchi 6.GI: Soft, Nontender/Nondistended, No hepatosplenomegaly. No guarding or rebound. 7.MSK: Normocephalic/Atraumatic, Extremities w/o deformity or ttp No cyanosis or clubbing, Normal movement of all extremities 8.Skin: Warm, Dry. No rashes or lesions. 9.Neuro: pencil maker II-XII grossly intact. Sensation grossly intact, no focal neurologic deficits. 10.Psych: (AAO) x3. Appropriate mood and affect Course Vital Signs Vital signs: Vital Signs Pulse 117 H 05/28/24 06:05 Respiratory Rate 22 05/28/24 06:05 Blood Pressure 270/120 H 05/28/24 06:05 Pulse Oximetry 99 05/28/24 06:05 Temperature 36.6 C 05/28/24 06:14 Temperature Source Oral 05/28/24 06:14 Pulse 121 H 05/28/24 06:19 Pulse 121 H 05/28/24 06:17 Respiratory Rate 19 05/28/24 06:17 Respiratory Effort Normal, Non-Labored 05/28/24 06:11 Respiratory Depth Normal 05/28/24 06:11 Respiratory Pattern Normal 05/28/24 06:11 Blood Pressure 190/91 H 05/28/24 06:19 Blood Pressure Mean 124 05/28/24 06:17 Blood Pressure Position Sitting 05/28/24 06:05 Pulse Oximetry 98 05/28/24 06:17 Oxygen Delivery Method Room Air 05/28/24 06:05 Oxygen Flow Rate 0 05/28/24 06:05 Lab/Test Results Lab/Test Results: Laboratory Tests Range/Units 05/28/24 06:15 WBC (4.4-10.8) 10^3/uL 7.60 RBC (3.93-5.22) 10^6/uL 3.83 L Hgb (11.2-15.7) g/dL 12.1 Hct (36.0-46.0) % 36.1 MCV (80-95) fL 94 MCH (27.0-33.0) pg 31.6 MCHC (32.0-36.0) % 33.5 RDW (11.7-14.6) % 12.4 Plt Count (130-400) 10^3/uL 268 MPV (8.0-11.0) fL 9.7 Immature Gran % % 0.7 Neutrophils % % 71.2 Lymphocytes % % 18.4 Monocytes % % 7.5 Eosinophils % % 1.4 Basophils % % 0.8 Nucleated RBC % (0.0-0.3) % 0.0 Absolute Neutrophils (1.2-6.7) 10^3/uL 5.41 Absolute Lymphocytes (1.2-3.4) 10^3/uL 1.40 Absolute Monocytes (0.1-0.8) 10^3/uL 0.57 Absolute Eosinophils (0.0-0.7) 10^3/uL 0.11 Absolute Basophils (0.0-0.2) 10^3/uL 0.06 Medical Decision Making 83-year-old female with a past medical history of atrial fibrillation on Eliquis, obstructive sleep apnea, diabetes, hypertension, high cholesterol, who presents today for evaluation of elevated heart rate and elevated blood pressure. Patient states that at around 3 AM she woke up and felt that her heart rate was elevated. She also noticed that her blood pressure was notably elevated and her heart rate was over 100. This lasted for 2 to 3 hours and did not resolve. She came to the ER for further assessment. She has had episodes like this in the past. She denies fever or chills, vomiting or diarrhea, chest pain or shortness of breath. She denies any other complaints at this time. No lightheadedness or syncope. No other complaints. She denies any recent exertional dyspnea. Exam demonstrates well-appearing female, no guarding or rebound. No abnormal lung sounds. Heart rate is elevated in the 120s to 130s, A-fib. Blood pressure notably elevated as well. We will give her daily oral lisinopril, give 10 mg of Cardizem to help control the blood rate, monitor closely and reassess. If time and heart rate modification does not change the blood pressure, then we will transition to IV antihypertensives. No pleuritic chest pain to suggest PE. No tearing or ripping sensation or heaviness to suggest ACS. 7:43 AM Laboratory workup has returned, no white count bandemia or left shift. Electrolytes stable. BUN 38, creatinine 1.6. Suspect mild dehydration as a potential component as well. proBNP is 1400 but she does not appear peripherally volume overloaded. Initial troponin normal. Pending x-ray results. Patient on reassessment states that she feels much better. Initial Cardizem of 10 was given with no improvement, repeat Cardizem was subsequently given and heart rate has improved to the 80s to 90s but she will still occasionally jump up to the 120s. We are currently in a IV fluid shortage and lockdown because of this from the national emergency. We will utilize oral fluids for rehydration at this time, continue to monitor, patient will be signed out for follow-up on chest x-ray and repeat troponin. Quality:[facility] Health Related Social Needs: No Data to Display Critical Care Time Critical Care Time Critical Care Time: Yes Total Critical Care Time: 45 Attestation: Upon my evaluation, this patient had a high probability of imminent or life-threatening deterioration, which required my direct attention, intervention, and personal management. I have personally provided 45 minutes of critical care time exclusive of time spent on separately billable procedures. Time includes review of laboratory data, radiology results, discussion with consultants, and monitoring for potential decompensation. Interventions were performed as documented. [facility] All Active Problems (Updated 05/28/24 @ 07:45 by Nelson Yan DO) Dehydration (Acute) Atrial fibrillation with RVR (Acute) Reflux gastritis (Acute) Overactive bladder (Acute) Bilateral lower extremity edema (Acute) Facial trauma (Acute) Hyponatremia (Acute) Urinary frequency (Acute) Right rotator cuff tendonitis (Acute) DEPO MEDROL 11/11/22 Insomnia (Acute) Follow up (Acute) Skin lesion of face (Acute) Impacted cerumen, right ear (Acute) Calcific tendinitis of left shoulder (Acute) DEPO MEDROL: 10/21/22; 06/23/2022; 01/20/22; 06/23/22 Left shoulder pain (Acute) Conductive hearing loss, external ear (Acute) Impacted cerumen, bilateral (Acute) Contusion of left upper extremity (Acute) JAN on CPAP (Chronic) Edema (Acute) Asymmetrical sensorineural hearing loss (Acute) 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) Anemia (Chronic) Hypomagnesemia (Acute) Bradycardia (Acute) Osteoarthritis of right knee (Acute) Most recent DEPO MEDROL: 11/30/2022; 07/08/2022 Impairment of speech discrimination (Acute) Tendinitis of right shoulder (Acute) DEPO MEDROL 11/11/22 Localized osteoarthritis of left knee (Acute) DEPO MEDROL 12/15/22 At risk for diabetic foot ulcer (Acute) A-fib (Chronic) 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) Obstructive sleep apnea syndrome (Chronic 03/29/16) Malignant neoplasm of female breast (Chronic 07/06/90) right breast BX-CA in SITU Increased BMI (Chronic) Impaired renal function (Chronic 03/29/18) Hypercholesterolemia (Chronic 01/01/13) Essential hypertension (Chronic 06/27/13) Edema extremities (Chronic 02/26/18) Diabetes mellitus (Chronic 01/01/13) Chronic left shoulder pain (Chronic 03/29/16) Cervical arthritis (Chronic) Basal cell carcinoma of other specified sites of skin (Chronic 08/21/12) RIP HOLDEN; FOREHEAD; RIGHT SIDE Incidental pulmonary nodule, > 3mm and < 8mm (Chronic) 04/30/18-[facility] Medical History DVT prophylaxis Discharge planning issues Diarrhea Near syncope Sensorineural hearing loss (SNHL) of left ear with unrestricted hearing of right ear Cervical strain Mantoux: positive history of Spinal stenosis lumbar l2-3/L3-4/L4-5 MRI 07/22 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 RIP PATRICIA; RIGHT CHEEK Polyp of colon (12/02/08) per colonoscopy-Dr. rip Patricia Acute colitis- 35cm Hyperplastic- 55cm Fatigue (07/26/12) Actinic keratosis Lumbar radicular pain Surgical History History of appendectomy History of bilateral ligation of fallopian tubes (07/29/14) History of cataract removal with insertion of prosthetic lens (05/26/15) History of section History of discectomy Status post abdominal hysterectomy Status post cholecystectomy S/P abdominal hysterectomy H/O section x 3 S/P cholecystectomy Hx of appendectomy S/P breast biopsy H/O discectomy History of bilateral tubal ligation 07/29/14 H/O cataract removal with insertion of prosthetic lens O.S. -05/26 2015; O.D.-06/16/2015 Hx of spinal surgery 01/24/17 [facility] [place] Ligation of fallopian tube (~1997) section X 3 MOHS 08/2014 Abdominal hysterectomy (~1997) DISCECTOMY Cholecystectomy Extraction of cataract 05/26/15; LEFT EYE 06/16/15; RIGHT EYE Biopsy of breast (~1990) RIGHT Bilateral salpingectomy with oophorectomy Appendectomy Family History Mother , age 86 Essential hypertension Asthma Breast cancer Father , age 61 Stroke Hypertension Son Hyperlipidemia Son No problems noted. Daughter Asthma Maternal Grandfather No problems noted. Paternal Grandfather No problems noted. Maternal Grandmother No problems noted. Paternal Grandmother No problems noted. 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 Do you need help understanding health information?: Rarely current occupation: retired Pets and animals: Yes Pets and animals: cat(s) Sexually active: No Do you think of yourself as: straight/heterosexual Current gender identity: female What is your relationship status?: How often do you talk on the phone with friends or family?: three or more times per week How often do you get together with friends or relatives?: once per week How often do you attend confucianist or spiritism services?: decline to answer Do you belong to any clubs or organized social groups?: yes Panel score (0-1 are the most socially isolated patients): 2 What type of physical activity do you participate in: swimming Duration: 30-45 minutes/day Frequency: 1-2 times per week Janine/Confucianist: Yarsani Special janine needs: No Agree to transfusion: Yes Seatbelt use: always Helmet use: No Drive intox or ride w/intox line haul driver: No Working smoke detector in home: Yes Carbon monox detector in home: Yes Firearms in home: No Do you feel safe at home: Yes Victim of physical abuse: No Victim of emotional abuse: No Victim of sexual abuse: No Additional Social history: lives alone
[2024-05-28 06:39] LABS: INR 1.1 (0.9-1.1); PTT Activated 28.5 sec (23.6-32.8); Prothrombin Time 11.3 sec (9.1-11.1)
[2024-05-28 06:49] LABS: ALT 29 U/L (14-59); AST 23 U/L (15-37); Albumin 4.1 g/dL (3.4-5.0); Alkaline Phosphatase 51 U/L (46-116); Anion Gap 9.9 mmol/L (3-11); BUN 38 mg/dL (7-18); Bilirubin, Total 0.59 mg/dL (0.2-1.0); CO2 24.1 mmol/L (21.0-32.0); CREATININE 1.6 mg/dL (0.55-1.02); Calcium 10.2 mg/dL (8.5-10.1); Chloride 101 mmol/L (98-107); Glucose 192 mg/dL (74-106); NT-proBNP 1403 pg/mL (<300); Potassium 4.8 mmol/L (3.5-5.1); Sodium 135 mmol/L (136-145); Total Protein 8.2 g/dL (6.4-8.2); Troponin I 17 ng/L (<or=51)
--- NOTE | 2024-05-28 06:58 | DI.RAD_ITS ---
Exam(s) XR PORTABLE CHEST AP EXAM: XR PORTABLE CHEST AP CLINICAL HISTORY: palpitations. TECHNIQUE: 2D digital imaging was performed. COMPARISON: CR XR CHEST 2V PA LATERAL from 03/13/2021 FINDINGS: Single AP portable view. Heart size is upper normal. The mediastinum is not widened. Lungs are clear. No infiltrates nor obvious pleural effusions. IMPRESSION: No acute pulmonary findings on this single AP portable view of the chest. DATA REPOSITORY: RADIATION DOSE DELIVERED:
[2024-05-28 07:10] LABS: TSH (W/Ref FT4) 3.68 uIU/mL (0.36-3.74)
[2024-05-28 07:54] LABS: Troponin I 26 ng/L (<or=51)
--- NOTE | 2024-05-28 08:14 | DI.VRAD_ITS ---
PROCEDURE INFORMATION: Exam: XR Chest Exam date and time: 05/28/2024 6:46 AM Age: 83 years old Clinical indication: Other: Palpitations TECHNIQUE: Imaging protocol: Radiologic exam of the chest. Views: 1 view. COMPARISON: CT CHEST WO 02/02/2023 8:32 AM FINDINGS: Lungs: No focal consolidation seen. Pleural spaces: No large pleural effusion seen. Heart/Mediastinum: No cardiomegaly. Bones/joints: No acute abnormality. IMPRESSION: No acute findings to explain reported symptoms. Dictated and Authenticated by: Linda Silva MD. Ordering:NICOLE Damon MD
[2024-05-28] MEDS: Carvedilol 6.25 MG TAB PO (08:26)
[2024-05-28 09:54] LABS: Troponin I 37 ng/L (<or=51)
--- NOTE | 2024-05-28 10:13 | ED.PROG_ITS ---
Date of service: 05/28/24 Time of Service: 10:13 Medical Decision Making Patient signed out to me pending repeat troponin and to see if her heart rate responded adequately to IV Cardizem, her heart rate is currently 90 and A-fib. On assessment she is asymptomatic requesting discharge. She has had 3 negative troponins. Discussed results with her and she does note that she did not drink significant fluids and feels better after having p.o. fluids here. She is stable for discharge and advised to follow-up with her PCP, return precautions given Quality:[facility] Health Related Social Needs: No Data to Display Sign Out Sign Out Data: Sign Out Comment: A-fib with RVR, follow-up on x-ray and repeat trop Last updated by Nelson Yan DO at 05/28/24 07:45 Discharge Plan Disposition Patient Disposition: Home Condition: Stable Discharge Details Clinical Impression: Atrial fibrillation with RVR, Dehydration Primary Care Provider: Ijeoma Najera ED Provider: Herman Osborne Home Meds and New Rx's Prescriptions: Continued cholecalciferol (vitamin D3) 50 mcg (2,000 unit) capsule 100 mcg PO DAILY Systane (PF) 0.4-0.3 % dropperette 1 drp OPHTHALMIC (EYE) BID-QID PRN (Reason: dry eye(s)) Qty: 60 4RF atorvastatin [Lipitor] 40 mg tablet 40 mg PO DAILY Qty: 90 4RF carvedilol 6.25 mg tablet 6.25 mg PO BID Qty: 180 4RF Rx Instructions: must administer with a meal/food furosemide 20 mg tablet 10 mg PO DAILY Qty: 90 5RF Patient Comments: 10mg glipizide 5 mg tablet extended release 24hr 5 mg PO DAILY Qty: 90 4RF losartan 100 mg tablet 100 mg PO DAILY Qty: 90 3RF pantoprazole 40 mg tablet,delayed release (DR/EC) 40 mg PO DAILY Qty: 90 4RF spironolactone 25 mg tablet 25 mg PO BID Qty: 180 12RF diclofenac sodium [Voltaren Arthritis Pain] 1 % gel 2 g topical QID PRN (Reason: arthralgia) Qty: 700 4RF Rx Instructions: apply to single elbow, wrist or hand; for hand includes palm/fingers/back of hand (DME) lancets [Onetouch Delica Safety Lancet] 30 gauge misc See Rx Instructions .Route Qty: 100 4RF Rx Instructions: Once per day (DME) OneTouch Ultra Test Strip See Rx Instructions .Route Qty: 100 4RF Rx Instructions: Once per day . OneTouch Ultra2 meter Eliquis 5 mg tablet 5 mg PO BID Qty: 180 5RF multivitamin [Once Daily] 1 EACH tablet 1 tab PO DAILY (DME) blood-glucose meter misc See Dose Instructions .ROUTE .MEDSUPPLY Qty: 1 0RF Dose Instruction: As directed Rx Instructions: daily acetaminophen 500 mg tablet 1,000 mg PO TID clotrimazole-betamethasone 1-0.05 % cream 1 applic topical BID PRN (Reason: itching) Qty: 45 1RF Premarin 0.625 mg/gram cream 1 applic VG twice weekly Qty: 30 3RF Rx Instructions: Use 0.5 GM in vagina twice weekly ciprofloxacin HCl [Cipro] 250 mg tablet 250 mg PO Q12H Qty: 20 0RF fluticasone propionate 50 mcg/actuation spray,suspension 2 spray intranasal DAILY PRN Rx Instructions: administer into each nostril Discharge Instructions Additional Instructions: It is likely your symptoms are primarily due to dehydration which caused your heart rate to increase and go into A-fib I would not recommend changing your doses of carvedilol at this time. Follow-up with your primary care provider especially having recurrent symptoms within 1 to 2 weeks If you feel more ill, have new symptoms such as severe chest pain or difficulty breathing return to the emergency department for reevaluation
== END 2024-05-28 10:36 | disposition home or self-care (01) ==
PROVIDERS: Student in an Organized Health Care Education/Training Program; Emergency Provider Emergency Medicine; PCP Family Medicine
DX: R00.2 Palpitations (principal); E86.0 Dehydration; I48.91 Unspecified atrial fibrillation; I10 Essential (primary) hypertension; E78.00 Pure hypercholesterolemia, unspecified; E11.9 Type 2 diabetes mellitus without complications; Z79.01 Long term (current) use of anticoagulants; Z79.84 Long term (current) use of oral hypoglycemic drugs; Z87.891 Personal history of nicotine dependence
CPT/HCPCS: 00123; 36415; 80053; 93005; 96374; 96376; 99285; 71045; 83880; 84443; 84484; 85025; 85610; 85730; 93010; 99284

== ENCOUNTER 2024-06-06 09:13 | Outpatient (CLI) | payer MEDICARE, SELFPAY ==
--- NOTE | 2024-06-28 08:23 | W.CARDEVENT ---
Date of service: 06/28/24 Time of Service: 08:23 Cardiac Event Recorder Referring Provider:: Ijeoma Najera Indications:: Sick sinus syndrome Cardiac Event Note: This is a cardiac event monitor. Patient was monitored for 12 days and 10 hours Predominant rhythm was sinus with an average heart rate of 57. Minimum was 40, maximum 109 There were rare premature ventricular contractions There were occasional atrial premature beats. There were several self-limited atrial runs. The longest of these was 12 beats in duration There was no atrial fibrillation, no high-grade AV block, no pauses greater than 3 seconds Symptoms were reported which correlated occasionally to atrial and premature beats, other times to sinus rhythm
== END 2024-06-06 09:14 | disposition home or self-care (01) ==
PROVIDERS: PCP Family Medicine; Visit Provider Family Medicine
DX: I49.5 Sick sinus syndrome (principal)
CPT/HCPCS: 93246

== ENCOUNTER 2024-06-28 07:57 | Outpatient (CLI) | payer MEDICARE, SELFPAY | END 2024-06-28 07:58 | disposition home or self-care (01) | LOC: CARDOPNVT 07:57 | PROVIDERS: PCP Family Medicine; Visit Provider Internal Medicine Cardiovascular Disease | DX: I49.1 Atrial premature depolarization (principal); I49.5 Sick sinus syndrome | CPT/HCPCS: 93248 ==

== ENCOUNTER 2024-07-10 01:48 | Outpatient (CLI) | payer MEDICARE, SELFPAY ==
--- NOTE | 2024-07-10 08:00 | DI.RAD_ITS ---
Exam(s) XR CHEST 2V PA LATERAL EXAM: XR CHEST 2V PA LATERAL CLINICAL HISTORY: cough with bloody phlegm,R05.9 TECHNIQUE: 2D digital imaging was performed of the chest. Two images were obtained. PA and lateral views were obtained. COMPARISON: CR,XR XR PORTABLE CHEST AP from 05/28/2024 FINDINGS: MEDIASTINUM: Normal. HEART: Normal. PULMONARY VASCULATURE: Normal. LUNGS: Clear. PLEURAL SPACE: No pleural effusion or pneumothorax. BONE:Within normal limits for the patient's age. OTHER FINDINGS:Normal. IMPRESSION: No acute pulmonary findings. DATA REPOSITORY: RADIATION DOSE DELIVERED:
== END 2024-07-10 02:08 ==
LOC: DI 01:48
PROVIDERS: PCP Family Medicine; Visit Provider Nurse Practitioner Family
DX: R05.9 Cough, unspecified (principal)
CPT/HCPCS: 71046

== ENCOUNTER 2024-07-10 15:00 | Outpatient (REF) | payer MEDICARE, SELFPAY | END 2024-07-10 15:01 | disposition home or self-care (01) | LOC: LBN 15:00 | PROVIDERS: PCP Family Medicine; Visit Provider Nurse Practitioner Family | DX: R05.9 Cough, unspecified (principal) | CPT/HCPCS: 87070; 87205 ==

== ENCOUNTER 2024-07-17 02:55 | Outpatient (CLI) | payer MEDICARE, SELFPAY ==
[2024-07-17 08:50] LABS: HCT 31.6 % (36.0-46.0); HGB 10.4 g/dL (11.2-15.7); MCH 31.2 pg (27.0-33.0); MCHC 32.9 % (32.0-36.0); MCV 95 fL (80-95); MPV 9.7 fL (8.0-11.0); Platelet Count 222 10^3/uL (130-400); RBC 3.33 10^6/uL (3.93-5.22); RDW 12.2 % (11.7-14.6); WBC 5.34 10^3/uL (4.4-10.8)
[2024-07-17 09:37] LABS: ALT 25 U/L (14-59); AST 22 U/L (15-37); Albumin 3.8 g/dL (3.4-5.0); Alkaline Phosphatase 47 U/L (46-116); Anion Gap 9.1 mmol/L (3-11); BUN 45 mg/dL (7-18); Bilirubin, Total 0.49 mg/dL (0.2-1.0); CO2 25.9 mmol/L (21.0-32.0); CREATININE 1.7 mg/dL (0.55-1.02); Calcium 9.5 mg/dL (8.5-10.1); Calculated LDL 77 mg/dL (<100); Chloride 102 mmol/L (98-107); Cholesterol 162 mg/dL (<200); Estimated GFR 29.76 (mL/min/1.73m2); Glucose 181 mg/dL (74-106); HDL Cholesterol 63 mg/dL (40-60); Potassium 4.9 mmol/L (3.5-5.1); Sodium 137 mmol/L (136-145); Total Protein 7.6 g/dL (6.4-8.2); Triglyceride 112 mg/dL (<150); Vitamin B12 984 pg/mL (193-986)
== END 2024-07-17 02:56 | disposition home or self-care (01) ==
LOC: LBO 02:55
PROVIDERS: PCP Family Medicine; Visit Provider Family Medicine
DX: I10 Essential (primary) hypertension (principal); Z79.01 Long term (current) use of anticoagulants; Z91.89 Other specified personal risk factors, not elsewhere classified; K29.60 Other gastritis without bleeding
CPT/HCPCS: 36415; 80053; 80061; 85027; 82607

== ENCOUNTER → 2024-07-18 13:01 | Outpatient (BNVA) | payer MEDICARE, SELFPAY | PROVIDERS: PCP Family Medicine; Referring Provider Family Medicine; Visit Provider Internal Medicine Cardiovascular Disease | DX: I48.0 Paroxysmal atrial fibrillation (principal) | CPT/HCPCS: 99214 ==

== ENCOUNTER 2024-08-06 09:43 | Outpatient (REF) | payer MEDICARE, SELFPAY ==
[2024-08-06 12:23] LABS: Bilirubin Negative (Negative); Blood Trace-intact (Negative); Clarity Sl Cloudy (Clear); Glucose Negative (Negative); Ketones Negative (Negative); Leukocyte Esterase Moderate (Negative); Nitrite Positive (Negative); Specific Gravity 1.015 (1.005-1.025); Urobilinogen 0.2 mg/dL (Up to 0.2); pH 5.5 (5-8)
[2024-08-06 12:24] LABS: Bacteria Many HPF (Negative); C & S Indicated? C&S Done As Ordered; Casts Negative LPF (Negative); Crystals Negative HPF (Negative); Epithelial Cells Rare HPF (Negative); Mucus Negative (Negative); Other Cells Negative (Negative); WBC >50 HPF (0-5)
== END 2024-08-06 09:44 | disposition home or self-care (01) ==
LOC: NCHCN 09:43
PROVIDERS: PCP Family Medicine; Visit Provider Nurse Practitioner Gerontology
DX: R30.0 Dysuria (principal); R82.89 Other abnormal findings on cytological and histological examination of urine
CPT/HCPCS: 87077; 81003; 81015; 87086; 87186

== ENCOUNTER → 2024-08-08 14:52 | Outpatient (BNVA) | payer MEDICARE, SELFPAY | PROVIDERS: PCP Family Medicine; Referring Provider Family Medicine; Visit Provider Nurse Practitioner Gerontology | DX: R35.0 Frequency of micturition (principal); N39.46 Mixed incontinence; Z87.440 Personal history of urinary (tract) infections | CPT/HCPCS: 99213 ==

== ENCOUNTER 2024-08-26 15:13 | Outpatient (REF) | payer MEDICARE, SELFPAY ==
[2024-08-26 21:19] LABS: Microalb ug/mg Crea 26.7 ug/mg Cr
== END 2024-08-26 15:14 | disposition home or self-care (01) ==
LOC: LBN 15:13
PROVIDERS: PCP Family Medicine; Visit Provider Family Medicine
DX: E11.9 Type 2 diabetes mellitus without complications (principal)
CPT/HCPCS: 82043; 82570

== ENCOUNTER → 2024-09-12 12:35 | Outpatient (BNVA) | payer MEDICARE, SELFPAY | PROVIDERS: PCP Family Medicine; Referring Provider Family Medicine; Visit Provider Nurse Practitioner Gerontology | DX: N39.0 Urinary tract infection, site not specified (principal); B96.1 Klebsiella pneumoniae [K. pneumoniae] as the cause of diseases classified elsewhere; Z16.11 Resistance to penicillins | CPT/HCPCS: 81003; 99213 ==

== ENCOUNTER 2024-09-13 19:31 | Outpatient (REF) | payer MEDICARE, SELFPAY ==
[2024-09-13 13:02] LABS: Bilirubin Negative (Negative); Blood Trace-intact (Negative); Clarity Cloudy (Clear); Glucose Negative (Negative); Ketones Negative (Negative); Leukocyte Esterase Small (Negative); Nitrite Negative (Negative); Urobilinogen 0.2 mg/dL (Up to 0.2); pH 5.5 (5-8)
[2024-09-13 13:19] LABS: Bacteria Many HPF (Negative); C & S Indicated? C&S Done As Ordered; Casts Negative LPF (Negative); Crystals Negative HPF (Negative); Epithelial Cells Few HPF (Negative); Mucus Negative (Negative); Other Cells Negative (Negative); RBC Negative HPF (0-2); WBC >50 HPF (0-5)
== END 2024-09-13 19:32 | disposition home or self-care (01) ==
LOC: LBN 19:31
PROVIDERS: PCP Family Medicine; Visit Provider Nurse Practitioner Gerontology
DX: N39.0 Urinary tract infection, site not specified (principal); B96.1 Klebsiella pneumoniae [K. pneumoniae] as the cause of diseases classified elsewhere
CPT/HCPCS: 87077; 81003; 81015; 87086; 87186

== ENCOUNTER 2024-09-25 12:12 | Outpatient (REF) | payer MEDICARE, SELFPAY ==
--- NOTE | 2024-09-25 07:38 | SKI_PTH ---
PATIENT: Osiris Wilson LOC: [facility] U#:[id number] AGE/SX: 83/F ROOM: RE09/25/[address]: Manny Chavira MD : [id number] BED: DIS: 09/25/2024 SPEC #: [id number] RECD: 09/25/24 12:52 STATUS: KATINA REQ #: [id number] CHAVA: 09/25/24 07:[address]: Manny Chavira DEPT: Surgical Specimen RECD BY: Carolina Singh ENTERED: 09/25/24 12:52 SP TYPE: KYLIE OLIVAREZ DR: Ijeoma Najera MD, DC Tissues: 1 - SKIN BIOPSY(SHAVE/PUNCH) Procedures: SKIN LEVEL 4 Comments: [id number]
== END 2024-09-25 12:13 | disposition home or self-care (01) ==
LOC: LBN 12:12
PROVIDERS: PCP Family Medicine; Visit Provider Otolaryngology
DX: C44.329 Squamous cell carcinoma of skin of other parts of face (principal)
CPT/HCPCS: 88305

== ENCOUNTER → 2024-09-25 13:58 | Outpatient (BNVA) | payer MEDICARE, SELFPAY | PROVIDERS: PCP Family Medicine; Referring Provider Family Medicine; Visit Provider Nurse Practitioner Gerontology | DX: N39.0 Urinary tract infection, site not specified (principal) | CPT/HCPCS: 99213 ==

== ENCOUNTER 2024-10-30 01:18 | Outpatient (CLI) | payer MEDICARE, SELFPAY ==
--- NOTE | 2024-10-30 08:00 | DI.RAD_ITS ---
Exam(s) XR CHEST 2V PA LATERAL EXAM: XR CHEST 2V PA LATERAL CLINICAL HISTORY: cough, thick mucus,r05.9 TECHNIQUE: 2D digital imaging was performed. Two views. COMPARISON: CR XR CHEST 2V PA LATERAL from 07/10/2024 FINDINGS: HEART: Normal size. Aorta: Not dilated. PULMONARY VASCULATURE: Normal. MEDIASTINUM: Unremarkable. LUNGS: Clear. PLEURAL SPACE: No pleural effusion or pneumothorax. BONE:Unremarkable for age. SOFT TISSUES: Unremarkable. IMPRESSION: No acute abnormality. DATA REPOSITORY: RADIATION DOSE DELIVERED:
== END 2024-10-30 01:38 ==
LOC: DI 01:19
PROVIDERS: PCP Family Medicine; Visit Provider Family Medicine
DX: R05.9 Cough, unspecified (principal)
CPT/HCPCS: 71046

== ENCOUNTER 2024-10-31 15:59 | Observation (INO) | payer MEDICARE, SELFPAY ==
[2024-10-31] VITALS (61 sets, daily range): BP systolic 102–242; BP diastolic 31–175; PULSE 47–90; RESP 11–28; TEMP 36.4–36.6; O2SAT 97–100
--- NOTE | 2024-10-31 16:00 | RT.EKG_ITS ---
APPROVED REPORT Exam: Resting ECG Reason for Exam: reports elevated HR Patient Location: E HR:78 bpm ECG Measurements Heart Rate 78 AXIS AL 64 P -63 QRSd 92 QRS 11 QT 373 T 21 QTc 426 Conclusion Sinus or ectopic atrial rhythm...P axis (-45,135) Left ventricular hypertrophy...multiple voltage criteria
--- NOTE | 2024-10-31 16:15 | DI.RAD_ITS ---
Exam(s) XR CHEST 1V IN DI DEPT EXAM: XR CHEST 1V IN DI DEPT CLINICAL HISTORY: HTNsive emergency, dizziness TECHNIQUE: 2D digital imaging was performed. COMPARISON: CR XR CHEST 2V PA LATERAL from 10/30/2024 FINDINGS: Monitoring leads overlie the chest. LUNGS: Clear. No pleural abnormality seen. HEART: Normal size. AORTA: Normal diameter. BONES: Unremarkable for age. Soft tissues: Unremarkable. IMPRESSION: No acute findings. DATA REPOSITORY: RADIATION DOSE DELIVERED:
--- NOTE | 2024-10-31 16:20 | ED.GENADUL_ITS ---
Discharge Plan Disposition Patient Disposition: Admit to [facility] Condition: Stable Discharge Details Clinical Impression: Hypertensive emergency, Hyperkalemia Admit Date/Time: 10/31/24 21:06 Admit Provider: Morteza David Attending Provider: Morteza David Primary Care Provider: Ijeoma Najera ED Provider: Nelson Martino HPI General Date/Time Provider Initiated Documentation: 10/31/24 16:01 . HPI Narrative: 83 year-old female presents to ED today by POV/ambulating with a chief complaint of headache, dizziness with onset around 1400 today. Quality described as head feels heavy, occasional shortness of breath, currently on prednisone taper for a longstanding URI syndrome, no radiation to chest pain, flank pain, dysuria, hematuria, urinary retention, vision changes, syncope, vertigo. Severity is described as moderate. Palliating factors include nothing specific attempted. Provoking factors include nothing specific. Events leading up to the incident/Associated Symptoms: Patient is compliant with all her medications. Patient not anticoagulated. Related Data Home Medications ?Medication ?Instructions ?Recorded ?Confirmed multivitamin (Once Daily tablet) 1 tab PO DAILY 12/28/12 10/31/24 blood-glucose meter #1 ea 05/16/18 10/31/24 cholecalciferol (vitamin D3) 50 100 mcg PO DAILY 06/08/21 10/31/24 mcg (2,000 unit) capsule acetaminophen 500 mg tablet 1,000 mg PO TID 04/15/22 10/31/24 peg 400-propylene glycol (PF) 0.4 1 drp ophthalmic (eye) BID-QID PRN 06/23/22 10/31/24 %-0.3 % eye drops in a dropperette dry eye(s) #60 ea (Systane (PF)) clotrimazole-betamethasone 1 1 applic topical BID PRN itching 02/24/23 10/31/24 %-0.05 % topical cream #45 grams blood sugar diagnostic (OneTouch #100 ea 03/30/23 10/31/24 Ultra Test strips) lancets 30 gauge (Onetouch Delica #100 ea 03/30/23 10/31/24 Safety Lancet) fluticasone propionate 50 2 spray intranasal DAILY PRN 07/02/24 03/27/25 mcg/actuation nasal spray,suspension conjugated estrogens 0.625 mg/gram 1 applic vaginal twice weekly #30 02/26/24 10/31/24 vaginal cream (Premarin) grams atorvastatin 40 mg tablet (Lipitor) 40 mg PO DAILY #90 tab-caps 04/23/24 10/31/24 carvedilol 6.25 mg tablet 6.25 mg PO BID #180 tabs 04/23/24 10/31/24 diclofenac sodium 1 % topical gel 2 g topical QID PRN arthralgia 04/23/24 10/31/24 (Voltaren Arthritis Pain) #700 grams glipizide 5 mg tablet, extended 5 mg PO DAILY #90 tab-caps 04/23/24 10/31/24 release 24 hr losartan 100 mg tablet 100 mg PO DAILY #90 tabs 04/23/24 10/31/24 pantoprazole 40 mg tablet,delayed 40 mg PO DAILY #90 tabs 04/23/24 10/31/24 release spironolactone 25 mg tablet 25 mg PO BID #180 tab-caps 04/23/24 10/31/24 apixaban 5 mg tablet (Eliquis) 5 mg PO BID #180 tabs 08/26/24 10/31/24 furosemide 20 mg tablet 10 mg (1/2 x 20 mg) PO DAILY #90 08/26/24 10/31/24 tabs fosfomycin tromethamine 3 gram 1 packet PO .weekly #6 pkgs 10/14/24 10/31/24 oral packet prednisone 20 mg tablet See Rx Instructions PO DAILY #11 10/28/24 10/31/24 tabs Previous Rx's ?Medication ?Instructions ?Recorded blood-glucose meter #1 ea 05/16/18 peg 400-propylene glycol (PF) 0.4 1 drp ophthalmic (eye) BID-QID PRN 06/23/22 %-0.3 % eye drops in a dropperette dry eye(s) #60 ea (Systane (PF)) clotrimazole-betamethasone 1 1 applic topical BID PRN itching 02/24/23 %-0.05 % topical cream #45 grams blood sugar diagnostic (OneTouch #100 ea 03/30/23 Ultra Test strips) lancets 30 gauge (Onetouch Delica #100 ea 03/30/23 Safety Lancet) conjugated estrogens 0.625 mg/gram 1 applic vaginal twice weekly #30 02/26/24 vaginal cream (Premarin) grams atorvastatin 40 mg tablet (Lipitor) 40 mg PO DAILY #90 tab-caps 04/23/24 carvedilol 6.25 mg tablet 6.25 mg PO BID #180 tabs 04/23/24 diclofenac sodium 1 % topical gel 2 g topical QID PRN arthralgia 04/23/24 (Voltaren Arthritis Pain) #700 grams glipizide 5 mg tablet, extended 5 mg PO DAILY #90 tab-caps 04/23/24 release 24 hr losartan 100 mg tablet 100 mg PO DAILY #90 tabs 04/23/24 pantoprazole 40 mg tablet,delayed 40 mg PO DAILY #90 tabs 04/23/24 release spironolactone 25 mg tablet 25 mg PO BID #180 tab-caps 04/23/24 apixaban 5 mg tablet (Eliquis) 5 mg PO BID #180 tabs 08/26/24 furosemide 20 mg tablet 10 mg (1/2 x 20 mg) PO DAILY #90 08/26/24 tabs fosfomycin tromethamine 3 gram 1 packet PO .weekly #6 pkgs 10/14/24 oral packet prednisone 20 mg tablet See Rx Instructions PO DAILY #11 10/28/24 tabs Allergies Allergy/AdvReac Type Severity Reaction Status Date / Time Penicillins Allergy CHILDHOOD Verified 10/31/24 20:38 clonidine AdvReac Unknown Verified 10/31/24 20:38 gabapentin AdvReac No energy Verified 10/31/24 20:38 and fatigue lisinopril AdvReac COUGH Verified 10/31/24 20:38 morphine AdvReac VOMITING/DI Verified 10/31/24 20:38 ARRHEA oxybutynin AdvReac dizzy Verified 10/31/24 20:38 oxycodone HCl (From Percocet) AdvReac VOMITING/NA Verified 10/31/24 20:38 USEA terazosin (From Hytrin) AdvReac Unknown Verified 10/31/24 20:38 General Stated Complaint: GenMedical THOM: 3 Review of Systems All systems reviewed & are unremarkable except as noted in HPI and below Exam Narrative Exam Narrative: GENERAL APPEARANCE: Well-nourished, non-toxic, awake and alert, atraumatic, no acute distress. SKIN: Warm, pink, dry, intact, without rashes/lesions/ulcerations. HEAD: Normocephalic, atraumatic, normal hair distribution for gender/age. EYES: Normal conjunctiva, no exudates on lids/lashes. ENT: Nares patent, no circumoral cyanosis, no facial swelling NECK: Supple, trachea midline, painless cervical ROM. LUNGS/CHEST: Lungs CTA bilaterally, non-labored respirations, normal A/P diameter, symmetrical expansion, no chest wall deformity HEART (CV/PV): Regular rate and rhythm without murmur, no peripheral edema, no JVD. ABDOMEN: Soft, non-distended, no guarding, no tenderness. MSK: Normal ROM, no swelling/deformity to bilateral UEs or LEs, moving all extremities without weakness, no cyanosis, spine midline without tenderness, normal curvature. NEURO: Mental Status AAOx4 - alert to person, place, time, events No facial droop, no forehead involvement. Motor: No focal weakness - strength 5/5 in bilateral UEs and LEs, proximal and distal, symmetric. Sensory: sensation intact to light touch globally. Gait normal: patient ambulated without ataxia into ED room. PSYCH: euthymic, cooperative, pleasant, appropriate speech Course Vital Signs Vital signs: Vital Signs Temperature 36.6 C 10/31/24 16:03 Pulse 90 10/31/24 16:03 Respiratory Rate 14 10/31/24 16:03 Blood Pressure 239/114 H 10/31/24 16:03 Pulse Oximetry 98 10/31/24 16:03 Temperature 36.6 C 10/31/24 16:03 Temperature Source Oral 10/31/24 16:03 Pulse 90 10/31/24 16:03 Respiratory Rate 14 10/31/24 16:03 Blood Pressure 239/114 H 10/31/24 16:03 Blood Pressure Position Sitting 10/31/24 16:03 Pulse Oximetry 98 10/31/24 16:03 Oxygen Delivery Method Room Air 10/31/24 16:03 Oxygen Flow Rate 0 10/31/24 16:03 Pain Level 0 10/31/24 16:03 Medical Decision Making This dictation utilizes [id number] dictation software and may contain unedited grammatical errors. 83 year-old female presents to ED today by POV/ambulating with a chief complaint of headache, dizziness with onset around 1400 today. Quality described as head feels heavy, occasional shortness of breath, currently on prednisone taper for a longstanding URI syndrome, no radiation to chest pain, flank pain, dysuria, hem aturia, urinary retention, vision changes, syncope, vertigo. Severity is described as moderate. Palliating factors include nothing specific attempted. Provoking factors include nothing specific. Events leading up to the incident/Associated Symptoms: Patient is compliant with all her medications. Patients' medical history: Spinal stenosis, paroxysmal A-fib, diabetes mellitus, JAN, incidental pulmonary nodule, history of discectomy, history of cholecystectomy, appendectomy. Family and social history: Denies IVDU, denies EtOH, eats healthy. Pertinent exam findings / vital signs include neuro intact, extremely hypertensive, benign cardiac exam, benign abdomen. Differential / pathologies of concern include hypertensive emergency, ICH, less likely aortic dissection or other emergent thoracic pathology, DKA. Diagnostic studies of: -CBC, CMP, VBG, serial troponins, magnesium, TSH, CT head without contrast, XR chest, EKG -repeat BMP, repeat EKG. -CBC shows no leukocytosis, no anemia -VBG within normal limits, no acidosis -CMP shows mildly increased creatinine from baseline at 1.8, elevated glucose at 390 -Mildly low magnesium at 1.6 -Serial troponins negative -TSH within normal limits -CT head without acute abnormality -XR chest shows no widened mediastinum, no pneumonia -EKG shows some peaked T waves possibly due to hyperkalemia, otherwise sinus rhythm with no ischemic changes Interventions of: -20 mg IVP labetalol with good response of blood pressure down to systolic of 1 7180, 1 g IV calcium gluconate, 5 units insulin, D10 water, 1 g IV magnesium, normal p.o. dose of patient's carvedilol. ED Course/Assessment/Plan: 83-year-old female presents with headache and dizziness onset today at 1400 with extremely uncontrolled blood pressure. 240/115, patient is compliant with her losartan and spironolactone, has diabetes but only takes glipizide, has some EKG changes of peaked T waves and hyperkalemia of 5.3 potassium, her blood pressure was controlled with 1 IV push of labetalol, I did give her her home dose of carvedilol as it is possible she was going into paroxysmal atrial fibrillation with some irregular heart rates around 120 which resolved to normal sinus rhythm of 55-60. She was given calcium gluconate insulin and D10 water as well as IV magnesium for lowering her potassium, due to the complex nature of her multiple acute issues on her chronic comorbidities a consulted with hospitalist Dr. David for admission as she likely needs medication adjustments and possibly starting a new medicine for her poorly controlled diabetes. He excepted for admission at around 2100 hrs. Disposition of Hypertensive Emergency, Hyperkalemia. Patient verbalized understanding of the plan and return to ED criteria and engaged in shared decision making. Medical Records Medical records reviewed: Yes I reviewed the patient's medical records. Imaging Data Radiologic Study: Attestation: I personally reviewed and interpreted this imaging study as follows: Imaging: CT Scan Radiologist's impression: EXAM: CT HEAD WO CLINICAL HISTORY: headache, HTNsive emergency. TECHNIQUE: Imaging Protocol: Axial computed tomography images with coronal and sagittal reformatted images were created and reviewed COMPARISON: CT CT HEAD CERVICAL SPINE WO from 02/02/2023 FINDINGS: Ventricles and Extra axial spaces: Normal in size and morphology for the patient's age. Hemorrhage: None. Cerebral parenchyma: No evidence of acute infarct or mass. Mild white matter changes of microvascular disease. Midline shift: None. Brainstem/Cerebellum: Normal. Calvarium: Normal. Visualized Paranasal sinuses:Clear. Mastoids: Clear. Soft Tissues: Unremarkable. ORBITS: Unremarkable. PITUITARY: Not enlarged. IMPRESSION: No acute intracranial process. Radiologic Study #2: Attestation: I personally reviewed and interpreted this imaging study as follows: Imaging: X-Ray Radiologist's impression: EXAM: XR CHEST 1V IN DI DEPT CLINICAL HISTORY: HTNsive emergency, dizziness TECHNIQUE: 2D digital imaging was performed. COMPARISON: CR XR CHEST 2V PA LATERAL from 10/30/2024 FINDINGS: Monitoring leads overlie the chest. LUNGS: Clear. No pleural abnormality seen. HEART: Normal size. AORTA: Normal diameter. BONES: Unremarkable for age. Soft tissues: Unremarkable. IMPRESSION: No acute findings. Lab Data Lab results reviewed: Yes I reviewed the patient's lab results. Labs: Laboratory Tests Range/Units 10/31/24 10/31/24 10/31/24 16:38 17:36 18:45 WBC (4.4-10.8) 10^3/uL 8.83 RBC (3.93-5.22) 10^6/uL 3.72 L Hgb (11.2-15.7) g/dL 11.5 Hct (36.0-46.0) % 35.0 L MCV (80-95) fL 94 MCH (27.0-33.0) pg 30.9 MCHC (32.0-36.0) % 32.9 RDW (11.7-14.6) % 12.8 Plt Count (130-400) 10^3/uL 257 MPV (8.0-11.0) fL 10.6 Immature Gran % % 0.7 Neutrophils % % 90.8 Lymphocytes % % 7.1 Monocytes % % 1.1 Eosinophils % % 0.2 Basophils % % 0.1 Nucleated RBC % (0.0-0.3) % 0.0 Absolute Neutrophils (1.2-6.7) 10^3/uL 8.01 H Absolute Lymphocytes (1.2-3.4) 10^3/uL 0.63 L Absolute Monocytes (0.1-0.8) 10^3/uL 0.10 Absolute Eosinophils (0.0-0.7) 10^3/uL 0.02 Absolute Basophils (0.0-0.2) 10^3/uL 0.01 VBG pH (7.31-7.41) 7.39 VBG pCO2 (41-51) mmHg 40 L VBG pO2 mmHg 36 VBG HCO3 (23-28) mmol/L 24 VBG Total CO2 (24-29) mmol/L 23 L VBG O2 Saturation % 68 VBG Base Excess (-2-3) mmol/L -1 Sodium (136-145) mmol/L 133 L Potassium (3.5-5.1) mmol/L 5.3 H Chloride (98-107) mmol/L 96 L Carbon Dioxide (21.0-32.0) mmol/L 23.8 Anion Gap (3-11) mmol/L 13.2 H BUN (7-18) mg/dL 42 H Creatinine (0.55-1.02) mg/dL 1.8 H Est GFR (CKD-EPI 2020) (mL/min/1.73m2) 27.78 Glucose (74-106) mg/dL 390 H Calcium (8.5-10.1) mg/dL 9.6 Magnesium (1.8-2.4) mg/dL 1.6 L Total Bilirubin (0.2-1.0) mg/dL 0.6 AST (15-37) U/L 26 ALT (14-59) U/L 33 Alkaline Phosphatase (46-116) U/L 51 Troponin I (<or=51) ng/L 18 28 Total Protein (6.4-8.2) g/dL 8.0 Albumin (3.4-5.0) g/dL 4.0 TSH (0.36-3.74) uIU/mL 0.82 Range/Units 10/31/24 19:33 WBC (4.4-10.8) 10^3/uL RBC (3.93-5.22) 10^6/uL Hgb (11.2-15.7) g/dL Hct (36.0-46.0) % MCV (80-95) fL MCH (27.0-33.0) pg MCHC (32.0-36.0) % RDW (11.7-14.6) % Plt Count (130-400) 10^3/uL MPV (8.0-11.0) fL Immature Gran % % Neutrophils % % Lymphocytes % % Monocytes % % Eosinophils % % Basophils % % Nucleated RBC % (0.0-0.3) % Absolute Neutrophils (1.2-6.7) 10^3/uL Absolute Lymphocytes (1.2-3.4) 10^3/uL Absolute Monocytes (0.1-0.8) 10^3/uL Absolute Eosinophils (0.0-0.7) 10^3/uL Absolute Basophils (0.0-0.2) 10^3/uL VBG pH (7.31-7.41) VBG pCO2 (41-51) mmHg VBG pO2 mmHg VBG HCO3 (23-28) mmol/L VBG Total CO2 (24-29) mmol/L VBG O2 Saturation % VBG Base Excess (-2-3) mmol/L Sodium (136-145) mmol/L 134 L Potassium (3.5-5.1) mmol/L 4.9 Chloride (98-107) mmol/L 99 Carbon Dioxide (21.0-32.0) mmol/L 24.5 Anion Gap (3-11) mmol/L 10.5 BUN (7-18) mg/dL 42 H Creatinine (0.55-1.02) mg/dL 1.7 H Est GFR (CKD-EPI 2020) (mL/min/1.73m2) 29.76 Glucose (74-106) mg/dL 330 H Calcium (8.5-10.1) mg/dL 10.1 Magnesium (1.8-2.4) mg/dL Total Bilirubin (0.2-1.0) mg/dL AST (15-37) U/L ALT (14-59) U/L Alkaline Phosphatase (46-116) U/L Troponin I (<or=51) ng/L 45 Total Protein (6.4-8.2) g/dL Albumin (3.4-5.0) g/dL TSH (0.36-3.74) uIU/mL Quality:SDOH Health Related Social Needs: No Data to Display PFSH All Active Problems (Updated 10/31/24 @ 20:54 by Morteza David) Hyperkalemia (Acute) Hypertensive emergency (Acute) Headache (Acute) Hypertensive crisis (Acute) Cough (Acute) Viral respiratory illness (Acute) Recurrent UTI (Acute) Paroxysmal atrial fibrillation (Chronic) Reflux gastritis (Acute) Overactive bladder (Acute) Bilateral lower extremity edema (Acute) Facial trauma (Acute) Hyponatremia (Chronic) Urinary frequency (Acute) Right rotator cuff tendonitis (Acute) DEPO MEDROL 11/11/22 Insomnia (Acute) Follow up (Acute) Skin lesion of face (Acute) Impacted cerumen, right ear (Acute) Calcific tendinitis of left shoulder (Acute) DEPO MEDROL: 10/21/22; 06/23/2022; 01/20/22; 06/23/22 Left shoulder pain (Acute) Conductive hearing loss, external ear (Acute) Impacted cerumen, bilateral (Acute) Contusion of left upper extremity (Acute) JAN on CPAP (Chronic) Edema (Acute) Asymmetrical sensorineural hearing loss (Acute) 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) Anemia (Chronic) Hypomagnesemia (Chronic) Osteoarthritis of right knee (Acute) Most recent DEPO MEDROL: 11/30/2022; 07/08/2022 Impairment of speech discrimination (Acute) Tendinitis of right shoulder (Acute) DEPO MEDROL 11/11/22 Localized osteoarthritis of left knee (Acute) DEPO MEDROL 12/15/22 At risk for diabetic foot ulcer (Acute) 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) Obstructive sleep apnea syndrome (Chronic 03/29/16) Malignant neoplasm of female breast (Chronic 07/06/90) right breast BX-CA in SITU Increased BMI (Chronic) Impaired renal function (Chronic 03/29/18) Hypercholesterolemia (Chronic 01/01/13) Essential hypertension (Chronic 06/27/13) Edema extremities (Chronic 02/26/18) Diabetes mellitus (Chronic 01/01/13) Chronic left shoulder pain (Chronic 03/29/16) Cervical arthritis (Chronic) Basal cell carcinoma of other specified sites of skin (Chronic 08/21/12) RIP HOLDEN; FOREHEAD; RIGHT SIDE Incidental pulmonary nodule, > 3mm and < 8mm (Chronic) 04/30/18-[facility] Medical History DVT prophylaxis Discharge planning issues Diarrhea Near syncope 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 RIP PATRICIA; RIGHT CHEEK Polyp of colon (12/02/08) per colonoscopy-Dr. rip Patricia Acute colitis- 35cm Hyperplastic- 55cm Fatigue (07/26/12) Actinic keratosis Lumbar radicular pain Surgical History History of appendectomy History of bilateral ligation of fallopian tubes (07/29/14) History of cataract removal with insertion of prosthetic lens (05/26/15) History of section History of discectomy Status post abdominal hysterectomy Status post cholecystectomy S/P abdominal hysterectomy H/O section x 3 S/P cholecystectomy Hx of appendectomy S/P breast biopsy H/O discectomy History of bilateral tubal ligation 07/29/14 H/O cataract removal with insertion of prosthetic lens O.S. -05/26 2015; O.D.-06/16/2015 Hx of spinal surgery 01/24/17 [facility] [place] Ligation of fallopian tube (~1997) section X 3 MOHS 08/2014 Abdominal hysterectomy (~1997) DISCECTOMY Cholecystectomy Extraction of cataract 05/26/15; LEFT EYE 06/16/15; RIGHT EYE Biopsy of breast (~1990) RIGHT Bilateral salpingectomy with oophorectomy Appendectomy Family History Mother , age 86 Essential hypertension Asthma Breast cancer Father , age 61 Stroke Hypertension Son Hyperlipidemia Son No problems noted. Daughter Asthma Maternal Grandfather No problems noted. Paternal Grandfather No problems noted. Maternal Grandmother No problems noted. Paternal Grandmother No problems noted. 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 Do you need help understanding health information?: Rarely current occupation: retired Pets and animals: Yes Pets and animals: cat(s) Sexually active: No Do you think of yourself as: straight/heterosexual Current gender identity: female What is your relationship status?: How often do you talk on the phone with friends or family?: three or more times per week How often do you get together with friends or relatives?: twice per week How often do you attend orthodox or zoroastrian services?: 4 or more times per year Do you belong to any clubs or organized social groups?: yes Panel score (0-1 are the most socially isolated patients): 3 What type of physical activity do you participate in: swimming Duration: 30-45 minutes/day Frequency: 1-2 times per week Janine/Episcopalian: Caodaism Special janine needs: No Agree to transfusion: Yes Seatbelt use: always Helmet use: No Drive intox or ride w/intox independent driver: No Working smoke detector in home: Yes Carbon monox detector in home: Yes Firearms in home: No Do you feel safe at home: Yes Victim of physical abuse: No Victim of emotional abuse: No Victim of sexual abuse: No Additional Social history: lives alone
--- NOTE | 2024-10-31 16:28 | DI.CT_ITS ---
Exam(s) CT HEAD WO EXAM: CT HEAD WO CLINICAL HISTORY: headache, HTNsive emergency. TECHNIQUE: Imaging Protocol: Axial computed tomography images with coronal and sagittal reformatted images were created and reviewed COMPARISON: CT CT HEAD CERVICAL SPINE WO from 02/02/2023 FINDINGS: Ventricles and Extra axial spaces: Normal in size and morphology for the patient's age. Hemorrhage: None. Cerebral parenchyma: No evidence of acute infarct or mass. Mild white matter changes of microvascular disease. Midline shift: None. Brainstem/Cerebellum: Normal. Calvarium: Normal. Visualized Paranasal sinuses:Clear. Mastoids: Clear. Soft Tissues: Unremarkable. ORBITS: Unremarkable. PITUITARY: Not enlarged. IMPRESSION: No acute intracranial process. RADIATION DOSE DELIVERED: Total DLP DATA REPOSITORY: All CT scans at this facility are submitted to the National Radiology Data Registry (NRDR) Dose Index Registry (DIR) with the [employer] (ACR). RADIATION OPTIMIZATION: All CT scans at this facility use at least one of these dose optimization te chniques: automated exposure control; mA and/or kV adjustment per patient size (includes targeted exa ms where dose is matched to clinical indication); or iterative reconstruction.
[2024-10-31 16:45] LABS: Abs Immature Grans 0.06 10^3/uL (0.0-0.06); Absolute Basophil Count 0.01 10^3/uL (0.0-0.2); Absolute Eosinophil Count 0.02 10^3/uL (0.0-0.7); Absolute Lymphocyte Count 0.63 10^3/uL (1.2-3.4); Absolute Neutrophil Count 8.01 10^3/uL (1.2-6.7); Basophils % 0.1 %; Eosinophils % 0.2 %; HGB 11.5 g/dL (11.2-15.7); Immature Grans % 0.7 %; Lymphocytes % 7.1 %; MCH 30.9 pg (27.0-33.0); MCHC 32.9 % (32.0-36.0); MCV 94 fL (80-95); MPV 10.6 fL (8.0-11.0); Monocytes % 1.1 %; Neutrophils % 90.8 %; Platelet Count 257 10^3/uL (130-400); RBC 3.72 10^6/uL (3.93-5.22); RDW 12.8 % (11.7-14.6); WBC 8.83 10^3/uL (4.4-10.8)
[2024-10-31] MEDS: Labetalol 100 MG/20 ML VIAL 20 MG IVP (16:50)
[2024-10-31 17:11] LABS: ALT 33 U/L (14-59); AST 26 U/L (15-37); Alkaline Phosphatase 51 U/L (46-116); Anion Gap 13.2 mmol/L (3-11); BUN 42 mg/dL (7-18); Bilirubin, Total 0.6 mg/dL (0.2-1.0); CO2 23.8 mmol/L (21.0-32.0); CREATININE 1.8 mg/dL (0.55-1.02); Calcium 9.6 mg/dL (8.5-10.1); Chloride 96 mmol/L (98-107); Estimated GFR 27.78 (mL/min/1.73m2); Glucose 390 mg/dL (74-106); Magnesium 1.6 mg/dL (1.8-2.4); Potassium 5.3 mmol/L (3.5-5.1); Sodium 133 mmol/L (136-145); TSH (W/Ref FT4) 0.82 uIU/mL (0.36-3.74); Troponin I 18 ng/L (<or=51)
[2024-10-31] MEDS: Insulin REGULAR-Human 100 UNITS/ML UNIT SC (17:50)
[2024-10-31] MEDS: DEXTROSE 10%-WATER 500 ML 50 ML IV (17:51)
[2024-10-31] MEDS: Calcium Gluconate 4.65 MEQ/10 ML VIAL 4.65 MG IVP (17:51)
[2024-10-31] MEDS: MAGNESIUM SULFATE 1 GM/100 ML BAG IV_INF (17:57)
[2024-10-31 17:58] LABS: Troponin I 28 ng/L (<or=51)
[2024-10-31] MEDS: Normal Saline 50 ML (18:02)
[2024-10-31 18:53] LABS: BE (Venous) -1 mmol/L (-2-3); HCO3 (Venous) 24 mmol/L (23-28); O2 Sat (Venous) 68 %; TCO2 (Venous) 23 mmol/L (24-29); pCO2 (Venous) 40 mmHg (41-51); pH (Venous) 7.39 (7.31-7.41); pO2 (Venous) 36 mmHg
[2024-10-31 19:56] LABS: Troponin I 45 ng/L (<or=51)
[2024-10-31] MEDS: Carvedilol 6.25 MG TAB PO (20:12)
--- NOTE | 2024-10-31 20:15 | RT.EKG_ITS ---
APPROVED REPORT Exam: Resting ECG Reason for Exam: hyperkalemia, re-check Patient Location: E HR:55 bpm ECG Measurements Heart Rate 55 AXIS NH 163 P 25 QRSd 93 QRS 14 QT 436 T 50 QTc 418 Conclusion Sinus bradycardia...rate< 60
[2024-10-31 20:27] LABS: Anion Gap 10.5 mmol/L (3-11); BUN 42 mg/dL (7-18); CO2 24.5 mmol/L (21.0-32.0); CREATININE 1.7 mg/dL (0.55-1.02); Calcium 10.1 mg/dL (8.5-10.1); Chloride 99 mmol/L (98-107); Estimated GFR 29.76 (mL/min/1.73m2); Glucose 330 mg/dL (74-106); Potassium 4.9 mmol/L (3.5-5.1); Sodium 134 mmol/L (136-145)
--- NOTE | 2024-10-31 20:41 | HPE_ITS ---
Date of service: 10/31/24 Time of Service: 20:41 Assessment and Plan Assessment and plan (1) Hypertensive crisis: Start date: 10/31/24 Status: Acute Assessment and plan: This is an 83-year-old lady currently on multiple medication for hypertension now poorly controlled presenting with acute onset headache, lightheadedness with dizziness and markedly elevated blood pressure with associated chronic hyponatremia and acute mild hyperkalemia on Aldactone as part of her regimen for blood pressure control. Her echocardiogram when last performed showed preserved left ventricular ejection fraction. She has no history of CHF. She recently had a prolonged viral URI with cough and was treated with pulsed prednisone therapy. This has exacerbated her hyperglycemia with diabetes poorly controlled. Follow-up hemoglobin A1c and sliding scale coverage of her diabetes while hospitalized and adjusting her antihypertensives. Her carvedilol was increased on twice a day dosing but this may be limited by bradycardia. She does have a history of paroxysmal atrial fibrillation on Eliquis. She also has chronic hypomagnesemia and this will be replaced with IV therapy. Her hyperkalemia was treated in the ED. She plans on returning home where she lives alone being . She is a full code. (2) Headache: Start date: 10/31/24 Status: Acute Assessment and plan: Secondary to viral illness and increased blood pressure. CT scan of the head is negative and patient no focal neurological complaints. Monitor as we treat blood pressure more aggressively. (3) Hypomagnesemia: Status: Chronic Assessment and plan: IV repletion and monitor labs with oral supplement as needed. (4) Essential hypertension: Status: Chronic Assessment and plan: Patient's medical regimen can be modified in the hospital for better control long-term outpatient follow-up and adjustment will be needed. She is on 3 agents with 2 being diuretics and losartan being the only first-line antihypertensive. She does have side effects to lisinopril. (5) Hyponatremia: Status: Chronic Assessment and plan: Chronic and most likely secondary to diuretic therapy. Monitor while hospitalized. (6) Diabetes mellitus: Status: Chronic Assessment and plan: Presently not controlled with recent prednisone pulse therapy. Treated with glucometer measurements ACHS and sliding scale insulin coverage while hospitalized. Long-term outpatient treatment may need to be advanced. Updated hemoglobin A1c was elevated at 8.2%. (7) Paroxysmal atrial fibrillation: Status: Chronic Assessment and plan: Now in sinus rhythm and bradycardic. Continue Eliquis. She is on carvedilol for rate control and this most likely cannot be advanced for better blood pressure control with her bradycardia. (8) JAN on CPAP: Status: Chronic Assessment and plan: Continue home CPAP treatments while hospitalized. Patient is not hypoxic with her respiratory symptoms. (9) Viral respiratory illness: Start date: 11/01/24 Status: Acute Assessment and plan: Viral screening for COVID/flu/RSV were negative upon admission. Patient will be given Mucinex and trial of DuoNeb nebulizer treatments to help clear secretions. Nebulized beta agonist may cause problems with blood pressure and should be used with caution. History of Present Illness History of Present Illness Chief Complaint: Headache with elevated blood pressure measured at home by patient. Narrative: This is an 83-year-old female patient has a long history of hypertension, diabetes with recently has been poorly controlled and recently has had upper respiratory symptoms with increased secretions and cough for more than 3 weeks. She has seen her PCP and has been told that she has left lung findings suspicious for viral pneumonia with viral screening negative as an outpatient and upon admission. She has no overt history of COPD but has been a previous smoker. She is for 2 years and has been more active swimming for exercise with this curtailed recently because of her viral illness. She presents with a 1 day history of headache with lightheadedness and dizziness as well as having a measured blood pressure at home that was elevated. In the ED she was treated for acute hypertensive crisis and her headache has improved. Imaging with CT of the head and chest x-ray was unrevealing for acute processes. Previous echocardiogram revealed preserved left ventricular ejection fraction though patient is on spironolactone and carvedilol for treatment of hypertension. She was admitted for adjustment of her antihypertensives and better control of her diabetes with hyperglycemia noted in the ED. Hemoglobin A1c will be checked in the morning. She is on a prednisone pulse for her prolonged viral URI and this may have exacerbated her hyperglycemia. She denies any focalizing neurological complaints. She does have a coarse cough slightly productive with sputum not changing. There is no indication for antibiotic therapy at this time. She did receive an increased dose of carvedilol upon admission with blood pressure better controlled. She has bradycardic and there may be limits to advancing this medical therapy. While hospitalized she will be placed on glucometer measurements before meals and at bedtime with sliding scale short acting insulin coverage. Echocardiogram will not be updated. She does have some electrolyte abnormalities with hyponatremia most likely secondary to chronic diuresis and hypomagnesemia which appears chronic along with mild hyperkalemia which was treated in the ED and most likely secondary to spironolactone use. She is a full code. Review of Systems Narrative: 13 point review of systems otherwise unrevealing or stable. Patient has overall lost weight recently. She denies any worsening peripheral edema and does take Lasix for this. PFSH All Active Problems Hyperkalemia (Acute) Hypertensive emergency (Acute) Headache (Acute) Hypertensive crisis (Acute) Cough (Acute) Viral respiratory illness (Acute) Recurrent UTI (Acute) Paroxysmal atrial fibrillation (Chronic) Reflux gastritis (Acute) Overactive bladder (Acute) Bilateral lower extremity edema (Acute) Facial trauma (Acute) Hyponatremia (Chronic) Urinary frequency (Acute) Right rotator cuff tendonitis (Acute) DEPO MEDROL 11/11/22 Insomnia (Acute) Follow up (Acute) Skin lesion of face (Acute) Impacted cerumen, right ear (Acute) Calcific tendinitis of left shoulder (Acute) DEPO MEDROL: 10/21/22; 06/23/2022; 01/20/22; 06/23/22 Left shoulder pain (Acute) Conductive hearing loss, external ear (Acute) Impacted cerumen, bilateral (Acute) Contusion of left upper extremity (Acute) JAN on CPAP (Chronic) Edema (Acute) Asymmetrical sensorineural hearing loss (Acute) 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) Anemia (Chronic) Hypomagnesemia (Chronic) Osteoarthritis of right knee (Acute) Most recent DEPO MEDROL: 11/30/2022; 07/08/2022 Impairment of speech discrimination (Acute) Tendinitis of right shoulder (Acute) DEPO MEDROL 11/11/22 Localized osteoarthritis of left knee (Acute) DEPO MEDROL 12/15/22 At risk for diabetic foot ulcer (Acute) 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) Obstructive sleep apnea syndrome (Chronic 03/29/16) Malignant neoplasm of female breast (Chronic 07/06/90) right breast BX-CA in [facility] Increased BMI (Chronic) Impaired renal function (Chronic 03/29/18) Hypercholesterolemia (Chronic 01/01/13) Essential hypertension (Chronic 06/27/13) Edema extremities (Chronic 02/26/18) Diabetes mellitus (Chronic 01/01/13) Chronic left shoulder pain (Chronic 03/29/16) Cervical arthritis (Chronic) Basal cell carcinoma of other specified sites of skin (Chronic 08/21/12) RIP HOLDEN; FOREHEAD; RIGHT SIDE Incidental pulmonary nodule, > 3mm and < 8mm (Chronic) 04/30/18-[facility] Medical History DVT prophylaxis Discharge planning issues Diarrhea Near syncope 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 RIP PATRICIA; RIGHT CHEEK Polyp of colon (12/02/08) per colonoscopy-Dr. rip Patricia Acute colitis- 35cm Hyperplastic- 55cm Fatigue (07/26/12) Actinic keratosis Lumbar radicular pain Surgical History History of appendectomy History of bilateral ligation of fallopian tubes (07/29/14) History of cataract removal with insertion of prosthetic lens (05/26/15) History of section History of discectomy Status post abdominal hysterectomy Status post cholecystectomy S/P abdominal hysterectomy H/O section x 3 S/P cholecystectomy Hx of appendectomy S/P breast biopsy H/O discectomy History of bilateral tubal ligation 07/29/14 H/O cataract removal with insertion of prosthetic lens O.S. -05/26 2015; O.D.-06/16/2015 Hx of spinal surgery 01/24/17 [facility] [place] Ligation of fallopian tube (~1997) section X 3 MOHS 08/2014 Abdominal hysterectomy (~1997) DISCECTOMY Cholecystectomy Extraction of cataract 05/26/15; LEFT EYE 06/16/15; RIGHT EYE Biopsy of breast (~1990) RIGHT Bilateral salpingectomy with oophorectomy Appendectomy Family History Mother , age 86 Essential hypertension Asthma Breast cancer Father , age 61 Stroke Hypertension Son Hyperlipidemia Son No problems noted. Daughter Asthma Maternal Grandfather No problems noted. Paternal Grandfather No problems noted. Maternal Grandmother No problems noted. Paternal Grandmother No problems noted. 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 Do you need help understanding health information?: Rarely current occupation: retired Pets and animals: Yes Pets and animals: cat(s) Sexually active: No Do you think of yourself as: straight/heterosexual Current gender identity: female What is your relationship status?: How often do you talk on the phone with friends or family?: three or more times per week How often do you get together with friends or relatives?: twice per week How often do you attend baptism or sikhism services?: 4 or more times per year Do you belong to any clubs or organized social groups?: yes Panel score (0-1 are the most socially isolated patients): 3 What type of physical activity do you participate in: swimming Duration: 30-45 minutes/day Frequency: 1-2 times per week Janine/Mu-Ism: Pentecostalism Special janine needs: No Agree to transfusion: Yes Seatbelt use: always Helmet use: No Drive intox or ride w/intox city bus driver: No Working smoke detector in home: Yes Carbon monox detector in home: Yes Firearms in home: No Do you feel safe at home: Yes Victim of physical abuse: No Victim of emotional abuse: No Victim of sexual abuse: No Additional Social history: lives alone Meds Allergies and Home Medications Allergies Allergy/AdvReac Type Severity Reaction Status Date / Time Penicillins Allergy CHILDHOOD Verified 10/31/24 20:38 clonidine AdvReac Unknown Verified 10/31/24 20:38 gabapentin AdvReac No energy Verified 10/31/24 20:38 and fatigue lisinopril AdvReac COUGH Verified 10/31/24 20:38 morphine AdvReac VOMITING/DI Verified 10/31/24 20:38 ARRHEA oxybutynin AdvReac dizzy Verified 10/31/24 20:38 oxycodone HCl (From Percocet) AdvReac VOMITING/NA Verified 10/31/24 20:38 USEA terazosin (From Hytrin) AdvReac Unknown Verified 10/31/24 20:38 Home Medications ?Medication ?Instructions ?Recorded ?Confirmed ?Type multivitamin (Once Daily tablet) 1 tab PO DAILY 12/28/12 10/31/24 History blood-glucose meter #1 ea 05/16/18 10/31/24 Rx cholecalciferol (vitamin D3) 50 100 mcg PO DAILY 06/08/21 10/31/24 History mcg (2,000 unit) capsule acetaminophen 500 mg tablet 1,000 mg PO TID 04/15/22 10/31/24 History peg 400-propylene glycol (PF) 0.4 1 drp ophthalmic (eye) BID-QID PRN 06/23/22 10/31/24 Rx %-0.3 % eye drops in a dropperette dry eye(s) #60 ea (Systane (PF)) clotrimazole-betamethasone 1 1 applic topical BID PRN itching 02/24/23 10/31/24 Rx %-0.05 % topical cream #45 grams blood sugar diagnostic (OneTouch #100 ea 03/30/23 10/31/24 Rx Ultra Test strips) lancets 30 gauge (Onetouch Delica #100 ea 03/30/23 10/31/24 Rx Safety Lancet) fluticasone propionate 50 2 spray intranasal DAILY PRN 02/06/24 10/31/24 History mcg/actuation nasal spray,suspension conjugated estrogens 0.625 mg/gram 1 applic vaginal twice weekly #30 02/26/24 10/31/24 Rx vaginal cream (Premarin) grams atorvastatin 40 mg tablet (Lipitor) 40 mg PO DAILY #90 tab-caps 04/23/24 10/31/24 Rx carvedilol 6.25 mg tablet 6.25 mg PO BID #180 tabs 04/23/24 10/31/24 Rx diclofenac sodium 1 % topical gel 2 g topical QID PRN arthralgia 04/23/24 10/31/24 Rx (Voltaren Arthritis Pain) #700 grams glipizide 5 mg tablet, extended 5 mg PO DAILY #90 tab-caps 04/23/24 10/31/24 Rx release 24 hr pantoprazole 40 mg tablet,delayed 40 mg PO DAILY #90 tabs 04/23/24 10/31/24 Rx release spironolactone 25 mg tablet 25 mg PO BID #180 tab-caps 04/23/24 10/31/24 Rx apixaban 5 mg tablet (Eliquis) 5 mg PO BID #180 tabs 08/26/24 10/31/24 Rx furosemide 20 mg tablet 10 mg (1/2 x 20 mg) PO DAILY #90 08/26/24 10/31/24 Rx tabs fosfomycin tromethamine 3 gram 1 packet PO .weekly #6 pkgs 10/14/24 10/31/24 Rx oral packet amlodipine 2.5 mg tablet 2.5 mg PO DAILY #30 tabs 11/01/24 Rx olmesartan 40 mg tablet 40 mg PO DAILY #90 tabs 11/01/24 Rx Exam Narrative Exam Narrative: General: Patient is moderately obese, appears appropriate for age and in no acute distress. She is alert and oriented x 3. HEENT: Normocephalic, eyes with pupils equal and reactive to light symmetrically, extraocular movements intact and sclera anicteric. Oropharynx with white mucosa and fair dentition. Neck: Supple without JVD. Neck: Slightly kyphotic without CVA tenderness. Lungs: Coarse crackles over the left hemithorax especially at the base with rhonchi diffusely and bronchovesicular breath sound diffusely. Slightly decreased aeration of the left compared to right hemithorax. No focalizing rales. Breast: Exam deferred. Heart: Bradycardic rate and regular rhythm with no appreciable murmur or gallop. No appreciable murmur or gallop. Abdomen: Obese contour, soft and nontender to palpation with no palpable hepatosplenomegaly. Bowel sounds positive all quadrants. Genitalia/rectal: Exam deferred. Extremity: No clubbing, cyanosis or pitting edema with obese lower extremities. Good capillary refill. Neuro: Cranial nerves II to XII grossly intact, no focal motor deficits and no tremor. Psych: Normal affect and mood. No abnormal thought processes. Remote and recent memory intact. Results Imaging Imaging Studies: EXAM: CT HEAD WO CLINICAL HISTORY: headache, HTNsive emergency. TECHNIQUE: Imaging Protocol: Axial computed tomography images with coronal and sagittal reformatted images were created and reviewed COMPARISON: CT CT HEAD CERVICAL SPINE WO from 02/02/2023 FINDINGS: Ventricles and Extra axial spaces: Normal in size and morphology for the patient's age. Hemorrhage: None. Cerebral parenchyma: No evidence of acute infarct or mass. Mild white matter changes of microvascular disease. Midline shift: None. Brainstem/Cerebellum: Normal. Calvarium: Normal. Visualized Paranasal sinuses:Clear. Mastoids: Clear. Soft Tissues: Unremarkable. ORBITS: Unremarkable. PITUITARY: Not enlarged. IMPRESSION: No acute intracranial process. EXAM: XR CHEST 1V IN DI DEPT CLINICAL HISTORY: HTNsive emergency, dizziness TECHNIQUE: 2D digital imaging was performed. COMPARISON: CR XR CHEST 2V PA LATERAL from 10/30/2024 FINDINGS: Monitoring leads overlie the chest. LUNGS: Clear. No pleural abnormality seen. HEART: Normal size. AORTA: Normal diameter. BONES: Unremarkable for age. Soft tissues: Unremarkable. IMPRESSION: No acute findings. Date of Exam: 05/31/23 EXAM: Comprehensive 2D, Doppler, and color-flow Echocardiogram Patient Location: [facility]-Patient [facility] Manager: Josr Quinones RDCS (AE) Indications: LV function, edema of extremities, afib, HTN Conclusion Normal left ventricular wall thickness and chamber size. Ejection fraction is 55%. Wall motion is normal Normal right ventricular size and systolic function Left atrium is mildly dilated. Right atrial size is normal Trileaflet aortic valve without stenosis or regurgitation Mildly thickened mitral leaflets, mild mitral annular calcification. Trace mitral regurgitation Borderline dilated ascending aorta Labs 11/01/24 06:58 11/01/24 06:58 Labs: Laboratory Results - last 24 hr 10/31/24 10/31/24 10/31/24 16:38 17:36 18:45 WBC 8.83 RBC 3.72 L Hgb 11.5 Hct 35.0 L MCV 94 MCH 30.9 MCHC 32.9 RDW 12.8 Plt Count 257 MPV 10.6 Immature Gran % 0.7 Neutrophils % 90.8 Lymphocytes % 7.1 Monocytes % 1.1 Eosinophils % 0.2 Basophils % 0.1 Nucleated RBC % 0.0 Absolute Neutrophils 8.01 H Absolute Lymphocytes 0.63 L Absolute Monocytes 0.10 Absolute Eosinophils 0.02 Absolute Basophils 0.01 VBG pH 7.39 VBG pCO2 40 L VBG pO2 36 VBG HCO3 24 VBG Total CO2 23 L VBG O2 Saturation 68 VBG Base Excess -1 Sodium 133 L Potassium 5.3 H Chloride 96 L Carbon Dioxide 23.8 Anion Gap 13.2 H BUN 42 H Creatinine 1.8 H Est GFR (CKD-EPI 2020) 27.78 Glucose 390 H Calcium 9.6 Magnesium 1.6 L Total Bilirubin 0.6 AST 26 ALT 33 Alkaline Phosphatase 51 Troponin I 18 28 Total Protein 8.0 Albumin 4.0 TSH 0.82 10/31/24 19:33 WBC RBC Hgb Hct MCV MCH MCHC RDW Plt Count MPV Immature Gran % Neutrophils % Lymphocytes % Monocytes % Eosinophils % Basophils % Nucleated RBC % Absolute Neutrophils Absolute Lymphocytes Absolute Monocytes Absolute Eosinophils Absolute Basophils VBG pH VBG pCO2 VBG pO2 VBG HCO3 VBG Total CO2 VBG O2 Saturation VBG Base Excess Sodium 134 L Potassium 4.9 Chloride 99 Carbon Dioxide 24.5 Anion Gap 10.5 BUN 42 H Creatinine 1.7 H Est GFR (CKD-EPI 2020) 29.76 Glucose 330 H Calcium 10.1 Magnesium Total Bilirubin AST ALT Alkaline Phosphatase Troponin I 45 Total Protein Albumin TSH Last Vital Signs Temp 36.6 C 10/31/24 16:41 Pulse 85 10/31/24 17:20 Resp 22 10/31/24 17:01 BP 151/114 H 10/31/24 17:20 Pulse Ox 98 10/31/24 17:01 Time Spent Time spent with Patient: >75 minutes Time was spent: preparing to see the patient(eg.review tests), obtaining and/or reviewing separately otained hiistory, ordering medications,tests, procedures, indepentently interpreting results and counseling the patient
[2024-10-31 22:30] LABS: COVID-19 PCR Negative (Negative); Influenza A PCR Negative (Negative); Influenza B PCR Negative (Negative); RSV PCR Negative (Negative)
[2024-10-31 22:31] LABS: Source Nasopharynx
[2024-10-31] MEDS: Insulin Aspart 300 UNITS/3 ML PEN SC (23:56)
[2024-10-31] MEDS: MAGNESIUM SULFATE 2 GM/50 ML BAG IV_INF (23:57)
[2024-11-01] MEDS: Carvedilol 6.25 MG TAB PO ×2 (00:22→08:14)
[2024-11-01 02:30] VITALS: BP 166/64; PULSE 49; RESP 16; TEMP 36.2; O2SAT 99
--- NOTE | 2024-11-01 04:04 | W.PC.ACHO ---
Registration Status: Primary Language: Preferred Language: ED Information & Data Chief Complaint GenMedical 10/31/24 16:22 Triage Note Pt reports high blood 10/31/24 16:03 pressure. Hx of PAT. No blurriness of vision changes . Started around 14:33. Has had some SOB, but that's not new either. Currently on prednisone taper for breathing and finished antibiotic (doxycycline for URI). 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 Cervical strain Mantoux: positive Spinal stenosis Secondary malignant neoplasm of ovary Palpitations Squamous cell carcinoma of other specified sites of skin Polyp of colon (12/02/08) Fatigue (07/26/12) Actinic keratosis Lumbar radicular pain (Last Reviewed 10/31/24 @ 20:41 by Morteza David) History of appendectomy History of bilateral ligation of fallopian tubes (07/29/14) History of cataract removal with insertion of prosthetic lens (05/26/15) History of section History of discectomy Status post abdominal hysterectomy Status post cholecystectomy S/P abdominal hysterectomy H/O section S/P cholecystectomy Hx of appendectomy S/P breast biopsy H/O discectomy History of bilateral tubal ligation H/O cataract removal with insertion of prosthetic lens Hx of spinal surgery Ligation of fallopian tube (~1997) section MOHS Abdominal hysterectomy (~1997) DISCECTOMY Cholecystectomy Extraction of cataract Biopsy of breast (~1990) Bilateral salpingectomy with oophorectomy Appendectomy Most Recent Vital Signs Temperature 36.2 C L 11/01/24 02:30 Temperature Source Temporal Artery Scan 11/01/24 02:30 Pulse 49 L 11/01/24 02:30 Pulse Rhythm Regular 10/31/24 22:40 Pulse 80 10/31/24 16:53 Respiratory Rate 16 11/01/24 02:30 Respiratory Effort Normal 10/31/24 22:40 Respiratory Depth Normal 10/31/24 22:40 Respiratory Pattern Normal 10/31/24 22:40 Blood Pressure 166/64 H 11/01/24 02:30 Blood Pressure Mean 122 10/31/24 17:01 Blood Pressure Position Sitting 10/31/24 16:41 Pulse Oximetry 99 11/01/24 02:30 Oxygen Delivery Method Nasal Cannula 11/01/24 02:30 Oxygen Flow Rate 2 11/01/24 02:30 Pain Level 0 10/31/24 23:50 Comment 2L NC for sleeping, has CPAP at home 11/01/24 02:30 Allergies Penicillins Allergy (Verified 10/31/24 20:38) CHILDHOOD clonidine Adverse Reaction (Verified 10/31/24 20:38) Unknown unknown gabapentin Adverse Reaction (Verified 10/31/24 20:38) No energy and fatigue Unknown lisinopril Adverse Reaction (Verified 10/31/24 20:38) COUGH morphine Adverse Reaction (Verified 10/31/24 20:38) VOMITING/DIARRHEA oxybutynin Adverse Reaction (Verified 10/31/24 20:38) dizzy Pt reports she does take this at a modified dosing schedule. She can't tolerate 10mg daily 09/29/21 TR oxycodone HCl (From Percocet) Adverse Reaction (Verified 10/31/24 20:38) VOMITING/NAUSEA terazosin (From Hytrin) Adverse Reaction (Verified 10/31/24 20:38) Unknown Unknown Active Medications Generic Name Dose Route Start Last Admin Trade Name Freq PRN Reason Stop Dose Admin Insulin Aspart 0 units 10/31/24 22:40 10/31/24 23:56 Insulin Aspart 300 Units/3 Ml Pen SC 3 units 0800,1200,1700,2200 [facility] Administration Protocol IV IV Catheter Type [Left Saline Lock Antecubital] IV Catheter Type [Right Saline Lock Antecubital] IV Catheter Type [Right Peripheral IV Antecubital] IV Catheter Gauge [Left 20 Antecubital] IV Catheter Gauge [Right 18 Antecubital] IV Catheter Gauge [Right 18 Antecubital] Diet Orders Category Date Time Status Diabetes Consistent CHO/Heart Healthy [DIET] Nutrition 11/01/24 Breakfast Active Diagnostics 11/01/24 10/31/24 10/31/24 Range/Units 05:35 21:50 19:33 WBC Pending (4.4-10.8) 10^3/uL RBC Pending (3.93-5.22) 10^6/uL Hgb Pending (11.2-15.7) g/dL Hct Pending (36.0-46.0) % MCV Pending (80-95) fL MCH Pending (27.0-33.0) pg MCHC Pending (32.0-36.0) % RDW Pending (11.7-14.6) % Plt Count Pending (130-400) 10^3/uL MPV Pending (8.0-11.0) fL Immature Gran % % Neutrophils % % Lymphocytes % % Monocytes % % Eosinophils % % Basophils % % Nucleated RBC % (0.0-0.3) % Absolute Neutrophils (1.2-6.7) 10^3/uL Absolute Lymphocytes (1.2-3.4) 10^3/uL Absolute Monocytes (0.1-0.8) 10^3/uL Absolute Eosinophils (0.0-0.7) 10^3/uL Absolute Basophils (0.0-0.2) 10^3/uL VBG pH (7.31-7.41) VBG pCO2 (41-51) mmHg VBG pO2 mmHg VBG HCO3 (23-28) mmol/L VBG Total CO2 (24-29) mmol/L VBG O2 Saturation % VBG Base Excess (-2-3) mmol/L Sodium Pending 134 L (136-145) mmol/L Potassium Pending 4.9 (3.5-5.1) mmol/L Chloride Pending 99 (98-107) mmol/L Carbon Dioxide Pending 24.5 (21.0-32.0) mmol/L Anion Gap Pending 10.5 (3-11) mmol/L BUN Pending 42 H (7-18) mg/dL Creatinine Pending 1.7 H (0.55-1.02) mg/dL Est GFR (CKD-EPI 2020) Pending 29.76 (mL/min/1.73m2) Glucose Pending 330 H (74-106) mg/dL Hemoglobin A1c Pending Calcium Pending 10.1 (8.5-10.1) mg/dL Magnesium Pending (1.8-2.4) mg/dL Total Bilirubin Pending (0.2-1.0) mg/dL AST Pending (15-37) U/L ALT Pending (14-59) U/L Alkaline Phosphatase Pending (46-116) U/L Troponin I 45 (<or=51) ng/L Total Protein Pending (6.4-8.2) g/dL Albumin Pending (3.4-5.0) g/dL TSH (0.36-3.74) uIU/mL COVID-19 Source Nasopharynx SARS-CoV-2 (PCR) Negative (Negative) Influenza Type A (PCR) Negative (Negative) Influenza Type B (PCR) Negative (Negative) RSV (PCR) Negative (Negative) 10/31/24 10/31/24 10/31/24 Range/Units 18:45 17:36 16:38 WBC 8.83 (4.4-10.8) 10^3/uL RBC 3.72 L (3.93-5.22) 10^6/uL Hgb 11.5 (11.2-15.7) g/dL Hct 35.0 L (36.0-46.0) % MCV 94 (80-95) fL MCH 30.9 (27.0-33.0) pg MCHC 32.9 (32.0-36.0) % RDW 12.8 (11.7-14.6) % Plt Count 257 (130-400) 10^3/uL MPV 10.6 (8.0-11.0) fL Immature Gran % 0.7 % Neutrophils % 90.8 % Lymphocytes % 7.1 % Monocytes % 1.1 % Eosinophils % 0.2 % Basophils % 0.1 % Nucleated RBC % 0.0 (0.0-0.3) % Absolute Neutrophils 8.01 H (1.2-6.7) 10^3/uL Absolute Lymphocytes 0.63 L (1.2-3.4) 10^3/uL Absolute Monocytes 0.10 (0.1-0.8) 10^3/uL Absolute Eosinophils 0.02 (0.0-0.7) 10^3/uL Absolute Basophils 0.01 (0.0-0.2) 10^3/uL VBG pH 7.39 (7.31-7.41) VBG pCO2 40 L (41-51) mmHg VBG pO2 36 mmHg VBG HCO3 24 (23-28) mmol/L VBG Total CO2 23 L (24-29) mmol/L VBG O2 Saturation 68 % VBG Base Excess -1 (-2-3) mmol/L Sodium 133 L (136-145) mmol/L Potassium 5.3 H (3.5-5.1) mmol/L Chloride 96 L (98-107) mmol/L Carbon Dioxide 23.8 (21.0-32.0) mmol/L Anion Gap 13.2 H (3-11) mmol/L BUN 42 H (7-18) mg/dL Creatinine 1.8 H (0.55-1.02) mg/dL Est GFR (CKD-EPI 2020) 27.78 (mL/min/1.73m2) Glucose 390 H (74-106) mg/dL Hemoglobin A1c Calcium 9.6 (8.5-10.1) mg/dL Magnesium 1.6 L (1.8-2.4) mg/dL Total Bilirubin 0.6 (0.2-1.0) mg/dL AST 26 (15-37) U/L ALT 33 (14-59) U/L Alkaline Phosphatase 51 (46-116) U/L Troponin I 28 18 (<or=51) ng/L Total Protein 8.0 (6.4-8.2) g/dL Albumin 4.0 (3.4-5.0) g/dL TSH 0.82 (0.36-3.74) uIU/mL COVID-19 Source SARS-CoV-2 (PCR) (Negative) Influenza Type A (PCR) (Negative) Influenza Type B (PCR) (Negative) RSV (PCR) (Negative) [id number] Documentation Fingerstick Glucose Start: 10/31/24 22:22 Freq: Status: Complete Protocol: Activity Type Activity Date Activity User E-sign Co-sign Detail Recorded Client Recorded Date Recorded By Document 10/31/24 22:22 JAMES [id number] 10/31/24 22:22 JAMES Fingerstick Glucose Start: 10/31/24 22:40 Freq: AC & HS Status: Active Protocol: Activity Type Activity Date Activity User E-sign Co-sign Detail Recorded Client Recorded Date Recorded By Document 10/31/24 23:55 BKG DAEMON(3) [id number] 10/31/24 23:58 BKG DAEMON(4) Intake and Output - 24 Hour Total 10/31/24 15:59 thru 11/01/24 02:24 Intake Total 672.5 Output Total 300 Balance 372.5 Weight 83.915 kg Intake: IV 572.5 Oral 100 Output: Urine 300 Other: Urine Color Pale Urine Appearance Clear Urine Odor Normal Comment Patient was both inc. and cont. on urine. Patient changed own brief and voided ind. in the toilet. Falls Risk Assessment History of Falls Previous History 10/31/24 22:40 Contributing Factors No Factors,Medications 10/31/24 22:40 Ambulatory Aids Independent 10/31/24 22:40 Tubes/Lines With any additional score 10/31/24 22:40 Gait Evaluation No gait disturbance 10/31/24 22:40 Cognition No cognitive impairment 10/31/24 22:40 Fall Total Score 38 10/31/24 22:40 Level of Risk Moderate Risk 10/31/24 22:40 Problems (Last Reviewed 10/31/24 @ 20:41 by Morteza David) Hyperkalemia (Acute) Hypertensive emergency (Acute) Headache (Acute) Hypertensive crisis (Acute) Paroxysmal atrial fibrillation (Chronic) Hyponatremia (Chronic) JAN on CPAP (Chronic) Hypomagnesemia (Chronic) Essential hypertension (Chronic 06/27/13) Diabetes mellitus (Chronic 01/01/13) v v v v v v v v v Sending and/or Receiving Nurses: Please use comment section below to note any information pertinent to the patient hand-off not included above. 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 She did mention chest pain, no radiation. Dizziness is more of an unsteady per pt. Hx of HTN, takes her meds regularly at home. 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 BP has been 200s systolic, BG has been 200-300s. trops: 45(1929) mag 1.6 (repleated) flu/vid not back at this time GOT: 1g mag 5u insulin 6.5 carvedilol IVP labetalol 4.65meq calcium gluc 18g RAC Report received from: Josr @ [id number]
[2024-11-01 05:09] VITALS: BP 167/60; PULSE 50; RESP 20; TEMP 36.7; O2SAT 97
[2024-11-01 05:25] VITALS: PULSE 50; RESP 20; O2SAT 97
[2024-11-01] MEDS: Albuterol/Ipratropium 3 ML UPD VIAL UPD (05:25)
[2024-11-01 07:31] LABS: HCT 31.3 % (36.0-46.0); HGB 10.7 g/dL (11.2-15.7); MCH 31.3 pg (27.0-33.0); MCHC 34.2 % (32.0-36.0); MCV 92 fL (80-95); MPV 10.4 fL (8.0-11.0); Platelet Count 225 10^3/uL (130-400); RBC 3.42 10^6/uL (3.93-5.22); RDW 12.6 % (11.7-14.6); WBC 8.84 10^3/uL (4.4-10.8)
[2024-11-01 07:45] LABS: Hemoglobin A1C 8.2 % (<5.7)
[2024-11-01 07:47] LABS: ALT 25 U/L (14-59); AST 24 U/L (15-37); Albumin 3.6 g/dL (3.4-5.0); Alkaline Phosphatase 46 U/L (46-116); Anion Gap 11.7 mmol/L (3-11); BUN 35 mg/dL (7-18); Bilirubin, Total 0.8 mg/dL (0.2-1.0); CO2 25.3 mmol/L (21.0-32.0); CREATININE 1.3 mg/dL (0.55-1.02); Calcium 9.7 mg/dL (8.5-10.1); Chloride 100 mmol/L (98-107); Estimated GFR 41.06 (mL/min/1.73m2); Glucose 146 mg/dL (74-106); Magnesium 2.4 mg/dL (1.8-2.4); Potassium 3.9 mmol/L (3.5-5.1); Sodium 137 mmol/L (136-145); Total Protein 7.1 g/dL (6.4-8.2)
[2024-11-01] MEDS: amLODIPine 5 MG TAB PO (08:12)
[2024-11-01] MEDS: Apixaban 5 MG TAB PO (08:13)
[2024-11-01] MEDS: Cholecalciferol (Vitamin D3) 1,000 UNIT TAB 4000 UNITS PO (08:14)
[2024-11-01] MEDS: Furosemide 20 MG TAB 10 MG PO (08:15)
[2024-11-01] MEDS: guaiFENesin 600 MG TABCR PO (08:16)
[2024-11-01] MEDS: Losartan 50 MG TAB 100 MG PO (08:17)
[2024-11-01] MEDS: Multivitamin TAB 1 TAB PO (08:18)
[2024-11-01] MEDS: Normal Saline Flush 10 ML SYR IVP (08:19)
[2024-11-01] MEDS: Pantoprazole 40 MG TABCR PO (08:20)
[2024-11-01 08:42] VITALS: BP 170/85; PULSE 50; RESP 17; TEMP 36.8; O2SAT 98
[2024-11-01 09:28] VITALS: BP 143/58; RESP 18; TEMP 36.7; O2SAT 98
--- NOTE | 2024-11-01 09:32 | NUR.NOTE ---
Patient is currently up and sitting in her chair brushing her teeth. She has eaten 75% of her breakfast and drank 300cc's. Call mcrae is in place and she stated she would ring if she needed anything. Nursing Note:
--- NOTE | 2024-11-01 09:59 | PDOC.CMIN ---
Date of service: 11/01/24 Time of Service: 09:59 Care Management Initial Assmt Initial Assessment Reason for Hospitalization: hypertensive crisis Functional Status/Living Situation Town of Residence: [facility] Employment Status: Retired Medications Medication Management: No Issues/Barriers identified Advance Directives Advance Directives: Do you have an Advance Directive: Y 08/05/24 10:34 AD On File at [facility]: Y 08/05/24 10:34 Date Asked 05/22/24 08/05/24 10:34 AD Date Reviewed 10/29/24 10/29/24 10:16 COLST On File at [facility] COLST Date Scanned Code Status Resuscitation Status Full Code Insurance Coverage/Financial Issues Insurance: Medicare [facility] Care Team Visit Care Team Role Provider Type Ijeoma Najera MD, [place] Primary Care Provider , [facility] MEL Garcia Emergency Provider [employer] Morteza David Admit Provider NON-[facility] STAFF PHYSICIAN Attending Provider Discharge Potential Discharge Needs: PCP F/U Appt Anticipated Barriers to Discharge: None Identified Patient/Family Education Needs: Review discharge instructions, discuss Ask Me Three Transportation: Private vehicle Plan: Anticipate Osiris will be discharged home, possibly with new home health services, when medically stable. She will follow up with her PCP and plan of care and transport with family. CM will follow and continue to support discharge planning. Social Determinants of Health Screening Social Determinants of Health last assessed: 11/01/24 Will the Patient Participate in the Screening?: Yes Do you worry about having a steady place to live?: no Problems where you live: no known problems In the past 12 months, have you had to go without electric, gas, oil or water in your home?: no Have you or anyone in your house had to go without enough food to eat?: no Has lack of transportation kept you from medical appointments or from doing things needed for daily living?: no Has anyone in your life made you feel unsafe or unsupported?: no How hard is it for you to pay for the very basics like food, housing, medical care, and heating? Would you say it is:: Not hard at all Do you want help finding or keeping work or a job?: I do not need or want help If for any reason you need help with day-to-day activities such as bathing, preparing meals, shopping, managing finances, etc., do you get the help you need?: I get all the help I need How often do you feel lonely or isolated from those around you?: Sometimes Do you speak a language other than Maldivian at home?: No Does the patient want assistance with any of the above?: No Health Related Social Needs Health related social needs: feeling lonely/isolated (Z60.8) PFSH All Active Problems (Updated 10/31/24 @ 20:54 by Morteza David) Hyperkalemia (Acute) Hypertensive emergency (Acute) Headache (Acute) Hypertensive crisis (Acute) Cough (Acute) Viral respiratory illness (Acute) Recurrent UTI (Acute) Paroxysmal atrial fibrillation (Chronic) Reflux gastritis (Acute) Overactive bladder (Acute) Bilateral lower extremity edema (Acute) Facial trauma (Acute) Hyponatremia (Chronic) Urinary frequency (Acute) Right rotator cuff tendonitis (Acute) DEPO MEDROL 11/11/22 Insomnia (Acute) Follow up (Acute) Skin lesion of face (Acute) Impacted cerumen, right ear (Acute) Calcific tendinitis of left shoulder (Acute) DEPO MEDROL: 10/21/22; 06/23/2022; 01/20/22; 06/23/22 Left shoulder pain (Acute) Conductive hearing loss, external ear (Acute) Impacted cerumen, bilateral (Acute) Contusion of left upper extremity (Acute) JAN on CPAP (Chronic) Edema (Acute) Asymmetrical sensorineural hearing loss (Acute) 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) Anemia (Chronic) Hypomagnesemia (Chronic) Osteoarthritis of right knee (Acute) Most recent DEPO MEDROL: 11/30/2022; 07/08/2022 Impairment of speech discrimination (Acute) Tendinitis of right shoulder (Acute) DEPO MEDROL 11/11/22 Localized osteoarthritis of left knee (Acute) DEPO MEDROL 12/15/22 At risk for diabetic foot ulcer (Acute) 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) Obstructive sleep apnea syndrome (Chronic 03/29/16) Malignant neoplasm of female breast (Chronic 07/06/90) right breast BX-CA in SITU Increased BMI (Chronic) Impaired renal function (Chronic 03/29/18) Hypercholesterolemia (Chronic 01/01/13) Essential hypertension (Chronic 06/27/13) Edema extremities (Chronic 02/26/18) Diabetes mellitus (Chronic 01/01/13) Chronic left shoulder pain (Chronic 03/29/16) Cervical arthritis (Chronic) Basal cell carcinoma of other specified sites of skin (Chronic 08/21/12) RIP HOLDEN; FOREHEAD; RIGHT SIDE Incidental pulmonary nodule, > 3mm and < 8mm (Chronic) 04/30/18-[facility] Medical History DVT prophylaxis Discharge planning issues Diarrhea Near syncope 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 RIP PATRICIA; RIGHT CHEEK Polyp of colon (12/02/08) per colonoscopy-Dr. rip Patricia Acute colitis- 35cm Hyperplastic- 55cm Fatigue (07/26/12) Actinic keratosis Lumbar radicular pain Surgical History History of appendectomy History of bilateral ligation of fallopian tubes (07/29/14) History of cataract removal with insertion of prosthetic lens (05/26/15) History of section History of discectomy Status post abdominal hysterectomy Status post cholecystectomy S/P abdominal hysterectomy H/O section x 3 S/P cholecystectomy Hx of appendectomy S/P breast biopsy H/O discectomy History of bilateral tubal ligation 07/29/14 H/O cataract removal with insertion of prosthetic lens O.S. -05/26 2015; O.D.-06/16/2015 Hx of spinal surgery 01/24/17 [facility] [place] Ligation of fallopian tube (~1997) section X 3 MOHS 08/2014 Abdominal hysterectomy (~1997) DISCECTOMY Cholecystectomy Extraction of cataract 05/26/15; LEFT EYE 06/16/15; RIGHT EYE Biopsy of breast (~1990) RIGHT Bilateral salpingectomy with oophorectomy Appendectomy Family History Mother , age 86 Essential hypertension Asthma Breast cancer Father , age 61 Stroke Hypertension Son Hyperlipidemia Son No problems noted. Daughter Asthma Maternal Grandfather No problems noted. Paternal Grandfather No problems noted. Maternal Grandmother No problems noted. Paternal Grandmother No problems noted. 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 Do you need help understanding health information?: Rarely current occupation: retired Pets and animals: Yes Pets and animals: cat(s) Sexually active: No Do you think of yourself as: straight/heterosexual Current gender identity: female What is your relationship status?: How often do you talk on the phone with friends or family?: three or more times per week How often do you get together with friends or relatives?: twice per week How often do you attend gnosticism or rastafari services?: 4 or more times per year Do you belong to any clubs or organized social groups?: yes Panel score (0-1 are the most socially isolated patients): 3 What type of physical activity do you participate in: swimming Duration: 30-45 minutes/day Frequency: 1-2 times per week Janine/Amish: Islam Special janine needs: No Agree to transfusion: Yes Seatbelt use: always Helmet use: No Drive intox or ride w/intox delivery driver assistant: No Working smoke detector in home: Yes Carbon monox detector in home: Yes Firearms in home: No Do you feel safe at home: Yes Victim of physical abuse: No Victim of emotional abuse: No Victim of sexual abuse: No Additional Social history: lives alone
[2024-11-01 10:32] LABS: Bilirubin Negative (Negative); Blood Negative (Negative); Clarity Clear (Clear); Glucose Negative (Negative); Ketones Negative (Negative); Leukocyte Esterase Trace (Negative); Nitrite Negative (Negative); Specific Gravity 1.015 (1.005-1.025); Urobilinogen 0.2 mg/dL (Up to 0.2); pH 6.5 (5-8)
[2024-11-01 10:42] LABS: Bacteria Negative HPF (Negative); C & S Indicated? No; Casts Negative LPF (Negative); Crystals Negative HPF (Negative); Epithelial Cells Rare HPF (Negative); Mucus Negative (Negative); RBC Negative HPF (0-2)
--- NOTE | 2024-11-01 11:36 | DI.CT_ITS ---
Exam(s) CT CHEST WO EXAM: CT CHEST WO CLINICAL HISTORY: persistent rales/rhonchi L base, 3 CXRs in 3mo. TECHNIQUE: Multi planar reconstructions were performed. CONTRAST MATERIAL: None CT CT CHEST WO from 02/02/2023 CR XR CHEST 1V IN DI DEPT from 10/31/2024 FINDINGS: CHEST: LUNGS: There are no infiltrates nor pleural effusions. No significant left lung findings. In the right lung there multiple stable small nodules measuring to 7 mm size, all unchanged from 01/06 and apparently also stable at that time. There are no new additional nodules evident on eithe r side. No pleural effusions. No bronchiectasis. MEDIASTINUM: There is no obvious hilar nor mediastinal adenopathy. Visualized thyroid unremarkable.No obvious axillary adenopathy CARDIAC: Heart size is normal. There is no pericardial effusion.Caliber of the thoracic aorta is wit hin normal limits. VISUALIZED UPPER ABDOMEN:No significant adrenal masses. Gallbladder surgically absent. No splenomeg barb. OSSEOUS: No significant osseous lesions.No fractures.. IMPRESSION: 1. No infiltrates nor pleural effusions. No new ominous pulmonary nodules. 2. Continued stability of previously described right lung nodules, unchanged from prior CT scan of and 04/30/2018. 3. No intrathoracic adenopathy. RADIATION DOSE DELIVERED: 274.97mGy.cm Total DLP DATA REPOSITORY: All CT scans at this facility are submitted to the National Radiology Data Registry (NRDR) Dose Index Registry (DIR) with the [employer] (ACR). RADIATION OPTIMIZATION: All CT scans at this facility use at least one of these dose optimization te chniques: automated exposure control; mA and/or kV adjustment per patient size (includes targeted exa ms where dose is matched to clinical indication); or iterative reconstruction.
[2024-11-01] MEDS: Insulin Aspart 300 UNITS/3 ML PEN SC (12:13)
[2024-11-01 12:21] VITALS: BP 139/47; PULSE 55; RESP 18; TEMP 36.4; O2SAT 95
--- NOTE | 2024-11-01 12:54 | NUR.NOTE ---
Reviewed documentation with student, in agreement with findings, ERICH Yoder, RNC-OB, clinical instructor
--- NOTE | 2024-11-01 14:49 | W.PM.DS.N ---
Date of service: 11/01/24 Time of Service: 14:49 DS: Diagnosis Discharge Diagnosis (1) Hypertensive crisis: Status: Acute (2) Headache: Status: Acute (3) Hypomagnesemia: Status: Chronic (4) Essential hypertension: Status: Chronic (5) Hyponatremia: Status: Chronic (6) Diabetes mellitus: Status: Chronic (7) Paroxysmal atrial fibrillation: Status: Chronic (8) JAN on CPAP: Status: Chronic (9) Viral respiratory illness: Status: Acute Discharge Plan Disposition Patient Disposition: Home Condition: Good Discharge Details Reason For Visit: Hypertensive crisis, Headache, NIDDM with CKD Admit Date/Time: 10/31/24 21:06 Admit Provider: Morteza David Attending Provider: Morteza David Primary Care Provider: Ijeoma Najera Hospital Course Hospital Course: 83 yo F with hypertension, JAN, chronic hyponatremia, remote h/o breast cancer who presented to acute headache and dizziness and was found to have blood pressures of 239/114. She also had blood sugars as high 390. She had a negative CT head, was treated with IV labetolol and then additional oral carvedilol. Her potassium is 5.3 and he was treated with calcium gluconate, D10, and insulin. She was admitted with hypertensive emergency. Her blood pressure came down and her headache resolved. By the next morning her blood pressure was 143/58 and her blood sugar was 138 and her potassium 1.3. Her creatinine was 1.3 down from 1.7 on presentation. Her magnesium was also supplemented from 1.6 up to 2.4. Her A1c was 8.2. Her blood sugar was likely acutely high because of a recent course of prednisone, but this does appear to be a trend. Additional diabetic medication was deferred to her PCP. Her chief concern was her cough She has had 3 CXRs since July, all negative. In July she reported pink tinged sputum. Last week she was seen and had left rales and was treated with doxycycline and prednisone. She still has cough keeping her up at night and focal rales/rhonchi. Given this history, CT chest ordered, which was reassuring. With not infiltrate we did not give additional antibiotics but did give her cough suppressant tessalon. Her pulse was around 50 so we did not feel increasing carvedilol was the best choice. She was given 5mg amlopidpine once and started on 2.5mg daily. She has some chronic edema but her ARB therapy should prevent the CCB associated edema, which should be minimal at a low dose. Thiazide was not started despite high potassium due to her chronic hyponatremia. Her ARB was changed to long acting olmestartan. Follow up: She should have a BMP and magnesium in 3-5 days to check electrolytes and renal function Follow up with PCP in 1-2 weeks on blood pressure and cough Consider additional medication for diabetes Home Meds and New Rx's Prescriptions: New amlodipine 2.5 mg tablet 2.5 mg PO DAILY Qty: 30 0RF olmesartan 40 mg tablet 40 mg PO DAILY Qty: 90 0RF Rx Instructions: replace losartan benzonatate 100 mg capsule 100 mg PO TID PRN (Reason: cough) Qty: 30 0RF Continued cholecalciferol (vitamin D3) 50 mcg (2,000 unit) capsule 100 mcg PO DAILY Systane (PF) 0.4-0.3 % dropperette 1 drp OPHTHALMIC (EYE) BID-QID PRN (Reason: dry eye(s)) Qty: 60 4RF atorvastatin [Lipitor] 40 mg tablet 40 mg PO DAILY Qty: 90 4RF carvedilol 6.25 mg tablet 6.25 mg PO BID Qty: 180 4RF Rx Instructions: must administer with a meal/food glipizide 5 mg tablet extended release 24hr 5 mg PO DAILY Qty: 90 4RF pantoprazole 40 mg tablet,delayed release (DR/EC) 40 mg PO DAILY Qty: 90 4RF spironolactone 25 mg tablet 25 mg PO BID Qty: 180 12RF diclofenac sodium [Voltaren Arthritis Pain] 1 % gel 2 g topical QID PRN (Reason: arthralgia) Qty: 700 4RF Rx Instructions: apply to single elbow, wrist or hand; for hand includes palm/fingers/back of hand (DME) lancets [Yerbabuena Softwaretouch Delica Safety Lancet] 30 gauge misc See Rx Instructions .Route Qty: 100 4RF Rx Instructions: Once per day (DME) OneTouch Ultra Test Strip See Rx Instructions .Route Qty: 100 4RF Rx Instructions: Once per day . OneTouch Ultra2 meter Eliquis 5 mg tablet 5 mg PO BID Qty: 180 5RF furosemide 20 mg tablet 10 mg PO DAILY Qty: 90 5RF Patient Comments: 10mg multivitamin [Once Daily] 1 EACH tablet 1 tab PO DAILY (DME) blood-glucose meter mis See Dose Instructions .ROUTE .MEDSUPPLY Qty: 1 0RF Dose Instruction: As directed Rx Instructions: daily acetaminophen 500 mg tablet 1,000 mg PO TID clotrimazole-betamethasone 1-0.05 % cream 1 applic topical BID PRN (Reason: itching) Qty: 45 1RF Premarin 0.625 mg/gram cream 1 applic VG twice weekly Qty: 30 3RF Rx Instructions: Use 0.5 GM in vagina twice weekly fosfomycin tromethamine 3 gram packet 1 packet PO .weekly Qty: 6 3RF Rx Instructions: Mix with 4 oz (120 mL) cool water before ingesting. For UTI prevention fluticasone propionate 50 mcg/actuation spray,suspension 2 spray intranasal DAILY PRN Rx Instructions: administer into each nostril Discontinued losartan 100 mg tablet 100 mg PO DAILY Qty: 90 3RF prednisone 20 mg tablet See Rx Instructions PO DAILY Qty: 11 0RF Rx Instructions: 2 tabs daily for 3 days; 1 tab daily for 3 days; 0.5 tab daily for 4 days Discharge Instructions Instructions: High blood pressure emergencies Additional Instructions: A new medication amdodipine at a low dose of 2.5mg was sent to help control your blood pressure. This was sent to [facility]. We also sent a replacement for the losartan called olmestartan. The 40mg of olmestartan is as strong as the 100mg of losartan, but it lasts longer so that your blood pressure should fluctuate less, especially at night. This was sent to the mail order so you can switch out these medications when you get them. Continue on the losartan until you get the new medication. Your sugars were also high. Part of this was the prednisone, but your PCP may recommend additional medication. Stand Alone Forms: Nursing Discharge Form Referrals: Ijeoma Najera MD, [place] [Primary Care Provider] - 12/18/24 1:20 pm Activity:: Activity as Tolerated Equipment/Supplies:: No Equipment Needed Diet:: Carb Counting Discharge Orders Discharge Orders: Discharge Order (Routine); Ordered 11/01/24 Ordered By: Tim Jauregui DS: Summary Time Spent with Patient providing and/or coordinating discharge services: Greater than 30 minutes Status at Discharge Functional status at discharge: uses cane/walker Overall status at discharge: patient is back to baseline Mental Status: mental status grossly normal Speech and Movement: speech and movement normal Mood: congruent mood Affect: normal affect Quality:SDOH Health Related Social Needs: Health related social needs feeling lonely/isolated (Z60.8) Exam Narrative Exam Narrative: GENERAL APPEARANCE: Well-nourished, non-toxic, awake and alert, atraumatic, no acute distress. SKIN: Warm, pink, dry, intact, without rashes/lesions/ulcerations. LUNGS/CHEST: Lungs CTA bilaterally x rhonchi, slight rale left base. Non-labored respirations. HEART: Regular rate and rhythm without murmur, gallops, or rubs. ABDOMEN: Soft, non-distended, no tenderness. EXT: no cyanosis, clubbing, or edema. Neuro: CN 2-12 intact, nl movement and sensation 4 ext, normal coordination, normal speech. Psych Mental Status: mental status grossly normal Speech and Movement: speech and movement normal Mood: congruent mood Affect: normal affect DS: Data Vitals/I&O Vitals and I&O: Vital Signs Temperature 36.4 C L 11/01/24 12:21 Temperature Source Tympanic 11/01/24 12:21 Pulse 55 L 11/01/24 12:21 Pulse Rhythm Regular 10/31/24 22:40 Pulse 80 10/31/24 16:53 Respiratory Rate 18 11/01/24 12:21 Respiratory Effort Normal 10/31/24 22:40 Respiratory Depth Normal 10/31/24 22:40 Respiratory Pattern Normal 10/31/24 22:40 Blood Pressure 139/47 L 11/01/24 12:21 Blood Pressure Mean 122 10/31/24 17:01 Blood Pressure Position Sitting 10/31/24 16:41 Pulse Oximetry 95 11/01/24 12:21 Oxygen Delivery Method Room Air 11/01/24 12:21 Oxygen Flow Rate 0 11/01/24 12:21 Pain Level 0 11/01/24 10:47 Comment 2L NC for sleeping, has CPAP at home 11/01/24 02:30 Intake & Output 10/31/24 11/01/24 11/01/24 23:59 11:59 23:59 Intake Total 210 / 517.5 762.5 / 762.5 Output Total 600 / 600 Balance 210 / 517.5 162.5 / 162.5 Weight 83.915 kg 83.3 kg Intake: IV 210 / 517.5 362.5 / 362.5 Oral 400 / 400 Output: Urine 600 / 600 Other: Urine Color Yellow Urine Appearance Clear Clear Urine Odor None Comment Patient voided in toilet and changed brief ind., patient is inc./cont. Data Completed and Pending Labs on day of discharge: Labs from last 24 hours 11/01/24 11/01/24 10/31/24 10:17 06:58 21:50 WBC 8.84 RBC 3.42 L Hgb 10.7 L Hct 31.3 L MCV 92 MCH 31.3 MCHC 34.2 RDW 12.6 Plt Count 225 MPV 10.4 Immature Gran % Neutrophils % Lymphocytes % Monocytes % Eosinophils % Basophils % Nucleated RBC % Absolute Neutrophils Absolute Lymphocytes Absolute Monocytes Absolute Eosinophils Absolute Basophils VBG pH VBG pCO2 VBG pO2 VBG HCO3 VBG Total CO2 VBG O2 Saturation VBG Base Excess Sodium 137 Potassium 3.9 D Chloride 100 Carbon Dioxide 25.3 Anion Gap 11.7 H BUN 35 H Creatinine 1.3 H Est GFR (CKD-EPI 2020) 41.06 Glucose 146 H Hemoglobin A1c 8.2 H Calcium 9.7 Magnesium 2.4 Total Bilirubin 0.8 AST 24 ALT 25 Alkaline Phosphatase 46 Troponin I Total Protein 7.1 Albumin 3.6 TSH Urine Color Yellow Urine Clarity Clear Urine pH 6.5 Ur Specific Douds 1.015 Urine Protein Negative Urine Ketones Negative Urine Blood Negative Urine Nitrite Negative Urine Bilirubin Negative Urine Urobilinogen 0.2 Ur Leukocyte Esterase Trace H Urine RBC Negative Urine WBC 3-5 Ur Epithelial Cells Rare Urine Crystals Negative Urine Bacteria Negative Urine Casts Negative Urine Mucus Negative Ur Culture Indicated? No Urine Glucose Negative COVID-19 Source Nasopharynx SARS-CoV-2 (PCR) Negative Influenza Type A (PCR) Negative Influenza Type B (PCR) Negative RSV (PCR) Negative 10/31/24 10/31/24 10/31/24 19:33 18:45 17:36 WBC RBC Hgb Hct MCV MCH MCHC RDW Plt Count MPV Immature Gran % Neutrophils % Lymphocytes % Monocytes % Eosinophils % Basophils % Nucleated RBC % Absolute Neutrophils Absolute Lymphocytes Absolute Monocytes Absolute Eosinophils Absolute Basophils VBG pH 7.39 VBG pCO2 40 L VBG pO2 36 VBG HCO3 24 VBG Total CO2 23 L VBG O2 Saturation 68 VBG Base Excess -1 Sodium 134 L Potassium 4.9 Chloride 99 Carbon Dioxide 24.5 Anion Gap 10.5 BUN 42 H Creatinine 1.7 H Est GFR (CKD-EPI 2020) 29.76 Glucose 330 H Hemoglobin A1c Calcium 10.1 Magnesium Total Bilirubin AST ALT Alkaline Phosphatase Troponin I 45 28 Total Protein Albumin TSH Urine Color Urine Clarity Urine pH Ur Specific Douds Urine Protein Urine Ketones Urine Blood Urine Nitrite Urine Bilirubin Urine Urobilinogen Ur Leukocyte Esterase Urine RBC Urine WBC Ur Epithelial Cells Urine Crystals Urine Bacteria Urine Casts Urine Mucus Ur Culture Indicated? Urine Glucose COVID-19 Source SARS-CoV-2 (PCR) Influenza Type A (PCR) Influenza Type B (PCR) RSV (PCR) 10/31/24 16:38 WBC 8.83 RBC 3.72 L Hgb 11.5 Hct 35.0 L MCV 94 MCH 30.9 MCHC 32.9 RDW 12.8 Plt Count 257 MPV 10.6 Immature Gran % 0.7 Neutrophils % 90.8 Lymphocytes % 7.1 Monocytes % 1.1 Eosinophils % 0.2 Basophils % 0.1 Nucleated RBC % 0.0 Absolute Neutrophils 8.01 H Absolute Lymphocytes 0.63 L Absolute Monocytes 0.10 Absolute Eosinophils 0.02 Absolute Basophils 0.01 VBG pH VBG pCO2 VBG pO2 VBG HCO3 VBG Total CO2 VBG O2 Saturation VBG Base Excess Sodium 133 L Potassium 5.3 H Chloride 96 L Carbon Dioxide 23.8 Anion Gap 13.2 H BUN 42 H Creatinine 1.8 H Est GFR (CKD-EPI 2020) 27.78 Glucose 390 H Hemoglobin A1c Calcium 9.6 Magnesium 1.6 L Total Bilirubin 0.6 AST 26 ALT 33 Alkaline Phosphatase 51 Troponin I 18 Total Protein 8.0 Albumin 4.0 TSH 0.82 Urine Color Urine Clarity Urine pH Ur Specific Douds Urine Protein Urine Ketones Urine Blood Urine Nitrite Urine Bilirubin Urine Urobilinogen Ur Leukocyte Esterase Urine RBC Urine WBC Ur Epithelial Cells Urine Crystals Urine Bacteria Urine Casts Urine Mucus Ur Culture Indicated? Urine Glucose COVID-19 Source SARS-CoV-2 (PCR) Influenza Type A (PCR) Influenza Type B (PCR) RSV (PCR) PFSH All Active Problems Hyperkalemia (Acute) Hypertensive emergency (Acute) Headache (Acute) Hypertensive crisis (Acute) Cough (Acute) Viral respiratory illness (Acute) Recurrent UTI (Acute) Paroxysmal atrial fibrillation (Chronic) Reflux gastritis (Acute) Overactive bladder (Acute) Bilateral lower extremity edema (Acute) Facial trauma (Acute) Urinary frequency (Acute) Right rotator cuff tendonitis (Acute) DEPO MEDROL 11/11/22 Insomnia (Acute) Follow up (Acute) Skin lesion of face (Acute) Impacted cerumen, right ear (Acute) Calcific tendinitis of left shoulder (Acute) DEPO MEDROL: 10/21/22; 06/23/2022; 01/20/22; 06/23/22 Left shoulder pain (Acute) Conductive hearing loss, external ear (Acute) Impacted cerumen, bilateral (Acute) Contusion of left upper extremity (Acute) JAN on CPAP (Chronic) Edema (Acute) Asymmetrical sensorineural hearing loss (Acute) 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) Anemia (Chronic) Hypomagnesemia (Chronic) Hyponatremia (Chronic) Osteoarthritis of right knee (Acute) Most recent DEPO MEDROL: 11/30/2022; 07/08/2022 Impairment of speech discrimination (Acute) Tendinitis of right shoulder (Acute) DEPO MEDROL 11/11/22 Localized osteoarthritis of left knee (Acute) DEPO MEDROL 12/15/22 At risk for diabetic foot ulcer (Acute) 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) Obstructive sleep apnea syndrome (Chronic 03/29/16) Malignant neoplasm of female breast (Chronic 07/06/90) right breast BX-CA in [facility] Increased BMI (Chronic) Impaired renal function (Chronic 03/29/18) Hypercholesterolemia (Chronic 01/01/13) Essential hypertension (Chronic 06/27/13) Edema extremities (Chronic 02/26/18) Diabetes mellitus (Chronic 01/01/13) Chronic left shoulder pain (Chronic 03/29/16) Cervical arthritis (Chronic) Basal cell carcinoma of other specified sites of skin (Chronic 08/21/12) RIP HOLDEN; FOREHEAD; RIGHT SIDE Incidental pulmonary nodule, > 3mm and < 8mm (Chronic) 04/30/18[facility] Medical History DVT prophylaxis Discharge planning issues Diarrhea Near syncope 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 RIP PATRICIA; RIGHT CHEEK Polyp of colon (12/02/08) per colonoscopy-Dr. rip Patricia Acute colitis- 35cm Hyperplastic- 55cm Fatigue (07/26/12) Actinic keratosis Lumbar radicular pain Surgical History History of appendectomy History of bilateral ligation of fallopian tubes (07/29/14) History of cataract removal with insertion of prosthetic lens (05/26/15) History of section History of discectomy Status post abdominal hysterectomy Status post cholecystectomy S/P abdominal hysterectomy H/O section x 3 S/P cholecystectomy Hx of appendectomy S/P breast biopsy H/O discectomy History of bilateral tubal ligation 07/29/14 H/O cataract removal with insertion of prosthetic lens O.S. -05/26 2015; O.D.-06/16/2015 [place] [facility] [place] of fallopian tube (~1997) section X 3 MOHS 08/2014 Abdominal hysterectomy (~1997) DISCECTOMY Cholecystectomy Extraction of cataract 05/26/15; LEFT EYE 06/16/15; RIGHT EYE Biopsy of breast (~1990) RIGHT Bilateral salpingectomy with oophorectomy Appendectomy Family History Mother , age 86 Essential hypertension Asthma Breast cancer Father , age 61 Stroke Hypertension Son Hyperlipidemia Son No problems noted. Daughter Asthma Maternal Grandfather No problems noted. Paternal Grandfather No problems noted. Maternal Grandmother No problems noted. Paternal Grandmother No problems noted. 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 Do you need help understanding health information?: Rarely current occupation: retired Pets and animals: Yes Pets and animals: cat(s) Sexually active: No Do you think of yourself as: straight/heterosexual Current gender identity: female What is your relationship status?: How often do you talk on the phone with friends or family?: three or more times per week How often do you get together with friends or relatives?: twice per week How often do you attend amish or jainism services?: 4 or more times per year Do you belong to any clubs or organized social groups?: yes Panel score (0-1 are the most socially isolated patients): 3 What type of physical activity do you participate in: swimming Duration: 30-45 minutes/day Frequency: 1-2 times per week Janine/Hoahaoism: Tenriism Special janine needs: No Agree to transfusion: Yes Seatbelt use: always Helmet use: No Drive intox or ride w/intox bulk delivery driver: No Working smoke detector in home: Yes Carbon monox detector in home: Yes Firearms in home: No Do you feel safe at home: Yes Victim of physical abuse: No Victim of emotional abuse: No Victim of sexual abuse: No Additional Social history: lives alone Time Spent with Patient Time Spent with Patient: 45-69 minutes Time was spent: preparing to see the patient(eg.review tests), obtaining and/or reviewing separately otained hiistory, ordering medications,tests, procedures, referring, communicating with other health child care center administrator, indepentently interpreting results, counseling the patient and care coordination
--- NOTE | 2024-11-01 16:40 | CMPROGNOTE_ITS ---
Date of service: 11/01/24 Time of Service: 16:40 Care Management Progress Note Progress Note Text Progress Note Text: Osiris was admitted on 10/31/24 with a hypertensive crisis. On admission her SBP was over 240 and she was hyperglycemic with a blood sugar of 390. When she arrived she complained of a headache and dizziness. She was treated and by this morning, her blood pressure was down to 139/47 and her blood sugar was 183. Osiris stated she felt better and was discharged home to follow up with her PCP. Unfortunately she left before was able to meet with her. Social Determinants of Health Screening Social Determinants of Health last assessed: 11/01/24 Will the Patient Participate in the Screening?: Yes Do you worry about having a steady place to live?: no Problems where you live: no known problems In the past 12 months, have you had to go without electric, gas, oil or water in your home?: no Have you or anyone in your house had to go without enough food to eat?: no Has lack of transportation kept you from medical appointments or from doing things needed for daily living?: no Has anyone in your life made you feel unsafe or unsupported?: no How hard is it for you to pay for the very basics like food, housing, medical care, and heating? Would you say it is:: Not hard at all Do you want help finding or keeping work or a job?: I do not need or want help If for any reason you need help with day-to-day activities such as bathing, preparing meals, shopping, managing finances, etc., do you get the help you need?: I get all the help I need How often do you feel lonely or isolated from those around you?: Sometimes Do you speak a language other than [place] at home?: No Does the patient want assistance with any of the above?: No Health Related Social Needs Health related social needs: feeling lonely/isolated (Z60.8)
== END 2024-11-01 15:07 | disposition home or self-care (01) ==
LOC: ER 20:52 → MS 11-01 08:25
PROVIDERS: Admitting Provider Family Medicine; Emergency Provider Physician Assistant; PCP Family Medicine; Visit Provider Family Medicine
DX: I16.9 Hypertensive crisis, unspecified (principal); E11.65 Type 2 diabetes mellitus with hyperglycemia; I12.9 Hypertensive chronic kidney disease with stage 1 through stage 4 chronic kidney disease, or unspecified chronic kidney disease; G44.1 Vascular headache, not elsewhere classified; E83.42 Hypomagnesemia; E87.1 Hypo-osmolality and hyponatremia; E11.22 Type 2 diabetes mellitus with diabetic chronic kidney disease; I48.0 Paroxysmal atrial fibrillation; N18.4 Chronic kidney disease, stage 4 (severe); G47.33 Obstructive sleep apnea (adult) (pediatric); J98.8 Other specified respiratory disorders; R42 Dizziness and giddiness; E87.5 Hyperkalemia; J22 Unspecified acute lower respiratory infection; B97.89 Other viral agents as the cause of diseases classified elsewhere; R05.1 Acute cough; K29.60 Other gastritis without bleeding; N32.81 Overactive bladder; R60.0 Localized edema; D64.9 Anemia, unspecified; N39.46 Mixed incontinence; E78.00 Pure hypercholesterolemia, unspecified; Z79.01 Long term (current) use of anticoagulants; Z79.84 Long term (current) use of oral hypoglycemic drugs
CPT/HCPCS: 00123; 36415; 36416; 71250; 80048; 80053; 82805; 82962; 85027; 87637; 93005; 96365; 96366; 96375; 99285; 70450; 71045; 81003; 81015; 83036; 83735; 84443; 84484; 85025; 93010; 99223; 99239; G0378; J0612; J1815; J1920; J3475; J7620

== ENCOUNTER 2024-11-08 01:06 | Outpatient (CLI) | payer MEDICARE, SELFPAY ==
[2024-11-08 12:00] LABS: Abs Immature Grans 0.04 10^3/uL (0.0-0.06); Absolute Basophil Count 0.05 10^3/uL (0.0-0.2); Absolute Eosinophil Count 0.08 10^3/uL (0.0-0.7); Absolute Lymphocyte Count 1.27 10^3/uL (1.2-3.4); Absolute Monocyte Count 0.62 10^3/uL (0.1-0.8); Absolute Neutrophil Count 5.27 10^3/uL (1.2-6.7); Basophils % 0.7 %; Eosinophils % 1.1 %; HCT 34.1 % (36.0-46.0); HGB 11.2 g/dL (11.2-15.7); Immature Grans % 0.5 %; Lymphocytes % 17.3 %; MCH 30.9 pg (27.0-33.0); MCHC 32.8 % (32.0-36.0); MCV 94 fL (80-95); MPV 10.4 fL (8.0-11.0); Monocytes % 8.5 %; Neutrophils % 71.9 %; Platelet Count 237 10^3/uL (130-400); RBC 3.62 10^6/uL (3.93-5.22); RDW 12.2 % (11.7-14.6); RDW-SD 42.5 fL; WBC 7.33 10^3/uL (4.4-10.8)
[2024-11-08 12:21] LABS: C-Reactive Protein < 0.50 mg/dL (<or=0.5)
[2024-11-08 12:27] LABS: ALT 28 U/L (14-59); AST 20 U/L (15-37); Albumin 3.9 g/dL (3.4-5.0); Alkaline Phosphatase 45 U/L (46-116); Anion Gap 9.6 mmol/L (3-11); BUN 34 mg/dL (7-18); Bilirubin, Total 0.8 mg/dL (0.2-1.0); CO2 25.4 mmol/L (21.0-32.0); CREATININE 1.5 mg/dL (0.55-1.02); Calcium 9.9 mg/dL (8.5-10.1); Chloride 96 mmol/L (98-107); Estimated GFR 34.58 (mL/min/1.73m2); Glucose 203 mg/dL (74-106); Magnesium 1.7 mg/dL (1.8-2.4); Sodium 131 mmol/L (136-145); Total Protein 7.6 g/dL (6.4-8.2)
== END 2024-11-08 01:07 | disposition home or self-care (01) ==
LOC: LBO 01:06
PROVIDERS: Internal Medicine; PCP Family Medicine; Visit Provider Family Medicine
DX: I10 Essential (primary) hypertension (principal); E87.1 Hypo-osmolality and hyponatremia; R30.0 Dysuria
CPT/HCPCS: 36415; 80053; 83735; 85025; 86140

== ENCOUNTER → 2024-11-13 09:39 | Outpatient (BNVA) | payer MEDICARE, SELFPAY | PROVIDERS: PCP Family Medicine; Referring Provider Family Medicine; Visit Provider Nurse Practitioner Gerontology | DX: R35.0 Frequency of micturition (principal); N39.46 Mixed incontinence; N39.0 Urinary tract infection, site not specified | CPT/HCPCS: 81003; 99214 ==

== ENCOUNTER 2024-11-19 04:13 | Outpatient (CLI) | payer MEDICARE, SELFPAY ==
--- NOTE | 2024-11-19 14:13 | TELEFU_ITS ---
Date of service: 11/19/24 Time of Service: 13:00 Nutrition Note NOTE: Osiris referred for today's nutrition visit to help address A1C which just climbed to 8.2% late October last month. Osiris related eating/planning/prepping for one can be difficult - she lives alone with her family in different states - her passed 2 years ago which has been difficult for her and she admits to pretty much giving up on managing glucose and such for some time after his while she dealt with the changes and emotions. She does have a good close group of old friend she sees regularly and is involved with her latter day community. She reports provider just increased her glipizide to 10mg yesterday when she saw her and this is only current diabetes med she takes. We discussed diet on a lot of different levels and how periodically it is totally fine to go over added sugar/carbs/calories and such but needs to stick to a plan of attach for normal days which are the majority. We discussed total carbs and amounts, serving sizes. we discussed added sugar and fiber as subset of carbs and goals to shoot for with recommended changes in her usual routine to adjust for these goals. I showed her an AI website on her phone she can use to help suggest meals and snacks based on what she has on hand in her kitchen and help with prepping and meal planning/suggestions. Encouraged to focus on limiting added sugar (20grams most days as upper limit) and getting plenty of fiber (shooting for 25g or more most days). We also reviewed a handout and a carb tracker book - resources she took home. She has my number to call with any quick questions or if she'd like to come in for more extensive follow ups at any time Time Spent in Nutritional Counseling and Treatment: 60 minutes
== END 2024-11-19 04:14 | disposition home or self-care (01) ==
LOC: DS 04:13
PROVIDERS: PCP Family Medicine; Visit Provider Dietitian, Registered
DX: E11.22 Type 2 diabetes mellitus with diabetic chronic kidney disease (principal)
CPT/HCPCS: 00123; 97802

== ENCOUNTER 2024-12-13 12:44 | Observation (INO) | payer MEDICARE, SELFPAY ==
[2024-12-13] VITALS (37 sets, daily range): BP systolic 92–188; BP diastolic 46–148; PULSE 54–76; RESP 9–30; TEMP 35.8–36.5; O2SAT 98–100
--- NOTE | 2024-12-13 12:30 | RT.EKG_ITS ---
APPROVED REPORT Exam: Resting ECG Reason for Exam: bradycardia Patient Location: E HR:70 bpm ECG Measurements Heart Rate 70 AXIS WY 62 P -34 QRSd 92 QRS 17 QT 414 T 64 QTc 446 Conclusion Sinus rhythm...normal P axis, V-rate 60- 99 Low voltage, precordial leads...precordial leads <1.0mV
--- NOTE | 2024-12-13 13:22 | ED.GENADUL_ITS ---
Discharge Plan Disposition Patient Disposition: Admit to [facility] Discharge Details Chief Complaint: Dizzy/Sync Clinical Impression: Syncope, Hypomagnesemia, Symptomatic bradycardia, Chronic kidney disease Primary Care Provider: Ijeoma Najera ED Provider: Graham Hay Home Meds and New Rx's Prescriptions: No Action cholecalciferol (vitamin D3) 50 mcg (2,000 unit) capsule 100 mcg PO DAILY Systane (PF) 0.4-0.3 % dropperette 1 drp OPHTHALMIC (EYE) BID-QID PRN (Reason: dry eye(s)) Qty: 60 4RF atorvastatin [Lipitor] 40 mg tablet 40 mg PO DAILY Qty: 90 4RF carvedilol 6.25 mg tablet 6.25 mg PO BID Qty: 180 4RF Rx Instructions: must administer with a meal/food pantoprazole 40 mg tablet,delayed release (DR/EC) 40 mg PO DAILY Qty: 90 4RF spironolactone 25 mg tablet 25 mg PO BID Qty: 180 12RF diclofenac sodium [Voltaren Arthritis Pain] 1 % gel 2 g topical QID PRN (Reason: arthralgia) Qty: 700 4RF Rx Instructions: apply to single elbow, wrist or hand; for hand includes palm/fingers/back of hand olmesartan 40 mg tablet 40 mg PO DAILY Qty: 90 4RF Rx Instructions: replace losartan amlodipine 5 mg tablet 5 mg PO DAILY Qty: 90 4RF glipizide 10 mg tablet extended release 24hr 10 mg PO DAILY Qty: 90 4RF (DME) lancets [Onetouch Delica Safety Lancet] 30 gauge misc See Rx Instructions .Route Qty: 100 4RF Rx Instructions: Once per day; E11.9 (DME) OneTouch Ultra Test Strip See Rx Instructions .Route Qty: 100 4RF Rx Instructions: Once per day . OneTouch Ultra2 meter Eliquis 5 mg tablet 5 mg PO BID Qty: 180 5RF furosemide 20 mg tablet 10 mg PO DAILY Qty: 90 5RF Patient Comments: 10mg multivitamin [Once Daily] 1 EACH tablet 1 tab PO DAILY (DME) blood-glucose meter misc See Dose Instructions .ROUTE .MEDSUPPLY Qty: 1 0RF Dose Instruction: As directed Rx Instructions: daily acetaminophen 500 mg tablet 1,000 mg PO TID clotrimazole-betamethasone 1-0.05 % cream 1 applic topical BID PRN (Reason: itching) Qty: 45 1RF Premarin 0.625 mg/gram cream 1 applic VG twice weekly Qty: 30 3RF Rx Instructions: Use 0.5 GM in vagina twice weekly fosfomycin tromethamine 3 gram packet 1 packet PO .weekly Qty: 6 3RF Rx Instructions: Mix with 4 oz (120 mL) cool water before ingesting. For UTI prevention acetaminophen-codeine 120-12 mg/5 mL solution 5 ml PO Q4H PRN (Reason: cough) Qty: 200 2RF benzonatate 100 mg capsule 100 mg PO TID PRN (Reason: cough) Qty: 30 0RF fluticasone propionate 50 mcg/actuation spray,suspension 2 spray intranasal DAILY PRN Rx Instructions: administer into each nostril HPI General Mode of arrival: EMS . Date/Time Provider Initiated Documentation: 12/13/24 12:51 . Information obtained by: patient and EMS . HPI Narrative: 84-year-old female with multiple medical problems including history of atrial fibrillation, on anticoagulation, recently admitted for hypertensive emergency in October, returns today by EMS after syncopal episode. Patient notes she was at the [facility] and had been standing in a warm enclosed environment while being measured and then experienced a syncopal episode. Patient does not recall what transpired during the episode. She no preceding symptoms. She notes she was feeling well earlier today. She did not hit her head or sustain any injury during the episode. She regained consciousness shortly thereafter and continued to experience dizziness. EMS was called and arrived to find the patient bradycardic in the 30s initially with associated dizziness. She was given atropine 1 mg and heart rate improved to the 70s and dizziness resolved. At this time she is asymptomatic. She denies chest pain or shortness of breath. No abdominal pain. No headache. No numbness or tingling. No visual changes. Related Data Home Medications ?Medication ?Instructions ?Recorded ?Confirmed multivitamin (Once Daily tablet) 1 tab PO DAILY 12/28/12 12/13/24 blood-glucose meter #1 ea 05/16/18 12/13/24 cholecalciferol (vitamin D3) 50 100 mcg PO DAILY 06/08/21 12/13/24 mcg (2,000 unit) capsule acetaminophen 500 mg tablet 1,000 mg PO TID 04/15/22 12/13/24 peg 400-propylene glycol (PF) 0.4 1 drp ophthalmic (eye) BID-QID PRN 06/23/22 12/13/24 %-0.3 % eye drops in a dropperette dry eye(s) #60 ea (Systane (PF)) clotrimazole-betamethasone 1 1 applic topical BID PRN itching 02/24/23 12/13/24 %-0.05 % topical cream #45 grams blood sugar diagnostic (OneTouch #100 ea 03/30/23 12/13/24 Ultra Test strips) fluticasone propionate 50 2 spray intranasal DAILY PRN 02/06/24 12/13/24 mcg/actuation nasal spray,suspension conjugated estrogens 0.625 mg/gram 1 applic vaginal twice weekly #30 02/26/24 12/13/24 vaginal cream (Premarin) grams atorvastatin 40 mg tablet (Lipitor) 40 mg PO DAILY #90 tab-caps 04/23/24 12/13/24 carvedilol 6.25 mg tablet 6.25 mg PO BID #180 tabs 04/23/24 12/13/24 diclofenac sodium 1 % topical gel 2 g topical QID PRN arthralgia 04/23/24 12/13/24 (Voltaren Arthritis Pain) #700 grams pantoprazole 40 mg tablet,delayed 40 mg PO DAILY #90 tabs 04/23/24 12/13/24 release spironolactone 25 mg tablet 25 mg PO BID #180 tab-caps 04/23/24 12/13/24 apixaban 5 mg tablet (Eliquis) 5 mg PO BID #180 tabs 08/26/24 12/13/24 furosemide 20 mg tablet 10 mg (1/2 x 20 mg) PO DAILY #90 08/26/24 12/13/24 tabs fosfomycin tromethamine 3 gram 1 packet PO .weekly #6 pkgs 10/14/24 12/13/24 oral packet benzonatate 100 mg capsule 100 mg PO TID PRN cough #30 caps 11/01/24 12/13/24 acetaminophen 120 mg-codeine 12 5 ml PO Q4H PRN cough #200 mL 04/01/25 05/09/25 mg/5 mL oral solution amlodipine 5 mg tablet 5 mg PO DAILY #90 tabs 11/18/24 12/13/24 glipizide 10 mg tablet, extended 10 mg PO DAILY #90 tab-caps 11/18/24 12/13/24 release 24 hr lancets 30 gauge ([facility] 11/18/24 12/13/24 Safety Lancet) olmesartan 40 mg tablet 40 mg PO DAILY #90 tabs 11/18/24 12/13/24 Previous Rx's ?Medication ?Instructions ?Recorded blood-glucose meter #1 ea 05/16/18 peg 400-propylene glycol (PF) 0.4 1 drp ophthalmic (eye) BID-QID PRN 06/23/22 %-0.3 % eye drops in a dropperette dry eye(s) #60 ea (Systane (PF)) clotrimazole-betamethasone 1 1 applic topical BID PRN itching 02/24/23 %-0.05 % topical cream #45 grams blood sugar diagnostic [facility] Ultra Test strips) conjugated estrogens 0.625 mg/gram 1 applic vaginal twice weekly #30 02/26/24 vaginal cream (Premarin) grams atorvastatin 40 mg tablet (Lipitor) 40 mg PO DAILY #90 tab-caps 04/23/24 carvedilol 6.25 mg tablet 6.25 mg PO BID #180 tabs 04/23/24 diclofenac sodium 1 % topical gel 2 g topical QID PRN arthralgia 04/23/24 (Voltaren Arthritis Pain) #700 grams pantoprazole 40 mg tablet,delayed 40 mg PO DAILY #90 tabs 04/23/24 release spironolactone 25 mg tablet 25 mg PO BID #180 tab-caps 04/23/24 apixaban 5 mg tablet (Eliquis) 5 mg PO BID #180 tabs 08/26/24 furosemide 20 mg tablet 10 mg (1/2 x 20 mg) PO DAILY #90 08/26/24 tabs fosfomycin tromethamine 3 gram 1 packet PO .weekly #6 pkgs 10/14/24 oral packet benzonatate 100 mg capsule 100 mg PO TID PRN cough #30 caps 11/01/24 acetaminophen 120 mg-codeine 12 5 ml PO Q4H PRN cough #200 mL 11/05/24 mg/5 mL oral solution amlodipine 5 mg tablet 5 mg PO DAILY #90 tabs 11/18/24 glipizide 10 mg tablet, extended 10 mg PO DAILY #90 tab-caps 11/18/24 release 24 hr lancets 30 gauge (Vas[facility] Dutta #100 ea 11/18/24 Safety Lancet) olmesartan 40 mg tablet 40 mg PO DAILY #90 tabs 11/18/24 Allergies Allergy/AdvReac Type Severity Reaction Status Date / Time Penicillins Allergy CHILDHOOD Verified 12/13/24 12:56 clonidine AdvReac Unknown Verified 12/13/24 12:56 gabapentin AdvReac No energy Verified 12/13/24 12:56 and fatigue lisinopril AdvReac COUGH Verified 12/13/24 12:56 morphine AdvReac VOMITING/DI Verified 12/13/24 12:56 ARRHEA oxybutynin AdvReac dizzy Verified 12/13/24 12:56 oxycodone HCl (From Percocet) AdvReac VOMITING/NA Verified 12/13/24 12:56 USEA terazosin (From Hytrin) AdvReac Unknown Verified 12/13/24 12:56 General Stated Complaint: Dizzy/Sync THOM: 3 Exam Const General: cooperative and no acute distress HENMT Mouth: mucous membranes dry Eyes Conjunctivae: normal conjunctivae Sclera: normal sclerae EOM: EOM intact bilaterally Neck Neck: trachea midline and supple Resp Auscultation: clear to auscultation bilaterally, no rales, no rhonchi and no wheezes Cardio Rate: regular rate and not tachycardic Rhythm: regular rhythm Heart Sounds: murmur systolic II/ GI Palpation: soft, not firm, no guarding, no masses, not rigid and nontender Skin General skin exam: no rashes or lesions noted Neuro General: patient alert, patient awake, patient oriented x3 and tone normal Extrem General: no calf tenderness bilaterally and edema Laterality: bilateral (mild rt>lt) Psych Appearance: grossly normal Mental Status: mental status grossly normal Speech and Movement: speech and movement normal Course Vital Signs Vital signs: Vital Signs Temperature 35.8 C L 12/13/24 12:45 Pulse 69 12/13/24 12:45 Respiratory Rate 17 12/13/24 12:45 Blood Pressure 136/105 H 12/13/24 12:45 Pulse Oximetry 98 12/13/24 12:45 Temperature 35.8 C L 12/13/24 12:45 Temperature Source Temporal Artery Scan 12/13/24 12:45 Pulse 69 12/13/24 12:45 Respiratory Rate 17 12/13/24 12:45 Respiratory Effort Normal 12/13/24 12:59 Blood Pressure 136/105 H 12/13/24 12:45 Pulse Oximetry 98 12/13/24 12:45 Oxygen Delivery Method Room Air 12/13/24 12:45 Oxygen Flow Rate 0 12/13/24 12:45 Pain Level 0 12/13/24 12:45 Medical Decision Making 1342??84-year-old female with multiple medical problems including history of atrial fibrillation, on anticoagulation, hypertension, recently admitted for hypertensive emergency, here today after syncopal episode, found to be bradycardic and with dizziness by EMS, treated with atropine 1 mg by EMS. Patient now asymptomatic with normal heart rate, hypertensive. She is saturating well in no respiratory distress. Patient has had recent loose stools over the past week. I suspect patient had orthostatic episode related to hypovolemia and prolonged standing in a hot environment. Given risk factors, consider other malignant etiologies including symptomatic bradycardia. Patient was bradycardic prior to EMS arrival and received atropine 1 mg by EMS. I will give light IV fluid bolus. EKG was reviewed and interpreted by me: Please see report, sinus rhythm 70 bpm, normal axis, nondiagnostic. Plan to maintain cardiac monitoring. Consider C. difficile given loose stool and will send screening testing. 1513 --labs reviewed and hypomagnesemia noted. Will give magnesium 1 g IV. Chronic kidney disease noted with creatinine at baseline 1.5. Plan for hospitalization. I called and spoke with MARLON López, discussed ED presentation course, she will admit the patient. Lab Data Lab results reviewed: Yes I reviewed the patient's lab results. Labs: Laboratory Tests Range/Units 12/13/24 12/13/24 13:30 14:30 WBC (4.4-10.8) 10^3/uL 6.23 RBC (3.93-5.22) 10^6/uL 3.40 L Hgb (11.2-15.7) g/dL 10.7 L Hct (36.0-46.0) % 31.5 L MCV (80-95) fL 93 MCH (27.0-33.0) pg 31.5 MCHC (32.0-36.0) % 34.0 RDW (11.7-14.6) % 12.8 Plt Count (130-400) 10^3/uL 202 MPV (8.0-11.0) fL 10.6 Immature Gran % % 0.3 Neutrophils % % 77.5 Lymphocytes % % 13.2 Monocytes % % 7.4 Eosinophils % % 0.8 Basophils % % 0.8 Nucleated RBC % (0.0-0.3) % 0.0 Absolute Neutrophils (1.2-6.7) 10^3/uL 4.83 Absolute Lymphocytes (1.2-3.4) 10^3/uL 0.82 L Absolute Monocytes (0.1-0.8) 10^3/uL 0.46 Absolute Eosinophils (0.0-0.7) 10^3/uL 0.05 Absolute Basophils (0.0-0.2) 10^3/uL 0.05 Sodium (136-145) mmol/L 134 L Potassium (3.5-5.1) mmol/L 5.2 H Chloride (98-107) mmol/L 100 Carbon Dioxide (21.0-32.0) mmol/L 26.6 Anion Gap (3-11) mmol/L 7.4 BUN (7-18) mg/dL 43 H Creatinine (0.55-1.02) mg/dL 1.5 H Est GFR (CKD-EPI 2020) (mL/min/1.73m2) 34.36 Glucose (74-106) mg/dL 202 H Calcium (8.5-10.1) mg/dL 9.9 Magnesium (1.8-2.4) mg/dL 1.6 L Total Bilirubin (0.2-1.0) mg/dL 0.7 AST (15-37) U/L 22 ALT (14-59) U/L 22 Alkaline Phosphatase (46-116) U/L 38 L Troponin I (<or=51) ng/L 6 7 Total Protein (6.4-8.2) g/dL 7.4 Albumin (3.4-5.0) g/dL 3.9 TSH (0.36-3.74) uIU/mL 1.95 Quality:SDOH Health Related Social Needs: Health related social needs feeling lonely/isolated (Z 60.8) PFSH All Active Problems (Updated 12/13/24 @ 15:16 by Graham Hay MD) Chronic kidney disease (Chronic) Symptomatic bradycardia (Acute) Hypomagnesemia (Acute) Syncope (Chronic) Cough (Acute) Viral respiratory illness (Acute) Recurrent UTI (Acute) Paroxysmal atrial fibrillation (Chronic) Reflux gastritis (Acute) Overactive bladder (Acute) Bilateral lower extremity edema (Acute) Facial trauma (Acute) Hyponatremia (Chronic) Urinary frequency (Acute) Right rotator cuff tendonitis (Acute) DEPO MEDROL 11/11/22 Insomnia (Acute) Follow up (Acute) Skin lesion of face (Acute) Impacted cerumen, right ear (Acute) Calcific tendinitis of left shoulder (Acute) DEPO MEDROL: 10/21/22; 06/23/2022; 01/20/22; 06/23/22 Left shoulder pain (Acute) Conductive hearing loss, external ear (Acute) Impacted cerumen, bilateral (Acute) Contusion of left upper extremity (Acute) JAN on CPAP (Chronic) Edema (Acute) Asymmetrical sensorineural hearing loss (Acute) 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) Anemia (Chronic) Hypomagnesemia (Chronic) Osteoarthritis of right knee (Acute) Most recent DEPO MEDROL: 11/30/2022; 07/08/2022 Impairment of speech discrimination (Acute) Tendinitis of right shoulder (Acute) DEPO MEDROL 11/11/22 Localized osteoarthritis of left knee (Acute) DEPO MEDROL 12/15/22 At risk for diabetic foot ulcer (Acute) 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) Obstructive sleep apnea syndrome (Chronic 03/29/16) Malignant neoplasm of female breast (Chronic 07/06/90) right breast BX-CA in SITU Increased BMI (Chronic) Impaired renal function (Chronic 03/29/18) Hypercholesterolemia (Chronic 01/01/13) Essential hypertension (Chronic 06/27/13) Edema extremities (Chronic 02/26/18) Diabetes mellitus (Chronic 01/01/13) Chronic left shoulder pain (Chronic 03/29/16) Cervical arthritis (Chronic) Basal cell carcinoma of other specified sites of skin (Chronic 08/21/12) RIP HOLDEN; FOREHEAD; RIGHT SIDE Incidental pulmonary nodule, > 3mm and < 8mm (Chronic) 04/30/18-[facility] Medical History DVT prophylaxis Discharge planning issues Diarrhea Near syncope 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 RIP PATRICIA; RIGHT CHEEK Polyp of colon (12/02/08) per colonoscopy-Dr. rip Patricia Acute colitis- 35cm Hyperplastic- 55cm Fatigue (07/26/12) Actinic keratosis Lumbar radicular pain Surgical History History of appendectomy History of bilateral ligation of fallopian tubes (07/29/14) History of cataract removal with insertion of prosthetic lens (05/26/15) History of section History of discectomy Status post abdominal hysterectomy Status post cholecystectomy S/P abdominal hysterectomy H/O section x 3 S/P cholecystectomy Hx of appendectomy S/P breast biopsy H/O discectomy History of bilateral tubal ligation 07/29/14 H/O cataract removal with insertion of prosthetic lens O.S. -05/26 2015; O.D.-06/16/2015 [place]x of [place]24[place] [facility] [place]igation [place] fallopian tube (~1997) section X 3 MOHS 08/2014 Abdominal hysterectomy (~1997) DISCECTOMY Cholecystectomy Extraction of cataract 05/26/15; LEFT EYE 06/16/15; RIGHT EYE Biopsy of breast (~1990) RIGHT Bilateral salpingectomy with oophorectomy Appendectomy Family History Mother , age 86 Essential hypertension Asthma Breast cancer Father , age 61 Stroke Hypertension Son Hyperlipidemia Son No problems noted. Daughter Asthma Maternal Grandfather No problems noted. Paternal Grandfather No problems noted. Maternal Grandmother No problems noted. Paternal Grandmother No problems noted. 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 Do you need help understanding health information?: Rarely current occupation: retired Pets and animals: Yes Pets and animals: cat(s) Sexually active: No Do you think of yourself as: straight/heterosexual Current gender identity: female What is your relationship status?: How often do you talk on the phone with friends or family?: three or more times per week How often do you get together with friends or relatives?: twice per week How often do you attend nondenominational or mandaeism services?: 4 or more times per year Do you belong to any clubs or organized social groups?: yes Panel score (0-1 are the most socially isolated patients): 3 What type of physical activity do you participate in: swimming Duration: 30-45 minutes/day Frequency: 1-2 times per week Janine/Voodoo: Holiness Special janine needs: No Agree to transfusion: Yes Seatbelt use: always Helmet use: No Drive intox or ride w/intox sweeper driver: No Working smoke detector in home: Yes Carbon monox detector in home: Yes Firearms in home: No Do you feel safe at home: Yes Victim of physical abuse: No Victim of emotional abuse: No Victim of sexual abuse: No Additional Social history: lives alone
[2024-12-13] MEDS: Normal Saline Flush 10 ML SYR IVP ×2 (13:30→21:32)
[2024-12-13 13:38] LABS: Abs Immature Grans 0.02 10^3/uL (0.0-0.06); Absolute Basophil Count 0.05 10^3/uL (0.0-0.2); Absolute Eosinophil Count 0.05 10^3/uL (0.0-0.7); Absolute Lymphocyte Count 0.82 10^3/uL (1.2-3.4); Absolute Monocyte Count 0.46 10^3/uL (0.1-0.8); Absolute Neutrophil Count 4.83 10^3/uL (1.2-6.7); Basophils % 0.8 %; Eosinophils % 0.8 %; HCT 31.5 % (36.0-46.0); HGB 10.7 g/dL (11.2-15.7); Immature Grans % 0.3 %; Lymphocytes % 13.2 %; MCH 31.5 pg (27.0-33.0); MCV 93 fL (80-95); MPV 10.6 fL (8.0-11.0); Monocytes % 7.4 %; Neutrophils % 77.5 %; Platelet Count 202 10^3/uL (130-400); RDW 12.8 % (11.7-14.6); RDW-SD 43.5 fL; WBC 6.23 10^3/uL (4.4-10.8)
[2024-12-13 14:04] LABS: ALT 22 U/L (14-59); AST 22 U/L (15-37); Albumin 3.9 g/dL (3.4-5.0); Alkaline Phosphatase 38 U/L (46-116); Anion Gap 7.4 mmol/L (3-11); BUN 43 mg/dL (7-18); Bilirubin, Total 0.7 mg/dL (0.2-1.0); CO2 26.6 mmol/L (21.0-32.0); CREATININE 1.5 mg/dL (0.55-1.02); Calcium 9.9 mg/dL (8.5-10.1); Chloride 100 mmol/L (98-107); Estimated GFR 34.36 (mL/min/1.73m2); Glucose 202 mg/dL (74-106); Magnesium 1.6 mg/dL (1.8-2.4); Potassium 5.2 mmol/L (3.5-5.1); Sodium 134 mmol/L (136-145); Total Protein 7.4 g/dL (6.4-8.2); Troponin I 6 ng/L (<or=51)
[2024-12-13] MEDS: Lactated Ringers 500 ML IV (14:10)
[2024-12-13 14:11] LABS: TSH (W/Ref FT4) 1.95 uIU/mL (0.36-3.74)
[2024-12-13] MEDS: MAGNESIUM SULFATE 1 GM/100 ML BAG IV_INF (14:49)
--- NOTE | 2024-12-13 14:59 | HPE_ITS ---
Date of service: 12/13/24 Time of Service: 14:59 Assessment and Plan Assessment and plan (1) Syncope: Status: Chronic Assessment and plan: Syncopal episode at this distress while lying position getting measured; no head strike, no CT imaging of the head completed. Patient is neurologically intact. [place] dizzy prior to fainting. Bradycardic with heart rate in the 30s on EMS arrival with resolution with atropine 1 mg IV with subsequent resolution of bradycardia and vomiting and heart rate in the 60s 70. BP slightly elevated but no hypertensive emergency criteria met, will continue to monitor. This is most likely due to atropine injection. EKG negative for ACS and troponin negative x 2. No O2 supplementation required, no chest pain or abdominal pain or right strain on EKG most likely not PE This is not likely due to dehydration with ongoing diarrhea with elevated BUN. Bolus of IV given in the ED will continue slow IV hydration; last LVEF was 55% in 2022 Echocardiogram not available today, should be completed on Monday or at the patient if the patient is a longer admitted Telemetry Continue home dose Coreg at at bedtime with parameters Orthostatic vital signs Clostridium difficile testing pending (2) Symptomatic bradycardia: Status: Acute Assessment and plan: As above (3) Chronic kidney disease: Status: Chronic Assessment and plan: CR 1.5 from baseline will continue to monitor On dose furosemide BMP in the morning (4) Hypomagnesemia: Status: Acute Assessment and plan: Magnesium at 1.6, supplementation given in the ED Mg in the morning (5) Paroxysmal atrial fibrillation: Status: Chronic Assessment and plan: On home dose Eliquis and Coreg with parameters No need for pharmacological DVT prophylaxis (6) Recurrent UTI: Status: Acute Assessment and plan: Weekly prophylactic treatment for recurrent UTI with fosfomycin; the patient took her dose this morning. Still displays signs of hesitancy during micturition and positive for chills but denies clear dysuria initial temp. 35.8 in the ED - no leukocytosis or leukopenia UA pending (7) Type 2 diabetes mellitus: Status: Acute Assessment and plan: Gluc AC and at bedtime with SSI coverage Old on glipizide while inpatient (8) HTN (hypertension): Status: Chronic Assessment and plan: On home dose ARB's and dehydropyridine CCB (9) Hyperlipidemia: Status: Acute Assessment and plan: On home dose statin Discussed with Dr. Juarez History of Present Illness History of Present Illness Chief Complaint: syncope, bradycardia Narrative: This 84 years old female patient with a past medical history significant for atrial fibrillation on Eliquis and carvedilol, CKD, known insulin-dependent diabetes type 2 and recent admission for hypertensive emergency in October 2024 presented to the ED by EMS today for evaluation of syncopal episode while she was at the send stress. At the time the patient reports feeling dizzy while standing up and getting measured, denied head strike, excessive coughing, chest pain, nausea, vomiting, abdominal pain, reporting diarrhea, no clear dysuria but hesitancy during micturition and new lateral right knee pain. As per EMS the patient was found in symptomatic bradycardia and atropine was administered with resolution of symptoms and a heart rate going from 30s to 70s. Workup in the ED was negative for ACS with the EKG showing no signs of coronary occlusion and negative troponins x 2. Chemistry showed a creatinine at baseline around 1.5 and a slightly elevated BUN at 43 from baseline in the 30s and slight hypomagnesemia at 1.6?supplementation provided. The patient was treated with IV fluids. UA is pending; the patient takes fosfomycin weekly( monday AM) for chronic UTI prevention. The patient was admitted by the hospitalist team to the medical surgical floor with telemetry for syncope, symptomatic bradycardia, dehydration. The patient confirmed full CODE STATUS. New onset of chills reported since arrival to the ED, no sick contact, leaves alone with her cat; 2 of 3 of her children leaving in [place]. Patient reported still driving her car and maintaining independence in her ADL's. Mrs Wilson was a RN. Review of Systems All systems reviewed & are unremarkable except as noted in HPI and below PFSH All Active Problems (Updated 12/13/24 @ 16:30 by Di Rojas APRN) Hyperlipidemia (Acute) HTN (hypertension) (Chronic) Type 2 diabetes mellitus (Acute) Chronic kidney disease (Chronic) Symptomatic bradycardia (Acute) Hypomagnesemia (Acute) Syncope (Chronic) Cough (Acute) Viral respiratory illness (Acute) Recurrent UTI (Acute) Paroxysmal atrial fibrillation (Chronic) Reflux gastritis (Acute) Overactive bladder (Acute) Bilateral lower extremity edema (Acute) Facial trauma (Acute) Hyponatremia (Chronic) Urinary frequency (Acute) Right rotator cuff tendonitis (Acute) DEPO MEDROL 11/11/22 Insomnia (Acute) Follow up (Acute) Skin lesion of face (Acute) Impacted cerumen, right ear (Acute) Calcific tendinitis of left shoulder (Acute) DEPO MEDROL: 10/21/22; 06/23/2022; 01/20/22; 06/23/22 Left shoulder pain (Acute) Conductive hearing loss, external ear (Acute) Impacted cerumen, bilateral (Acute) Contusion of left upper extremity (Acute) JAN on CPAP (Chronic) Edema (Acute) Asymmetrical sensorineural hearing loss (Acute) 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) Anemia (Chronic) Hypomagnesemia (Chronic) Osteoarthritis of right knee (Acute) Most recent DEPO MEDROL: 11/30/2022; 07/08/2022 Impairment of speech discrimination (Acute) Tendinitis of right shoulder (Acute) DEPO MEDROL 11/11/22 Localized osteoarthritis of left knee (Acute) DEPO MEDROL 12/15/22 At risk for diabetic foot ulcer (Acute) 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) Obstructive sleep apnea syndrome (Chronic 03/29/16) Malignant neoplasm of female breast (Chronic 07/06/90) right breast BX-CA in SITU Increased BMI (Chronic) Impaired renal function (Chronic 03/29/18) Hypercholesterolemia (Chronic 01/01/13) Essential hypertension (Chronic 06/27/13) Edema extremities (Chronic 02/26/18) Diabetes mellitus (Chronic 01/01/13) Chronic left shoulder pain (Chronic 03/29/16) Cervical arthritis (Chronic) Basal cell carcinoma of other specified sites of skin (Chronic 08/21/12) RIP HOLDEN; FOREHEAD; RIGHT SIDE Incidental pulmonary nodule, > 3mm and < 8mm (Chronic) 04/30/18-[facility] Medical History DVT prophylaxis Discharge planning issues Diarrhea Near syncope Sensorineural hearing loss (SNHL) of left ear with unrestricted hearing of right ear Cervical strain Mantoux: positive history of Spinal stenosis lumbar l2-3/L3-4/L4-5 MRI 07/22 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 RIP PATRICIA; RIGHT CHEEK Polyp of colon (12/02/08) per colonoscopy-Dr. rip Patricia Acute colitis- 35cm Hyperplastic- 55cm Fatigue (07/26/12) Actinic keratosis Lumbar radicular pain Surgical History History of appendectomy History of bilateral ligation of fallopian tubes (07/29/14) History of cataract removal with insertion of prosthetic lens (05/26/15) History of section History of discectomy Status post abdominal hysterectomy Status post cholecystectomy S/P abdominal hysterectomy H/O section x 3 S/P cholecystectomy Hx of appendectomy S/P breast biopsy H/O discectomy History of bilateral tubal ligation 07/29/14 H/O cataract removal with insertion of prosthetic lens O.S. -05/26 2015; O.D.-06/16/2015 [place] [facility] [place] of fallopian tube (~1997) section X 3 MOHS 08/2014 Abdominal hysterectomy (~1997) DISCECTOMY Cholecystectomy Extraction of cataract 05/26/15; LEFT EYE 06/16/15; RIGHT EYE Biopsy of breast (~1990) RIGHT Bilateral salpingectomy with oophorectomy Appendectomy Family History Mother , age 86 Essential hypertension Asthma Breast cancer Father , age 61 Stroke Hypertension Son Hyperlipidemia Son No problems noted. Daughter Asthma Maternal Grandfather No problems noted. Paternal Grandfather No problems noted. Maternal Grandmother No problems noted. Paternal Grandmother No problems noted. 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 Do you need help understanding health information?: Rarely current occupation: retired Pets and animals: Yes Pets and animals: cat(s) Sexually active: No Do you think of yourself as: straight/heterosexual Current gender identity: female What is your relationship status?: How often do you talk on the phone with friends or family?: three or more times per week How often do you get together with friends or relatives?: twice per week How often do you attend anabaptism or sabianist services?: 4 or more times per year Do you belong to any clubs or organized social groups?: yes Panel score (0-1 are the most socially isolated patients): 3 What type of physical activity do you participate in: swimming Duration: 30-45 minutes/day Frequency: 1-2 times per week Janine/Confucianism: Sikhism Special janine needs: No Agree to transfusion: Yes Seatbelt use: always Helmet use: No Drive intox or ride w/intox 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: No Working smoke detector in home: Yes Carbon monox detector in home: Yes Firearms in home: No Do you feel safe at home: Yes Victim of physical abuse: No Victim of emotional abuse: No Victim of sexual abuse: No Additional Social history: lives alone Meds Allergies and Home Medications Allergies Allergy/AdvReac Type Severity Reaction Status Date / Time Penicillins Allergy CHILDHOOD Verified 12/13/24 12:56 clonidine AdvReac Unknown Verified 12/13/24 12:56 gabapentin AdvReac No energy Verified 12/13/24 12:56 and fatigue lisinopril AdvReac COUGH Verified 12/13/24 12:56 morphine AdvReac VOMITING/DI Verified 12/13/24 12:56 ARRHEA oxybutynin AdvReac dizzy Verified 12/13/24 12:56 oxycodone HCl (From Percocet) AdvReac VOMITING/NA Verified 12/13/24 12:56 USEA terazosin (From Hytrin) AdvReac Unknown Verified 12/13/24 12:56 Home Medications ?Medication ?Instructions ?Recorded ?Confirmed ?Type multivitamin (Once Daily tablet) 1 tab PO DAILY 12/28/12 12/13/24 History blood-glucose meter #1 ea 05/16/18 12/13/24 Rx cholecalciferol (vitamin D3) 50 100 mcg PO DAILY 06/08/21 12/13/24 History mcg (2,000 unit) capsule acetaminophen 500 mg tablet 1,000 mg PO TID 04/15/22 12/13/24 History peg 400-propylene glycol (PF) 0.4 1 drp ophthalmic (eye) BID-QID PRN 06/23/22 12/13/24 Rx %-0.3 % eye drops in a dropperette dry eye(s) #60 ea (Systane (PF)) clotrimazole-betamethasone 1 1 applic topical BID PRN itching 02/24/23 12/13/24 Rx %-0.05 % topical cream #45 grams blood sugar diagnostic (OneTouch #100 ea 03/30/23 12/13/24 Rx Ultra Test strips) fluticasone propionate 50 2 spray intranasal DAILY PRN 02/06/24 12/13/24 History mcg/actuation nasal spray,suspension conjugated estrogens 0.625 mg/gram 1 applic vaginal twice weekly #30 02/26/24 12/13/24 Rx vaginal cream (Premarin) grams atorvastatin 40 mg tablet (Lipitor) 40 mg PO DAILY #90 tab-caps 04/23/24 12/13/24 Rx carvedilol 6.25 mg tablet 6.25 mg PO BID #180 tabs 04/23/24 12/13/24 Rx diclofenac sodium 1 % topical gel 2 g topical QID PRN arthralgia 04/23/24 12/13/24 Rx (Voltaren Arthritis Pain) #700 grams pantoprazole 40 mg tablet,delayed 40 mg PO DAILY #90 tabs 04/23/24 12/13/24 Rx release spironolactone 25 mg tablet 25 mg PO BID #180 tab-caps 04/23/24 12/13/24 Rx apixaban 5 mg tablet (Eliquis) 5 mg PO BID #180 tabs 08/26/24 12/13/24 Rx furosemide 20 mg tablet 10 mg (1/2 x 20 mg) PO DAILY #90 08/26/24 12/13/24 Rx tabs fosfomycin tromethamine 3 gram 1 packet PO .weekly #6 pkgs 10/14/24 12/13/24 Rx oral packet benzonatate 100 mg capsule 100 mg PO TID PRN cough #30 caps 11/01/24 12/13/24 Rx acetaminophen 120 mg-codeine 12 5 ml PO Q4H PRN cough #200 mL 11/05/24 12/13/24 Rx mg/5 mL oral solution amlodipine 5 mg tablet 5 mg PO DAILY #90 tabs 11/18/24 12/13/24 Rx glipizide 10 mg tablet, extended 10 mg PO DAILY #90 tab-caps 11/18/24 12/13/24 Rx release 24 hr lancets 30 gauge (Shannontouch Delica #100 ea 11/18/24 12/13/24 Rx Safety Lancet) olmesartan 40 mg tablet 40 mg PO DAILY #90 tabs 11/18/24 12/13/24 Rx Exam Narrative Exam Narrative: Constitutional The patient is without acute distress HENMT: Head is atraumatic, normocephalic. Facial structures with normal appearance- slight dry oral cavity and lips Eyes: Well aligned Neck: Normal ROM, no meningeal signs Neuro:alert and oriented to self, person, place time and situation. No neurological focal deficit Resp: Normal respiratory pattern, speaks in full sentences, unlabored breathing, clear lung bilaterally Cardio: regular rhythm, S1, S2, + murmur, capillary refill<3 sec., bilateral radial and dorsalis pedis pulses are positive, trace RLE edema GI: Abdomen is not distended, soft and non tender, bowel sounds are present Back/spine/Pelvis: normal alignment Integumentary: 1x1 cm skin tear to left lower- lat back d/t reported therma- care patch application Extremities: moves all 4 ext. Psych: RASS 0, congruent mood and normal affect. Results Labs 12/13/24 13:30 12/13/24 13:30 Labs: Laboratory Results - last 24 hr 12/13/24 13:30 WBC 6.23 RBC 3.40 L Hgb 10.7 L Hct 31.5 L MCV 93 MCH 31.5 MCHC 34.0 RDW 12.8 Plt Count 202 MPV 10.6 Immature Gran % 0.3 Neutrophils % 77.5 Lymphocytes % 13.2 Monocytes % 7.4 Eosinophils % 0.8 Basophils % 0.8 Nucleated RBC % 0.0 Absolute Neutrophils 4.83 Absolute Lymphocytes 0.82 L Absolute Monocytes 0.46 Absolute Eosinophils 0.05 Absolute Basophils 0.05 Sodium 134 L Potassium 5.2 H Chloride 100 Carbon Dioxide 26.6 Anion Gap 7.4 BUN 43 H Creatinine 1.5 H Est GFR (CKD-EPI 2020) 34.36 Glucose 202 H Calcium 9.9 Magnesium 1.6 L Total Bilirubin 0.7 AST 22 ALT 22 Alkaline Phosphatase 38 L Troponin I 6 Total Protein 7.4 Albumin 3.9 TSH 1.95 Last Vital Signs Temp 36.0 C L 12/13/24 14:36 Pulse 60 12/13/24 14:13 Resp 18 12/13/24 13:46 BP 187/70 H 12/13/24 14:13 Pulse Ox 100 12/13/24 13:46 Time Spent Time spent with Patient: >75 minutes Time was spent: preparing to see the patient(eg.review tests), obtaining and/or reviewing separately otained hiistory, ordering medications,tests, procedures, referring, communicating with other health animal care service worker, indepentently interpreting results, counseling the patient and care coordination
[2024-12-13 15:08] LABS: Troponin I 7 ng/L (<or=51)
[2024-12-13 17:15] LABS: Bilirubin Negative (Negative); Blood Negative (Negative); Clarity Clear (Clear); Glucose 100 mg/dL (Negative); Ketones Negative (Negative); Leukocyte Esterase Trace (Negative); Nitrite Negative (Negative); Urobilinogen 0.2 mg/dL (Up to 0.2)
[2024-12-13 17:23] LABS: Bacteria Few HPF (Negative); Crystals Negative HPF (Negative); Epithelial Cells Negative HPF (Negative); Mucus Negative (Negative); Other Cells Few Yeast (Negative); RBC 0-2 HPF (0-2); WBC 0-2 HPF (0-5)
[2024-12-13 17:24] LABS: C & S Indicated? No
[2024-12-13] MEDS: Insulin Aspart 300 UNITS/3 ML PEN SC (17:45)
[2024-12-13] MEDS: Lactated Ringers 1,000 ML 50 ML IV (17:49)
--- NOTE | 2024-12-13 18:00 | W.PC.ACHO ---
Registration Status: Primary Language: Preferred Language: ED Information & Data Chief Complaint Dizzy/Sync 12/13/24 13:27 Triage Note syncopal episode while at 12/13/24 12:45 dress fitting. bradycardic and hypotensive on scene. fingerstick high. given NS and atropine by ems mining captain. Medical / Surgical History (Last Reviewed 12/13/24 @ 13:40 by Graham Hay MD) DVT prophylaxis Discharge planning issues Diarrhea Near syncope Sensorineural hearing loss (SNHL) of left ear with unrestricted hearing of right ear Cervical strain Mantoux: positive Spinal stenosis Secondary malignant neoplasm of ovary Palpitations Squamous cell carcinoma of other specified sites of skin Polyp of colon (12/02/08) Fatigue (07/26/12) Actinic keratosis Lumbar radicular pain (Last Reviewed 12/13/24 @ 13:40 by Graham Hay MD) History of appendectomy History of bilateral ligation of fallopian tubes (07/29/14) History of cataract removal with insertion of prosthetic lens (05/26/15) History of section History of discectomy Status post abdominal hysterectomy Status post cholecystectomy S/P abdominal hysterectomy H/O section S/P cholecystectomy Hx of appendectomy S/P breast biopsy H/O discectomy History of bilateral tubal ligation H/O cataract removal with insertion of prosthetic lens Hx of spinal surgery Ligation of fallopian tube (~1997) section MOHS Abdominal hysterectomy (~1997) DISCECTOMY Cholecystectomy Extraction of cataract Biopsy of breast (~1990) Bilateral salpingectomy with oophorectomy Appendectomy Most Recent Vital Signs Temperature 36.4 C L 12/13/24 16:22 Temperature Source Temporal Artery Scan 12/13/24 14:36 Pulse 61 12/13/24 16:22 Pulse Rhythm Regular 12/13/24 16:22 Pulse 57 L 12/13/24 15:20 Respiratory Rate 16 12/13/24 16:22 Respiratory Effort Normal, Non-Labored 12/13/24 16:22 Respiratory Depth Normal 12/13/24 16:22 Respiratory Pattern Normal 12/13/24 16:22 Blood Pressure 127/64 12/13/24 16:22 Blood Pressure Mean 97 12/13/24 15:16 Pulse Oximetry 99 12/13/24 16:22 Oxygen Delivery Method Room Air 12/13/24 16:22 Oxygen Flow Rate 0 12/13/24 16:22 Pain Level 0 05/09/25 15:40 Allergies Penicillins Allergy (Verified 12/13/24 12:56) CHILDHOOD clonidine Adverse Reaction (Verified 12/13/24 12:56) Unknown unknown gabapentin Adverse Reaction (Verified 12/13/24 12:56) No energy and fatigue Unknown lisinopril Adverse Reaction (Verified 12/13/24 12:56) COUGH morphine Adverse Reaction (Verified 12/13/24 12:56) VOMITING/DIARRHEA oxybutynin Adverse Reaction (Verified 12/13/24 12:56) dizzy Pt reports she does take this at a modified dosing schedule. She can't tolerate 10mg daily 09/29/21 TR oxycodone HCl (From Percocet) Adverse Reaction (Verified 12/13/24 12:56) VOMITING/NAUSEA terazosin (From Hytrin) Adverse Reaction (Verified 12/13/24 12:56) Unknown Unknown Active Medications Generic Name Dose Route Start Last Admin Trade Name Freq PRN Reason Stop Dose Admin Ringer's Solution 1,000 mls @ 50 mls/hr 12/13/24 16:45 12/13/24 17:49 IV 50 mls/hr INFUSION YOLI Administration Insulin Aspart 0 units 12/13/24 17:00 12/13/24 17:45 Insulin Aspart 300 Units/3 Ml Pen SC 2 units 0800,1200,1700 YOLI Administration Protocol IV IV Catheter Type [] Saline Lock IV Catheter Type [Left Saline Lock Antecubital] IV Catheter Gauge [] 22 IV Catheter Gauge [Left 20 Antecubital] Diet Orders Category Date Time Status Diabetes Consistent CHO/Heart Healthy [DIET] Nutrition 12/13/24 Dinner Active Diagnostics 12/13/24 12/13/24 12/13/24 Range/Units 17:00 16:21 14:30 WBC (4.4-10.8) 10^3/uL RBC (3.93-5.22) 10^6/uL Hgb (11.2-15.7) g/dL Hct (36.0-46.0) % MCV (80-95) fL MCH (27.0-33.0) pg MCHC (32.0-36.0) % RDW (11.7-14.6) % Plt Count (130-400) 10^3/uL MPV (8.0-11.0) fL Immature Gran % % Neutrophils % % Lymphocytes % % Monocytes % % Eosinophils % % Basophils % % Nucleated RBC % (0.0-0.3) % Absolute Neutrophils (1.2-6.7) 10^3/uL Absolute Lymphocytes (1.2-3.4) 10^3/uL Absolute Monocytes (0.1-0.8) 10^3/uL Absolute Eosinophils (0.0-0.7) 10^3/uL Absolute Basophils (0.0-0.2) 10^3/uL Sodium (136-145) mmol/L Potassium (3.5-5.1) mmol/L Chloride (98-107) mmol/L Carbon Dioxide (21.0-32.0) mmol/L Anion Gap (3-11) mmol/L BUN (7-18) mg/dL Creatinine (0.55-1.02) mg/dL Est GFR (CKD-EPI 2020) (mL/min/1.73m2) Glucose (74-106) mg/dL Calcium (8.5-10.1) mg/dL Magnesium (1.8-2.4) mg/dL Total Bilirubin (0.2-1.0) mg/dL AST (15-37) U/L ALT (14-59) U/L Alkaline Phosphatase (46-116) U/L Troponin I Pending 7 (<or=51) ng/L Total Protein (6.4-8.2) g/dL Albumin (3.4-5.0) g/dL TSH (0.36-3.74) uIU/mL Urine Color Yellow (Yellow) Urine Clarity Clear (Clear) Urine pH 7.0 (5-8) Ur Specific Archer 1.010 (1.005-1.025) Urine Protein Negative (Neg-Trace) mg/dL Urine Ketones Negative (Negative) mg/dL Urine Blood Negative (Negative) Urine Nitrite Negative (Negative) Urine Bilirubin Negative (Negative) Urine Urobilinogen 0.2 (Up to 0.2) mg/dL Ur Leukocyte Esterase Trace H (Negative) Urine RBC 0-2 (0-2) HPF Urine WBC 0-2 (0-5) HPF Ur Epithelial Cells Negative (Negative) HPF Urine Crystals Negative (Negative) HPF Urine Bacteria Few (Negative) HPF Urine Mucus Negative (Negative) Urine Other Few Yeast (Negative) Ur Culture Indicated? No Urine Glucose 100 H (Negative) mg/dL 12/13/24 Range/Units 13:30 WBC 6.23 (4.4-10.8) 10^3/uL RBC 3.40 L (3.93-5.22) 10^6/uL Hgb 10.7 L (11.2-15.7) g/dL Hct 31.5 L (36.0-46.0) % MCV 93 (80-95) fL MCH 31.5 (27.0-33.0) pg MCHC 34.0 (32.0-36.0) % RDW 12.8 (11.7-14.6) % Plt Count 202 (130-400) 10^3/uL MPV 10.6 (8.0-11.0) fL Immature Gran % 0.3 % Neutrophils % 77.5 % Lymphocytes % 13.2 % Monocytes % 7.4 % Eosinophils % 0.8 % Basophils % 0.8 % Nucleated RBC % 0.0 (0.0-0.3) % Absolute Neutrophils 4.83 (1.2-6.7) 10^3/uL Absolute Lymphocytes 0.82 L (1.2-3.4) 10^3/uL Absolute Monocytes 0.46 (0.1-0.8) 10^3/uL Absolute Eosinophils 0.05 (0.0-0.7) 10^3/uL Absolute Basophils 0.05 (0.0-0.2) 10^3/uL Sodium 134 L (136-145) mmol/L Potassium 5.2 H (3.5-5.1) mmol/L Chloride 100 (98-107) mmol/L Carbon Dioxide 26.6 (21.0-32.0) mmol/L Anion Gap 7.4 (3-11) mmol/L BUN 43 H (7-18) mg/dL Creatinine 1.5 H (0.55-1.02) mg/dL Est GFR (CKD-EPI 2020) 34.36 (mL/min/1.73m2) Glucose 202 H (74-106) mg/dL Calcium 9.9 (8.5-10.1) mg/dL Magnesium 1.6 L (1.8-2.4) mg/dL Total Bilirubin 0.7 (0.2-1.0) mg/dL AST 22 (15-37) U/L ALT 22 (14-59) U/L Alkaline Phosphatase 38 L (46-116) U/L Troponin I 6 (<or=51) ng/L Total Protein 7.4 (6.4-8.2) g/dL Albumin 3.9 (3.4-5.0) g/dL TSH 1.95 (0.36-3.74) uIU/mL Urine Color (Yellow) Urine Clarity (Clear) Urine pH (5-8) Ur Specific Archer (1.005-1.025) Urine Protein (Neg-Trace) mg/dL Urine Ketones (Negative) mg/dL Urine Blood (Negative) Urine Nitrite (Negative) Urine Bilirubin (Negative) Urine Urobilinogen (Up to 0.2) mg/dL Ur Leukocyte Esterase (Negative) Urine RBC (0-2) HPF Urine WBC (0-5) HPF Ur Epithelial Cells (Negative) HPF Urine Crystals (Negative) HPF Urine Bacteria (Negative) HPF Urine Mucus (Negative) Urine Other (Negative) Ur Culture Indicated? Urine Glucose (Negative) mg/dL [id number] Documentation Fingerstick Glucose Start: 12/13/24 12:54 Freq: Status: Complete Protocol: Activity Type Activity Date Activity User E-sign Co-sign Detail Recorded Client Recorded Date Recorded By Document 12/13/24 12:54 BKG DAEMON(5) [id number] 12/13/24 12:54 BKG DAEMON(6) Fingerstick Glucose Start: 12/13/24 16:35 Freq: AC & HS Status: Active Protocol: Activity Type Activity Date Activity User E-sign Co-sign Detail Recorded Client Recorded Date Recorded By Document 12/13/24 17:15 BKG DAEMON(7) [id number] 12/13/24 17:15 BKG DAEMON(8) Intake and Output - 24 Hour Total 12/13/24 12:38 thru 12/13/24 17:31 Intake Total 610 Output Total 100 Balance 510 Weight 79.832 kg Intake: IV 610 Output: Urine 100 Other: Urine Appearance Clear Falls Risk Assessment History of Falls Admit Due to Fall 12/13/24 16:22 Contributing Factors Unstable,Incontinence 12/13/24 16:22 Ambulatory Aids Independent 12/13/24 16:22 Tubes/Lines With any additional score 12/13/24 16:22 Gait Evaluation W/no contributing factors 12/13/24 16:22 Cognition No cognitive impairment 12/13/24 16:22 Fall Total Score 61 12/13/24 16:22 Level of Risk High Risk 12/13/24 16:22 Problems (Last Reviewed 12/13/24 @ 13:40 by Graham Hay MD) Hyperlipidemia (Acute) HTN (hypertension) (Chronic) Type 2 diabetes mellitus (Acute) Chronic kidney disease (Chronic) Symptomatic bradycardia (Acute) Hypomagnesemia (Acute) Syncope (Chronic) Recurrent UTI (Acute) Paroxysmal atrial fibrillation (Chronic) v v v v v v v v v Sending and/or Receiving Nurses: Please use comment section below to note any information pertinent to the patient hand-off not included above. Information / Comments: Report received from: Keiry Daily ED RN, report at 15:37
[2024-12-13 18:36] LABS: Troponin I 6 ng/L (<or=51)
[2024-12-13] MEDS: Apixaban 5 MG TAB PO (21:31)
[2024-12-13] MEDS: Acetaminophen 500 MG TAB 1000 MG PO (21:31)
[2024-12-13] MEDS: Carvedilol 6.25 MG TAB PO (21:31)
[2024-12-14 04:14] VITALS: BP 138/54; PULSE 54; RESP 20; TEMP 36.6; O2SAT 97
[2024-12-14 06:00] LABS: Abs Immature Grans 0.01 10^3/uL (0.0-0.06); Absolute Basophil Count 0.06 10^3/uL (0.0-0.2); Absolute Eosinophil Count 0.07 10^3/uL (0.0-0.7); Absolute Lymphocyte Count 1.18 10^3/uL (1.2-3.4); Absolute Monocyte Count 0.54 10^3/uL (0.1-0.8); Absolute Neutrophil Count 3.79 10^3/uL (1.2-6.7); Basophils % 1.1 %; Eosinophils % 1.2 %; HCT 30.7 % (36.0-46.0); HGB 10.3 g/dL (11.2-15.7); Immature Grans % 0.2 %; Lymphocytes % 20.9 %; MCH 31.2 pg (27.0-33.0); MCHC 33.6 % (32.0-36.0); MCV 93 fL (80-95); MPV 10.8 fL (8.0-11.0); Monocytes % 9.6 %; Platelet Count 190 10^3/uL (130-400); RDW 12.9 % (11.7-14.6); RDW-SD 43.9 fL; WBC 5.65 10^3/uL (4.4-10.8)
[2024-12-14 06:14] LABS: Anion Gap 9.1 mmol/L (3-11); BUN 35 mg/dL (7-18); CO2 24.9 mmol/L (21.0-32.0); CREATININE 1.3 mg/dL (0.55-1.02); Calcium 9.9 mg/dL (8.5-10.1); Chloride 102 mmol/L (98-107); Glucose 95 mg/dL (74-106); Magnesium 1.7 mg/dL (1.8-2.4); Potassium 3.7 mmol/L (3.5-5.1); Sodium 136 mmol/L (136-145)
[2024-12-14 07:29] VITALS: BP 133/57; PULSE 54; RESP 16; TEMP 37; O2SAT 97
[2024-12-14] MEDS: Spironolactone 25 MG TAB PO (08:22)
[2024-12-14] MEDS: Cholecalciferol (Vitamin D3) 1,000 UNIT TAB 4000 UNITS PO (08:22)
[2024-12-14] MEDS: Furosemide 20 MG TAB 10 MG PO (08:22)
[2024-12-14] MEDS: Carvedilol 6.25 MG TAB PO (08:22)
[2024-12-14] MEDS: Acetaminophen 500 MG TAB 1000 MG PO ×2 (08:22→14:07)
[2024-12-14] MEDS: Apixaban 5 MG TAB PO (08:23)
[2024-12-14] MEDS: Multivitamin TAB 1 TAB PO (08:23)
[2024-12-14] MEDS: Pantoprazole 40 MG TABCR PO (08:23)
[2024-12-14] MEDS: amLODIPine 5 MG TAB PO (08:23)
[2024-12-14] MEDS: Atorvastatin 40 MG TAB PO (08:23)
--- NOTE | 2024-12-14 10:53 | INITIAL_ITS ---
Date of service: 12/14/24 Time of Service: 10:53 Care Management Initial Assmt Initial Assessment Reason for Hospitalization: syncope Functional Status/Living Situation Patient Presentation: Osiris was sitting up in the bed when met with her today. She was very pleasant, and easy to converse with. Osiris had a syncopal episode yesterday, where she passed out, but did not hit her head. 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 She felt a bit of nausea, and next thing she remembered was waking up with the firemen over her. Osiris lives alone in a home in [facility]. She is very independent. 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 Osiris stated that she feels great today. She would love to go home. Her true, main concern, is making it to her grandson's college graduation in 2 weeks. The ceremony is in [place]. She will not be the one driving. This graduation is especially important to her, as her grandson was born with some issues, and this is a huge milestone for him. She proudly stated that she has 8 grandchildren who are all doing well. Town of Residence: [facility] Resides with: Alone Significant Other/Family: Local (son, Jayy, lives in [place] with his family, but works in [employer] and is quite involved. Son, Rachid, lives in [place]. 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) Instrumental Activities of Daily Living (ADLs): Independent Medications Medication Management: No Issues/Barriers identified Advance Directives Advance Directives: Do you have an Advance Directive: Y 08/05/24 10:34 AD On File at [facility] [facility]: Y 08/05/24 10:34 Date Asked 05/22/24 08/05/24 10:34 AD Date Reviewed 11/13/24 11/13/24 12:20 COLST On File at [facility] COLST Date Scanned Code Status Resuscitation Status Full Code Insurance Coverage/Financial Issues Insurance: Medicare Part A & B AARP MCR Supplementa Care Team Visit Care Team Role Provider Type Di Rojas APRN MD [facility] STAFF PHYSICIAN Ijeoma Najera MD, [place] Primary Care Provider , [facility] ST[facility] Marielle Rodriguez RDN, [facility] Other Providers TEXTILE TECHNICAL OFFICER Suleiman Bland RDN Other Providers TEXTILE TECHNICAL OFFICER Graham Hay MD Emergency Provider [facility] STAFF PHYSICIAN Duane Juarez MD Admit Provider [facility] STAFF PHYSICIAN Attending Provider Discharge Potential Discharge Needs: Imaging/labs (echocardiogram? vs outpatient testing) and PCP F/U Appt Anticipated Barriers to Discharge: Treatment delay (echo not available until 12/16) Patient/Family Education Needs: Review discharge instructions, discuss Ask Me Three Transportation: Private vehicle Plan: Osiris will be discharged home with no new services. She will f/u with her PCP and perhaps cardiology and continue per her plan of care.. She will require an echocardiogram. Osiris will transport home in a private vehicle. Cm will continue to follow and to update the plan as needed. Social Determinants of Health Screening Will the Patient Participate in the Screening?: Declined to provide Problems where you live: no known problems In the past 12 months, have you had to go without electric, gas, oil or water in your home?: no PFSH All Active Problems (Updated 12/13/24 @ 16:30 by Di Rojas APRN) Hyperlipidemia (Acute) HTN (hypertension) (Chronic) Type 2 diabetes mellitus (Acute) Chronic kidney disease (Chronic) Symptomatic bradycardia (Acute) Hypomagnesemia (Acute) Syncope (Chronic) Cough (Acute) Viral respiratory illness (Acute) Recurrent UTI (Acute) Paroxysmal atrial fibrillation (Chronic) Reflux gastritis (Acute) Overactive bladder (Acute) Bilateral lower extremity edema (Acute) Facial trauma (Acute) Hyponatremia (Chronic) Urinary frequency (Acute) Right rotator cuff tendonitis (Acute) DEPO MEDROL 11/11/22 Insomnia (Acute) Follow up (Acute) Skin lesion of face (Acute) Impacted cerumen, right ear (Acute) Calcific tendinitis of left shoulder (Acute) DEPO MEDROL: 10/21/22; 06/23/2022; 01/20/22; 06/23/22 Left shoulder pain (Acute) Conductive hearing loss, external ear (Acute) Impacted cerumen, bilateral (Acute) Contusion of left upper extremity (Acute) JAN on CPAP (Chronic) Edema (Acute) Asymmetrical sensorineural hearing loss (Acute) 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) Anemia (Chronic) Hypomagnesemia (Chronic) Osteoarthritis of right knee (Acute) Most recent DEPO MEDROL: 11/30/2022; 07/08/2022 Impairment of speech discrimination (Acute) Tendinitis of right shoulder (Acute) DEPO MEDROL 11/11/22 Localized osteoarthritis of left knee (Acute) DEPO MEDROL 12/15/22 At risk for diabetic foot ulcer (Acute) 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) Obstructive sleep apnea syndrome (Chronic 03/29/16) Malignant neoplasm of female breast (Chronic 07/06/90) right breast BX-CA in SITU Increased BMI (Chronic) Impaired renal function (Chronic 03/29/18) Hypercholesterolemia (Chronic 01/01/13) Essential hypertension (Chronic 06/27/13) Edema extremities (Chronic 02/26/18) Diabetes mellitus (Chronic 01/01/13) Chronic left shoulder pain (Chronic 03/29/16) Cervical arthritis (Chronic) Basal cell carcinoma of other specified sites of skin (Chronic 08/21/12) RIP HOLDEN; FOREHEAD; RIGHT SIDE Incidental pulmonary nodule, > 3mm and < 8mm (Chronic) 04/30/18-[facility] Medical History DVT prophylaxis Discharge planning issues Diarrhea Near syncope 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 RIP PATRICIA; RIGHT CHEEK Polyp of colon (12/02/08) per colonoscopy-Dr. rip Patricia Acute colitis- 35cm Hyperplastic- 55cm Fatigue (07/26/12) Actinic keratosis Lumbar radicular pain Surgical History History of appendectomy History of bilateral ligation of fallopian tubes (07/29/14) History of cataract removal with insertion of prosthetic lens (05/26/15) History of section History of discectomy Status post abdominal hysterectomy Status post cholecystectomy S/P abdominal hysterectomy H/O section x 3 S/P cholecystectomy Hx of appendectomy S/P breast biopsy H/O discectomy History of bilateral tubal ligation 07/29/14 H/O cataract removal with insertion of prosthetic lens O.S. -05/26 2015; O.D.-06/16/2015 Hx of spinal surgery 01/24/17 [facility] [place]igation of fallopian tube (~1997) section X 3 MOHS 08/2014 Abdominal hysterectomy (~1997) DISCECTOMY Cholecystectomy Extraction of cataract 05/26/15; LEFT EYE 06/16/15; RIGHT EYE Biopsy of breast (~1990) RIGHT Bilateral salpingectomy with oophorectomy Appendectomy Family History Mother , age 86 Essential hypertension Asthma Breast cancer Father , age 61 Stroke Hypertension Son Hyperlipidemia Son No problems noted. Daughter Asthma Maternal Grandfather No problems noted. Paternal Grandfather No problems noted. Maternal Grandmother No problems noted. Paternal Grandmother No problems noted. 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 Do you need help understanding health information?: Rarely current occupation: retired Pets and animals: Yes Pets and animals: cat(s) Sexually active: No Do you think of yourself as: straight/heterosexual Current gender identity: female What is your relationship status?: How often do you talk on the phone with friends or family?: three or more times per week How often do you get together with friends or relatives?: twice per week How often do you attend congregation or restorationist services?: 4 or more times per year Do you belong to any clubs or organized social groups?: yes Panel score (0-1 are the most socially isolated patients): 3 What type of physical activity do you participate in: swimming Duration: 30-45 minutes/day Frequency: 1-2 times per week Janine/Sabianism: Christianity Special janine needs: No Agree to transfusion: Yes Seatbelt use: always Helmet use: No Drive intox or ride w/intox tanker truck driver: No Working smoke detector in home: Yes Carbon monox detector in home: Yes Firearms in home: No Do you feel safe at home: Yes Victim of physical abuse: No Victim of emotional abuse: No Victim of sexual abuse: No Additional Social history: lives alone Readmission Within the Past 30 Days Yes or No: No
[2024-12-14 11:06] VITALS: BP 124/48; PULSE 51; RESP 20; TEMP 36.3; O2SAT 100
[2024-12-14 11:20] VITALS: BP 137/56; BP 140/52; BP 146/49; PULSE 51; PULSE 56
[2024-12-14] MEDS: Insulin Aspart 300 UNITS/3 ML PEN SC (11:58)
[2024-12-14] MEDS: Magnesium Oxide 400 MG TAB PO (13:07)
--- NOTE | 2024-12-14 13:43 | DSE_ITS ---
Date of service: 12/14/24 Time of Service: 13:43 DS: Diagnosis Discharge Diagnosis (1) Syncope: Status: Chronic (2) Symptomatic bradycardia: Status: Acute (3) Chronic kidney disease: Status: Chronic (4) Hypomagnesemia: Status: Acute (5) Paroxysmal atrial fibrillation: Status: Chronic (6) Recurrent UTI: Status: Acute (7) Type 2 diabetes mellitus: Status: Acute (8) HTN (hypertension): Status: Chronic (9) Hyperlipidemia: Status: Acute Discharge Plan Disposition Patient Disposition: Home Condition: Improving Discharge Details Reason For Visit: syncope Admit Date/Time: 12/13/24 14:58 Admit Provider: Duane Juarez Attending Provider: Duane Juarez Primary Care Provider: Ijeoma Najera Hospital Course Hospital Course: This 84 years old female patient with a past medical history significant for atrial fibrillation on Eliquis and carvedilol, CKD, known insulin-dependent diabetes type 2 presented to the ED by EMS today for evaluation [facility] and enclosed [facility]. The patient reported feeling dizzy prior to syncope, reported ongoing diarrhea. Atropine given by EMS for bradycardia in resolution of symptoms and a heart rate going from 30s to 70s. Workup in the ED was negative for ACS, a slightly elevated BUN at 43 from baseline in the 30s pointed to dehydration. The patient was treated with IV fluids. The patient was admitted by the hospitalist team to the medical surgical floor with telemetry for syncope, symptomatic bradycardia, dehydration. Asymptomatic bradycardia w/o ectopy as per telemetry reading observed and carvedilol dose decreased to 3.125mg oral twice a day.The patient was advised to eat regular meals d/t the used of glypizide and beta-ricco, and to remain hyd rated. No further symptoms observed. The patient remained hemodynamically stable and will be discharged home with outpatient echocardiogram, BMP and magnesium orders. Referral to cardiology completed. The patient will need a follow-up with PCP within 7 days of discharge. Recommendation for PCP follow-up: Renal function and electrolytes F/u outpatient echocardiogram Cardiology referral completed f/u in 03/2025 F/U on Urine culture- UA not indicative of UTI Home Meds and New Rx's Prescriptions: New carvedilol 6.25 mg Tablet 3.125 mg PO BID Qty: 30 0RF Continued cholecalciferol (vitamin D3) 50 mcg (2,000 unit) capsule 100 mcg PO DAILY Systane (PF) 0.4-0.3 % dropperette 1 drp OPHTHALMIC (EYE) BID-QID PRN (Reason: dry eye(s)) Qty: 60 4RF atorvastatin [Lipitor] 40 mg tablet 40 mg PO DAILY Qty: 90 4RF pantoprazole 40 mg tablet,delayed release (DR/EC) 40 mg PO DAILY Qty: 90 4RF spironolactone 25 mg tablet 25 mg PO BID Qty: 180 12RF diclofenac sodium [Voltaren Arthritis Pain] 1 % gel 2 g topical QID PRN (Reason: arthralgia) Qty: 700 4RF Rx Instructions: apply to single elbow, wrist or hand; for hand includes palm/fingers/back of hand olmesartan 40 mg tablet 40 mg PO DAILY Qty: 90 4RF Rx Instructions: replace losartan amlodipine 5 mg tablet 5 mg PO DAILY Qty: 90 4RF glipizide 10 mg tablet extended release 24hr 10 mg PO DAILY Qty: 90 4RF (DME) lancets [Onetouch Delica Safety Lancet] 30 gauge misc See Rx Instructions .Route Qty: 100 4RF Rx Instructions: Once per day; E11.9 (DME) OneTouch Ultra Test Strip See Rx Instructions .Route Qty: 100 4RF Rx Instructions: Once per day . OneTouch Ultra2 meter Eliquis 5 mg tablet 5 mg PO BID Qty: 180 5RF furosemide 20 mg tablet 10 mg PO DAILY Qty: 90 5RF Patient Comments: 10mg multivitamin [Once Daily] 1 EACH tablet 1 tab PO DAILY (DME) blood-glucose meter misc See Dose Instructions .ROUTE .MEDSUPPLY Qty: 1 0RF Dose Instruction: As directed Rx Instructions: daily acetaminophen 500 mg tablet 1,000 mg PO TID clotrimazole-betamethasone 1-0.05 % cream 1 applic topical BID PRN (Reason: itching) Qty: 45 1RF Premarin 0.625 mg/gram cream 1 applic VG twice weekly Qty: 30 3RF Rx Instructions: Use 0.5 GM in vagina twice weekly fosfomycin tromethamine 3 gram packet 1 packet PO .weekly Qty: 6 3RF Rx Instructions: Mix with 4 oz (120 mL) cool water before ingesting. For UTI prevention benzonatate 100 mg capsule 100 mg PO TID PRN (Reason: cough) Qty: 30 0RF fluticasone propionate 50 mcg/actuation spray,suspension 2 spray intranasal DAILY PRN Rx Instructions: administer into each nostril Held acetaminophen-codeine 120-12 mg/5 mL solution 5 ml PO Q4H PRN (Reason: cough) Qty: 200 2RF Hold Instructions: Resume on 12/30/24. Held d/t renal function and codeine use- and also on max dose for age of scheduled acetaminophen with 1000mg TID - Discuss resumption with PCP Discontinued carvedilol 6.25 mg tablet 6.25 mg PO BID Qty: 180 4RF Rx Instructions: must administer with a meal/food Discharge Instructions Referrals: Ijeoma Najera MD, [place] [Primary Care Provider] - (Follow-up with PCP within 7 days of discharge please.) Anali Mendoza MD [ [facility] STAFF PHYSICIAN] - (S/p syncopal episode with bradycardia resolving with atropine by EMS, decreased carvedilol ( paroxysmal A- fib) dose on d/c- SB-SR on tele during stay HR49- 60's) Activity:: Activity as Tolerated Equipment/Supplies:: No Equipment Needed Diet:: heart healthy diabetic Discharge Orders Other Ambulatory Orders: Basic Metabolic Panel (Routine) Timeframe: 20241218 Facility: [facility] - Location: Laboratory Outpatient - [facility] Ordered By: Di Rojas US echocardiogram (Routine) Timeframe: 10 Day Facility: [facility] - Location: DIAGNOSTIC IMAGING Ordered By: Di Rojas Magnesium (Routine) Timeframe: 20241218 Facility: [facility] - Location: Laboratory Outpatient - [facility] Ordered By: Di Rojas DS: Summary Time Spent with Patient providing and/or coordinating discharge services: Greater than 30 minutes Status at Discharge Functional status at discharge: independent ambulation Overall status at discharge: patient is progressing back to baseline Mental Status: mental status grossly normal Speech and Movement: speech and movement normal Mood: congruent mood Affect: normal affect Quality:SDOH Health Related Social Needs: Health related social needs feeling lonely/isolated (Z 60.8) Exam Narrative Exam Narrative: Constitutional The patient is without acute distress Eyes: Well aligned Neuro:alert and oriented X 4 , no neurological focal deficit Resp: unlabored breathing, clear lung bilaterally Cardio:tele SB 49-56 at rest, low 70's on ambulation, S1, S2, + murmur, bilateral radial and dorsalis pedis pulses are positive,improved trace RLE edema GI: Abdomen is not distended, soft and non tender, bowel sounds are present Extremities: moves all 4 ext. Psych: RASS 0, congruent mood and normal affect. Psych Mental Status: mental status grossly normal Speech and Movement: speech and movement normal Mood: congruent mood Affect: normal affect DS: Data Vitals/I&O Vitals and I&O: Vital Signs Temperature 36.3 C L 12/14/24 11:06 Temperature Source Temporal Artery Scan 12/14/24 11:06 Pulse 51 L 12/14/24 11:20 Pulse Rhythm Regular 12/13/24 16:22 Pulse 57 L 12/13/24 15:20 Respiratory Rate 20 12/14/24 11:06 Respiratory Effort Normal, Non-Labored 12/13/24 16:22 Respiratory Depth Normal 12/13/24 16:22 Respiratory Pattern Normal 12/13/24 16:22 Blood Pressure 146/49 H 12/14/24 11:20 Blood Pressure Mean 73 12/14/24 11:06 Pulse Oximetry 100 12/14/24 11:06 Oxygen Delivery Method Room Air 12/14/24 11:06 Oxygen Flow Rate 0 12/14/24 11:06 Pain Level 0 12/14/24 11:06 Comment RN notified 12/14/24 11:06 Intake & Output 12/13/24 12/14/24 12/14/24 23:59 11:59 23:59 Intake Total 610 / 610 Output Total 950 / 950 575 / 775 200 / 775 Balance -340 / -340 -575 / -775 -200 / -775 Weight 79.832 kg Intake: IV 610 / 610 Output: Urine 950 / 950 575 / 775 200 / 775 Other: Urine Color Pale Yellow Yellow Yellow Urine Appearance Clear Clear Clear Urine Odor Normal Normal Comment Patient voided in toilet with stand by assistance. no hat in toilet, unmeasured Stool Size Smear Stool Characteristics Soft Data Completed and Pending Labs on day of discharge: Labs from last 24 hours 12/14/24 05:36: WBC 5.65, RBC 3.30 L, Hgb 10.3 L, Hct 30.7 L, MCV 93, MCH 31.2, MCHC 33.6, RDW 12.9, Plt Count 190, MPV 10.8, Immature Gran % 0.2, Neutrophils % 67.0, Lymphocytes % 20.9, Monocytes % 9.6, Eosinophils % 1.2, Basophils % 1.1, Nucleated RBC % 0.0, Absolute Neutrophils 3.79, Absolute Lymphocytes 1.18 L, Absolute Monocytes 0.54, Absolute Eosinophils 0.07, Absolute Basophils 0.06, Sodium 136, Potassium 3.7 D, Chloride 102, Carbon Dioxide 24.9, Anion Gap 9.1, BUN 35 H, Creatinine 1.3 H, Est GFR (CKD-EPI 2020) 40.80, Glucose 95, Calcium 9.9, Magnesium 1.7 L 12/13/24 18:10: Troponin I 6 12/13/24 17:00: Urine Color Yellow, Urine Clarity Clear, Urine pH 7.0, Ur Specific [place] 1.010, Urine Protein Negative, Urine Ketones Negative, Urine Blood Negative, Urine Nitrite Negative, Urine Bilirubin Negative, Urine Urobilinogen 0.2, Ur Leukocyte Esterase Trace H, Urine RBC 0-2, Urine WBC 0-2, Ur Epithelial Cells Negative, Urine Crystals Negative, Urine Bacteria Few, Urine Mucus Negative, Urine Other Few Yeast, Ur Culture Indicated? No, Urine Glucose 100 H 12/13/24 14:30: Troponin I 7 12/13/24 13:30: WBC 6.23, RBC 3.40 L, Hgb 10.7 L, Hct 31.5 L, MCV 93, MCH 31.5, MCHC 34.0, RDW 12.8, Plt Count 202, MPV 10.6, Immature Gran % 0.3, Neutrophils % 77.5, Lymphocytes % 13.2, Monocytes % 7.4, Eosinophils % 0.8, Basophils % 0.8, Nucleated RBC % 0.0, Absolute Neutrophils 4.83, Absolute Lymphocytes 0.82 L, Absolute Monocytes 0.46, Absolute Eosinophils 0.05, Absolute Basophils 0.05, Sodium 134 L, Potassium 5.2 H, Chloride 100, Carbon Dioxide 26.6, Anion Gap 7.4, BUN 43 H, Creatinine 1.5 H, Est GFR (CKD-EPI 2020) 34.36, Glucose 202 H, Calcium 9.9, Magnesium 1.6 L, Total Bilirubin 0.7, AST 22, ALT 22, Alkaline Phosphatase 38 L, Troponin I 6, Total Protein 7.4, Albumin 3.9, TSH 1.95 12/13/24 17:00 Urine - Clean Catch Urine Culture - Pending Preliminary micro results at discharge 12/13/24 17:00 Urine - Clean Catch Urine Culture - Pending [facility] All Active Problems (Updated 12/14/24 @ 13:45 by Di Rojas APRN) Hyperlipidemia (Acute) HTN (hypertension) (Chronic) Type 2 diabetes mellitus (Acute) Chronic kidney disease (Chronic) Symptomatic bradycardia (Acute) Hypomagnesemia (Acute) Syncope (Chronic) Cough (Acute) Viral respiratory illness (Acute) Recurrent UTI (Acute) Paroxysmal atrial fibrillation (Chronic) Reflux gastritis (Acute) Overactive bladder (Acute) Bilateral lower extremity edema (Acute) Facial trauma (Acute) Hyponatremia (Chronic) Urinary frequency (Acute) Right rotator cuff tendonitis (Acute) DEPO MEDROL 11/11/22 Insomnia (Acute) Follow up (Acute) Skin lesion of face (Acute) Impacted cerumen, right ear (Acute) Calcific tendinitis of left shoulder (Acute) DEPO MEDROL: 10/21/22; 06/23/2022; 01/20/22; 06/23/22 Left shoulder pain (Acute) Conductive hearing loss, external ear (Acute) Impacted cerumen, bilateral (Acute) Contusion of left upper extremity (Acute) JAN on CPAP (Chronic) Edema (Acute) Asymmetrical sensorineural hearing loss (Acute) 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) Anemia (Chronic) Hypomagnesemia (Chronic) Osteoarthritis of right knee (Acute) Most recent DEPO MEDROL: 11/30/2022; 07/08/2022 Impairment of speech discrimination (Acute) Tendinitis of right shoulder (Acute) DEPO MEDROL 11/11/22 Localized osteoarthritis of left knee (Acute) DEPO MEDROL 12/15/22 At risk for diabetic foot ulcer (Acute) 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) Obstructive sleep apnea syndrome (Chronic 03/29/16) Malignant neoplasm of female breast (Chronic 07/06/90) right breast BX-CA in SITU Increased BMI (Chronic) Impaired renal function (Chronic 03/29/18) Hypercholesterolemia (Chronic 01/01/13) Essential hypertension (Chronic 06/27/13) Edema extremities (Chronic 02/26/18) Diabetes mellitus (Chronic 01/01/13) Chronic left shoulder pain (Chronic 03/29/16) Cervical arthritis (Chronic) Basal cell carcinoma of other specified sites of skin (Chronic 08/21/12) RIP HOLDEN; FOREHEAD; RIGHT SIDE Incidental pulmonary nodule, > 3mm and < 8mm (Chronic) 04/30/18-[facility] Medical History DVT prophylaxis Discharge planning issues Diarrhea Near syncope 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 RIP PATRICIA; RIGHT CHEEK Polyp of colon (12/02/08) per colonoscopy-Dr. irp Patricia Acute colitis- 35cm Hyperplastic- 55cm Fatigue (07/26/12) Actinic keratosis Lumbar radicular pain Surgical History History of appendectomy History of bilateral ligation of fallopian tubes (07/29/14) History of cataract removal with insertion of prosthetic lens (05/26/15) History of section History of discectomy Status post abdominal hysterectomy Status post cholecystectomy S/P abdominal hysterectomy H/O section x 3 S/P cholecystectomy Hx of appendectomy S/P breast biopsy H/O discectomy History of bilateral tubal ligation 07/29/14 H/O cataract removal with insertion of prosthetic lens O.S. -05/26 2015; O.D.-06/16/2015 Hx of spinal surgery 01/24/17 [facility] [place] Ligation of fallopian tube (~1997) section X 3 MOHS 08/2014 Abdominal hysterectomy (~1997) DISCECTOMY Cholecystectomy Extraction of cataract 05/26/15; LEFT EYE 06/16/15; RIGHT EYE Biopsy of breast (~1990) RIGHT Bilateral salpingectomy with oophorectomy Appendectomy Family History Mother , age 86 Essential hypertension Asthma Breast cancer Father , age 61 Stroke Hypertension Son Hyperlipidemia Son No problems noted. Daughter Asthma Maternal Grandfather No problems noted. Paternal Grandfather No problems noted. Maternal Grandmother No problems noted. Paternal Grandmother No problems noted. 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 Do you need help understanding health information?: Rarely current occupation: retired Pets and animals: Yes Pets and animals: cat(s) Sexually active: No Do you think of yourself as: straight/heterosexual Current gender identity: female What is your relationship status?: How often do you talk on the phone with friends or family?: three or more times per week How often do you get together with friends or relatives?: twice per week How often do you attend bahai or congregation services?: 4 or more times per year Do you belong to any clubs or organized social groups?: yes Panel score (0-1 are the most socially isolated patients): 3 What type of physical activity do you participate in: swimming Duration: 30-45 minutes/day Frequency: 1-2 times per week Janine/Tenriism: Caodaism Special janine needs: No Agree to transfusion: Yes Seatbelt use: always Helmet use: No Drive intox or ride w/intox equipment driver: No Working smoke detector in home: Yes Carbon monox detector in home: Yes Firearms in home: No Do you feel safe at home: Yes Victim of physical abuse: No Victim of emotional abuse: No Victim of sexual abuse: No Additional Social history: lives alone Time Spent with Patient Time Spent with Patient: 70-84 minutes4 Time was spent: preparing to see the patient(eg.review tests), obtaining and/or reviewing separately otained hiistory, ordering medications,tests, procedures, referring, communicating with other health day care aide, indepentently interpreting results, counseling the patient and care coordination
--- NOTE | 2024-12-14 14:47 | CMDISCH_ITS ---
Date of service: 12/14/24 Time of Service: 14:49 LACE Index Scoring Tool Questions: Length of Stay (in days): 1 Was the patient admitted via the E.D.?: Yes Comorbidities: Any Tumor E.D. Visits: 2 Answers: Total Score: 8 Risk of Readmission: Low Risk Care Management Discharge Plan Reason for Hospitalization: syncope Discharge Plan: Osiris is discharged home today with no new services. Her cardiac meds have been adjusted slightly. Osiris with f/u with her PCP and with cardiology, and continue per her plan of care. She will transport home with her son. Patient/Family Education Needs: Review of discharge instructions, activity, limitations, and discuss, ask me 3. SDOH Health Related Social Needs: Health related social needs feeling lonely/isolated (Z 60.8)
== END 2024-12-14 14:55 | disposition home or self-care (01) ==
LOC: ER 15:16 → MS 16:05
PROVIDERS: Admitting Provider Family Medicine; Emergency Provider Student in an Organized Health Care Education/Training Program; PCP Family Medicine; Responsible Provider Nurse Practitioner Acute Care; Visit Provider Family Medicine
DX: R55 Syncope and collapse (principal); E86.0 Dehydration; R00.1 Bradycardia, unspecified; N18.9 Chronic kidney disease, unspecified; E83.42 Hypomagnesemia; E11.22 Type 2 diabetes mellitus with diabetic chronic kidney disease; N39.0 Urinary tract infection, site not specified; I12.9 Hypertensive chronic kidney disease with stage 1 through stage 4 chronic kidney disease, or unspecified chronic kidney disease; E78.5 Hyperlipidemia, unspecified; Z79.84 Long term (current) use of oral hypoglycemic drugs; Z79.01 Long term (current) use of anticoagulants; R19.7 Diarrhea, unspecified; I48.0 Paroxysmal atrial fibrillation; K29.60 Other gastritis without bleeding; N32.81 Overactive bladder; G47.00 Insomnia, unspecified; G47.33 Obstructive sleep apnea (adult) (pediatric); M17.12 Unilateral primary osteoarthritis, left knee; Z85.3 Personal history of malignant neoplasm of breast; R60.0 Localized edema
CPT/HCPCS: 00123; 36415; 36416; 80048; 80053; 82962; 93005; 96361; 96365; 99285; 81003; 81015; 83735; 84443; 84484; 85025; 87086; 93010; 99223; 99239; G0378; J1815; J3475

== ENCOUNTER 2024-12-18 03:32 | Outpatient (CLI) | payer MEDICARE, SELFPAY ==
[2024-12-18 13:49] LABS: Anion Gap 9.2 mmol/L (3-11); BUN 41 mg/dL (7-18); CO2 25.8 mmol/L (21.0-32.0); CREATININE 1.3 mg/dL (0.55-1.02); Calcium 9.9 mg/dL (8.5-10.1); Chloride 98 mmol/L (98-107); Glucose 176 mg/dL (74-106); Magnesium 1.6 mg/dL (1.8-2.4); Potassium 5.1 mmol/L (3.5-5.1); Sodium 133 mmol/L (136-145)
== END 2024-12-18 03:33 | disposition home or self-care (01) ==
LOC: LBO 03:32
PROVIDERS: PCP Family Medicine; Visit Provider Nurse Practitioner Acute Care
DX: E83.42 Hypomagnesemia (principal); N18.9 Chronic kidney disease, unspecified
CPT/HCPCS: 36415; 80048; 83735

== ENCOUNTER → 2024-12-20 08:45 | Outpatient (BNVA) | payer MEDICARE, SELFPAY | PROVIDERS: PCP Family Medicine; Referring Provider Family Medicine; Visit Provider Internal Medicine Cardiovascular Disease | DX: I48.0 Paroxysmal atrial fibrillation (principal); R55 Syncope and collapse; Z79.01 Long term (current) use of anticoagulants | CPT/HCPCS: 99214 ==

== ENCOUNTER → 2025-02-17 09:50 | Outpatient (BNVA) | payer MEDICARE, SELFPAY | PROVIDERS: PCP Family Medicine; Visit Provider Nurse Practitioner Gerontology | DX: R35.0 Frequency of micturition (principal); N39.46 Mixed incontinence; N39.0 Urinary tract infection, site not specified | CPT/HCPCS: 99213 ==

== ENCOUNTER 2025-03-11 16:19 | Outpatient (REF) | payer MEDICARE, SELFPAY ==
[2025-03-11 13:23] LABS: ALT 26 U/L (14-59); AST 19 U/L (15-37); Albumin 4.1 g/dL (3.4-5.0); Alkaline Phosphatase 39 U/L (46-116); Anion Gap 10.3 mmol/L (3-11); BUN 43 mg/dL (7-18); Bilirubin, Total 0.7 mg/dL (0.2-1.0); CO2 23.7 mmol/L (21.0-32.0); Calcium 9.2 mg/dL (8.5-10.1); Chloride 99 mmol/L (98-107); Estimated GFR 34.36 (mL/min/1.73m2); Glucose 196 mg/dL (74-106); Potassium 5.5 mmol/L (3.5-5.1); Sodium 133 mmol/L (136-145); Total Protein 7.0 g/dL (6.4-8.2)
== END 2025-03-11 16:20 | disposition home or self-care (01) ==
LOC: LBN 16:19
PROVIDERS: PCP Family Medicine; Visit Provider Family Medicine
DX: I10 Essential (primary) hypertension (principal)
CPT/HCPCS: 80053

== ENCOUNTER 2025-04-30 04:07 | Outpatient (CLI) | payer MEDICARE, SELFPAY ==
[2025-04-30 14:24] LABS: Anion Gap 10.2 mmol/L (3-11); BUN 54 mg/dL (7-18); CO2 25.8 mmol/L (21.0-32.0); Calcium 9.7 mg/dL (8.5-10.1); Chloride 98 mmol/L (98-107); Estimated GFR 29.57 (mL/min/1.73m2); Glucose 168 mg/dL (74-106); Potassium 4.7 mmol/L (3.5-5.1); Sodium 134 mmol/L (136-145)
== END 2025-04-30 04:08 | disposition home or self-care (01) ==
LOC: LOS 04:07
PROVIDERS: PCP Family Medicine; Visit Provider Family Medicine
DX: N28.9 Disorder of kidney and ureter, unspecified (principal)
CPT/HCPCS: 36415; 80048

== ENCOUNTER → 2025-06-26 09:42 | Outpatient (BNVA) | payer MEDICARE, SELFPAY | PROVIDERS: PCP Family Medicine; Visit Provider Internal Medicine Cardiovascular Disease | DX: I48.0 Paroxysmal atrial fibrillation (principal); Z79.01 Long term (current) use of anticoagulants | CPT/HCPCS: 99213 ==